=== PATIENT | female | born 1970 | race Caucasian/White ===

== ENCOUNTER → 2017-03-30 | Outpatient (REF) | payer OTHER ==
[~2017-03-30] MED LIST: BUPR300T34 PO; MAGN400T5 PO; MELO15TA4 PO; OMEP40CA2 PO; SIMV40TA2 PO; VITA50003 PO; ZEST1TAB2 PO
[2017-03-30 12:14] LABS: BLOOD UREA NITROGEN 15 MG/DL (7-18); CREATININE FOR GFR 0.75 MG/DL (0.55-1.02); GLOMERULAR FILTRATION RATE > 60.0 (>58)
== END ==
LOC: M LABDRAW1 11:36
PROVIDERS: ATTEND Physician Assistant Surgical
DX: M70.61 Trochanteric bursitis, right hip (principal)

== ENCOUNTER → 2017-04-12 | Outpatient (REF) | payer OTHER ==
[2017-04-12 14:21] LABS: BASO % 0.2 % (0.0-1.0); EOS % 0.4 % (0.0-3.0); LARGE UNSTAINED CELL # 0.1 K/mm3 (0.0-0.4); LARGE UNSTAINED CELL % 1.2 % (0.0-4.0); LYMPH # 1.9 K/mm3 (1.5-4.5); LYMPH % 21.9 % (24.0-44.0); MEAN CORPUSCULAR HGB CONC 32.8 g/dl (32.0-36.5); MEAN CORPUSCULAR VOLUME 85.4 fl (80.0-96.0); MONO # 0.4 K/mm3 (0.0-0.8); MONO % 4.9 % (0.0-5.0); NEUTROPHILS # 6.1 K/mm3 (1.8-7.7); NEUTROPHILS % 71.4 % (36.0-66.0); PLATELET COUNT, AUTOMATED 216 k/mm3 (150-450); RED CELL DISTRIBUTION WIDTH 15.4 % (11.5-14.5); WHITE BLOOD COUNT 8.6 K/mm3 (4.0-10.0)
[2017-04-12 14:48] LABS: ERYTHROCYTE SEDIMENTATION RATE 8 mm/hr (0-20)
[2017-04-12 15:12] LABS: GLUCOSE, FASTING 86 MG/DL (70-105); TOTAL PROTEIN 6.4 GM/DL (6.4-8.2); URIC ACID 4.9 MG/DL (2.6-6.0)
[2017-04-13 11:56] LABS: ALBUMIN 3.99 GM/DL (3.29-5.55); ALBUMIN % 62.4 % (55.8-66.1); GAMMA GLOBULIN % 10.7 % (11.1-18.8)
[2017-04-13 14:18] LABS: Lyme Disease IgG/IgM Antibodie <0.91 ISR (0.00-0.90); Lyme Disease IgM Ab Quantitati <0.80 index (0.00-0.79)
== END ==
LOC: M LABDRAW1 13:02
PROVIDERS: ATTEND Physician Assistant Surgical
DX: M17.0 Bilateral primary osteoarthritis of knee (principal)

== ENCOUNTER → 2017-07-03 | Outpatient (REF) | payer OTHER ==
[~2017-07-03] MED LIST changes: +VITA1CAP40 PO; -VITA50003 PO
[2017-07-03 11:45] LABS: BASO % 0.3 % (0.0-1.0); EOS # 0.1 K/mm3 (0.0-0.50); EOS % 1.2 % (0.0-3.0); LARGE UNSTAINED CELL % 0.7 % (0.0-4.0); LYMPH # 1.1 K/mm3 (1.5-4.5); LYMPH % 20.6 % (24.0-44.0); MEAN CORPUSCULAR HEMOGLOBIN 26.7 pg (27.0-33.0); MEAN CORPUSCULAR HGB CONC 33.2 g/dl (32.0-36.5); MEAN CORPUSCULAR VOLUME 80.5 fl (80.0-96.0); MONO # 0.2 K/mm3 (0.0-0.8); MONO % 4.3 % (0.0-5.0); NEUTROPHILS # 3.9 K/mm3 (1.8-7.7); NEUTROPHILS % 72.9 % (36.0-66.0); PLATELET COUNT, AUTOMATED 209 k/mm3 (150-450); RED CELL DISTRIBUTION WIDTH 13.6 % (11.5-14.5); WHITE BLOOD COUNT 5.4 K/mm3 (4.0-10.0)
[2017-07-03 12:03] LABS: ALBUMIN 3.9 GM/DL (3.2-5.2); ALBUMIN/GLOBULIN RATIO 1.34 (1.00-1.93); ALKALINE PHOSPHATASE 52 U/L (45-117); ALT/SGPT 24 U/L (12-78); ANION GAP 12 MEQ/L (8-16); AST/SGOT 15 U/L (15-37); BILIRUBIN,TOTAL 0.4 MG/DL (0.2-1.0); BLOOD UREA NITROGEN 13 MG/DL (7-18); CALCIUM LEVEL 9.1 MG/DL (8.5-10.1); CARBON DIOXIDE LEVEL 23 MEQ/L (21-32); CHLORIDE LEVEL 105 MEQ/L (98-107); CREATININE FOR GFR 0.85 MG/DL (0.55-1.02); GLOMERULAR FILTRATION RATE > 60.0 (>58); GLUCOSE, FASTING 128 MG/DL (70-105); POTASSIUM SERUM 3.8 MEQ/L (3.5-5.1); SODIUM LEVEL 140 MEQ/L (136-145); TOTAL PROTEIN 6.8 GM/DL (6.4-8.2)
[2017-07-03 12:23] LABS: ERYTHROCYTE SEDIMENTATION RATE 8 mm/hr (0-20)
[2017-07-04 12:26] LABS: ALBUMIN 4.22 GM/DL (3.29-5.55); ALBUMIN % 62.1 % (55.8-66.1); GAMMA GLOBULIN % 11.6 % (11.1-18.8)
== END ==
LOC: M LABDRAW1 07:58
PROVIDERS: ATTEND Internal Medicine Rheumatology
DX: M35.9 Systemic involvement of connective tissue, unspecified (principal); D50.0 Iron deficiency anemia secondary to blood loss (chronic); Z79.899 Other long term (current) drug therapy

== ENCOUNTER → 2017-07-04 | Outpatient (REF) | payer OTHER | LOC: M LABDRAW1 12:01 | PROVIDERS: ATTEND Internal Medicine Rheumatology | DX: M35.9 Systemic involvement of connective tissue, unspecified (principal); Z79.899 Other long term (current) drug therapy; D50.0 Iron deficiency anemia secondary to blood loss (chronic) ==

== ENCOUNTER → 2017-09-15 | Outpatient (CLI) | payer OTHER ==
[2017-09-15 11:18] LABS: BASO % 0.3 % (0.0-1.0); EOS # 0.1 10^3/uL (0.0-0.50); EOS % 0.8 % (0.0-3.0); IMMATURE GRANULOCYTE % 0.4 % (0-0); LYMPH # 1.7 10^3/uL (1.5-4.5); LYMPH % 22.6 % (24.0-44.0); MEAN CORPUSCULAR HEMOGLOBIN 25.3 pg (27.0-33.0); MEAN CORPUSCULAR HGB CONC 31.7 g/dl (32.0-36.5); MEAN CORPUSCULAR VOLUME 79.9 fl (80.0-96.0); MONO # 0.5 10^3/uL (0.0-0.8); MONO % 6.3 % (0.0-5.0); NEUTROPHILS # 5.3 10^3/uL (1.8-7.7); NEUTROPHILS % 69.6 % (36.0-66.0); PLATELET COUNT, AUTOMATED 256 10^3/uL (150-450); RED CELL DISTRIBUTION WIDTH 14.6 % (11.5-14.5); WHITE BLOOD COUNT 7.7 10^3/uL (4.0-10.0)
[2017-09-15 11:44] LABS: ALBUMIN 3.8 GM/DL (3.2-5.2); ALBUMIN/GLOBULIN RATIO 1.15 (1.00-1.93); ALKALINE PHOSPHATASE 63 U/L (45-117); ALT/SGPT 33 U/L (12-78); ANION GAP 8 MEQ/L (8-16); AST/SGOT 14 U/L (7-37); BILIRUBIN,TOTAL 0.3 MG/DL (0.2-1.0); BLOOD UREA NITROGEN 16 MG/DL (7-18); CALCIUM LEVEL 8.9 MG/DL (8.5-10.1); CARBON DIOXIDE LEVEL 28 MEQ/L (21-32); CHLORIDE LEVEL 104 MEQ/L (98-107); CHOLESTEROL LEVEL 233 MG/DL (<200); CREATININE FOR GFR 0.64 MG/DL (0.55-1.02); FREE T4 1.16 NG/DL (0.76-1.46); GLOMERULAR FILTRATION RATE > 60.0 (>58); GLUCOSE, FASTING 77 MG/DL (70-105); POTASSIUM SERUM 3.8 MEQ/L (3.5-5.1); SODIUM LEVEL 140 MEQ/L (136-145); TOTAL PROTEIN 7.1 GM/DL (6.4-8.2); TRIGLYCERIDES LEVEL 137 MG/DL (<150)
== END ==
LOC: M LAB 10:45
PROVIDERS: ATTEND Nurse Practitioner Adult Health
DX: E55.9 Vitamin D deficiency, unspecified (principal); E78.00 Pure hypercholesterolemia, unspecified; Z79.899 Other long term (current) drug therapy

== ENCOUNTER → 2017-10-31 | Outpatient (CLI) | payer OTHER | LOC: M RAD 12:21 | DX: M79.671 Pain in right foot (principal) | CPT/HCPCS: 73630 ==

== ENCOUNTER → 2018-05-27 | Outpatient (REF) ==
[2018-05-29 09:06] LABS: HERPES ZOSTER, VARICELLA IgG 494 index (Immune >165)
== END ==
LOC: M LAB 16:32
DX: Z00.00 Encounter for general adult medical examination without abnormal findings (principal)

== ENCOUNTER → 2018-07-22 | Outpatient (CLI) | payer OTHER, SELFPAY ==
[2018-07-22 17:53] LABS: BASO % 0.5 % (0.0-1.0); EOS # 0.1 10^3/uL (0.0-0.50); EOS % 1.2 % (0.0-3.0); HEMATOCRIT 34.9 % (36.0-47.0); HEMOGLOBIN 11.6 g/dl (12.0-15.5); IMMATURE GRANULOCYTE % 0.4 % (0-3.0); LYMPH # 1.9 10^3/uL (1.5-4.5); MEAN CORPUSCULAR HGB CONC 33.2 g/dl (32.0-36.5); MEAN CORPUSCULAR VOLUME 81.4 fl (80.0-96.0); MONO # 0.4 10^3/uL (0.0-0.8); MONO % 5.3 % (0.0-5.0); NEUTROPHILS # 5.8 10^3/uL (1.8-7.7); NEUTROPHILS % 69.6 % (36.0-66.0); PLATELET COUNT, AUTOMATED 293 10^3/uL (150-450); RED BLOOD COUNT 4.29 10^6/uL (4.00-5.40); RED CELL DISTRIBUTION WIDTH 14.3 % (11.5-14.5); WHITE BLOOD COUNT 8.3 10^3/uL (4.0-10.0)
[2018-07-22 19:08] LABS: ALBUMIN/GLOBULIN RATIO 1.14 (1.00-1.93); ALKALINE PHOSPHATASE 85 U/L (45-117); ALT/SGPT 28 U/L (12-78); ANION GAP 10 MEQ/L (8-16); AST/SGOT 21 U/L (7-37); BILIRUBIN,TOTAL 0.2 MG/DL (0.2-1.0); BLOOD UREA NITROGEN 17 MG/DL (7-18); CALCIUM LEVEL 9.2 MG/DL (8.5-10.1); CARBON DIOXIDE LEVEL 29 MEQ/L (21-32); CHLORIDE LEVEL 101 MEQ/L (98-107); CHOLESTEROL LEVEL 175 MG/DL (<200); CHOLESTEROL RISK RATIO 3.723 (<5); CREATININE FOR GFR 0.64 MG/DL (0.55-1.30); GLOMERULAR FILTRATION RATE > 60.0 (>58); GLUCOSE, FASTING 82 MG/DL (70-100); HDL CHOLESTEROL 47 MG/DL (>40); LDL CHOLESTEROL 95 MG/DL (<100); NON-HDL-C 128 MG/DL; POTASSIUM SERUM 3.6 MEQ/L (3.5-5.1); SODIUM LEVEL 140 MEQ/L (136-145); TOTAL 25(OH) VITAMIN D 28.6 NG/ML (30.0-100.0); TOTAL PROTEIN 7.5 GM/DL (6.4-8.2); TRIGLYCERIDES LEVEL 163 MG/DL (<150)
== END ==
LOC: M LAB 16:22
DX: R53.83 Other fatigue (principal); I10 Essential (primary) hypertension; E78.2 Mixed hyperlipidemia; E55.9 Vitamin D deficiency, unspecified
CPT/HCPCS: 84443

== ENCOUNTER → 2018-11-22 | Outpatient (CLI) | payer BC ==
[~2018-11-22] MED LIST changes: +MELO15TA28 PO; -MELO15TA4 PO; -VITA1CAP40 PO; +VITA50005 PO
[2018-11-22 11:04] LABS: BASO % 0.4 % (0.0-1.0); EOS # 0.1 10^3/uL (0.0-0.50); EOS % 1.4 % (0.0-3.0); HEMATOCRIT 37.6 % (36.0-47.0); HEMOGLOBIN 12.3 g/dl (12.0-15.5); LYMPH # 1.8 10^3/uL (1.5-4.5); LYMPH % 25.8 % (24.0-44.0); MEAN CORPUSCULAR HEMOGLOBIN 26.1 pg (27.0-33.0); MEAN CORPUSCULAR HGB CONC 32.7 g/dl (32.0-36.5); MEAN CORPUSCULAR VOLUME 79.7 fl (80.0-96.0); MONO # 0.4 10^3/uL (0.0-0.8); MONO % 5.9 % (0.0-5.0); NEUTROPHILS # 4.6 10^3/uL (1.8-7.7); NEUTROPHILS % 66.2 % (36.0-66.0); PLATELET COUNT, AUTOMATED 303 10^3/uL (150-450); RED BLOOD COUNT 4.72 10^6/uL (4.00-5.40); WHITE BLOOD COUNT 6.9 10^3/uL (4.0-10.0)
[2018-11-22 11:35] LABS: ERYTHROCYTE SEDIMENTATION RATE 9 mm/hr (0-20)
[2018-11-22 11:52] LABS: C REACTIVE PROTEIN QUANTITATIV 0.31 MG/DL (0.00-0.30); RHEUMATOID FACTOR QUANT 24.4 IU/ML (<15.0)
[2018-11-23 10:11] LABS: ANTINUCLEAR ANTIBODIES DIRECT Negative (Negative)
== END ==
LOC: M LAB 10:27
PROVIDERS: ATTEND Physician Assistant Medical
DX: M25.549 Pain in joints of unspecified hand (principal)

== ENCOUNTER → 2018-12-10 | Outpatient (CLI) | payer BC ==
[2018-12-10 17:42] LABS: ALT/SGPT 27 U/L (12-78); BILIRUBIN,TOTAL 0.2 MG/DL (0.2-1.0); BLOOD UREA NITROGEN 16 MG/DL (7-18); C REACTIVE PROTEIN QUANTITATIV 0.47 MG/DL (0.00-0.30); CALCIUM LEVEL 8.8 MG/DL (8.5-10.1); CARBON DIOXIDE LEVEL 27 MEQ/L (21-32); CHLORIDE LEVEL 101 MEQ/L (98-107); CREATININE FOR GFR 0.72 MG/DL (0.55-1.30); GLOMERULAR FILTRATION RATE > 60.0 (>58); GLUCOSE, FASTING 89 MG/DL (70-100); POTASSIUM SERUM 3.6 MEQ/L (3.5-5.1); SODIUM LEVEL 135 MEQ/L (136-145); TOTAL PROTEIN 7.1 GM/DL (6.4-8.2); URIC ACID 4.5 MG/DL (2.6-6.0)
--- NOTE | 2018-12-11 00:24 | REP ---
Clinical: Arthritis. Technique: AP, lateral, bilateral oblique views right and left hand . Findings: Mild osteoarthritic degenerative changes involve the bilateral interphalangeal joints and first metacarpophalangeal joints. Findings include subtle joint space narrowing and marginal spurring best identified on lateral radiographs. No periarticular erosive changes, loose bodies or swelling noted. No acute fracture dislocation. Impression: Mild osteoarthritic changes at the bilateral interphalangeal and first metacarpophalangeal joints. Electronically Signed by Luis Tineo MD 12/11/2018 12:15 A
--- NOTE | 2018-12-11 00:26 | REP ---
Clinical: Arthritis. Technique: AP, lateral, bilateral oblique views of the left foot. Findings: Minimal joint space narrowing noted at the interphalangeal joints. Mild sclerosis with joint space narrowing noted at the first metatarsophalangeal joint. Lateral view demonstrates moderate calcaneal heal spur. Pes planus suggested. Impression: Mild age-related changes suggested. Electronically Signed by Luis Tineo MD 12/11/2018 12:17 A
--- NOTE | 2018-12-11 00:27 | REP ---
Clinical: Arthritis. Technique: AP, lateral, bilateral oblique and sunrise views of the right knee. Findings: Mild marginal spurring/early osteophyte formation noted along the medial femoral condyle and tibial plateau. Moderate subchondral sclerosis, marginal osteophytes and joint space narrowing noted at the patella and patellofemoral joint space. No acute fracture or dislocation. No obvious effusion. Impression: Moderate arthritic degenerative changes primarily involving the patella and patellofemoral joint space. Electronically Signed by Luis Tineo MD 12/11/2018 12:18 A
--- NOTE | 2018-12-11 00:30 | REP ---
Clinical: Arthritis. Technique: Single AP weightbearing view of the right and left knee. Findings: Right knee demonstrates subtle spurring/early osteophyte formation at the medial femoral condyle and along the lateral tibial plateau. The joint spaces are symmetric and relatively normal. Impression: Mild age-related changes (right greater than left). Electronically Signed by Luis Tineo MD 12/11/2018 12:21 A
[2018-12-13 00:07] LABS: CYCLIC CITRULLINATED PEPTIDE 6 units (0-19)
[2018-12-16 14:16] LABS: HLA-B27 Negative (.)
== END ==
LOC: M LAB 15:45
PROVIDERS: ATTEND Internal Medicine Rheumatology
DX: M17.0 Bilateral primary osteoarthritis of knee (principal); M19.041 Primary osteoarthritis, right hand; M19.042 Primary osteoarthritis, left hand

== ENCOUNTER → 2018-12-18 | Outpatient (REF) | payer BC ==
[2018-12-18 14:23] LABS: INFLUENZA A AMPLIFICATION POSITIVE (NEGATIVE); INFLUENZA B AMPLIFICATION NEGATIVE (NEGATIVE)
== END ==
LOC: M LAB REF 13:35
PROVIDERS: ATTEND Physician Assistant
DX: J11.1 Influenza due to unidentified influenza virus with other respiratory manifestations (principal)

== ENCOUNTER → 2019-01-30 | Outpatient (CLI) | payer BC ==
[2019-01-30 09:45] LABS: BASO % 0.3 % (0.0-1.0); EOS # 0.1 10^3/uL (0.0-0.50); EOS % 1.7 % (0.0-3.0); HEMATOCRIT 34.6 % (36.0-47.0); HEMOGLOBIN 11.4 g/dl (12.0-15.5); LYMPH # 1.5 10^3/uL (1.5-4.5); LYMPH % 22.8 % (24.0-44.0); MEAN CORPUSCULAR HEMOGLOBIN 26.6 pg (27.0-33.0); MEAN CORPUSCULAR HGB CONC 32.9 g/dl (32.0-36.5); MEAN CORPUSCULAR VOLUME 80.7 fl (80.0-96.0); MONO # 0.5 10^3/uL (0.0-0.8); MONO % 7.8 % (0.0-5.0); NEUTROPHILS # 4.3 10^3/uL (1.8-7.7); NEUTROPHILS % 66.9 % (36.0-66.0); PLATELET COUNT, AUTOMATED 252 10^3/uL (150-450); RED BLOOD COUNT 4.29 10^6/uL (4.00-5.40); WHITE BLOOD COUNT 6.4 10^3/uL (4.0-10.0)
[2019-01-30 09:58] LABS: ALBUMIN 3.9 GM/DL (3.2-5.2); ALT/SGPT 27 U/L (12-78); BILIRUBIN,TOTAL 0.3 MG/DL (0.2-1.0); BLOOD UREA NITROGEN 13 MG/DL (7-18); C REACTIVE PROTEIN QUANTITATIV 0.54 MG/DL (0.00-0.30); CARBON DIOXIDE LEVEL 29 MEQ/L (21-32); CHLORIDE LEVEL 103 MEQ/L (98-107); CREATININE FOR GFR 0.66 MG/DL (0.55-1.30); GLOMERULAR FILTRATION RATE > 60.0 (>58); GLUCOSE, FASTING 104 MG/DL (70-100); POTASSIUM SERUM 3.6 MEQ/L (3.5-5.1); SODIUM LEVEL 140 MEQ/L (136-145); TOTAL PROTEIN 6.8 GM/DL (6.4-8.2)
[2019-01-30 10:04] LABS: ERYTHROCYTE SEDIMENTATION RATE 12 mm/hr (0-20)
== END ==
LOC: M LAB 08:12
PROVIDERS: ATTEND Internal Medicine Rheumatology
DX: M05.79 Rheumatoid arthritis with rheumatoid factor of multiple sites without organ or systems involvement (principal)

== ENCOUNTER → 2019-03-06 | Outpatient (REF) | payer BC ==
[2019-03-06 13:36] LABS: BASO % 0.4 % (0.0-1.0); EOS # 0.1 10^3/uL (0.0-0.50); EOS % 1.5 % (0.0-3.0); LYMPH # 1.4 10^3/uL (1.5-4.5); LYMPH % 19.8 % (24.0-44.0); MEAN CORPUSCULAR HEMOGLOBIN 26.8 pg (27.0-33.0); MEAN CORPUSCULAR HGB CONC 32.4 g/dl (32.0-36.5); MEAN CORPUSCULAR VOLUME 82.8 fl (80.0-96.0); MONO # 0.4 10^3/uL (0.0-0.8); MONO % 5.1 % (0.0-5.0); NEUTROPHILS % 73.1 % (36.0-66.0); PLATELET COUNT, AUTOMATED 285 10^3/uL (150-450); RED BLOOD COUNT 4.47 10^6/uL (4.00-5.40); WHITE BLOOD COUNT 6.9 10^3/uL (4.0-10.0)
[2019-03-06 13:44] LABS: ALBUMIN 4.2 GM/DL (3.2-5.2); ALT/SGPT 35 U/L (12-78); BILIRUBIN,TOTAL 0.3 MG/DL (0.2-1.0); BLOOD UREA NITROGEN 13 MG/DL (7-18); C REACTIVE PROTEIN QUANTITATIV 0.33 MG/DL (0.00-0.30); CALCIUM LEVEL 9.1 MG/DL (8.5-10.1); CARBON DIOXIDE LEVEL 28 MEQ/L (21-32); CHLORIDE LEVEL 103 MEQ/L (98-107); CREATININE FOR GFR 0.68 MG/DL (0.55-1.30); GLOMERULAR FILTRATION RATE > 60.0 (>58); GLUCOSE, FASTING 106 MG/DL (70-100); POTASSIUM SERUM 3.6 MEQ/L (3.5-5.1); SODIUM LEVEL 138 MEQ/L (136-145); TOTAL PROTEIN 7.1 GM/DL (6.4-8.2)
[2019-03-06 14:47] LABS: ERYTHROCYTE SEDIMENTATION RATE 10 mm/hr (0-20)
== END ==
LOC: M LABDRAW1 12:19
PROVIDERS: ATTEND Internal Medicine Rheumatology
DX: M05.79 Rheumatoid arthritis with rheumatoid factor of multiple sites without organ or systems involvement (principal)

== ENCOUNTER → 2019-04-03 | Outpatient (REF) | payer BC ==
[2019-04-03 10:23] LABS: BASO % 0.4 % (0.0-1.0); EOS # 0.1 10^3/uL (0.0-0.50); EOS % 1.5 % (0.0-3.0); HEMATOCRIT 34.9 % (36.0-47.0); HEMOGLOBIN 11.6 g/dl (12.0-15.5); LYMPH # 1.4 10^3/uL (1.5-4.5); LYMPH % 20.5 % (24.0-44.0); MEAN CORPUSCULAR HGB CONC 33.2 g/dl (32.0-36.5); MEAN CORPUSCULAR VOLUME 81.4 fl (80.0-96.0); MONO # 0.3 10^3/uL (0.0-0.8); NEUTROPHILS # 4.9 10^3/uL (1.8-7.7); NEUTROPHILS % 72.2 % (36.0-66.0); PLATELET COUNT, AUTOMATED 247 10^3/uL (150-450); RED BLOOD COUNT 4.29 10^6/uL (4.00-5.40); WHITE BLOOD COUNT 6.8 10^3/uL (4.0-10.0)
[2019-04-03 10:49] LABS: ERYTHROCYTE SEDIMENTATION RATE 13 mm/hr (0-20)
[2019-04-03 10:54] LABS: ALBUMIN 4.1 GM/DL (3.2-5.2); ALT/SGPT 35 U/L (12-78); BILIRUBIN,TOTAL 0.4 MG/DL (0.2-1.0); BLOOD UREA NITROGEN 14 MG/DL (7-18); C REACTIVE PROTEIN QUANTITATIV 0.49 MG/DL (0.00-0.30); CALCIUM LEVEL 9.3 MG/DL (8.5-10.1); CARBON DIOXIDE LEVEL 29 MEQ/L (21-32); CHLORIDE LEVEL 102 MEQ/L (98-107); CREATININE FOR GFR 0.68 MG/DL (0.55-1.30); GLOMERULAR FILTRATION RATE > 60.0 (>58); GLUCOSE, FASTING 91 MG/DL (70-100); POTASSIUM SERUM 3.7 MEQ/L (3.5-5.1); SODIUM LEVEL 138 MEQ/L (136-145); TOTAL PROTEIN 7.1 GM/DL (6.4-8.2)
[2019-04-04 12:32] LABS: HEPATITIS B SURFACE ANTIBODY NEGATIVE (POSITIVE)
[2019-04-04 12:42] LABS: HEPATITIS B SURFACE ANTIGEN NEGATIVE (NEGATIVE)
[2019-04-04 14:28] LABS: HEPATITIS C VIRUS ABY INDEX < 0.0 INDEX (<0.8)
== END ==
LOC: M SFHCPLAZ 08:28
PROVIDERS: ATTEND Internal Medicine Rheumatology
DX: M05.79 Rheumatoid arthritis with rheumatoid factor of multiple sites without organ or systems involvement (principal); Z79.899 Other long term (current) drug therapy

== ENCOUNTER → 2019-06-09 | Outpatient (CLI) | payer BC ==
[2019-06-09 08:37] LABS: BASO # 0.1 10^3/uL (0.0-0.2); BASO % 0.8 % (0.0-1.0); EOS # 0.1 10^3/uL (0.0-0.50); EOS % 2.2 % (0.0-3.0); HEMATOCRIT 37.4 % (36.0-47.0); HEMOGLOBIN 12.5 g/dl (12.0-15.5); LYMPH # 1.7 10^3/uL (1.5-4.5); LYMPH % 29.1 % (24.0-44.0); MEAN CORPUSCULAR HEMOGLOBIN 28.6 pg (27.0-33.0); MEAN CORPUSCULAR HGB CONC 33.4 g/dl (32.0-36.5); MEAN CORPUSCULAR VOLUME 85.6 fl (80.0-96.0); MONO # 0.5 10^3/uL (0.0-0.8); MONO % 7.9 % (0.0-5.0); NEUTROPHILS # 3.6 10^3/uL (1.8-7.7); NEUTROPHILS % 59.7 % (36.0-66.0); PLATELET COUNT, AUTOMATED 233 10^3/uL (150-450); RED BLOOD COUNT 4.37 10^6/uL (4.00-5.40)
[2019-06-09 08:56] LABS: ALBUMIN 4.1 GM/DL (3.2-5.2); ALT/SGPT 47 U/L (12-78); BILIRUBIN,TOTAL 0.3 MG/DL (0.2-1.0); BLOOD UREA NITROGEN 14 MG/DL (7-18); CALCIUM LEVEL 9.2 MG/DL (8.5-10.1); CARBON DIOXIDE LEVEL 31 MEQ/L (21-32); CHLORIDE LEVEL 102 MEQ/L (98-107); CREATININE FOR GFR 0.68 MG/DL (0.55-1.30); GLOMERULAR FILTRATION RATE > 60.0 (>58); GLUCOSE, FASTING 101 MG/DL (70-100); POTASSIUM SERUM 3.5 MEQ/L (3.5-5.1); SODIUM LEVEL 140 MEQ/L (136-145); TOTAL PROTEIN 7.2 GM/DL (6.4-8.2)
[2019-06-09 09:14] LABS: ERYTHROCYTE SEDIMENTATION RATE 7 mm/hr (0-20)
== END ==
LOC: M LAB 07:56
PROVIDERS: ATTEND Internal Medicine Rheumatology
DX: M05.79 Rheumatoid arthritis with rheumatoid factor of multiple sites without organ or systems involvement (principal)

== ENCOUNTER → 2019-11-13 | Outpatient (CLI) | payer BC ==
[~2019-11-13] MED LIST changes: -OMEP40CA2 PO; +OMEP40CA97 PO; -SIMV40TA2 PO; +SIMV40TA20 PO
[2019-11-13 16:09] LABS: BASO % 0.3 % (0.0-1.0); EOS # 0.2 10^3/uL (0.0-0.5); EOS % 1.6 % (0.0-3.0); HEMATOCRIT 36.8 % (36.0-47.0); HEMOGLOBIN 12.6 g/dl (12.0-15.5); LYMPH # 1.9 10^3/uL (1.5-5.0); LYMPH % 20.7 % (24.0-44.0); MEAN CORPUSCULAR HEMOGLOBIN 30.3 pg (27.0-33.0); MEAN CORPUSCULAR HGB CONC 34.2 g/dl (32.0-36.5); MEAN CORPUSCULAR VOLUME 88.5 fl (80.0-96.0); MONO # 0.6 10^3/uL (0.0-0.8); MONO % 6.3 % (0.0-5.0); NEUTROPHILS # 6.5 10^3/uL (1.5-8.5); NEUTROPHILS % 70.7 % (36.0-66.0); PLATELET COUNT, AUTOMATED 236 10^3/uL (150-450); RED BLOOD COUNT 4.16 10^6/uL (4.00-5.40); WHITE BLOOD COUNT 9.1 10^3/uL (4.0-10.0)
[2019-11-13 16:40] LABS: ALBUMIN 4.1 GM/DL (3.2-5.2); ALT/SGPT 38 U/L (12-78); BILIRUBIN,TOTAL 0.3 MG/DL (0.2-1.0); BLOOD UREA NITROGEN 15 MG/DL (7-18); C REACTIVE PROTEIN QUANTITATIV 0.68 MG/DL (0.00-0.30); CALCIUM LEVEL 8.8 MG/DL (8.5-10.1); CARBON DIOXIDE LEVEL 27 MEQ/L (21-32); CHLORIDE LEVEL 101 MEQ/L (98-107); GLOMERULAR FILTRATION RATE > 60.0 (>51); GLUCOSE, FASTING 114 MG/DL (70-100); POTASSIUM SERUM 3.5 MEQ/L (3.5-5.1); SODIUM LEVEL 137 MEQ/L (136-145)
[2019-11-13 17:00] LABS: ERYTHROCYTE SEDIMENTATION RATE 9 mm/hr (0-30)
== END ==
LOC: M LAB 15:21
PROVIDERS: ATTEND Internal Medicine
DX: M05.79 Rheumatoid arthritis with rheumatoid factor of multiple sites without organ or systems involvement (principal)

== ENCOUNTER → 2020-01-30 | Outpatient (CLI) | payer BC ==
[~2020-01-30] MED LIST changes: -BUPR300T34 PO; +BUPR300T92 PO
[2020-01-30 10:54] LABS: ALBUMIN 3.7 GM/DL (3.2-5.2); ALT/SGPT 50 U/L (12-78); BILIRUBIN,TOTAL 0.4 MG/DL (0.2-1.0); BLOOD UREA NITROGEN 11 MG/DL (7-18); C REACTIVE PROTEIN QUANTITATIV 0.67 MG/DL (0.00-0.30); CARBON DIOXIDE LEVEL 28 MEQ/L (21-32); CHLORIDE LEVEL 103 MEQ/L (98-107); CREATININE FOR GFR 0.68 MG/DL (0.55-1.30); GLOMERULAR FILTRATION RATE > 60.0 (>51); GLUCOSE, FASTING 137 MG/DL (70-100); POTASSIUM SERUM 3.4 MEQ/L (3.5-5.1); SODIUM LEVEL 137 MEQ/L (136-145)
[2020-01-30 11:28] LABS: BASO % 0.4 % (0.0-1.0); EOS # 0.1 10^3/uL (0.0-0.5); EOS % 0.9 % (0.0-3.0); HEMATOCRIT 38.8 % (36.0-47.0); HEMOGLOBIN 13.1 g/dl (12.0-15.5); LYMPH # 1.1 10^3/uL (1.5-5.0); LYMPH % 14.5 % (24.0-44.0); MEAN CORPUSCULAR HGB CONC 33.8 g/dl (32.0-36.5); MEAN CORPUSCULAR VOLUME 88.8 fl (80.0-96.0); MONO # 0.4 10^3/uL (0.0-0.8); MONO % 4.7 % (0.0-5.0); NEUTROPHILS # 6.3 10^3/uL (1.5-8.5); NEUTROPHILS % 79.2 % (36.0-66.0); PLATELET COUNT, AUTOMATED 247 10^3/uL (150-450); RED BLOOD COUNT 4.37 10^6/uL (4.00-5.40); WHITE BLOOD COUNT 7.9 10^3/uL (4.0-10.0)
[2020-01-30 13:10] LABS: ERYTHROCYTE SEDIMENTATION RATE 8 mm/hr (0-30)
== END ==
LOC: M LAB 09:36
PROVIDERS: ATTEND Internal Medicine
DX: M05.79 Rheumatoid arthritis with rheumatoid factor of multiple sites without organ or systems involvement (principal)

== ENCOUNTER → 2020-05-05 | Outpatient (CLI) | payer BC ==
[2020-05-05 14:51] LABS: BASO % 0.5 % (0.0-1.0); EOS # 0.1 10^3/uL (0.0-0.5); EOS % 1.6 % (0.0-3.0); HEMATOCRIT 36.8 % (36.0-47.0); HEMOGLOBIN 12.7 g/dl (12.0-15.5); LYMPH # 2.2 10^3/uL (1.5-5.0); LYMPH % 29.4 % (24.0-44.0); MEAN CORPUSCULAR HEMOGLOBIN 31.1 pg (27.0-33.0); MEAN CORPUSCULAR HGB CONC 34.5 g/dl (32.0-36.5); MONO # 0.5 10^3/uL (0.0-0.8); MONO % 6.1 % (0.0-5.0); NEUTROPHILS # 4.5 10^3/uL (1.5-8.5); NEUTROPHILS % 62.1 % (36.0-66.0); PLATELET COUNT, AUTOMATED 231 10^3/uL (150-450); RED BLOOD COUNT 4.09 10^6/uL (4.00-5.40); WHITE BLOOD COUNT 7.3 10^3/uL (4.0-10.0)
[2020-05-05 15:09] LABS: ALBUMIN 4.1 GM/DL (3.2-5.2); ALT/SGPT 54 U/L (12-78); BILIRUBIN,TOTAL 0.5 MG/DL (0.2-1.0); BLOOD UREA NITROGEN 13 MG/DL (7-18); C REACTIVE PROTEIN QUANTITATIV 0.36 MG/DL (0.00-0.30); CALCIUM LEVEL 9.2 MG/DL (8.5-10.1); CARBON DIOXIDE LEVEL 29 MEQ/L (21-32); CHLORIDE LEVEL 102 MEQ/L (98-107); CREATININE FOR GFR 0.68 MG/DL (0.55-1.30); GLOMERULAR FILTRATION RATE > 60.0 (>51); GLUCOSE, FASTING 114 MG/DL (70-100); POTASSIUM SERUM 3.3 MEQ/L (3.5-5.1); SODIUM LEVEL 136 MEQ/L (136-145); TOTAL PROTEIN 7.2 GM/DL (6.4-8.2)
[2020-05-05 15:15] LABS: ERYTHROCYTE SEDIMENTATION RATE 9 mm/hr (0-30)
== END ==
LOC: M LAB 14:10
PROVIDERS: ATTEND Internal Medicine
DX: M05.79 Rheumatoid arthritis with rheumatoid factor of multiple sites without organ or systems involvement (principal)

== ENCOUNTER → 2020-05-17 | Outpatient (CLI) | payer BC ==
[2020-05-17 16:07] LABS: HEPATITIS B SURFACE ANTIGEN NEGATIVE (NEGATIVE); HEPATITIS C VIRUS ABY INDEX 0.1 INDEX (<0.8)
[2020-05-20 09:08] LABS: HEPATITIS B CORE ANTIBODY IGG Negative (Negative)
== END ==
LOC: M LAB 14:09
PROVIDERS: ATTEND Internal Medicine
DX: M05.79 Rheumatoid arthritis with rheumatoid factor of multiple sites without organ or systems involvement (principal)

== ENCOUNTER → 2020-09-23 | Outpatient (CLI) | payer BC ==
[2020-09-23 12:44] LABS: BASO % 0.3 % (0.0-1.0); EOS # 0.1 10^3/uL (0.0-0.5); EOS % 1.5 % (0.0-3.0); HEMOGLOBIN 12.4 g/dl (12.0-15.5); LYMPH # 0.9 10^3/uL (1.5-5.0); MEAN CORPUSCULAR HEMOGLOBIN 30.3 pg (27.0-33.0); MEAN CORPUSCULAR HGB CONC 33.5 g/dl (32.0-36.5); MEAN CORPUSCULAR VOLUME 90.5 fl (80.0-96.0); MONO # 0.3 10^3/uL (0.0-0.8); MONO % 5.5 % (0.0-5.0); NEUTROPHILS # 4.6 10^3/uL (1.5-8.5); NEUTROPHILS % 77.2 % (36.0-66.0); PLATELET COUNT, AUTOMATED 214 10^3/uL (150-450); RED BLOOD COUNT 4.09 10^6/uL (4.00-5.40)
[2020-09-23 12:55] LABS: ALT/SGPT 61 U/L (12-78); BILIRUBIN,TOTAL 0.4 MG/DL (0.2-1.0); BLOOD UREA NITROGEN 13 MG/DL (7-18); CALCIUM LEVEL 9.1 MG/DL (8.5-10.1); CARBON DIOXIDE LEVEL 28 MEQ/L (21-32); CHLORIDE LEVEL 105 MEQ/L (98-107); CREATININE FOR GFR 0.73 MG/DL (0.55-1.30); GLOMERULAR FILTRATION RATE > 60.0 (>51); GLUCOSE, FASTING 105 MG/DL (70-100); POTASSIUM SERUM 3.8 MEQ/L (3.5-5.1); SODIUM LEVEL 138 MEQ/L (136-145); TOTAL PROTEIN 6.9 GM/DL (6.4-8.2)
[2020-09-23 13:15] LABS: ERYTHROCYTE SEDIMENTATION RATE 8 mm/hr (0-30)
== END ==
LOC: M LAB 11:52
PROVIDERS: ATTEND Internal Medicine
DX: M05.79 Rheumatoid arthritis with rheumatoid factor of multiple sites without organ or systems involvement (principal)

== ENCOUNTER 2020-10-05 08:24 | Outpatient (CLI) | payer BC ==
[~2020-10-05] VITALS: Ht 160 cm; Wt 101.1 kg
[2020-10-05] VITALS (7 sets, daily range): BP systolic 120–147; BP diastolic 56–68
[~2020-10-05 08:24] MED LIST changes: +ALBUTEROL SULFATE 2.5 MG/0.5 ML INH NEB SOLN INH PRN; +EPINEPHrine INJ 1 MG/ML 1ML AMP IM PRN; +diphenhydrAMINE 50MG/ML VIAL (J1200) IV PRN; +methylPREDNISolone 125MG 2ML VIAL IV PRN
[2020-10-05] MEDS ORDERED: diphenhydrAMINE 25MG CAP PO ONE (08:30)
[2020-10-05] MEDS ORDERED: ACETAMINOPHEN TAB 650MG DOSE (2X325MG) PO ONE (08:30)
[2020-10-05] MEDS ORDERED: INFLIXIMAB BIOSIMILAR 300 MG in NS 220 ML IV ONE (08:30)
[2020-10-05] MEDS ORDERED: WELL200T PO (09:03)
[2020-10-05] MEDS ORDERED: INFL100I IV (09:03)
[2020-10-05] MEDS ORDERED: FOLI400T PO (09:20)
[2020-10-05] MEDS ORDERED: LOSA100T50 PO (09:20)
[2020-10-05] MEDS ORDERED: PRED5PAK PO (09:20)
[2020-10-05] MEDS ORDERED: HYDR12.55 PO (09:20)
== END 2020-10-05 11:55 | disposition home or self-care (01) ==
LOC: M INFU 08:24
PROVIDERS: ATTEND Internal Medicine
DX: M05.79 Rheumatoid arthritis with rheumatoid factor of multiple sites without organ or systems involvement (principal); Z88.2 Allergy status to sulfonamides
CPT/HCPCS: 96365; 96366; Q5103

== ENCOUNTER → 2020-10-13 | Outpatient (CLI) | payer BC ==
[~2020-10-13] MED LIST changes: -ALBUTEROL SULFATE 2.5 MG/0.5 ML INH NEB SOLN INH PRN; -EPINEPHrine INJ 1 MG/ML 1ML AMP IM PRN; +FOLI400T PO; +HYDR12.55 PO; +INFL100I IV; +LOSA100T50 PO; +PRED5PAK PO; +WELL200T PO; -diphenhydrAMINE 50MG/ML VIAL (J1200) IV PRN; -methylPREDNISolone 125MG 2ML VIAL IV PRN
--- NOTE | 2020-10-13 16:59 | REP ---
INDICATION: PAIN IN LEFT HIP. COMPARISON: None. TECHNIQUE: AP and frogleg views. FINDINGS: Femoral head is smooth and rounded hip joint space is preserved. Periarticular soft tissues are unremarkable. There is some tendon insertion site spurring on the greater trochanter. There is mild degenerative sclerosis of the SI joints and of the symphysis pubis. No acute bony abnormality. IMPRESSION: Tendon insertion spurring on the greater trochanter. Mild sclerosis at the symphysis pubis and SI joints. Otherwise negative. <Electronically signed by Sha Haney > 10/13/20 [id number]
== END ==
LOC: M RAD 14:28
PROVIDERS: ATTEND Internal Medicine
DX: M25.752 Osteophyte, left hip (principal); M25.552 Pain in left hip; M51.34 Other intervertebral disc degeneration, thoracic region

== ENCOUNTER 2020-10-19 07:49 | Outpatient (CLI) | payer BC ==
[2020-10-19] VITALS (7 sets, daily range): BP systolic 120–142; BP diastolic 62–78
[~2020-10-19] VITALS: Ht 162.6 cm; Wt 101.1 kg
[~2020-10-19 07:49] MED LIST changes: +ALBUTEROL SULFATE 2.5 MG/0.5 ML INH NEB SOLN INH PRN; +EPINEPHrine INJ 1 MG/ML 1ML AMP IM PRN; +diphenhydrAMINE 50MG/ML VIAL (J1200) IV PRN; +methylPREDNISolone 125MG 2ML VIAL IV PRN
[2020-10-19] MEDS ORDERED: INFLIXIMAB BIOSIMILAR 300 MG in NS 220 ML IV ONE (08:00)
[2020-10-19] MEDS ORDERED: ACETAMINOPHEN 650MG PO PRIOR TO INFUSION PO ONE (08:00)
[2020-10-19] MEDS ORDERED: diphenhydrAMINE 25MG PO PRIOR TO INFUSION PO ONE (08:00)
[2020-10-19] MEDS ORDERED: NS 1,000 ML IV SCH (08:00)
== END 2020-10-19 11:15 | disposition home or self-care (01) ==
LOC: M INFU 07:49
PROVIDERS: ATTEND Internal Medicine
DX: M05.79 Rheumatoid arthritis with rheumatoid factor of multiple sites without organ or systems involvement (principal); Z88.2 Allergy status to sulfonamides
CPT/HCPCS: 96365; 96366; Q5103

== ENCOUNTER → 2020-11-15 | Outpatient (REF) | payer SELFPAY ==
[~2020-11-15] MED LIST changes: -ALBUTEROL SULFATE 2.5 MG/0.5 ML INH NEB SOLN INH PRN; -EPINEPHrine INJ 1 MG/ML 1ML AMP IM PRN; -diphenhydrAMINE 50MG/ML VIAL (J1200) IV PRN; -methylPREDNISolone 125MG 2ML VIAL IV PRN
== END ==
LOC: M LABSMTC 11:36 → EDSTATUS 11:40
PROVIDERS: ATTEND Pediatrics
DX: Z20.822 Contact with and (suspected) exposure to COVID-19 (principal)

== ENCOUNTER → 2020-11-24 | Outpatient (CLI) | payer BC ==
--- NOTE | 2020-11-25 09:38 | REP ---
INDICATION: CONTUSION COMPARISON: None. TECHNIQUE: AP, lateral, bilateral oblique, and coned-down views of the lumbar spine. FINDINGS: Alignment and lordosis maintained. Vertebral bodies are intact. No acute fracture/compression injury or subluxation. No obvious spondylolysis or spondylolisthesis.. Lateral views best demonstrate endplate sclerosis with marginal spurring, facet arthropathy and disc space narrowing at the L5-S1 level and to a much lesser extent the L4-5 level. IMPRESSION: Focal degenerative spondylosis. <Electronically signed by Luis Tineo > 11/25/20 [id number]
--- NOTE | 2020-11-25 09:38 | REP ---
INDICATION: CONTUSION COMPARISON: None. TECHNIQUE: AP and frog-lateral views of the left hip FINDINGS: Generalized age-related changes include subtle increased sclerosis to the acetabulum without significant joint space narrowing. No further overt osteoarthritic or significant degenerative changes are appreciated. No evidence for acute or healed injury. Surrounding soft tissues are normal. IMPRESSION: Mild generalized age-related changes. <Electronically signed by Luis Tineo > 11/25/20 [id number]
== END ==
LOC: M WUC 13:43
PROVIDERS: ATTEND Physician Assistant
DX: S70.02XA Contusion of left hip, initial encounter (principal); S30.0XXA Contusion of lower back and pelvis, initial encounter; X58.XXXA Exposure to other specified factors, initial encounter; Y92.89 Other specified places as the place of occurrence of the external cause; Y93.89 Activity, other specified; Y99.8 Other external cause status

== ENCOUNTER 2020-12-02 08:10 | Outpatient (CLI) | payer BC ==
[~2020-12-02] VITALS: Ht 161.3 cm; Wt 101.1 kg
[~2020-12-02 08:10] MED LIST changes: +ALBUTEROL SULFATE 2.5 MG/0.5 ML INH NEB SOLN INH PRN; +EPINEPHrine INJ 1 MG/ML 1ML AMP IM PRN; +diphenhydrAMINE 50MG/ML VIAL (J1200) IV PRN; +methylPREDNISolone 125MG 2ML VIAL IV PRN
[2020-12-02] MEDS ORDERED: ACETAMINOPHEN TAB 650MG DOSE (2X325MG) PO ONE (08:30)
[2020-12-02] MEDS ORDERED: INFLIXIMAB BIOSIMILAR 300 MG in NS 220 ML IV ONE (08:30)
[2020-12-02] MEDS ORDERED: diphenhydrAMINE 25MG CAP PO ONE (08:30)
[2020-12-02 08:45] VITALS: BP 141/73
[2020-12-02 09:15] VITALS: BP 138/77
[2020-12-02 09:29] VITALS: BP 131/74
[2020-12-02 09:45] VITALS: BP 128/71
[2020-12-02 10:00] VITALS: BP 136/77
[2020-12-02 12:15] VITALS: BP 133/70
== END 2020-12-02 12:15 | disposition home or self-care (01) ==
LOC: M INFU 08:10
PROVIDERS: ATTEND Internal Medicine
DX: M05.79 Rheumatoid arthritis with rheumatoid factor of multiple sites without organ or systems involvement (principal); Z88.2 Allergy status to sulfonamides
CPT/HCPCS: 96365; 96366; Q5103

== ENCOUNTER → 2020-12-20 | Outpatient (CLI) | payer BC ==
[~2020-12-20] MED LIST changes: -ALBUTEROL SULFATE 2.5 MG/0.5 ML INH NEB SOLN INH PRN; -EPINEPHrine INJ 1 MG/ML 1ML AMP IM PRN; -diphenhydrAMINE 50MG/ML VIAL (J1200) IV PRN; -methylPREDNISolone 125MG 2ML VIAL IV PRN
[2020-12-20 14:29] LABS: BASO % 0.5 % (0.0-1.0); EOS # 0.1 10^3/uL (0.0-0.5); EOS % 1.6 % (0.0-3.0); HEMATOCRIT 38.7 % (36.0-47.0); HEMOGLOBIN 13.1 g/dl (12.0-15.5); LYMPH # 1.3 10^3/uL (1.5-5.0); LYMPH % 22.7 % (24.0-44.0); MEAN CORPUSCULAR HEMOGLOBIN 30.8 pg (27.0-33.0); MEAN CORPUSCULAR HGB CONC 33.9 g/dl (32.0-36.5); MEAN CORPUSCULAR VOLUME 91.1 fl (80.0-96.0); MONO # 0.3 10^3/uL (0.0-0.8); MONO % 5.5 % (0.0-8.0); NEUTROPHILS % 69.4 % (36.0-66.0); PLATELET COUNT, AUTOMATED 244 10^3/uL (150-450); RED BLOOD COUNT 4.25 10^6/uL (4.00-5.40); WHITE BLOOD COUNT 5.8 10^3/uL (4.0-10.0)
[2020-12-20 14:43] LABS: C REACTIVE PROTEIN QUANTITATIV 0.38 MG/DL (0.00-0.30)
[2020-12-20 14:45] LABS: FOLATE > 24.0 NG/ML; TOTAL 25(OH) VITAMIN D 27.2 NG/ML (30.0-100.0); VITAMIN B12 LEVEL 807 PG/ML
[2020-12-20 15:07] LABS: ERYTHROCYTE SEDIMENTATION RATE 13 mm/hr (0-30)
[2020-12-21 12:10] LABS: ALBUMIN 4.4 GM/DL (3.2-5.2); ALT/SGPT 60 U/L (12-78); BILIRUBIN,TOTAL 0.3 MG/DL (0.2-1.0); BLOOD UREA NITROGEN 13 MG/DL (7-18); CALCIUM LEVEL 9.5 MG/DL (8.5-10.1); CARBON DIOXIDE LEVEL 26 MEQ/L (21-32); CHLORIDE LEVEL 102 MEQ/L (98-107); CREATININE FOR GFR 0.68 MG/DL (0.55-1.30); GLOMERULAR FILTRATION RATE > 60.0 (>51); GLUCOSE, FASTING 111 MG/DL (70-100); SODIUM LEVEL 138 MEQ/L (136-145); TOTAL PROTEIN 7.5 GM/DL (6.4-8.2)
== END ==
LOC: M LAB 13:19
PROVIDERS: ATTEND Internal Medicine
DX: M05.79 Rheumatoid arthritis with rheumatoid factor of multiple sites without organ or systems involvement (principal)

== ENCOUNTER → 2020-12-21 | Outpatient (CLI) | payer BC ==
--- NOTE | 2020-12-22 02:47 | REP ---
INDICATION: PAIN IN RIGHT KNEE COMPARISON: None. TECHNIQUE: AP, lateral, bilateral oblique and sunrise views. FINDINGS: Moderate/Early advanced tricompartmental osteoarthritic degenerative changes include subchondral sclerosis, joint space narrowing, marginal osteophytosis. No acute fracture or dislocation. Suprapatellar effusion cannot be excluded. IMPRESSION: Moderate/early advanced tricompartmental osteoarthritic changes. <Electronically signed by Luis Tineo > 12/22/20 [id number]
== END ==
LOC: M RAD 12:18
PROVIDERS: ATTEND Internal Medicine
DX: M25.561 Pain in right knee (principal)

== ENCOUNTER 2020-12-31 23:10 | Emergency (ER) | payer BC ==
[~2020-12-31] VITALS: Ht 162.6 cm; Wt 100.0 kg
[2020-12-31] MEDS ORDERED: PRED25TA (23:21)
[2020-12-31] MEDS ORDERED: GABA-845 (23:21)
[2020-12-31] MEDS ORDERED: METH2.5T48 (23:21)
[2020-12-31] MEDS ORDERED: ZOLO100T PO (23:21)
[2021-01-01] MEDS ORDERED: LIDOCAINE 5% (LIDODERM) PATCH TD ONE (00:05)
[2021-01-01] MEDS ORDERED: traMADol 50 MG TAB PO ONE (00:05)
[2021-01-01] MEDS ORDERED: diazePAM 10 MG TAB PO ONE (00:05)
--- NOTE | 2021-01-01 00:24 | REPVR ---
PROCEDURE INFORMATION: Exam: CT Lumbar Spine Without Contrast Exam date and time: 01/01/2021 12:05 AM Age: 50 years old Clinical indication: Low back pain; Patient HX: Fall; Additional info: Fall, PT tender TECHNIQUE: Imaging protocol: Computed tomography images of the lumbar spine without contrast. Radiation optimization: All CT scans at this facility use at least one of these dose optimization techniques: automated exposure control; mA and/or kV adjustment per patient size (includes targeted exams where dose is matched to clinical indication); or iterative reconstruction. COMPARISON: CR SPINE LS COMPLETE 2020-11-24 13:57 FINDINGS: Vertebrae: Normal spinal curvature, vertebral body heights, and alignment. No spinal fracture or acute subluxation. Discs/Spinal canal/Neural foramina: Mild degenerative disc and joint disease with small L4-S1 disc bulges and a small partially mineralized L5-S1 disc protrusion. Mild spinal stenosis. At most, mild foraminal stenosis. Liver: Enlarged low attenuating liver, evidence of hepatic steatosis. Soft tissues: Unremarkable. IMPRESSION: 1. No acute vertebral fracture/subluxation. 2. Mild lumbar spondylosis. Electronically signed by: Russell Dey On 01/01/2021 00:24:47 AM
[2021-01-01] MEDS ORDERED: ROBA750T4 PO (01:21)
[2021-01-01] MEDS ORDERED: ASPE4PAD TOP (01:21)
[2021-01-01] MEDS ORDERED: TRAM50TA2 PO (01:21)
[2021-01-01 01:28] VITALS: BP 147/78
[2021-01-01] MEDS ORDERED: **NOTE PATIENT COMMENT** MISC XX SCH (21:00)
== END 2021-01-01 01:36 | disposition home or self-care (01) ==
LOC: M ED 23:10
DX: S39.92XA Unspecified injury of lower back, initial encounter (principal); W18.39XA Other fall on same level, initial encounter; Y92.89 Other specified places as the place of occurrence of the external cause; Y99.0 Civilian activity done for income or pay; I10 Essential (primary) hypertension; E78.5 Hyperlipidemia, unspecified; K21.9 Gastro-esophageal reflux disease without esophagitis; Z88.1 Allergy status to other antibiotic agents; Z88.2 Allergy status to sulfonamides; Z79.899 Other long term (current) drug therapy

== ENCOUNTER → 2021-01-07 | Outpatient (REF) | payer BC ==
[~2021-01-07] MED LIST changes: +ASPE4PAD TOP; -FOLI400T PO; +FOLI400T13 PO; +GABA-845; +METH2.5T48; +PRED25TA; +ROBA750T4 PO; +TRAM50TA2 PO; +ZOLO100T PO
[2021-01-07 16:26] LABS: BASO % 0.5 % (0.0-1.0); EOS # 0.1 10^3/uL (0.0-0.5); EOS % 1.2 % (0.0-3.0); HEMATOCRIT 39.4 % (36.0-47.0); HEMOGLOBIN 13.1 g/dl (12.0-15.5); LYMPH # 1.3 10^3/uL (1.5-5.0); LYMPH % 14.9 % (24.0-44.0); MEAN CORPUSCULAR HEMOGLOBIN 30.5 pg (27.0-33.0); MEAN CORPUSCULAR HGB CONC 33.2 g/dl (32.0-36.5); MEAN CORPUSCULAR VOLUME 91.8 fl (80.0-96.0); MONO # 0.6 10^3/uL (0.0-0.8); MONO % 6.7 % (2.0-8.0); NEUTROPHILS # 6.6 10^3/uL (1.5-8.5); NEUTROPHILS % 76.4 % (36.0-66.0); PLATELET COUNT, AUTOMATED 206 10^3/uL (150-450); RED BLOOD COUNT 4.29 10^6/uL (4.00-5.40); WHITE BLOOD COUNT 8.6 10^3/uL (4.0-10.0)
[2021-01-07 16:42] LABS: HEMOGLOBIN A1c 5.2 %
[2021-01-07 16:54] LABS: C REACTIVE PROTEIN QUANTITATIV 0.75 MG/DL (0.00-0.30); CHOLESTEROL RISK RATIO 4.926 (<5)
[2021-01-07 16:55] LABS: ERYTHROCYTE SEDIMENTATION RATE 32 mm/hr (0-30)
== END ==
LOC: M LAB REF 15:56
PROVIDERS: ATTEND Physician Assistant
DX: R51.9 Headache, unspecified (principal); R73.01 Impaired fasting glucose; E78.5 Hyperlipidemia, unspecified

== ENCOUNTER 2021-01-11 08:00 | Outpatient (CLI) | payer BC ==
[~2021-01-11] VITALS: Ht 162.6 cm; Wt 101.0 kg
[2021-01-11] VITALS (7 sets, daily range): BP systolic 125–160; BP diastolic 61–75
[~2021-01-11 08:00] MED LIST changes: +ACETAMINOPHEN 650MG PO PRIOR TO INFUSION PO ONE; +ALBUTEROL SULFATE 2.5 MG/0.5 ML INH NEB SOLN INH PRN; +EPINEPHrine INJ 1 MG/ML 1ML AMP IM PRN; +INFLIXIMAB BIOSIMILAR 300 MG in NS 220 ML IV ONE; +NS 1,000 ML IV SCH; +diphenhydrAMINE 25MG PO PRIOR TO INFUSION PO ONE; +diphenhydrAMINE 50MG/ML VIAL (J1200) IV PRN; +methylPREDNISolone 125MG 2ML VIAL IV PRN
== END 2021-01-11 10:40 | disposition home or self-care (01) ==
LOC: M INFU 08:00
PROVIDERS: ATTEND Internal Medicine
DX: M05.79 Rheumatoid arthritis with rheumatoid factor of multiple sites without organ or systems involvement (principal); Z88.2 Allergy status to sulfonamides
CPT/HCPCS: 96365; 96366; Q5103

== ENCOUNTER 2021-03-08 07:51 | Outpatient (CLI) | payer BC ==
[2021-03-08] VITALS (7 sets, daily range): BP systolic 130–152; BP diastolic 63–83
[~2021-03-08] VITALS: Ht 162.6 cm; Wt 101.0 kg
[~2021-03-08 07:51] MED LIST changes: -ACETAMINOPHEN 650MG PO PRIOR TO INFUSION PO ONE; -INFLIXIMAB BIOSIMILAR 300 MG in NS 220 ML IV ONE; -NS 1,000 ML IV SCH; -diphenhydrAMINE 25MG PO PRIOR TO INFUSION PO ONE
[2021-03-08] MEDS ORDERED: ACETAMINOPHEN 650MG PO PRIOR TO INFUSION PO ONE (08:00)
[2021-03-08] MEDS ORDERED: INFLIXIMAB BIOSIMILAR 300 MG in NS 220 ML IV ONE (08:00)
[2021-03-08] MEDS ORDERED: NS 1,000 ML IV SCH (08:00)
[2021-03-08] MEDS ORDERED: diphenhydrAMINE 25MG PO PRIOR TO INFUSION PO ONE (08:00)
== END 2021-03-08 10:45 | disposition home or self-care (01) ==
LOC: M INFU 07:51
PROVIDERS: ATTEND Internal Medicine
DX: M05.79 Rheumatoid arthritis with rheumatoid factor of multiple sites without organ or systems involvement (principal); Z88.2 Allergy status to sulfonamides
CPT/HCPCS: 96365; 96366; Q5103

== ENCOUNTER → 2021-03-24 | Outpatient (REF) | payer BC ==
[~2021-03-24] MED LIST changes: -ALBUTEROL SULFATE 2.5 MG/0.5 ML INH NEB SOLN INH PRN; -EPINEPHrine INJ 1 MG/ML 1ML AMP IM PRN; +GABA-283; -GABA-845; -diphenhydrAMINE 50MG/ML VIAL (J1200) IV PRN; -methylPREDNISolone 125MG 2ML VIAL IV PRN
[2021-03-24 12:58] LABS: BASO % 0.4 % (0.0-1.0); EOS # 0.1 10^3/uL (0.0-0.5); EOS % 1.2 % (0.0-3.0); HEMATOCRIT 39.3 % (36.0-47.0); HEMOGLOBIN 13.7 g/dl (12.0-15.5); LYMPH # 1.6 10^3/uL (1.5-5.0); LYMPH % 23.4 % (24.0-44.0); MEAN CORPUSCULAR HEMOGLOBIN 30.7 pg (27.0-33.0); MEAN CORPUSCULAR HGB CONC 34.9 g/dl (32.0-36.5); MEAN CORPUSCULAR VOLUME 88.1 fl (80.0-96.0); MONO # 0.6 10^3/uL (0.0-0.8); MONO % 8.2 % (2.0-8.0); NEUTROPHILS # 4.4 10^3/uL (1.5-8.5); NEUTROPHILS % 66.7 % (36.0-66.0); PLATELET COUNT, AUTOMATED 239 10^3/uL (150-450); RED BLOOD COUNT 4.46 10^6/uL (4.00-5.40); WHITE BLOOD COUNT 6.7 10^3/uL (4.0-10.0)
[2021-03-24 13:42] LABS: ERYTHROCYTE SEDIMENTATION RATE 8 mm/hr (0-30)
[2021-03-24 13:49] LABS: ALBUMIN 4.5 GM/DL (3.2-5.2); ALT/SGPT 56 U/L (12-78); BILIRUBIN,TOTAL 0.9 MG/DL (0.2-1.0); BLOOD UREA NITROGEN 16 MG/DL (7-18); CALCIUM LEVEL 8.8 MG/DL (8.5-10.1); CARBON DIOXIDE LEVEL 27 MEQ/L (21-32); CHLORIDE LEVEL 101 MEQ/L (98-107); CREATININE FOR GFR 0.66 MG/DL (0.55-1.30); GLOMERULAR FILTRATION RATE > 60.0 (>51); GLUCOSE, FASTING 106 MG/DL (70-100); POTASSIUM SERUM 3.1 MEQ/L (3.5-5.1); SODIUM LEVEL 137 MEQ/L (136-145); TOTAL PROTEIN 7.8 GM/DL (6.4-8.2); URIC ACID 7.6 MG/DL (2.6-6.0)
== END ==
LOC: M SFHCRHEU 11:13
PROVIDERS: ATTEND Internal Medicine Rheumatology
DX: M05.79 Rheumatoid arthritis with rheumatoid factor of multiple sites without organ or systems involvement (principal)

== ENCOUNTER 2021-05-03 07:35 | Outpatient (CLI) | payer BC ==
[~2021-05-03] VITALS: Ht 162.6 cm; Wt 95.6 kg
[2021-05-03] VITALS (8 sets, daily range): BP systolic 117–140; BP diastolic 58–82
[~2021-05-03 07:35] MED LIST changes: +ALBUTEROL SULFATE 2.5 MG/0.5 ML INH NEB SOLN INH PRN; +EPINEPHrine INJ 1 MG/ML 1ML AMP IM PRN; +OMEP40CA4 PO; -OMEP40CA97 PO; +diphenhydrAMINE 50MG/ML VIAL (J1200) IV PRN; +methylPREDNISolone 125MG 2ML VIAL IV PRN
[2021-05-03] MEDS ORDERED: ACETAMINOPHEN 650MG PO PRIOR TO INFUSION PO ONE (08:00)
[2021-05-03] MEDS ORDERED: INFLIXIMAB BIOSIMILAR 300 MG in NS 220 ML IV ONE (08:00)
[2021-05-03] MEDS ORDERED: diphenhydrAMINE 25MG PO PRIOR TO INFUSION PO ONE (08:00)
== END 2021-05-03 11:45 | disposition home or self-care (01) ==
LOC: M INFU 07:35
PROVIDERS: ATTEND Internal Medicine
DX: M05.79 Rheumatoid arthritis with rheumatoid factor of multiple sites without organ or systems involvement (principal)
CPT/HCPCS: 96375; 96413; 96415; J1200; J2930; Q5103

== ENCOUNTER → 2021-05-04 | Outpatient (CLI) | payer BC ==
[~2021-05-04] MED LIST changes: -ALBUTEROL SULFATE 2.5 MG/0.5 ML INH NEB SOLN INH PRN; -EPINEPHrine INJ 1 MG/ML 1ML AMP IM PRN; -diphenhydrAMINE 50MG/ML VIAL (J1200) IV PRN; -methylPREDNISolone 125MG 2ML VIAL IV PRN
[2021-05-04 09:19] LABS: BASO % 0.2 % (0.0-1.0); EOS # 0.1 10^3/uL (0.0-0.5); EOS % 0.4 % (0.0-3.0); HEMATOCRIT 38.6 % (36.0-47.0); HEMOGLOBIN 13.3 g/dl (12.0-15.5); LYMPH # 2.1 10^3/uL (1.5-5.0); LYMPH % 17.5 % (24.0-44.0); MEAN CORPUSCULAR HEMOGLOBIN 30.6 pg (27.0-33.0); MEAN CORPUSCULAR HGB CONC 34.5 g/dl (32.0-36.5); MEAN CORPUSCULAR VOLUME 88.7 fl (80.0-96.0); MONO # 0.9 10^3/uL (0.0-0.8); MONO % 7.4 % (2.0-8.0); PLATELET COUNT, AUTOMATED 266 10^3/uL (150-450); RED BLOOD COUNT 4.35 10^6/uL (4.00-5.40); WHITE BLOOD COUNT 12.2 10^3/uL (4.0-10.0)
[2021-05-04 09:52] LABS: ERYTHROCYTE SEDIMENTATION RATE 8 mm/hr (0-30)
[2021-05-04 09:57] LABS: ALBUMIN 4.4 GM/DL (3.2-5.2); ALT/SGPT 64 U/L (12-78); BILIRUBIN,DIRECT 0.1 MG/DL (0.0-0.2); BILIRUBIN,TOTAL 0.5 MG/DL (0.2-1.0); BLOOD UREA NITROGEN 15 MG/DL (7-18); CARBON DIOXIDE LEVEL 28 MEQ/L (21-32); CHLORIDE LEVEL 104 MEQ/L (98-107); CREATININE FOR GFR 0.69 MG/DL (0.55-1.30); GLOMERULAR FILTRATION RATE > 60.0 (>51); GLUCOSE, FASTING 91 MG/DL (70-100); POTASSIUM SERUM 2.9 MEQ/L (3.5-5.1); SODIUM LEVEL 141 MEQ/L (136-145); TOTAL 25(OH) VITAMIN D 32.6 NG/ML (30.0-100.0); TOTAL PROTEIN 7.4 GM/DL (6.4-8.2)
== END ==
LOC: M LAB 08:27
PROVIDERS: ATTEND Internal Medicine Rheumatology
DX: M05.79 Rheumatoid arthritis with rheumatoid factor of multiple sites without organ or systems involvement (principal)

== ENCOUNTER → 2021-05-05 | Outpatient (CLI) | payer BC ==
[2021-05-05 11:22] LABS: POTASSIUM SERUM 3.8 MEQ/L (3.5-5.1); THYROID STIMULATING HORMONE 1.49 uIU/ML (0.358-3.740)
== END ==
LOC: M LAB 09:21
PROVIDERS: ATTEND Physician Assistant
DX: E87.6 Hypokalemia (principal)

== ENCOUNTER → 2021-05-10 | Outpatient (CLI) | payer BC | LOC: M LAB 11:22 | PROVIDERS: ATTEND Physician Assistant | DX: E87.6 Hypokalemia (principal) ==

== ENCOUNTER → 2021-05-16 | Outpatient (CLI) | payer BC | LOC: M LAB 08:15 | PROVIDERS: ATTEND Physician Assistant | DX: E87.6 Hypokalemia (principal) ==

== ENCOUNTER → 2021-05-27 | Outpatient (REF) | LOC: M LAB 09:37 | PROVIDERS: ATTEND Nurse Practitioner Adult Health | DX: Z01.89 Encounter for other specified special examinations (principal) ==

== ENCOUNTER 2021-06-28 08:17 | Outpatient (CLI) | payer BC ==
[~2021-06-28] VITALS: Ht 162.6 cm; Wt 95.6 kg
[2021-06-28] VITALS (8 sets, daily range): BP systolic 114–124; BP diastolic 57–92
[~2021-06-28 08:17] MED LIST changes: +ACETAMINOPHEN 650MG PO PRIOR TO INFUSION PO ONE; +ALBUTEROL SULFATE 2.5 MG/0.5 ML INH NEB SOLN INH PRN; +EPINEPHrine INJ 1 MG/ML 1ML AMP IM PRN; +INFLIXIMAB BIOSIMILAR 300 MG in NS 220 ML IV ONE; +NS 1,000 ML IV SCH; +diphenhydrAMINE 25MG PO PRIOR TO INFUSION PO ONE; +diphenhydrAMINE 50MG/ML VIAL (J1200) IV PRN; +methylPREDNISolone 125MG 2ML VIAL IV PRN
== END 2021-06-28 11:45 | disposition home or self-care (01) ==
LOC: M INFU 08:17
PROVIDERS: ATTEND Internal Medicine Rheumatology
DX: M05.79 Rheumatoid arthritis with rheumatoid factor of multiple sites without organ or systems involvement (principal); Z88.2 Allergy status to sulfonamides
CPT/HCPCS: 96365; 96366; Q5103

== ENCOUNTER → 2021-08-13 | Outpatient (CLI) | payer BC ==
[~2021-08-13] MED LIST changes: -ACETAMINOPHEN 650MG PO PRIOR TO INFUSION PO ONE; -ALBUTEROL SULFATE 2.5 MG/0.5 ML INH NEB SOLN INH PRN; -EPINEPHrine INJ 1 MG/ML 1ML AMP IM PRN; -INFLIXIMAB BIOSIMILAR 300 MG in NS 220 ML IV ONE; -NS 1,000 ML IV SCH; -diphenhydrAMINE 25MG PO PRIOR TO INFUSION PO ONE; -diphenhydrAMINE 50MG/ML VIAL (J1200) IV PRN; -methylPREDNISolone 125MG 2ML VIAL IV PRN
== END ==
LOC: M LABSMTC 09:37
PROVIDERS: ATTEND Anesthesiology
DX: Z01.812 Encounter for preprocedural laboratory examination (principal); Z11.52 Encounter for screening for COVID-19

== ENCOUNTER → 2021-08-17 | Outpatient (CLI) | payer BC ==
[2021-08-17 12:00] LABS: BASO # 0.1 10^3/uL (0.0-0.2); BASO % 0.7 % (0.0-1.0); EOS # 0.1 10^3/uL (0.0-0.5); EOS % 1.3 % (0.0-3.0); HEMATOCRIT 40.7 % (36.0-47.0); HEMOGLOBIN 13.7 g/dl (12.0-15.5); LYMPH # 1.5 10^3/uL (1.5-5.0); LYMPH % 21.4 % (24.0-44.0); MEAN CORPUSCULAR HGB CONC 33.7 g/dl (32.0-36.5); MEAN CORPUSCULAR VOLUME 89.3 fl (80.0-96.0); MONO # 0.4 10^3/uL (0.0-0.8); MONO % 6.4 % (2.0-8.0); NEUTROPHILS # 4.9 10^3/uL (1.5-8.5); NEUTROPHILS % 70.1 % (36.0-66.0); PLATELET COUNT, AUTOMATED 267 10^3/uL (150-450); RED BLOOD COUNT 4.56 10^6/uL (4.00-5.40); WHITE BLOOD COUNT 6.9 10^3/uL (4.0-10.0)
[2021-08-17 12:29] LABS: ALBUMIN 3.9 GM/DL (3.2-5.2); ALT/SGPT 31 U/L (12-78); BILIRUBIN,TOTAL 0.7 MG/DL (0.2-1.0); BLOOD UREA NITROGEN 15 MG/DL (7-18); CALCIUM LEVEL 9.4 MG/DL (8.5-10.1); CARBON DIOXIDE LEVEL 31 MEQ/L (21-32); CHLORIDE LEVEL 102 MEQ/L (98-107); CREATININE FOR GFR 0.71 MG/DL (0.55-1.30); GLOMERULAR FILTRATION RATE > 60.0 (>51); GLUCOSE, FASTING 94 MG/DL (70-100); POTASSIUM SERUM 3.7 MEQ/L (3.5-5.1); SODIUM LEVEL 138 MEQ/L (136-145); TOTAL PROTEIN 7.4 GM/DL (6.4-8.2)
[2021-08-17 12:32] LABS: TOTAL 25(OH) VITAMIN D 29.4 NG/ML (30.0-100.0)
[2021-08-17 12:36] LABS: ERYTHROCYTE SEDIMENTATION RATE 9 mm/hr (0-30)
== END ==
LOC: M LAB 11:11
PROVIDERS: ATTEND Internal Medicine Rheumatology
DX: M05.79 Rheumatoid arthritis with rheumatoid factor of multiple sites without organ or systems involvement (principal)

== ENCOUNTER 2021-08-18 09:59 | Day surgery (SDC) | payer BC ==
[~2021-08-18] VITALS: Ht 162.6 cm; Wt 78.5 kg
[~2021-08-18 09:59] MED LIST changes: +NS 1,000 ML IV ONE
--- OUTSIDE RECORDS SUMMARY | 2021-08-18 10:04 | CCD ---
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[employer] Name Role Phone Ric, Marjorie Unavailable PROBLEMS Type Condition ICD9-CM Code GHV34-RY Code Onset Dates Condition S tatus W/U Status Risk SNOMED Code Notes Problem Rheumatoid arthritis involvi ng multiple sites with positive rheumatoid factor M05.79 Active confirmed 013780774 Problem Vitamin D deficiency E55.9 Active confirmed 33042192 Problem penitentiary systemic steroid user Z79.52 Active confirmed 69698830626848499 Problem Primary osteoarthritis involving multiple joints M 15.0 Active confirmed 511456903 Problem High risk medication use Z79.899 Active confirmed 445973763479084 Problem Primary osteoarthritis of both knees M17.0 Act shanae confirmed 187822492 Problem Chronic fatigue R53.82 Active confirmed 8422 9001 ALLERGIES Allergen (clinical drug ingredient) Drug/Non Drug Allergy do cumented on EMR Reaction Allergy Type Onset Date Status Sulfa (for allergy use only) Hives Drug Allergy Active ENCOUNTERS from 1969 to 2021-08-11 Encounter Location Date Provider Diagnosis [facility] Rheumatology [address] [place] [address] [place] [address] Aug, Marjorie Larios IMMUNIZATIONS No Information SOCIAL HISTORY Tobacco Use: Social History Observation Description Date Details (start date - stop date) Never Smoker Sex Assigned At : Social History Observation Description Sex Assigned At Unknown Alcohol Screening: Question Answer Notes Did you have a drink containing alcohol in the past year? No Points 0 Interpretation Negative Tobacco Use: Question Answer Notes Are you a: never smoker REASON FOR REFERRAL No Information VITAL SIGNS No information MEDICATIONS Medication SIG (Take, Route, Frequency, Duration) Notes Start Da te End Date Status Losartan Potassium-HCTZ 100-25 MG 1 tablet Oral Once a day Not-Taking buPROPion HCl ER (XL) 300 MG 1 tab Orally once daily Active predniSONE 2.5 MG 1 tablet Orally Once a day for 30 days Active Gabapentin 400 MG Orally 2 in the morning 1 at night Not-Taking Acetaminophen 325 MG 2 tablets before infusion Orally 24 N 2019 Active Simvastatin 40 MG 1 tab Oral Daily A ctive Benadryl 25 MG 1 tablet Orally 30 minutes prior to Infusion Sep, Active Losartan Potassium 50 MG 1 tablet Orally Once a day Active Hydrochlorothiazide 25 mg 1 tablet in the morning Oral Once a day Active Sertraline HCl 50 MG 1 tab Orally Daily Active Multi Vitamin - 1 tablet Orally Once a day for 30 day(s) Active Omeprazole 40 MG 1 cap Oral Daily Ac tive Methotrexate 2.5 MG 8 tablets Orally once a week for 90 days Active Folic Acid 1 MG 1 tablet Orally Once a day for 90 Active Medrol 4 MG as directed Orally Daily for 6 days for 6 days Sep, Not-Taking Meloxicam 15 MG 1 tablet Oral Once a day Not-Taking PROCEDURES No Information RESULTS No Results REASON FOR VISIT Refill Request Folic acid 1mg, tablets MEDICAL (GENERAL) HISTORY Type Description Date Medical History Depression / Anxiety Medical History Hypertension Medical History High Cholesterol Surgical History D&C Surgical History Bladder repair with sling Surgical History Mesh repair Goals Section No Information Health Concerns No Information MEDICAL EQUIPMENT No Information MENTAL STATUS No Information FUNCTIONAL STATUS No Information ASSESSMENTS No Information PLAN OF TREATMENT Medication Medication Name Sig Start Date Stop Date Benadryl 25 MG 1 tablet Orally 30 minutes prior to Infusion Sep, Folic Acid 1 MG 1 tablet Orally Once a day for 90 Methotrexate 2.5 MG 8 tablets Orally once a week for 90 days Acetaminophen 325 MG 2 tablets before infusion Orally Sep, Next Appt Details Provider Name:Marjorie Larios, 10:00:00 AM, [address] [place] [address], , [place], [address], Insurance Providers Payer Name Payer Address Payer Phone Insured Name Patient Relati onship to Insured Coverage Start Date Coverage End Date [facility] [id number] [facility] [place] [address] EUGENIA MOURA self
--- OUTSIDE RECORDS SUMMARY | 2021-08-18 10:05 | CCD ---
Author Organization Unknown Address [address] [place] [address] Phone [phone] Care Team Providers Care Extension Professor Name Role Phone Karina Delgado Unavailable Unavailable Allergies Code Code System Name Reaction Severity Status Onset Sulfa (Sulfonamide Antibiotics) Active 11/07/2012 66690 RxNorm Wellbutrin Sr Other Active 2012 Notes: SULFA DRUGS - Reaction: hives Medications Name Status Start Date Stop Date amoxicillin 500 mg capsule Completed 02/14 bupropion HCl 150 mg tablet,12 hr sustai mellisa-release(smoking deterrent) Take 1 tablet twice a day by oral route. Completed 01/21/2021 bupropion HCl XL 150 mg 24 hr tablet, ex tended release TAKE 1 TABLET BY MOUTH EVERY DAY Active Not av ailable bupropion HCl XL 300 mg 24 hr tablet, ex tended release TAKE 1 TABLET BY MOUTH EVERY DAY IN THE MORNING Completed 05/24/2021 Colace 100 mg capsule Take 1 capsule every day by oral route as needed. Active Not available folic acid 1 mg tablet TAKE 1 TABLET BY MOUTH EVERY DAY Active Not av ailable gabapentin 400 mg capsule Take 1 capsule 3 times a day by oral route. Completed 01/21/2021 hydrochlorothiazide 25 mg tablet Active Not available ibuprofen 800 mg tablet Completed 02/15/20 Inflectra 100 mg intravenous solution Inject every 2 months by intravenous route. Active Not available losartan 100 mg tablet Take 1 tablet every day by oral route. Completed 02/14/2021 losartan 50 mg tablet TAKE 1 TABLET BY MOUTH EVERY DAY Active Not av ailable losartan potassium (bulk) 100 mg daily Completed 01/07/2021 meloxicam 15 mg tablet TAKE 1 TABLET BY MOUTH EVERY DAY Completed 2020 meloxicam 15 mg tablet-irritant and counter-irritant no.2 to pical gel Completed 02/14/2021 methocarbamol 750 mg tablet Completed 02/03 methotrexate (PF) Active Not available methotrexate sodium 2.5 mg tablet TAKE 8 TABLETS BY MOUTH ONCE WEEKLY Active Not available methylprednisolone 4 mg tablets in a dos e pack TAKE DIRECTED FOR 6 DAYS Completed 01/07/2021 naproxen 500 mg tablet TAKE ONE TABLET BY MOUTH EVERY 12 HOURS NEEDED FOR PAIN Completed 02/14/2021 nitrofurantoin monohydrate/macrocrystals 100 mg capsule Complete d 05/24/2021 omeprazole 40 mg capsule,delayed release Active Not available potassium chloride ER 20 mEq tablet,exte nded release Take 1 tablet every other day by oral route for 90 days. Active Not available potassium chloride ER 20 mEq tablet,exte nded release(part/cryst) TAKE ONE TABLET BY MOUTH EVERY OTHER DAY Active Not available prednisone 2.5 mg tablet Completed 021 prednisone 20 mg tablet Completed 02/15/20 21 sertraline 100 mg tablet TAKE 1 TABLET BY MOUTH EVERY EVENING Active No t available sertraline 50 mg tablet TAKE 1 TABLET BY MOUTH EVERY DAY Completed 2020 simvastatin 40 mg tablet Active Not sanjay ilable tizanidine 4 mg tablet TAKE ONE TABLET BY MOUTH EVERY 8 HOURS NEEDED FOR PAIN Completed 01/07/2021 tramadol 50 mg tablet Completed 02/14/2021 Problems Name Status Onset Date Source Hyperlipidemia Active 11/07/2012 Heart Murmur Active 11/07/[address] Concept Active 11/07/2012 Menopause Active 11/07/2012 Low Back Strain Active 11/14/2012 Strain of Fascia of Lower Back Active 11/14/2012 Strain of Tendon of Lower Back Active 11/14/2012 Panic Disorder Active 06/17/2013 Hypertensive Heart Disease without Congestive Heart Failure Acti ve 07/02/2013 Disorder of Digestive System Active 07/02/2013 Clinical History and Observation Findings Active 2012 Clinical Finding Unknown 07/11/2013 Hypokalemia Active 05/05/2021 Obesity Active 05/24/2021 Hypothyroidism Active Depressive Disorder Active Arthropathy Active SNOMED CT Concept Active Finding of Esophagus Active Procedures Date Name Performed by 08/08/2005 Total Hysterectomy via Vaginal Approach Information not available 01/07/2021 Electrocardiogram [facility] [address] [facility] [address] [place] [address] (Work Place) 01/07/2021 MAMMO, Screening, Digital, Bilateral [facility] [address] [place], [place] [id number] (Work Place) 05/18/2021 Electrocardiogram [facility] [address] [facility] [address] [place] [address] (Work Place) Notes: partial hyster, D+C, 2 bladder re pairs Results Lab Results Date Name Specimen Result Interpretation Description Value Range Status Address 06/06/2021 HIV 1+2 Ab + HIV1 P24 Ag, Quantitative I mmunoassay, Serum Blood venous Normal HIV Ag/Ab, 4TH Gen non-reactive non-reactive Fin al [facility]: [address] [facility], [place] 06/06/2021 Potassium, Serum Blood venous Normal Potassium 3. 5 mmol/L 3.5- 5.3 mmol/L [facility] [address] [facility], [place] 06/06/2021 Hepatitis C Virus Ab, Serum Blood venous Normal Hepatitis C Antibody non-reactive non-reactive Final [facility]: [address] [facility] Blood venous Normal Index 0.02 <1.00 Final [facility]: [address] [facility] 06/06/2021 RPR (Rapid Plasma Reagin), Serum Blood venous Normal RPR (DX) W/refl Titer and Confirmatory Testing non-reactive non-reactive Final [facility]: [address] [facility], [place] 05/16/2021 Potassium, Serum or Plasma Normal Potassium Serum 3.7 mEq/L 3.5-5.1 mEq/L [facility]: [address] [facility] 05/10/2021 Potassium, Serum or Plasma Low Potassium Serum 3.4 mEq/L 3.5- 5.1 mEq/L [facility]: [address] [facility] 05/05/2021 Potassium, Serum or Plasma D Potassium Serum 3.8 mEq/L 3.5-5.1 mEq/L [facility]: [address] [facility] 05/05/2021 TSH, Serum or Plasma Normal Thyroid Stimulating Hormone 1.490 uIU/mL 0.358-3.740 uIU/mL [facility] nter: [address] [facility] 05/04/2021 CBC W/ Auto Diff High White Blood Count 12.2 10 4.0-10.0 10 [facility]: 0 [facility] Normal Red Blood Count 4.35 10 4.00-5.40 10 [facility]: [address] [facility] Normal Hemoglobin 13.3 g/dL 12.0-15.5 g/dL [facility]: [address] [place] [address] Normal Hematocrit 38.6 % 36.0-47.0 % [facility]: [address] [place] [address] Normal Mean Corpuscular Volume 88.7 fL 80.0 -96.0 fL [facility]: [address] [place] [address] Normal Mean Corpuscular Hemoglobin 30.6 pg 27.0-33.0 pg [facility]: [address] [place] [address] Normal Mean Corpuscular HGB Conc 34.5 g/dL 32.0-36.5 g/dL [facility]: [address] [place] [address] Normal Red Cell Distribution Width 13.8 % 1 1.5-14.5 % [facility]: [address] [place] [address] Normal Platelet Count, Automated 266 10 150 -450 10 [facility]: 0 [facility] High Neutrophils % 74.0 % 36.0-66.0 % [facility]: [address] [facility] Low Lymph % 17.5 % 24.0-44.0 % Final [facility]: [address] [facility] Normal Cross % 7.4 % 2.0-8.0 % [facility]: 0 [facility] Normal Eos % 0.4 % 0.0-3.0 % [facility]: 0 [facility] Normal Baso % 0.2 % 0.0-1.0 % [facility]: 0 [facility] Normal Immature Granulocyte % 0.5 % 0-3.0 % [facility]: [address] [place] [address] Normal Nucleated Red Blood Cell % 0.0 % 0- 0 % [facility]: [address] [facility] High Neutrophils # 9.0 10 1.5-8.5 10 [facility]: [address] [facility] Normal Lymph # 2.1 10 1.5-5.0 10 [facility]: [address] [facility] High Cross # 0.9 10 0.0-0.8 10 [facility]: [address] [facility] Normal Eos # 0.1 10 0.0-0.5 10 [facility]: [address] [facility] Normal Baso # 0.0 10 0.0-0.2 10 [facility]: [address] [facility] 05/04/2021 ESR (Erythrocyte Sedimentation Rate), Blood Nor mal Erythrocyte Sedimentation Rate 8 mm/HR 0-30 mm/HR [facility]: 0 [facility] 05/04/2021 CMP, Serum or Plasma Normal Glucose, Fastin g 91 mg/dL 70-100 mg/dL [facility]: [address] [facility] Normal Blood Urea Nitrogen 15 mg/dL 7-18 mg /dL [facility]: 0 [facility] Normal Creatinine for GFR 0.69 mg/dL 0.55-1 .30 mg/dL [facility]: 0 [facility] Normal Glomerular Filtration Rate > 60.0 >5 1 [facility]: [address] [facility] Normal Sodium Level 141 mEq/L 136-145 mEq/L [facility]: 0 [facility] CRITICAL LOW Potassium Serum 2.9 mEq/L 3.5- 5.1 mEq/L [facility]: 0 [facility] Normal Chloride Level 104 mEq/L 98-107 mEq/ L [facility]: [address] [facility] Normal Carbon Dioxide Level 28 mEq/L 21-32 mEq/L [facility]: [address] [facility] Normal Anion Gap 9 mEq/L 8-16 mEq/L [facility]: [address] [place] [address] Normal Calcium Level 10.0 mg/dL 8.5-10.1 mg /dL [facility]: [address] [place] [address] High AST/SGOT 44 U/L 7-37 U/L [facility]: [address] [place] [address] Normal ALT/SGPT 64 U/L 12-78 U/L [facility]: [address] [place] [address] Normal Alkaline Phosphatase 55 U/L 45-117 U /L [facility]: [address] [place] [address] Normal Bilirubin,total 0.5 mg/dL 0.2-1.0 mg /dL [facility]: [address] [place] [address] Normal Total Protein 7.4 gm/dL 6.4-8.2 gm/d L [facility]: [address] [place] [address] Normal Albumin 4.4 gm/dL 3.2-5.2 gm/dL Roselyn l [facility]: [address] [place] [address] Normal Albumin/globulin Ratio 1.5 1.2-2. 2 [facility]: [address] [place] [address] 05/04/2021 Hepatic Function Panel, Serum Normal Bilirubin,direct 0.1 mg/dL 0.0-0.2 mg/dL [facility] nter: [address] [place] [address] 05/04/2021 Vitamin D, 25-Hydroxy, Total, Serum Normal Total 25(Oh) Vitamin D 32.6 NG/mL 30.0-100.0 NG/mL [facility]: [address] [place] [address] 05/04/2021 C Reactive Protein, QN, Serum or Plasma Normal C Reactive Protein Quantitativ 0.30 mg/dL 0.00-0.30 mg/dL [facility] Center: [address] [place] [address] 05/04/2021 Urinalysis, Dipstick, Auto Normal Bilirubin ne g Final [facility]: [address] [facility] [address], Pool ABNORMAL Blood 3+ Final [facility]: [address], Pool Normal Glucose neg Final [facility]: [address], Pool Normal Ketone neg Final [facility] jasmin: [address], Pool ABNORMAL Leukocytes 3+ Final [facility]: [address], Pool Normal Nitrite neg Final [facility] ical: [address], Pool Normal Ph 6.5 Final [facility]: [address], Pool Normal Protein neg Final [facility] ical: [address], Pool Normal Specific [facility] 1.010 Final [facility]: [address], Pool Normal Urobilinogen 0.2 Final [facility]: [address] [facility] 01/07/2021 HbA1C (Hemoglobin a1C), Blood Blood venous Normal Hemoglobin a1C 5.2 % Final [facility] Center: [address] [facility] Blood venous Normal Estimated Average Glucose 103 mg/dL 60-110 mg/dL Final [facility]: [address] [facility] 01/07/2021 Lipid Panel, Blood High Triglycerides Lev el 183 mg/dL <150 mg/dL Final [facility]: [address] [facility] High Cholesterol Level 202 mg/dL <200 mg/ dL Final [facility]: [address] [facility] Normal HDL Cholesterol 41 mg/dL >40 mg/dL F inal [facility]: [address] [facility] High LDL Cholesterol 124 mg/dL <100 mg/dL Final [facility]: [address] [facility] Normal Non-hdl-c 161 mg/dL Final [facility]: [address] [facility] Normal Cholesterol Risk Ratio 4.[address] [facility]: [address] [facility] 01/07/2021 C Reactive Protein, QN, Serum or Plasma High C Reactive Protein Quantitativ 0.75 mg/dL 0.00-0.30 mg/dL [facility]: [address] [place] [address] 01/07/2021 CBC W/ Auto Diff Blood venous Normal White Blood C ount 8.6 10 4.0-10.0 10 [facility]: [address] [facility] Blood venous Normal Red Blood Count 4.29 10 4.00- 5.40 10 [facility]: [address] [place] [address] Blood venous Normal Hemoglobin 13.1 g/dL 12.0-15. 5 g/dL [facility]: [address] [place] [address] Blood venous Normal Hematocrit 39.4 % 36.0-47.0 % [facility]: [address] [place] [address] Blood venous Normal Mean Corpuscular Volume 91.8 fL 80.0-96.0 fL [facility]: [address] [place] [address] venous Normal Mean Corpuscular Hemoglob in 30.5 pg 27.0-33.0 pg [facility]: [address] [place] [address] Blood venous Normal Mean Corpuscular HGB Conc 33.2 g/dL 32.0-36.5 g/dL [facility]: [address] [place] [address] Blood venous Normal Red Cell Distribution Wid th 13.0 % 11.5-14.5 % [facility]: [address] [place] [address] Blood venous Normal Platelet Count, Automated 206 10 150-450 10 [facility]: [address] [place] [address] Blood venous High Neutrophils % 76.4 % 36.0-66. 0 % [facility]: [address] [place] [address] Blood venous Low Lymph % 14.9 % 24.0-44.0 % Fi [facility]: [address] [place] [address] Blood venous Normal Cross % 6.7 % 2.0-8.0 % [facility]: [address] [place] [address] Blood venous Normal Eos % 1.2 % 0.0-3.0 % [facility]: [address] [place] [address] Blood venous Normal Baso % 0.5 % 0.0-1.0 % [facility]: [address] [facility] Blood venous Normal Immature Granulocyte % 0.3 % 0-3.0 % [facility]: [address] [facility] Blood venous Normal Nucleated Red Blood Cell % 0. 0 % 0-0 % [facility]: [address] [facility] Blood venous Normal Neutrophils # 6.6 10 1.5-8.5 10 [facility]: [address] [place] [address] Blood venous Low Lymph # 1.3 10 1.5-5.0 10 [facility]: [address] [facility] Blood venous Normal Cross # 0.6 10 0.0-0.8 10 [facility]: [address] [facility] Blood venous Normal Eos # 0.1 10 0.0-0.5 10 [facility]: [address] [place] [address] Blood venous Normal Baso # 0.0 10 0.0-0.2 10 [facility]: [address] [facility] 01/07/2021 ESR (Erythrocyte Sedimentation Rate), Blood Hig h Erythrocyte Sedimentation Rate 32 mm/HR 0-30 mm/HR [facility]: 0 [facility] 01/07/2021 Electrocardiogram Rate & Rhythm 71 sinu s rhythm [facility]: [address] [facility] [address], Pool Qrs [facility]: [address], Pool [place] Interval 120/168 ms [facility]: [address], Pool QRS Duration 96 ms [facility]: [address], Pool QT Interval 404 [facility]: [address], Pool 12/20/2020 TSH + Free T4, Serum Normal Thyroid Stimulating Hormone 1.830 uIU/mL 0.358-3.740 uIU/mL [facility] nter: [address] [facility] Normal Free T4 1.00 NG/dL 0.76-1.46 NG/dL F [facility]: [address] [place] [address] 12/20/2020 Vitamin B12 + Folate, Serum or Blood Normal Vitamin B12 Level 807 pg/mL Final [facility] nter: [address] [place] [address] Normal Folate > 24.0 NG/mL [facility]: [address] [place] [address] 12/20/2020 Vitamin D, 25-Hydroxy, Total, Serum Low Total 25(Oh) Vitamin D 27.2 NG/mL 30.0-100.0 NG/mL [facility] nter: [address] [place] [address] 12/20/2020 C Reactive Protein, QN, Serum or Plasma High C Reactive Protein Quantitativ 0.38 mg/dL 0.00-0.30 mg/dL [facility] Center: [address] [place] [address] 12/20/2020 CBC W/ Auto Diff Normal White Blood Count 5.8 10 4.0-10.0 10 [facility]: [address] [place] [address] Normal Red Blood Count 4.25 10 4.00-5.40 10 [facility]: [address] [place] [address] Normal Hemoglobin 13.1 g/dL 12.0-15.5 g/dL [facility]: [address] [place] [address] Normal Hematocrit 38.7 % 36.0-47.0 % [facility]: [address] [place] [address] Normal Mean Corpuscular Volume 91.1 fL 80.0 -96.0 fL [facility]: [address] [place] [address] Normal Mean Corpuscular Hemoglobin 30.8 pg 27.0-33.0 pg [facility]: [address] [place] [address] Normal Mean Corpuscular HGB Conc 33.9 g/dL 32.0-36.5 g/dL [facility]: [address] [place] [address] Normal Red Cell Distribution Width 13.2 % 1 1.5-14.5 % [facility]: [address] [place] [address] Normal Platelet Count, Automated 244 10 150 -450 10 [facility]: [address] [place] [address] High Neutrophils % 69.4 % 36.0-66.0 % [facility]: [address] [facility] Low Lymph % 22.7 % 24.0-44.0 % [facility]: [address] [facility] Normal Cross % 5.5 % 0.0-8.0 % [facility]: [address] [facility] Normal Eos % 1.6 % 0.0-3.0 % [facility]: [address] [facility] Normal Baso % 0.5 % 0.0-1.0 % [facility]: [address] [facility] Normal Immature Granulocyte % 0.3 % 0-3.0 % [facility]: [address] [place] [address] Normal Nucleated Red Blood Cell % 0.0 % 0- 0 % [facility]: [address] [facility] Normal Neutrophils # 4.0 10 1.5-8.5 10 [facility]: [address] [facility] Low Lymph # 1.3 10 1.5-5.0 10 [facility]: [address] [facility] Normal Cross # 0.3 10 0.0-0.8 10 [facility]: 0 [facility] Normal Eos # 0.1 10 0.0-0.5 10 [facility]: [address] [facility] Normal Baso # 0.0 10 0.0-0.2 10 [facility]: [address] [facility] 12/20/2020 ESR (Erythrocyte Sedimentation Rate), Blood Nor mal Erythrocyte Sedimentation Rate 13 mm/HR 0-30 mm/HR [facility]: 0 [facility] 12/20/2020 CMP, Serum or Plasma High Glucose, Fastin g 111 mg/dL 70-100 mg/dL [facility]: [address] [facility] Normal Blood Urea Nitrogen 13 mg/dL 7-18 mg /dL [facility]: [address] [facility] Normal Creatinine for GFR 0.68 mg/dL 0.55-1 .30 mg/dL [facility]: [address] [place] [address] Normal Glomerular Filtration Rate > 60.0 >5 1 [facility]: 0 [facility] Normal Sodium Level 138 mEq/L 136-145 mEq/L [facility]: [address] [place] [address] Normal Potassium Serum 4.0 mEq/L 3.5-5.1 mE q/L [facility]: 0 [facility] Normal Chloride Level 102 mEq/L 98-107 mEq/ L [facility]: [address] [place] [address] Normal Carbon Dioxide Level 26 mEq/L 21-32 mEq/L [facility]: [address] [place] [address] Normal Anion Gap 10 mEq/L 8-16 mEq/L [facility]: [address] [place] [address] Normal Calcium Level 9.5 mg/dL 8.5-10.1 mg/ dL [facility]: 0 [facility] Normal AST/SGOT 36 U/L 7-37 U/L [facility]: 0 [facility] Normal ALT/SGPT 60 U/L 12-78 U/L [facility]: 0 [facility] Normal Alkaline Phosphatase 74 U/L 45-117 U /L [facility]: [address] [place] [address] Normal Bilirubin,total 0.3 mg/dL 0.2-1.0 mg /dL [facility]: 0 [facility] Normal Total Protein 7.5 gm/dL 6.4-8.2 gm/d L [facility]: 0 [facility] Normal Albumin 4.4 gm/dL 3.2-5.2 gm/dL Roselyn l [facility]: 0 [facility] Normal Albumin/globulin Ratio 1.4 1.2-2. 2 [facility]: 0 [facility] Past Encounters 07/07/2021 Chronic Post-traumatic Stress Disorder; Generalized Anxiety Disorder; Moderate Recurrent Major Depression Evelyne Arias, SYSTEM TRAINER-R: [address], [facility] [address], [place] [address], Ph. 06/30/2021 Chronic Post-traumatic Stress Disorder; Generalized Anxiety Disorder; Moderate Recurrent Major Depression Evelyne Arias, SYSTEM TRAINER-R: [address], [facility] [address], [place] [address], Ph. 06/16/2021 Chronic Post-traumatic Stress Disorder; Generalized Anxiety Disorder; Moderate Recurrent Major Depression Evelyne Arias, SYSTEM TRAINER-R: [address], [facility] [address], [place] [address], Ph. 06/06/2021 Venereal Disease Screening; Hypokalemia; Hepatitis C Screening; HIV Screening Michele Chavarria, RPA-C: [address] [facility], [facility] [address], [place] [address], Ph. 05/24/2021 Depressive Disorder; Constipation; Obesity; Screening for Malignant Neoplasm of Colon; Hepatitis C Screening; HIV Screening; Venereal Disease Screening; Hypokalemia Michele Chavarria, RPA-C: [address], [facility] [address], [place] [address], Ph. 05/04/2021 Arthropathy; Hypokalemia; Dysuria; Acute Cystitis; Hypertensive Heart Disease without Congestive Heart Failure; Hypothyroidism; Fatigue Michele Chavarria, RPA-C: [address], [facility] [address], [place] [address], Ph. 04/19/2021 Chronic Post-traumatic Stress Disorder; Generalized Anxiety Disorder; Moderate Recurrent Major Depression Albina Lopezbren, SYSTEM TRAINER-R: [address] [facility] [address], [place] [address], Ph. 03/07/2021 Chronic Post-traumatic Stress Disorder; Generalized Anxiety Disorder; Moderate Recurrent Major Depression Albina Lopezbren, SYSTEM TRAINER-R: [address] [facility] [address], [place] [address], Ph. 02/22/2021 Generalized Anxiety Disorder; Moderate Recurrent Major Depression; Panic Disorder Albina Arcos, SYSTEM TRAINER-R: [address] [facility], [facility] [address], [place] [address], Ph. 02/08/2021 Generalized Anxiety Disorder Albina Arcos SYSTEM TRAINER-R: [address] [facility], [facility] [address], [place] [address], Ph. 01/21/2021 Depressive Disorder; Hypertensive Heart Disease without Congestive Heart Failure; Temporal Headache Karina Delgado RPA-C: [address] [facility], [facility] [address], [place] [address], Ph. 01/07/2021 Adult Health Examination; Hyperlipidemia; Palpitations; Heart Murmur; Snoring; Hypertensive Disorder; Impaired Fasting Glycemia; Temporal Headache; Screening for Malignant Neoplasm of Breast; Hearing Difficulty; Mixed Anxiety and Depressive Disorder; Gastroesophageal Reflux Disease without Esophagitis Karina Delgado RPA-C: [address] [facility] [address], [place] [address], Ph. Social History Tobacco Smoking Status Never Smoker Vaccine List None recorded. Plan of Care Patient Instructions WE DISCUSSED WE WILL START YOU BACK O N YOUR HCTZ 25 MG DAILY AND SEE YOU BACK IN 2 WEEKS WITH BP LOGS. WE WILL KEEP YOU ON SERTRALINE 50MG DAILY AND SEE YOU BACK IN ONE MONTH TO SEE HOW YOU ARE DOING WITH YOUR DEPRESSIVE SYMPTOMS. PLEASE CONTACT THE CLINIC FOR ANY CONCERNS IN THE MEANTIME. GO TO THE ER FOR THOUGHTS OF HURTING YOURSELF, HURTING OTHERS, CHEST PAIN, SHORTNESS OF BREATH, ARM PAIN WITH EXERTION OR FAINTESS, DIZZINESS. As Reminders Provider Appointments None recorded. Lab None recorded. Referral None recorded. Procedures None recorded. Surgeries None recorded. Imaging None recorded. Vitals 05/24/2021 09:10AM ESTABLISHED [id number] Height Weight BMI Blood Pressure 64 in 192 lbs 33 kg/m2 120/80 mm[Hg] 05/04/2021 11:40AM ESTABLISHED [id number] Height Weight BMI Blood Pressure 64 in 198 lbs 34 kg/m2 125/81 mm[Hg] 01/21/2021 08:50AM TELEHEALTH 20 Height 64 in 01/07/2021 08:50AM NEW ACUTE 20 Height Weight BMI Blood Pressure 64 in 224 lbs 9.6 oz 38.6 kg/m2 135/88 mm[Hg ]
--- OUTSIDE RECORDS SUMMARY | 2021-08-18 10:05 | CCD ---
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 Active Not available Colace 100 mg capsule Take 1 capsule every day by oral route as needed. Active Not available folic acid 1 mg tablet TAKE 1 TABLET BY MOUTH EVERY DAY Active Not av ailable gabapentin 400 mg capsule Take 1 capsule 3 times a day by oral route. Completed 01/21/2021 hydrochlorothiazide 25 mg tablet TAKE 1 TABLET BY MOUTH EVERY DAY Active Not av ailable ibuprofen 800 mg tablet Completed 02/15/20 Inflectra [...] 750 mg tablet Completed 02/03 methotrexate (PF) Completed 08/10/2021 methotrexate sodium 2.5 mg tablet TAKE 8 TABLETS BY MOUTH ONCE WEEKLY Active Not available methylprednisolone 4 mg tablets in a dos e pack TAKE DIRECTED FOR 6 DAYS Completed 01/07/2021 naproxen 500 mg tablet TAKE ONE TABLET BY MOUTH EVERY 12 HOURS NEEDED FOR PAIN Completed 02/14/2021 nitrofurantoin monohydrate/macrocrystals 100 mg capsule Complete d 05/24/2021 omeprazole 40 mg capsule,delayed release TAKE 1 CAPSULE BY MOUTH EVERY DAY Active Not a vailable potassium chloride ER 20 mEq tablet,exte nded release Take 1 tablet every other day by oral route for 90 days. Active Not available potassium chloride ER 20 mEq tablet,extended release(part/cryst) Active Not available prednisone 2.5 mg tablet Completed 021 prednisone 20 mg tablet Completed 02/15/20 sertraline 100 mg tablet TAKE 1 TABLET BY MOUTH EVERY EVENING Active No t available sertraline 50 mg tablet TAKE 1 TABLET BY MOUTH EVERY DAY Completed 2020 simvastatin 40 mg tablet TAKE 1 TABLET BY MOUTH EVERY DAY Active Not av ailable Suprep Bowel Prep Kit 17.5 gram-3.13 gram-1.6 gram oral solution Active Not available tizanidine 4 mg tablet TAKE ONE TABLET BY MOUTH EVERY 8 HOURS NEEDED FOR PAIN Completed 01/07/2021 tramadol 50 mg tablet Completed 02/14/2021 Problems Name Status Onset Date Source Hyperlipidemia Active 11/07/2012 Heart Murmur Active 11/07/[address] Concept Unknown 11/07/2012 Menopause Active 11/07/2012 Low Back Strain Active 11/14/2012 Strain of Fascia of Lower Back Active 11/14/2012 Strain of Tendon of Lower Back Active 11/14/2012 Panic Disorder Active 06/17/2013 Hypertensive Heart Disease without Congestive Heart Failure Acti ve 07/02/2013 Disorder of Digestive System Active 07/02/2013 Urinary Incontinence Active 07/02/2013 Clinical Finding Unknown 07/11/2013 Hypokalemia Active 05/05/2021 Obesity Active 05/24/2021 Rheumatoid Arthritis Active 08/10/2021 Hypothyroidism Active Anxiety Active Depressive Disorder Active Gastroesophageal Reflux Disease without Esophagitis Active Arthropathy Active Procedures Date Name Performed by 08/08/2005 Total Hysterectomy via Vaginal Approach Information not available 01/07/2021 Electrocardiogram [facility] [address] [place] [address] (Work Place) 01/07/2021 MAMMO, Screening, Digital, Bilateral [facility] [facility] [address] [place] [address] (Work Place) 05/18/2021 Electrocardiogram [facility] [address] [facility] [address] [place] [address] (Work Place) Notes: partial hyster, D+C, 2 bladder re pairs Results Lab Results Date Name Specimen Result Interpretation Description Value Range Status Address 06/06/2021 HIV 1+2 Ab + HIV1 P24 Ag, Quantitative I mmunoassay, Serum Blood venous Normal HIV Ag/Ab, 4TH Gen non-reactive non-reactive Fin al [facility] [address] [facility] 06/06/2021 Potassium, Serum Blood venous Normal Potassium 3. 5 mmol/L 3.5- 5.3 mmol/L [facility] [facility]/06/2021 Hepatitis C Virus Ab, Serum Blood venous Normal Hepatitis C Antibody non-reactive non-reactive Final [facility]: [address] [facility] Blood venous Normal Index 0.02 <1.00 Final [facility]: [address] [facility] 06/06/2021 RPR (Rapid Plasma Reagin), Serum Blood venous Normal RPR (DX) W/refl Titer and Confirmatory Testing non-reactive non-reactive Final [facility]: [address] [facility] 05/16/2021 Potassium, Serum or Plasma Normal Potassium Serum 3.7 mEq/L 3.5-5.1 mEq/L Final [facility]: [address] [facility] 05/10/2021 Potassium, Serum or Plasma Low Potassium Serum 3.4 mEq/L 3.5- 5.1 mEq/L [facility]: [address] 0 [facility] 05/05/2021 Potassium, Serum or Plasma D Potassium Serum 3.8 mEq/L 3.5-5.1 mEq/L [facility]: [address] 0 [facility] 05/05/2021 TSH, Serum or Plasma Normal Thyroid Stimulating Hormone 1.490 uIU/mL 0.358-3.740 uIU/mL [facility] nter: [address] [facility] 05/04/2021 CBC W/ Auto Diff High White Blood Count 12.2 10 4.0-10.0 10 [facility]: [address] [place] [address] Normal Red Blood Count 4.35 10 4.00-5.40 10 [facility]: [address] [facility] Normal Hemoglobin 13.3 g/dL 12.0-15.5 g/dL [facility]: [address] [place] [address] Normal Hematocrit 38.6 % 36.0-47.0 % [facility]: [address] [place] [address] Normal Mean Corpuscular Volume 88.7 fL 80.0 -96.0 fL [facility]: [address] [place] [address] Normal Mean Corpuscular Hemoglobin 30.6 pg 27.0-33.0 pg [facility]: [address] [place] [address] Normal Mean Corpuscular HGB Conc 34.5 g/dL 32.0-36.5 g/dL [facility]: 0 [facility] Normal Red Cell Distribution Width 13.8 % 1 1.5-14.5 % [facility]: [address] [place] [address] Normal Platelet Count, Automated 266 10 150 -450 10 [facility]: 0 [facility] High Neutrophils % 74.0 % 36.0-66.0 % [facility]: [address] [facility] Low Lymph % 17.5 % 24.0-44.0 % [facility]: [address] [facility] Normal Amador % 7.4 % 2.0-8.0 % [facility]: [address] [facility] Normal Eos % 0.4 % 0.0-3.0 % [facility]: [address] [facility] Normal Baso % 0.2 % 0.0-1.0 % [facility]: [address] [facility] Normal Immature Granulocyte % 0.5 % 0-3.0 % [facility]: [address] [facility] Normal Nucleated Red Blood Cell % 0.0 % 0- 0 % [facility]: [address] [facility] High Neutrophils # 9.0 10 1.5-8.5 10 [facility]: [address] [facility] Normal Lymph # 2.1 10 1.5-5.0 10 [facility]: [address] [facility] High Amador # 0.9 10 0.0-0.8 10 [facility]: [address] [facility] Normal Eos # 0.1 10 0.0-0.5 10 [facility]: [address] [facility] Normal Baso # 0.0 10 0.0-0.2 10 [facility]: [address] [facility] 05/04/2021 ESR (Erythrocyte Sedimentation Rate), Blood Nor mal Erythrocyte Sedimentation Rate 8 mm/HR 0-30 mm/HR [facility]: [address] [facility] 05/04/2021 CMP, Serum or Plasma Normal Glucose, Fastin g 91 mg/dL 70-100 mg/dL [facility]: 83 0 [facility] Normal Blood Urea Nitrogen 15 mg/dL 7-18 mg /dL [facility]: 0 [facility] Normal Creatinine for GFR 0.69 mg/dL 0.55-1 .30 mg/dL [facility]: [address] [facility] Normal Glomerular Filtration Rate > 60.0 >5 1 [facility]: [address] [facility] Normal Sodium Level 141 mEq/L 136-145 mEq/L [facility]: 0 [facility] CRITICAL LOW Potassium Serum 2.9 mEq/L 3.5- 5.1 mEq/L [facility]: 0 [facility] Normal Chloride Level 104 mEq/L 98-107 mEq/ L [facility]: 0 [facility] Normal Carbon Dioxide Level 28 mEq/L 21-32 mEq/L [facility]: [address] [place] [address] Normal Anion Gap 9 mEq/L 8-16 mEq/L [facility]: [address] [place] [address] Normal Calcium Level 10.0 mg/dL 8.5-10.1 mg /dL [facility]: 0 [facility] High AST/SGOT 44 U/L 7-37 U/L [facility]: [address] [place] [address] Normal ALT/SGPT 64 U/L 12-78 U/L [facility]: [address] [place] [address] Normal Alkaline Phosphatase 55 U/L 45-117 U /L [facility]: [address] [place] [address] Normal Bilirubin,total 0.5 mg/dL 0.2-1.0 mg /dL [facility]: [address] [place] [address] Normal Total Protein 7.4 gm/dL 6.4-8.2 gm/d L [facility]: [address] [place] [address] Normal Albumin 4.4 gm/dL 3.2-5.2 gm/dL Roselyn l [facility]: [address] [place] [address] Normal Albumin/globulin Ratio 1.5 1.2-2. 2 [facility]: [address] [place] [address] 05/04/2021 Hepatic Function Panel, Serum Normal Bilirubin,direct 0.1 mg/dL 0.0-0.2 mg/dL [facility] nter: [address] [place] [address] 05/04/2021 Vitamin D, 25-Hydroxy, Total, Serum Normal Total 25([place]) Vitamin D 32.6 NG/mL 30.0-100.0 NG/mL [facility] Center: [address] [place] [address] 05/04/2021 C Reactive Protein, QN, Serum or Plasma Normal C Reactive Protein Quantitativ 0.30 mg/dL 0.00-0.30 mg/dL [facility]: [address] [place] [address] 05/04/2021 Urinalysis, Dipstick, Auto Normal Bilirubin ne g Final [facility]: [address], [place] ABNORMAL Blood 3+ Final [facility]: [address], [place] Normal Glucose neg Final [facility]: [address], [place] Normal Ketone neg Final [facility] Medi jasmin: [address], [place] ABNORMAL Leukocytes 3+ Final [facility] Medical: [address], [place] Normal Nitrite neg Final [facility] ical: [address], [place] Normal Ph 6.5 Final [facility]: [address], [place] Normal Protein neg Final [facility] ical: [address], [place] Normal Specific Benedicta 1.010 Final [facility]: [address], [place] Normal Urobilinogen 0.2 Final [facility] Medical: [address], [place] 01/07/2021 HbA1C (Hemoglobin a1C), Blood Blood venous Normal Hemoglobin a1C 5.2 % Final [facility]: [address] [facility] Blood venous Normal Estimated Average Glucose 103 mg/dL 60-110 mg/dL Final [facility]: [address] [facility] 01/07/2021 Lipid Panel, Blood High Triglycerides Lev el 183 mg/dL <150 mg/dL Final [facility]: 83 0 [facility] High Cholesterol Level 202 mg/dL <200 mg/ dL Final [facility]: [address] [facility] Normal HDL Cholesterol 41 mg/dL >40 mg/dL F inal [facility]: [address] [facility] High LDL Cholesterol 124 mg/dL <100 mg/dL Final [facility]: [address] [facility] Normal Non-hdl-c 161 mg/dL Final [facility]: [address] [facility] Normal Cholesterol Risk Ratio 4.926 <5 Final [facility]: [address] [place] [address] 01/07/2021 C Reactive Protein, QN, Serum or Plasma High C Reactive Protein Quantitativ 0.75 mg/dL 0.00-0.30 mg/dL [facility]: [address] [place] [address] 01/07/2021 CBC W/ Auto Diff Blood venous Normal White Blood C ount 8.6 10 4.0-10.0 10 [facility]: 83 0 [facility] Blood venous Normal Red Blood Count 4.29 10 4.00- 5.40 10 [facility]: [address] [place] [address] Blood venous Normal Hemoglobin 13.1 g/dL 12.0-15. 5 g/dL [facility]: [address] [place] [address] Blood venous Normal Hematocrit 39.4 % 36.0-47.0 % [facility]: [address] [place] [address] Blood venous Normal Mean Corpuscular Volume 91.8 fL 80.0-96.0 fL [facility]: [address] [place] [address] Blood venous Normal Mean Corpuscular Hemoglob in 30.5 pg 27.0-33.0 pg [facility]: [address] [place] [address] Blood venous Normal Mean Corpuscular HGB Conc 33.2 g/dL 32.0-36.5 g/dL [facility]: [address] [place] [address] Blood venous Normal Red Cell Distribution Wid th 13.0 % 11.5-14.5 % [facility]: [address] [place] [address] Blood venous Normal Platelet Count, Automated 206 10 150-450 10 [facility]: [address] [place] [address] Blood venous High Neutrophils % 76.4 % 36.0-66. 0 % [facility]: [address] [place] [address] Blood venous Low Lymph % 14.9 % 24.0-44.0 % Fi [facility]: [address] [place] [address] Blood venous Normal Amador % 6.7 % 2.0-8.0 % [facility]: [address] [place] [address] Blood venous Normal Eos % 1.2 % 0.0-3.0 % [facility]: [address] [place] [address] Blood venous Normal Baso % 0.5 % 0.0-1.0 % [facility]: [address] [place] [address] Blood venous Normal Immature Granulocyte % 0.3 % 0-3.0 % [facility]: [address] [place] [address] Blood venous Normal Nucleated Red Blood Cell % 0. 0 % 0-0 % [facility]: [address] [place] [address] Blood venous Normal Neutrophils # 6.6 10 1.5-8.5 10 [facility]: [address] [place] [address] Blood venous Low Lymph # 1.3 10 1.5-5.0 10 [facility]: [address] [place] [address] Blood venous Normal Amador # 0.6 10 0.0-0.8 10 [facility]: [address] [place] [address] Blood venous Normal Eos # 0.1 10 0.0-0.5 10 [facility]: [address] [place] [address] Blood venous Normal Baso # 0.0 10 0.0-0.2 10 [facility]: [address] [place] [address] 01/07/2021 ESR (Erythrocyte Sedimentation Rate), Blood Hig h Erythrocyte Sedimentation Rate 32 mm/HR 0-30 mm/HR [facility] dicaz Center: [address] [place] [address] 01/07/2021 Electrocardiogram Rate & Rhythm 71 sinu s rhythm [facility]: [address] [facility] [address], [place] Qrs [facility]: [address] [facility] [address] [place] Interval 120/168 ms [facility]: [address] [facility] [address] [place] QRS Duration 96 ms [facility] Medical: [address] [facility] [address], [place] QT Interval 404 [facility]: [address] [facility] [address], [place] 12/20/2020 TSH + Free T4, Serum Normal Thyroid Stimulating Hormone 1.830 uIU/mL 0.358-3.740 uIU/mL [facility] nter: 0 [facility] Normal Free T4 1.00 NG/dL 0.76-1.46 NG/dL F osbornl [facility]: [address] [place] [address] 12/20/2020 Vitamin B12 + Folate, Serum or Blood Normal Vitamin B12 Level 807 pg/mL [facility] nter: [address] [place] [address] Normal Folate > 24.0 NG/mL [facility]: [address] [place] [address] 12/20/2020 Vitamin D, 25-Hydroxy, Total, Serum Low Total 25(Oh) Vitamin D 27.2 NG/mL 30.0-100.0 NG/mL [facility] nter: [address] [place] [address] 12/20/2020 C Reactive Protein, QN, Serum or Plasma High C Reactive Protein Quantitativ 0.38 mg/dL 0.00-0.30 mg/dL [facility] Center: [address] [place] [address] 12/20/2020 CBC W/ Auto Diff Normal White Blood Count 5.8 10 4.0-10.0 10 [facility]: [address] [place] [address] Normal Red Blood Count 4.25 10 4.00-5.40 10 [facility]: [address] [place] [address] Normal Hemoglobin 13.1 g/dL 12.0-15.5 g/dL [facility]: [address] [place] [address] Normal Hematocrit 38.7 % 36.0-47.0 % [facility]: [address] [place] [address] Normal Mean Corpuscular Volume 91.1 fL 80.0 -96.0 fL [facility]: [address] [place] [address] Normal Mean Corpuscular Hemoglobin 30.8 pg 27.0-33.0 pg [facility]: [address] [place] [address] Normal Mean Corpuscular HGB Conc 33.9 g/dL 32.0-36.5 g/dL [facility]: [address] [place] [address] Normal Red Cell Distribution Width 13.2 % 1 1.5-14.5 % [facility]: [address] [facility] Normal Platelet Count, Automated 244 10 150 -450 10 [facility]: [address] [facility] High Neutrophils % 69.4 % 36.0-66.0 % [facility]: [address] [facility] Low Lymph % 22.7 % 24.0-44.0 % Final [facility]: [address] [facility] Normal Amador % 5.5 % 0.0-8.0 % Final [facility]: [address] [facility] Normal Eos % 1.6 % 0.0-3.0 % [facility]: 0 [facility] Normal Baso % 0.5 % 0.0-1.0 % [facility]: [address] [place] [address] Normal Immature Granulocyte % 0.3 % 0-3.0 % [facility]: [address] [facility] Normal Nucleated Red Blood Cell % 0.0 % 0- 0 % [facility]: [address] [facility] Normal Neutrophils # 4.0 10 1.5-8.5 10 [facility]: [address] [facility] Low Lymph # 1.3 10 1.5-5.0 10 [facility]: [address] [facility] Normal Amador # 0.3 10 0.0-0.8 10 [facility]: [address] [facility] Normal Eos # 0.1 10 0.0-0.5 10 [facility]: [address] [facility] Normal Baso # 0.0 10 0.0-0.2 10 [facility]: 0 [facility] 12/20/2020 ESR (Erythrocyte Sedimentation Rate), Blood Nor mal Erythrocyte Sedimentation Rate 13 mm/HR 0-30 mm/HR [facility] Center: [address] [place] [address] 12/20/2020 CMP, Serum or Plasma High Glucose, Fastin g 111 mg/dL 70-100 mg/dL [facility]: [address] 0 [facility] Normal Blood Urea Nitrogen 13 mg/dL 7-18 mg /dL [facility]: [address] [facility] Normal Creatinine for GFR 0.68 mg/dL 0.55-1 .30 mg/dL [facility]: [address] [facility] Normal Glomerular Filtration Rate > 60.0 >5 1 [facility]: [address] [facility] Normal Sodium Level 138 mEq/L 136-145 mEq/L [facility]: [address] [facility] Normal Potassium Serum 4.0 mEq/L 3.5-5.1 mE q/L [facility]: [address] [facility] Normal Chloride Level 102 mEq/L 98-107 mEq/ L [facility]: [address] [facility] Normal Carbon Dioxide Level 26 mEq/L 21-32 mEq/L [facility]: [address] [facility] Normal Anion Gap 10 mEq/L 8-16 mEq/L [facility]: [address] [facility] Normal Calcium Level 9.5 mg/dL 8.5-10.1 mg/ dL [facility]: [address] [facility] Normal AST/SGOT 36 U/L 7-37 U/L [facility]: [address] [facility] Normal ALT/SGPT 60 U/L 12-78 U/L [facility]: [address] [facility] Normal Alkaline Phosphatase 74 U/L 45-117 U /L [facility]: [address] [facility] Normal Bilirubin,total 0.3 mg/dL 0.2-1.0 mg /dL [facility]: [address] [facility] Normal Total Protein 7.5 gm/dL 6.4-8.2 gm/d L [facility]: [address] [facility] Normal Albumin 4.4 gm/dL 3.2-5.2 gm/dL [facility]: [address] [facility] Normal Albumin/globulin Ratio 1.4 1.2-2. 2 Final [facility]: [address] [facility] Past Encounters 08/11/2021 Chronic Post-traumatic Stress Disorder; Generalized Anxiety Disorder; Moderate Recurrent Major Depression Evelyne AriasLALOW-R: [address] [facility] [address], [place] [address], Ph. 08/10/2021 Adult Health Examination; Gynecologic Examination; Patient Informed - Test Result; Active or Passive Immunization; Rheumatoid Arthritis; Depressive Disorder; Hyperlipidemia; Hypertensive Heart Disease without Congestive Heart Failure; Hypokalemia; Hypothyroidism; Obesity; Anxiety; Fatigue; Reduced Libido CHEYANNE AlarconC: [address] [facility] [address], [place] [address], Ph. 08/04/2021 Chronic Post-traumatic Stress Disorder; Generalized Anxiety Disorder; Moderate Recurrent Major Depression Evelyne AriasSHELBI-R: [address] [facility] [address], [place] [address], Ph. 07/21/2021 Chronic Post-traumatic Stress Disorder; Generalized Anxiety Disorder; Moderate Recurrent Major Depression Evelyne AriasLALOW-R: [address] [facility] [address], [place] [address], Ph. 07/14/2021 Chronic Post-traumatic Stress Disorder; Generalized Anxiety Disorder; Moderate Recurrent Major Depression Evelyne AriasSHELBI-R: [address] [facility] [address], [place] [address], Ph. 07/07/2021 Chronic Post-traumatic Stress Disorder; Generalized Anxiety Disorder; Moderate Recurrent Major Depression Evelyne AriasLALOW-R: [address] [facility] [address], [place] [address], Ph. 06/30/2021 Chronic Post-traumatic Stress Disorder; Generalized Anxiety Disorder; Moderate Recurrent Major Depression Evelyne OrtegaLALO echevarriaW-R: [address] [facility] [address], [place] [address], Ph. 06/16/2021 Chronic Post-traumatic Stress Disorder; Generalized Anxiety Disorder; Moderate Recurrent Major Depression Evelyne Arias, MUCK HAULER-R: [address] [facility], [facility] [address], [place] [address], Ph. 06/06/2021 Venereal Disease Screening; Hypokalemia; Hepatitis C Screening; HIV Screening Michele Chavarria, RPA-C: [address] [facility], [facility] [address], [place] [address], Ph. 05/24/2021 Depressive Disorder; Constipation; Obesity; Screening for Malignant Neoplasm of Colon; Hepatitis C Screening; HIV Screening; Venereal Disease Screening; Hypokalemia Michele Chavarria, RPA-C: [address] [facility], [facility] [address], [place] [address], Ph. 05/04/2021 Arthropathy; Hypokalemia; Dysuria; Acute Cystitis; Hypertensive Heart Disease without Congestive Heart Failure; Hypothyroidism; Fatigue Micheleaudrey Chavarria, RPA-C: [address] [facility], [facility] [address], [place] [address], Ph. 04/19/2021 Chronic Post-traumatic Stress Disorder; Generalized Anxiety Disorder; Moderate Recurrent Major Depression Albina Arcos, MUCK HAULER-R: [address] [facility], [facility] [address], [place] [address], Ph. 03/07/2021 Chronic Post-traumatic Stress Disorder; Generalized Anxiety Disorder; Moderate Recurrent Major Depression Albina Arcos, MUCK HAULER-R: [address], [facility] [address], [place] [address], Ph. 02/22/2021 Generalized Anxiety Disorder; Moderate Recurrent Major Depression; Panic Disorder Albina Arcos, MUCK HAULER-R: [address], [facility] [address], [place] [address], Ph. 02/08/2021 Generalized Anxiety Disorder Albina Arcos, MUCK HAULER-R: [address] [facility], [facility] [address], [place] [address], Ph. 01/21/2021 Depressive Disorder; Hypertensive Heart Disease without Congestive Heart Failure; Temporal Headache CHEYANNE PattersonC: [address] [facility], [facility] [address], [place] [address], Ph. 01/07/2021 Adult Health Examination; Hyperlipidemia; Palpitations; Heart Murmur; Snoring; Hypertensive Disorder; Impaired Fasting Glycemia; Temporal Headache; Screening for Malignant Neoplasm of Breast; Hearing Difficulty; Mixed Anxiety and Depressive Disorder; Gastroesophageal Reflux Disease without Esophagitis CHEYANNE PattersonC: [address] [facility], [facility] [address], [place] [address], Ph. Social History Tobacco Smoking Status Never Smoker Vaccine List Vaccine Type COVID-19 vaccine, vector-nr, [id number], PF, 0.5 mL 01/19/2021 pneumococcal polysaccharide PPV23 10.5 mL Tdap .5 mL zoster recombinant 0.5 mL Plan of Care Patient Instructions WE DISCUSSED [...] Surgeries None recorded. Imaging None recorded. Vitals 08/10/2021 11:20AM ANNUAL WITH INSOLE STIFFENER EXAM Height Weight BMI Blood Pressure 64 in 179 lbs 12.8 oz 30.9 kg/m2 126/81 mm[H g] 05/24/2021 09:10AM ESTABLISHED [id number] Height Weight BMI Blood Pressure 64 in 192 lbs 33 kg/m2 120/80 mm[Hg] 05/04/2021 11:40AM ESTABLISHED [id number] Height Weight BMI Blood Pressure 64 in 198 lbs 34 kg/m2 125/81 mm[Hg] 01/21/2021 08:50AM TELEHEALTH 20 Height 64 in 01/07/2021 08:50AM NEW ACUTE 20 Height Weight BMI Blood Pressure 64 in 224 lbs 9.6 oz 38.6 kg/m2 135/88 mm[Hg ]
--- OUTSIDE RECORDS SUMMARY | 2021-08-18 10:05 | CCD ---
Author Organization Unknown Address [address] [place] [address] Phone [phone] Care Team Providers Care Air Director Name Role Phone Karina Delgado Unavailable Unavailable Allergies Code Code System Name Reaction Severity Status Onset Sulfa (Sulfonamide Antibiotics) Active 11/07/2012 65502 RxNorm Wellbutrin Sr Active 2012 Medications Name Status Start Date Stop Date [...] EVERY DAY IN THE MORNING Completed 08/04/2021 Colace 100 mg capsule Take 1 capsule [...] Not available prednisone 2.5 mg tablet Completed prednisone 20 mg tablet Completed 02/15/20 21 sertraline 100 mg tablet TAKE 1 TABLET BY MOUTH EVERY EVENING Active No t available sertraline 50 mg tablet TAKE 1 TABLET BY MOUTH EVERY DAY Completed 2020 simvastatin 40 mg tablet TAKE 1 TABLET BY MOUTH EVERY DAY Active Not av ailable tizanidine 4 mg tablet TAKE ONE TABLET [...] Disorder of Digestive System Active 07/02/2013 Clinical Finding Active 07/02/2013 Clinical Finding Unknown 07/11/2013 Hypokalemia Active 05/05/2021 Obesity Active 05/24/2021 Hypothyroidism Active Depressive Disorder Active Arthropathy Active SNOMED CT Concept Active Finding of Esophagus Active Procedures Date Name Performed by 08/08/2005 Total Hysterectomy via Vaginal Approach Information not available 01/07/2021 Electrocardiogram [facility] [address] [facility] [address] [place] [address] ( (Work Place) 01/07/2021 MAMMO, Screening, Digital, Bilateral [facility] [facility] [address] [place] [address] (Work Place) 05/18/2021 Electrocardiogram [facility] [address] [place] [id number] (Work Place) Notes: partial hyster, D+C, 2 bladder re pairs Results Lab Results Date Name Specimen Result Interpretation Description Value Range Status Address 06/06/2021 HIV 1+2 Ab + HIV1 P24 Ag, Quantitative I mmunoassay, Serum Blood venous Normal HIV Ag/Ab, 4TH Gen non-reactive non-reactive Fin al [facility]: [address] [facility] 06/06/2021 Potassium, Serum Blood venous Normal Potassium 3. 5 mmol/L 3.5- 5.3 mmol/L [facility] [address] [facility] 06/06/2021 Hepatitis C Virus Ab, Serum Blood venous Normal Hepatitis C Antibody non-reactive non-reactive Final [facility]: [address] [facility] Blood venous Normal Index 0.02 <1.00 Final [facility]: [address] [facility] 06/06/2021 RPR (Rapid Plasma Reagin), Serum Blood venous Normal RPR (DX) W/refl Titer and Confirmatory Testing non-reactive non-reactive Final [facility]: [address] [facility] 05/16/2021 Potassium, Serum or Plasma Normal Potassium Serum 3.7 mEq/L 3.5-5.1 mEq/L [facility]: 83 0 [facility] 05/10/2021 Potassium, Serum or Plasma Low Potassium Serum 3.4 mEq/L 3.5- 5.1 mEq/L [facility]: 83 0 [facility] 05/05/2021 Potassium, Serum or Plasma D Potassium Serum 3.8 mEq/L 3.5-5.1 mEq/L [facility]: 83 0 [facility] 05/05/2021 TSH, Serum or Plasma Normal Thyroid Stimulating Hormone 1.490 uIU/mL 0.358-3.740 uIU/mL [facility]: [address] [facility] 05/04/2021 CBC W/ Auto Diff High White Blood Count 12.2 10 4.0-10.0 10 [facility]: [address] [facility] Normal Red Blood Count 4.35 10 4.00-5.40 10 [facility]: 830 [facility] Normal Hemoglobin 13.3 g/dL 12.0-15.5 g/dL [facility]: [address] [place] [address] Normal Hematocrit 38.6 % 36.0-47.0 % [facility]: [address] [place] [address] Normal Mean Corpuscular Volume 88.7 fL 80.0 -96.0 fL [facility]: [address] [place] [address] Normal Mean Corpuscular Hemoglobin 30.6 pg 27.0-33.0 pg [facility]: [address] [place] [address] Normal Mean Corpuscular HGB Conc 34.5 g/dL 32.0-36.5 g/dL [facility]: 0 [facility] Normal Red Cell Distribution Width 13.8 % 1 1.5-14.5 % [facility]: [address] [place] [address] Normal Platelet Count, Automated 266 10 150 -450 10 [facility]: 0 [facility] High Neutrophils % 74.0 % 36.0-66.0 % Fin [facility]: [address] [facility] Low Lymph % 17.5 % 24.0-44.0 % [facility]: [address] [facility] Normal [place] % 7.4 % 2.0-8.0 % [facility]: 8[address] [facility] Normal Eos % 0.4 % 0.0-3.0 % [facility]: 0 [facility] Normal Baso % 0.2 % 0.0-1.0 % [facility]: [address] [facility] Normal Immature Granulocyte % 0.5 % 0-3.0 % [facility]: 8[address] [facility] Normal Nucleated Red Blood Cell % 0.0 % 0- 0 % [facility]: [address] [facility] High Neutrophils # 9.0 10 1.5-8.5 10 [facility]: 830 [facility] Normal Lymph # 2.1 10 1.5-5.[address] [facility]: [address] [facility] High [place] # 0.9 10 0.0-0.8 10 [facility]: 8[address] [facility] Normal Eos # 0.1 10 0.0-0.5 10 [facility]: 8[address] [facility] Normal Baso # 0.0 10 0.0-0.2 10 [facility]: 8[address] [facility] 05/04/2021 ESR (Erythrocyte Sedimentation Rate), Blood Nor mal Erythrocyte Sedimentation Rate 8 mm/HR 0-30 mm/HR [facility]: 8[address] [facility] 05/04/2021 CMP, Serum or Plasma Normal Glucose, Fastin g 91 mg/dL 70-100 mg/dL [facility]: 83 0 [facility] Normal Blood Urea Nitrogen 15 mg/dL 7-18 mg /dL [facility]: 0 [facility] Normal Creatinine for GFR 0.69 mg/dL 0.55-1 .30 mg/dL [facility]: 0 [facility] Normal Glomerular Filtration Rate > 60.0 >5 1 [facility]: [address] [facility] Normal Sodium Level 141 mEq/L 136-145 mEq/L [facility]: 0 [facility] CRITICAL LOW Potassium Serum 2.9 mEq/L 3.5- 5.1 mEq/L [facility]: 0 [facility] Normal Chloride Level 104 mEq/L 98-107 mEq/ L [facility]: 0 [facility] Normal Carbon Dioxide Level 28 mEq/L 21-32 mEq/L [facility]: 0 [facility] Normal Anion Gap 9 mEq/L 8-16 mEq/L [facility]: [address] [place] [address] Normal Calcium Level 10.0 mg/dL 8.5-10.1 mg /dL [facility]: 0 [facility] High AST/SGOT 44 U/L 7-37 U/L [facility]: [address] [facility] Normal ALT/SGPT 64 U/L 12-78 U/L Final [facility]: [address] [facility] Normal Alkaline Phosphatase 55 U/L 45-117 U /L [facility]: [address] [place] [address] Normal Bilirubin,total 0.5 mg/dL 0.2-1.0 mg /dL [facility]: 0 [facility] Normal Total Protein 7.4 gm/dL 6.4-8.2 gm/d L [facility]: 0 [facility] Normal Albumin 4.4 gm/dL 3.2-5.2 gm/dL Roselyn l [facility]: [address] [place] [address] Normal Albumin/globulin Ratio 1.5 1.2-2. 2 [facility]: [address] [place] [address] 05/04/2021 Hepatic Function Panel, Serum Normal Bilirubin,direct 0.1 mg/dL 0.0-0.2 mg/dL [facility] nter: [address] [place] [address] 05/04/2021 Vitamin D, 25-Hydroxy, Total, Serum Normal Total 25(Oh) Vitamin D 32.6 NG/mL 30.0-100.0 NG/mL [facility]: [address] [place] [address] 05/04/2021 C Reactive Protein, QN, Serum or Plasma Normal C Reactive Protein Quantitativ 0.30 mg/dL 0.00-0.30 mg/dL [facility]: [address] [place] [address] 05/04/2021 Urinalysis, Dipstick, Auto Normal Bilirubin ne g Final [facility]: [address] [facility] [address], [place] ABNORMAL Blood 3+ Final [facility] ical: [address], [place] Normal Glucose neg Final [facility] ical: [address], [place] Normal Ketone neg Final [facility] jasmin: [address], [place] ABNORMAL Leukocytes 3+ Final [facility]: [address], [place] Normal Nitrite neg Final [facility] ical: [address], [place] Normal Ph 6.5 Final [facility] l: [address], [place] Normal Protein neg Final [facility] ical: [address], [place] Normal Specific [place] 1.010 Final [facility]: [address], [place] Normal Urobilinogen 0.2 Final [facility]: [address], [place] 01/07/2021 HbA1C (Hemoglobin a1C), Blood Blood venous Normal Hemoglobin a1C 5.2 % Final [facility]: [address] [facility] Blood venous Normal Estimated Average Glucose 103 mg/dL 60-110 mg/dL Final [facility]: [address] [facility] 01/07/2021 Lipid Panel, Blood High Triglycerides Lev el 183 mg/dL <150 mg/dL Final [facility]: 83 0 [facility] High Cholesterol Level 202 mg/dL <200 mg/ dL Final [facility]: 830 [facility] Normal HDL Cholesterol 41 mg/dL >40 mg/dL F inal [facility]: [address] [facility] High LDL Cholesterol 124 mg/dL <100 mg/dL Final [facility]: [address] [facility] Normal Non-hdl-c 161 mg/dL Final [facility]: [address] [facility] Normal Cholesterol Risk Ratio 4.926 <5 Final [facility]: [address] [facility] 01/07/2021 C Reactive Protein, QN, Serum or Plasma High C Reactive Protein Quantitativ 0.75 mg/dL 0.00-0.30 mg/dL [facility]: [address] [place] [address] 01/07/2021 CBC W/ Auto Diff Blood venous Normal White Blood C ount 8.6 10 4.0-10.0 10 [facility]: 83 0 [facility] Blood venous Normal Red Blood Count 4.29 10 4.00- 5.40 10 [facility]: [address] [place] [address] Blood venous Normal Hemoglobin 13.1 g/dL 12.0-15. 5 g/dL [facility]: [address] [place] [address] Blood venous Normal Hematocrit 39.4 % 36.0-47.0 % [facility]: [address] [place] [address] Blood venous Normal Mean Corpuscular Volume 91.8 fL 80.0-96.0 fL [facility]: [address] [place] [address] Blood venous Normal Mean Corpuscular Hemoglob in 30.5 pg 27.0-33.0 pg [facility]: [address] [place] [address] Blood venous Normal Mean Corpuscular HGB Conc 33.2 g/dL 32.0-36.5 g/dL [facility]: [address] [place] [address] Blood venous Normal Red Cell Distribution Wid th 13.0 % 11.5-14.5 % [facility]: [address] [place] [address] Blood venous Normal Platelet Count, Automated 206 10 150-450 10 [facility]: [address] [place] [address] Blood venous High Neutrophils % 76.4 % 36.0-66. 0 % [facility]: [address] [place] [address] Blood venous Low Lymph % 14.9 % 24.0-44.0 % Fi [facility]: [address] [place] [address] Blood venous Normal [place] % 6.7 % 2.0-8.0 % [facility]: [address] [place] [address] Blood venous Normal Eos % 1.2 % 0.0-3.0 % [facility]: [address] [place] [address] Blood venous Normal Baso % 0.5 % 0.0-1.0 % [facility]: [address] [facility] Blood venous Normal Immature Granulocyte % 0.3 % 0-3.0 % [facility]: [address] [place] [address] Blood venous Normal Nucleated Red Blood Cell % 0. 0 % 0-0 % [facility]: [address] [place] [address] Blood venous Normal Neutrophils # 6.6 10 1.5-8.5 10 [facility]: [address] [place] [address] Blood venous Low Lymph # 1.3 10 1.5-5.0 10 Health system: [address] [place] [address] Blood venous Normal [place] # 0.6 10 0.0-0.8 10 [facility]: [address] [facility] Blood venous Normal Eos # 0.1 10 0.0-0.5 10 [facility]: [address] [place] [address] Blood venous Normal Baso # 0.0 10 0.0-0.2 10 [facility]: 0 [facility] 01/07/2021 ESR (Erythrocyte Sedimentation Rate), Blood Hig h Erythrocyte Sedimentation Rate 32 mm/HR 0-30 mm/HR [facility]: [address] [place] [address] 01/07/2021 Electrocardiogram Rate & Rhythm 71 sinu s rhythm [facility]: [address] [facility] [address] [place] Qrs [facility]: [address] [facility] [address], [place] Interval 120/168 ms [facility] [address] [facility] [address] [place] QRS Duration 96 ms [facility]: [address] [facility] [address] [place] QT Interval 404 [facility]: [address] [facility] [address], [place] 12/20/2020 TSH + Free T4, Serum Normal Thyroid Stimulating Hormone 1.830 uIU/mL 0.358-3.740 uIU/mL [facility] nter: 0 [facility] Normal Free T4 1.00 NG/dL 0.76-1.46 NG/dL F inal [facility]: [address] [place] [address] 12/20/2020 Vitamin B12 + Folate, Serum or Blood Normal Vitamin B12 Level 807 pg/mL Final [facility] nter: [address] [place] [address] Normal Folate > 24.0 NG/mL [facility]: [address] [place] [address] 12/20/2020 Vitamin D, 25-Hydroxy, Total, Serum Low Total 25(Oh) Vitamin D 27.2 NG/mL 30.0-100.0 NG/mL Final [facility] nter: [address] [place] [address] 12/20/2020 C Reactive Protein, QN, Serum or Plasma High C Reactive Protein Quantitativ 0.38 mg/dL 0.00-0.30 mg/dL [facility]: [address] [place] [address] 12/20/2020 CBC W/ Auto Diff Normal White Blood Count 5.8 10 4.0-10.0 10 [facility]: [address] [place] [address] Normal Red Blood Count 4.25 10 4.00-5.40 10 [facility]: [address] [place] [address] Normal Hemoglobin 13.1 g/dL 12.0-15.5 g/dL [facility]: [address] [place] [address] Normal Hematocrit 38.7 % 36.0-47.0 % [facility]: [address] [place] [address] Normal Mean Corpuscular Volume 91.1 fL 80.0 -96.0 fL [facility]: [address] [place] [address] Normal Mean Corpuscular Hemoglobin 30.8 pg 27.0-33.0 pg [facility]: [address] [place] [address] Normal Mean Corpuscular HGB Conc 33.9 g/dL 32.0-36.5 g/dL [facility]: [address] [place] [address] Normal Red Cell Distribution Width 13.2 % 1 1.5-14.5 % [facility]: [address] [place] [address] Normal Platelet Count, Automated 244 10 150 -450 10 [facility]: [address] [facility] High Neutrophils % 69.4 % 36.0-66.0 % Health system: 8[address] [facility] Low Lymph % 22.7 % 24.0-44.0 % [facility]: [address] [facility] Normal [place] % 5.5 % 0.0-8.0 % Final [facility]: [address] [facility] Normal Eos % 1.6 % 0.0-3.0 % [facility]: [address] [facility] Normal Baso % 0.5 % 0.0-1.0 % Final [facility]: 8[address] [facility] Normal Immature Granulocyte % 0.3 % 0-3.0 % [facility]: [address] [facility] Normal Nucleated Red Blood Cell % 0.0 % 0- 0 % [facility]: 8[address] [facility] Normal Neutrophils # 4.0 10 1.5-8.5 10 [facility]: [address] [facility] Low Lymph # 1.3 10 1.5-5.[address] [facility]: [address] [facility] Normal [place] # 0.3 10 0.0-0.8 10 [facility]: [address] [facility] Normal Eos # 0.1 10 0.0-0.5 10 [facility]: [address] [facility] Normal Baso # 0.0 10 0.0-0.2 10 [facility]: [address] [facility] 12/20/2020 ESR (Erythrocyte Sedimentation Rate), Blood Nor mal Erythrocyte Sedimentation Rate 13 mm/HR 0-30 mm/HR [facility]: 0 [facility] 12/20/2020 CMP, Serum or Plasma High Glucose, Fastin g 111 mg/dL 70-100 mg/dL [facility]: 83 0 [facility] Normal Blood Urea Nitrogen 13 mg/dL 7-18 mg /dL [facility]: [address] [facility] Normal Creatinine for GFR 0.68 mg/dL 0.55-1 .30 mg/dL [facility]: 0 [facility] Normal Glomerular Filtration Rate > 60.0 >5 1 [facility]: [address] [facility] Normal Sodium Level 138 mEq/L 136-145 mEq/L [facility]: 0 [facility] Normal Potassium Serum 4.0 mEq/L 3.5-5.1 mE q/L [facility]: [address] [facility] Normal Chloride Level 102 mEq/L 98-107 mEq/ L [facility]: 0 [facility] Normal Carbon Dioxide Level 26 mEq/L 21-32 mEq/L [facility]: 0 [facility] Normal Anion Gap 10 mEq/L 8-16 mEq/L [facility]: 0 [facility] Normal Calcium Level 9.5 mg/dL 8.5-10.1 mg/ dL [facility]: [address] [facility] Normal AST/SGOT 36 U/L 7-37 U/L [facility]: 0 [facility] Normal ALT/SGPT 60 U/L 12-78 U/L [facility]: 0 [facility] Normal Alkaline Phosphatase 74 U/L 45-117 U /L [facility]: 0 [facility] Normal Bilirubin,total 0.3 mg/dL 0.2-1.0 mg /dL [facility]: [address] [facility] Normal Total Protein 7.5 gm/dL 6.4-8.2 gm/d L [facility]: 0 [facility] Normal Albumin 4.4 gm/dL 3.2-5.2 gm/dL Roselyn l [facility]: 0 [facility] Normal Albumin/globulin Ratio 1.4 1.2-2. 2 [facility]: 0 [facility] Past Encounters 08/04/2021 Chronic Post-traumatic Stress Disorder; Generalized Anxiety Disorder; Moderate Recurrent Major Depression LALO DoeW-R: [address] , [facility] [address], [place] [address], Ph. 07/21/2021 Chronic Post-traumatic Stress Disorder; Generalized Anxiety Disorder; Moderate Recurrent Major Depression LALO DoeW-R: [address] , [facility] [address], [place] [address], Ph. 07/14/2021 Chronic Post-traumatic Stress Disorder; Generalized Anxiety Disorder; Moderate Recurrent Major Depression LALO DoeW-R: [address] , [address], [place] [address], Ph. 07/07/2021 Chronic Post-traumatic Stress Disorder; Generalized Anxiety Disorder; Moderate Recurrent Major Depression LALO DoeW-R: [address] , [facility] [address], [place] [address], Ph. 06/30/2021 Chronic Post-traumatic Stress Disorder; Generalized Anxiety Disorder; Moderate Recurrent Major Depression LALO DoeW-R: [address] , [facility] [address], [place] [address], Ph. 06/16/2021 Chronic Post-traumatic Stress Disorder; Generalized Anxiety Disorder; Moderate Recurrent Major Depression Evelyne Arias ETL DATABASE DEVELOPER-R: [address] , [facility] [address], [place] [address], Ph. 06/06/2021 Venereal Disease Screening; Hypokalemia; Hepatitis C Screening; HIV Screening Michele Chavarria RPA-C: [address], [place] [address], Ph. 05/24/2021 Depressive Disorder; Constipation; Obesity; Screening for Malignant Neoplasm of Colon; Hepatitis C Screening; HIV Screening; Venereal Disease Screening; Hypokalemia Michele Chavarria RPA-C: [address], [place] [address], Ph. 05/04/2021 Arthropathy; Hypokalemia; Dysuria; Acute Cystitis; Hypertensive Heart Disease without Congestive Heart Failure; Hypothyroidism; Fatigue Michele Chavarria RPA-C: [address] [facility], [facility] [address], [place] [address], Ph. 04/19/2021 Chronic Post-traumatic Stress Disorder; Generalized Anxiety Disorder; Moderate Recurrent Major Depression Albina Arcos ETL DATABASE DEVELOPER-R: [address] [facility], [facility] [address], [place] [address], Ph. 03/07/2021 Chronic Post-traumatic Stress Disorder; Generalized Anxiety Disorder; Moderate Recurrent Major Depression Albina Arcos ETL DATABASE DEVELOPER-R: [address] [facility], [facility] [address], [place] [address], Ph. 02/22/2021 Generalized Anxiety Disorder; Moderate Recurrent Major Depression; Panic Disorder Albina Arcos ETL DATABASE DEVELOPER-R: [address] [facility], [facility] [address], [place] [address], Ph. 02/08/2021 Generalized Anxiety Disorder Albina Arcos [facility]: [address] [facility], [facility] [address], [place] [address], Ph. 01/21/2021 Depressive Disorder; Hypertensive Heart Disease without Congestive Heart Failure; Temporal Headache Karina Delgado RPA-C: [address] [facility], [facility] [address], [place] [address], Ph. 01/07/2021 Adult Health Examination; Hyperlipidemia; Palpitations; Heart Murmur; Snoring; Hypertensive Disorder; Impaired Fasting Glycemia; Temporal Headache; Screening for Malignant Neoplasm of Breast; Hearing Difficulty; Mixed Anxiety and Depressive Disorder; Gastroesophageal Reflux Disease without Esophagitis Karina Delgado RPA-C: [address] [facility], [facility] [address], [place] [address], Ph. Social History Tobacco Smoking Status Never [...] Imaging None recorded. Vitals 05/24/2021 09:10AM ESTABLISHED [id number] Height Weight BMI Blood Pressure 64 in 192 lbs 33 kg/m2 120/80 mm[Hg] 05/04/2021 11:40AM ESTABLISHED [id number] Height Weight BMI Blood Pressure 64 in 198 lbs 34 kg/m2 125/81 mm[Hg] 01/21/2021 08:50AM TELEHEALTH 20 Height 64 in 01/07/2021 08:50AM NEW ACUTE 20 Height Weight BMI Blood Pressure 64 in 224 lbs 9.6 oz 38.6 kg/m2 135/88 mm[Hg ]
--- OUTSIDE RECORDS SUMMARY | 2021-08-18 10:05 | CCD ---
Author Author [facility] Organization [facility] Address Unknown Phone Unavailable Care Team Providers Care Director Machine Name Role Phone Julienne Lariosbeth Unavailable PROBLEMS Type Condition ICD9-CM Code ECB88-WO Code Onset Dates Condition S tatus W/U Status Risk SNOMED Code Notes Problem Rheumatoid arthritis involvi ng multiple sites with positive rheumatoid factor M05.79 Active confirmed 034368633 Problem Vitamin D deficiency E55.9 Active confirmed 99924995 Problem alf systemic steroid user Z79.52 Active confirmed [id number] Problem Primary osteoarthritis involving multiple joints M 15.0 Active confirmed 677227802 Problem High risk medication use Z79.899 Active confirmed [id number] Problem Primary osteoarthritis of both knees M17.0 Act shanae confirmed [id number] Problem Chronic fatigue R53.82 Active confirmed 8422 [id number] ALLERGIES Allergen (clinical drug ingredient) Drug/Non Drug Allergy do cumented on EMR Reaction Allergy Type Onset Date Status Sulfa (for allergy use only) Hives Drug Allergy Active ENCOUNTERS from 1969 to 2021-06-16 Encounter Location Date Provider Diagnosis [facility] Rheumatology [address] [place] [address] [place] [address] May, Marjorie Larios IMMUNIZATIONS No Information SOCIAL HISTORY [...] Once a day for 30 days Active Sertraline HCl 50 MG 1 tab Orally Daily Active Simvastatin 40 MG 1 tab Oral Daily A ctive Gabapentin 400 MG Orally 2 in the morning 1 at night Not-Taking Acetaminophen 325 MG 2 tablets before infusion Orally 24 2019 Active Losartan Potassium 50 MG 1 tablet Orally Once a day Active Hydrochlorothiazide 25 mg 1 tablet in the morning Oral Once a day Active Medrol 4 MG as directed Orally Daily for 6 days for 6 days Sep, Not-Taking Multi Vitamin - 1 tablet Orally Once a day for 30 day(s) Active Omeprazole 40 MG 1 cap Oral Daily Ac tive Methotrexate 2.5 MG 8 tablets Orally once a week for 90 days Active Benadryl 25 MG 1 tablet Orally 30 minutes prior to Infusion Sep, Active Folic Acid 1 MG 1 tablet Orally Once a day for 90 Active Meloxicam 15 MG 1 tablet Oral Once a day Not-Taking PROCEDURES No Information RESULTS No Results REASON FOR VISIT KATARZYNA Xeljanz XR 11mg tablet ER, MEDICAL (GENERAL) HISTORY Type Description Date Medical [...] Medication Name Sig Start Date Stop Date Acetaminophen 325 MG 2 tablets before infusion Orally Sep, Benadryl 25 MG 1 tablet Orally 30 minutes prior to Infusion Sep, Methotrexate 2.5 MG 8 tablets Orally once a week for 90 days Next Appt Details Provider Name:Marjorie Larios, 10:00:00 AM, [address] [place] [address], , [place], [address], Insurance Providers Payer Name Payer Address Payer Phone Insured Name Patient Relati onship to Insured Coverage Start Date Coverage End Date [facility] [place] [facility] [phone] [facility] [place] [id number] EUGENIA MOURA self
--- OUTSIDE RECORDS SUMMARY | 2021-08-18 10:05 | CCD | Continuity of Care Document ---
Author Author Alma FARR Organization Unknown Address [address] [place] [address], [address] [place] [address] Phone [phone] Care Team Providers Care Veneer Redrier Name Role Phone Michele Chavarria AUTM [phone] Problems Active Problems Provider Date Essential hypertension KATARZYNA iSnger Onset: 06/20/2021 Social History Type Date Description Comments Sex Unknown ETOH Use Denies alcohol use Tobacco Use Start: Unknown Patient has never smoked Recreational Drug Use Denies Drug Use Exercise Type/Frequency Exercises regularly Allergies, Adverse Reactions, Alerts Active Allergies Criticality Reaction | Severity Comments Date Sulfa Unable to assess criticality 03/29/2016 Medications Active Medications SIG Qnty Indications Ordering Provide r Date Simvastatin 40mg Tablets ever y day Unknown Bupropion HCL 100mg Tablets 3 tablets once a day Unknown Lisinopril-Hydrochlorothiazide 20-12.5mg Tablets once a day Unknown Omeprazole 40mg Capsules DR 1 by mouth twice a day Unknown Folic Acid 1mg Tablets Take 1 Tablet By Mouth Every Day Unknown Losartan Potassium 50mg Tablets Take 1 Tablet By Mouth Every Day Unknown Hydrochlorothiazide 25mg Tablets Take 1 Tablet By Mouth Every Day Unknown Methotrexate Sodium 2.5mg Tablets Take 8 Tablets By Mouth Once Weekly Unknown Sertraline HCL 100mg Tablets Take 1 Tablet By Mouth Every Evening Unknown 0 Potassium Chloride Amee ER 20Meq Tablets ER Take One Tablet By Mouth Every Other Day Unknown Inflectra 100mg Solution Rec 5 mg/kg every 6 weeks Unknown Immunizations Description No Information Available Vital Signs Date Vital Result Comment 06/20/2021 9:17am BP Systolic 130 mmHg BP Diastolic 68 mmHg Body Temperature 98.2 F Height 64 inches 5'4" Weight 187.50 lb BMI (Body Mass Index) 32.2 kg/m2 [place] Body Weight 120 lb Weight 85.050 kg BSA (Body Surface Area) 1.90 m2 03/29/2016 10:37am BP Systolic 128 mmHg BP Diastolic 74 mmHg Height 64 inches 5'4" Weight 204.00 lb BMI (Body Mass Index) 35.0 kg/m2 [place] Body Weight 120 lb Weight 92.534 kg BSA (Body Surface Area) 1.97 m2 Results Description No Information Available Procedures Date Code Description Status 06/20/2021 61244 Office/Outpatient New Low MDM 30 -44 Minutes Completed Medical Devices Description No Information Available Encounters Type Date Location Provider Dx Diagnosis Office Visit 06/20/2021 9:15a [facility] KATARZYNA Rodriguez R19.4 Change in bowel habit Z12.11 Encounter for screening for malignant neoplasm of colon Assessments Date Code Description Provider 06/20/2021 R19.4 Change in bowel habit KATARZYNA Medina 06/20/2021 Z12.11 Encounter for screening for ramakrishna gnant neoplasm of colon KATARZYNA Singer Plan of Treatment Future Appointment(s):* 09/01/2021 10:00 am - KATARZYNA Singer at [facility] * 08/18/2021 12:15 pm - Zia Sarabia JR, MD at [facility] 06/20/2021 - KATARZYNA Singer* R19.4 Change in bowel habit * Z12.11 Encounter for screening for malignant neoplasm of colon Functional Status Description No Information Available Mental Status Description No Information Available Referrals Refer to Reason for Referral Status Appt Date Zia Sarabia JR, MD SCHEDULE COLONOSCOPY Scheduled [address] [place] [id number] [phone]
--- OUTSIDE RECORDS SUMMARY | 2021-08-18 10:05 | CCD ---
Author Organization Unknown Address [address] [place] [address] Phone [phone] Care Team Providers Care Credit Specialist Name Role Phone Karina Delgado Unavailable Unavailable Allergies Code Code System Name Reaction Severity Status Onset Sulfa (Sulfonamide Antibiotics) Active 11/07/2012 48201 RxNorm Wellbutrin Sr Other Active 2012 Notes: [...] HCl XL 300 mg 24 hr tablet, extended release Active Not available Colace 100 mg capsule [...] route. Completed 02/14/2021 losartan 50 mg tablet Active Not availa ble losartan potassium (bulk) 100 mg daily Completed [...] Completed 02/15/20 21 sertraline 100 mg tablet Active Not sanjay ilable sertraline 50 mg tablet TAKE 1 TABLET [...] Vaginal Approach Information not available 01/07/2021 Electrocardiogram [facility] [address] [place] [address] (Work Place) 01/07/2021 MAMMO, Screening, Digital, Bilateral Ups de [facility] [address] [place] [address] (Work Place) 05/18/2021 Electrocardiogram [facility] [address] [facility] [address] [place] [address] (Work Place) Notes: partial hyster, D+C, 2 bladder re pairs Results Lab Results Date Name Specimen Result Interpretation Description Value Range Status Address 06/06/2021 HIV 1+2 Ab + HIV1 P24 Ag, Quantitative I mmunoassay, Serum Blood venous Normal HIV Ag/Ab, 4TH Gen non-reactive non-reactive Fin al [facility]: [address] , [place] 06/06/2021 Potassium, Serum Blood venous Normal Potassium 3. 5 mmol/L 3.5- 5.3 mmol/L [facility]: [address] [facility] 06/06/2021 Hepatitis C Virus Ab, Serum Blood venous Normal Hepatitis C Antibody non-reactive non-reactive Final [facility]: [address] [facility] Blood venous Normal Index 0.02 <1.00 Final [facility]: [address] [facility] 06/06/2021 RPR (Rapid Plasma Reagin), Serum Blood venous Normal RPR (DX) W/refl Titer and Confirmatory Testing non-reactive non-reactive Final [facility]: [address] [facility] 05/16/2021 Potassium, Serum or Plasma Normal Potassium Serum 3.7 mEq/L 3.5-5.1 mEq/L [facility]: [address] [facility] [place] 05/10/2021 Potassium, Serum or Plasma Low Potassium Serum 3.4 mEq/L 3.5- 5.1 mEq/L [facility]: [address] [facility] [place] 05/05/2021 Potassium, Serum or Plasma D Potassium Serum 3.8 mEq/L 3.5-5.1 mEq/L [facility]: [address] [facility] [place] 05/05/2021 TSH, Serum or Plasma Normal Thyroid Stimulating Hormone 1.490 uIU/mL 0.358-3.740 uIU/mL [facility] nter: [address] [place] 05/04/2021 CBC W/ Auto Diff High White Blood Count 12.2 10 4.0-10.0 10 [facility]: [address] [place] Normal Red Blood Count 4.35 10 4.00-5.40 10 [facility]: [address] [place] Normal Hemoglobin 13.3 g/dL 12.0-15.5 g/dL [facility]: [address] [place] [address] Normal Hematocrit 38.6 % 36.0-47.0 % [facility]: [address] [place] [address] Normal Mean Corpuscular Volume 88.7 fL 80.0 -96.0 fL [facility]: [address] [place] [address] Normal Mean Corpuscular Hemoglobin 30.6 pg 27.0-33.0 pg [facility]: [address] [place] [address] Normal Mean Corpuscular HGB Conc 34.5 g/dL 32.0-36.5 g/dL [facility]: [address] [place] [address] Normal Red Cell Distribution Width 13.8 % 1 1.5-14.5 % [facility]: [address] [place] [address] Normal Platelet Count, Automated 266 10 150 -450 10 [facility]: [address] [facility] High Neutrophils % 74.0 % 36.0-66.0 % [facility]: [address] [place] Low Lymph % 17.5 % 24.0-44.0 % [facility]: [address] [place] Normal Braxton % 7.4 % 2.0-8.0 % [facility]: [address] [place] Normal Eos % 0.4 % 0.0-3.0 % [facility]: [address] [facility] [place] Normal Baso % 0.2 % 0.0-1.0 % [facility]: [address] [place] [address] Normal Immature Granulocyte % 0.5 % 0-3.0 % [facility]: [address] [place] [address] Normal Nucleated Red Blood Cell % 0.0 % 0- 0 % [facility]: [address] [place] High Neutrophils # 9.0 10 1.5-8.5 10 Roselyn l [facility]: [address] [place] Normal Lymph # 2.1 10 1.5-5.0 10 [facility]: [address] [place] High Braxton # 0.9 10 0.0-0.8 10 [facility]: [address] [place] Normal Eos # 0.1 10 0.0-0.5 10 [facility]: [address] [place] Normal Baso # 0.0 10 0.0-0.2 10 [facility]: [address] [place] 05/04/2021 ESR (Erythrocyte Sedimentation Rate), Blood Nor mal Erythrocyte Sedimentation Rate 8 mm/HR 0-30 mm/HR [facility]: [address] [place] 05/04/2021 CMP, Serum or Plasma Normal Glucose, Fastin g 91 mg/dL 70-100 mg/dL [facility]: [address] [place] Normal Blood Urea Nitrogen 15 mg/dL 7-18 mg /dL [facility]: [address] [facility] [place] Normal Creatinine for GFR 0.69 mg/dL 0.55-1 .30 mg/dL [facility]: [address] [facility] [place] Normal Glomerular Filtration Rate > 60.0 >5 1 [facility]: [address] [place] Normal Sodium Level 141 mEq/L 136-145 mEq/L [facility]: [address] [place] CRITICAL LOW Potassium Serum 2.9 mEq/L 3.5- 5.1 mEq/L [facility]: [address] [place] Normal Chloride Level 104 mEq/L 98-107 mEq/ L [facility]: [address] [place] Normal Carbon Dioxide Level 28 mEq/L 21-32 mEq/L [facility]: [address] [place] Normal Anion Gap 9 mEq/L 8-16 mEq/L [facility]: [address] [place] Normal Calcium Level 10.0 mg/dL 8.5-10.1 mg /dL [facility]: 0 [facility] [place] High AST/SGOT 44 U/L 7-37 U/L [facility]: [address] [place] Normal ALT/SGPT 64 U/L 12-78 U/L [facility]: [address] [place] Normal Alkaline Phosphatase 55 U/L 45-117 U /L [facility]: [address] [place] Normal Bilirubin,total 0.5 mg/dL 0.2-1.0 mg /dL [facility]: 0 [facility] [place] Normal Total Protein 7.4 gm/dL 6.4-8.2 gm/d L [facility]: 0 [facility] [place] Normal Albumin 4.4 gm/dL 3.2-5.2 gm/dL [facility]: [address] [place] Normal Albumin/globulin Ratio 1.5 1.2-2. 2 [facility]: 0 [facility] [place] 05/04/2021 Hepatic Function Panel, Serum Normal Bilirubin,direct 0.1 mg/dL 0.0-0.2 mg/dL [facility] nter: [address] [place] [address] 05/04/2021 Vitamin D, 25-Hydroxy, Total, Serum Normal Total 25(Oh) Vitamin D 32.6 NG/mL 30.0-100.0 NG/mL [facility]: [address] [place] 05/04/2021 C Reactive Protein, QN, Serum or Plasma Normal C Reactive Protein Quantitativ 0.30 mg/dL 0.00-0.30 mg/dL [facility]: [address] [place] 05/04/2021 Urinalysis, Dipstick, Auto Normal Bilirubin ne g Final [facility]: [address], [place] ABNORMAL Blood 3+ Final [facility] ical: [address], [place] Normal Glucose neg Final [facility] ical: [address], [place] Normal Ketone neg Final [facility] Medi jasmin: [address], [place] ABNORMAL Leukocytes 3+ Final [facility]: [address], [place] Normal Nitrite neg Final [facility] ical: [address], [place] Normal Ph 6.5 Final [facility] Medica l: [address], [place] Normal Protein neg Final [facility] ical: [address], [place] Normal Specific Ophir 1.010 Final [facility]: [address], [place] Normal Urobilinogen 0.2 Final [facility]: [address] [facility] [address] [place] 01/07/2021 HbA1C (Hemoglobin a1C), Blood Blood venous Normal Hemoglobin a1C 5.2 % Final [facility]: [address] [place] Blood venous Normal Estimated Average Glucose 103 mg/dL 60-110 mg/dL Final [facility]: [address] [place] 01/07/2021 Lipid Panel, Blood High Triglycerides Lev el 183 mg/dL <150 mg/dL Final [facility]: [address] [place] High Cholesterol Level 202 mg/dL <200 mg/ dL Final [facility]: [address] [place] Normal HDL Cholesterol 41 mg/dL >40 mg/dL F inal [facility]: [address] [place] High LDL Cholesterol 124 mg/dL <100 mg/dL Final [facility]: [address] [place] Normal Non-hdl-c 161 mg/dL Final [facility]: [address] [place] Normal Cholesterol Risk Ratio 4.926 <5 [facility]: [address] [place] 01/07/2021 C Reactive Protein, QN, Serum or Plasma High C Reactive Protein Quantitativ 0.75 mg/dL 0.00-0.30 mg/dL Final [facility]: [address] [place] [address] 01/07/2021 CBC W/ Auto Diff Blood venous Normal White Blood C ount 8.6 10 4.0-10.0 10 [facility]: [address] [place] Blood venous Normal Red Blood Count 4.29 10 4.00- 5.40 10 [facility]: [address] [place] [address] Blood venous Normal Hemoglobin 13.1 g/dL 12.0-15. 5 g/dL [facility]: [address] [place] [address] Blood venous Normal Hematocrit 39.4 % 36.0-47.0 % [facility]: [address] [place] [address] Blood venous Normal Mean Corpuscular Volume 91.8 fL 80.0-96.0 fL [facility]: [address] [place] [address] Blood venous Normal Mean Corpuscular Hemoglob in 30.5 pg 27.0-33.0 pg [facility]: [address] [place] [address] Blood venous Normal Mean Corpuscular HGB Conc 33.2 g/dL 32.0-36.5 g/dL [facility]: [address] [place] [address] Blood venous Normal Red Cell Distribution Wid th 13.0 % 11.5-14.5 % [facility]: [address] [place] [address] Blood venous Normal Platelet Count, Automated 206 10 150-450 10 [facility]: [address] [place] [address] Blood venous High Neutrophils % 76.4 % 36.0-66. 0 % [facility]: [address] [place] [address] Blood venous Low Lymph % 14.9 % 24.0-44.0 % [facility]: [address] [place] [address] Blood venous Normal Braxton % 6.7 % 2.0-8.0 % [facility]: [address] [place] [address] Blood venous Normal Eos % 1.2 % 0.0-3.0 % [facility]: [address] [place] [address] Blood venous Normal Baso % 0.5 % 0.0-1.0 % [facility]: [address] [place] Blood venous Normal Immature Granulocyte % 0.3 % 0-3.0 % [facility]: [address] [place] Blood venous Normal Nucleated Red Blood Cell % 0. 0 % 0-0 % [facility]: [address] [place] Blood venous Normal Neutrophils # 6.6 10 1.5-8.5 10 [facility]: [address] [place] [address] Blood venous Low Lymph # 1.3 10 1.5-5.0 10 [facility]: [address] [place] Blood venous Normal Braxton # 0.6 10 0.0-0.[address] [facility]: [address] [place] Blood venous Normal Eos # 0.1 10 0.0-0.5 10 [facility]: [address] [place] [address] Blood venous Normal Baso # 0.0 10 0.0-0.[address] [facility]: [address] [place] 01/07/2021 ESR (Erythrocyte Sedimentation Rate), Blood Hig h Erythrocyte Sedimentation Rate 32 mm/HR 0-30 mm/HR [facility]: [address] [place] 01/07/2021 Electrocardiogram Rate & Rhythm 71 sinu s rhythm [facility]: [address], [place] Qrs [facility] [address] [facility] [address] [place] NE Interval 120/168 ms [facility]: [address] [facility] [address] [place] QRS Duration 96 ms [facility]: [address], [place] QT Interval 404 [facility]: [address] [facility] [address] [place] 12/20/2020 TSH + Free T4, Serum Normal Thyroid Stimulating Hormone 1.830 uIU/mL 0.358-3.740 uIU/mL [facility] nter: [address] [facility] [place] Normal Free T4 1.00 NG/dL 0.76-1.46 NG/dL F naplesl [facility]: [address] [place] [address] 12/20/2020 Vitamin B12 + Folate, Serum or Blood Normal Vitamin B12 Level 807 pg/mL [facility] nter: [address] [place] [address] Normal Folate > 24.0 NG/mL [facility]: [address] [place] [address] 12/20/2020 Vitamin D, 25-Hydroxy, Total, Serum Low Total 25(Oh) Vitamin D 27.2 NG/mL 30.0-100.0 NG/mL [facility] nter: [address] [place] [address] 12/20/2020 C Reactive Protein, QN, Serum or Plasma High C Reactive Protein Quantitativ 0.38 mg/dL 0.00-0.30 mg/dL [facility]: [address] [place] [address] 12/20/2020 CBC W/ Auto Diff Normal White Blood Count 5.8 10 4.0-10.0 10 [facility]: [address] [place] [address] Normal Red Blood Count 4.25 10 4.00-5.40 10 [facility]: [address] [place] [address] Normal Hemoglobin 13.1 g/dL 12.0-15.5 g/dL [facility]: [address] [place] [address] Normal Hematocrit 38.7 % 36.0-47.0 % [facility]: [address] [place] [address] Normal Mean Corpuscular Volume 91.1 fL 80.0 -96.0 fL [facility]: [address] [place] [address] Normal Mean Corpuscular Hemoglobin 30.8 pg 27.0-33.0 pg [facility]: [address] [place] [address] Normal Mean Corpuscular HGB Conc 33.9 g/dL 32.0-36.5 g/dL [facility]: [address] [place] [address] Normal Red Cell Distribution Width 13.2 % 1 1.5-14.5 % [facility]: [address] [place] [address] Normal Platelet Count, Automated 244 10 150 -450 10 [facility]: [address] [place] [address] High Neutrophils % 69.4 % 36.0-66.0 % [facility]: [address] [place] Low Lymph % 22.7 % 24.0-44.0 % [facility]: [address] [place] Normal Braxton % 5.5 % 0.0-8.0 % [facility]: [address] [place] Normal Eos % 1.6 % 0.0-3.0 % [facility]: [address] [place] Normal Baso % 0.5 % 0.0-1.0 % [facility]: [address] [place] Normal Immature Granulocyte % 0.3 % 0-3.0 % [facility]: [address] [place] [address] Normal Nucleated Red Blood Cell % 0.0 % 0- 0 % [facility]: [address] [place] Normal Neutrophils # 4.0 10 1.5-8.[address] [facility]: [address] [place] Low Lymph # 1.3 10 1.5-5.0 10 [facility]: [address] [place] Normal Braxton # 0.3 10 0.0-0.8 10 [facility]: [address] [place] Normal Eos # 0.1 10 0.0-0.5 10 [facility]: [address] [place] Normal Baso # 0.0 10 0.0-0.2 10 [facility]: [address] [place] 12/20/2020 ESR (Erythrocyte Sedimentation Rate), Blood Nor mal Erythrocyte Sedimentation Rate 13 mm/HR 0-30 mm/HR [facility]: [address] [place] 12/20/2020 CMP, Serum or Plasma High Glucose, Fastin g 111 mg/dL 70-100 mg/dL [facility]: [address] [place] Normal Blood Urea Nitrogen 13 mg/dL 7-18 mg /dL [facility]: [address] [place] Normal Creatinine for GFR 0.68 mg/dL 0.55-1 .30 mg/dL [facility]: [address] [place] [address] Normal Glomerular Filtration Rate > 60.0 >5 1 [facility]: [address] [place] [address] Normal Sodium Level 138 mEq/L 136-145 mEq/L [facility]: [address] [place] [address] Normal Potassium Serum 4.0 mEq/L 3.5-5.1 mE q/L [facility]: [address] [place] Normal Chloride Level 102 mEq/L 98-107 mEq/ L [facility]: [address] [place] [address] Normal Carbon Dioxide Level 26 mEq/L 21-32 mEq/L [facility]: [address] [place] [address] Normal Anion Gap 10 mEq/L 8-16 mEq/L [facility]: [address] [place] [address] Normal Calcium Level 9.5 mg/dL 8.5-10.1 mg/ dL [facility]: [address] [place] Normal AST/SGOT 36 U/L 7-37 U/L [facility]: [address] [place] [address] Normal ALT/SGPT 60 U/L 12-78 U/L [facility]: [address] [place] [address] Normal Alkaline Phosphatase 74 U/L 45-117 U /L [facility]: [address] [place] [address] Normal Bilirubin,total 0.3 mg/dL 0.2-1.0 mg /dL [facility]: [address] [place] Normal Total Protein 7.5 gm/dL 6.4-8.2 gm/d L [facility]: [address] [place] Normal Albumin 4.4 gm/dL 3.2-5.2 gm/dL [facility]elyn [facility]: [address] [place] Normal Albumin/globulin Ratio 1.4 1.2-2. 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 07/14/2021 Chronic Post-traumatic Stress Disorder; Generalized Anxiety Disorder; Moderate Recurrent Major Depression Evelyne Arias, RESTUARANT CRE[employer] WORKER-R: [address], [facility] [address], [place] [address], Ph. 07/07/2021 Chronic Post-traumatic Stress Disorder; Generalized Anxiety Disorder; Moderate Recurrent Major Depression Evelyne Arias, RESTUARANT [employer] WORKER-R: [address] [facility], [facility] [address], [place] [address], Ph. 06/30/2021 Chronic Post-traumatic Stress Disorder; Generalized Anxiety Disorder; Moderate Recurrent Major Depression LALO DoeW-R: [address] [facility], [facility] [address], [place] [address], Ph. 06/16/2021 Chronic Post-traumatic Stress Disorder; Generalized Anxiety Disorder; Moderate Recurrent Major Depression Evelyne Arias, RESTUARANT [employer] WORKER-R: [address], [facility] [address], [place] [address], Ph. 06/06/2021 Venereal Disease Screening; Hypokalemia; Hepatitis C Screening; HIV Screening Michele Chavarria, RPA-C: [address] [facility], [facility] [address], [place] [address], Ph. 05/24/2021 Depressive Disorder; Constipation; Obesity; Screening for Malignant Neoplasm of Colon; Hepatitis C Screening; HIV Screening; Venereal Disease Screening; Hypokalemia Michele Chavarria, RPA-C: [address], [facility] [address], [place] [address], Ph. 05/04/2021 Arthropathy; Hypokalemia; Dysuria; Acute Cystitis; Hypertensive Heart Disease without Congestive Heart Failure; Hypothyroidism; Fatigue Michele Chavarria, RPA-C: [address] [facility], [facility] [address], [place] [address], Ph. 04/19/2021 Chronic Post-traumatic Stress Disorder; Generalized Anxiety Disorder; Moderate Recurrent Major Depression Albina Arcos REST[employer] WORKER-R: [address] [facility], [facility] [address], [place] [address], Ph. 03/07/2021 Chronic Post-traumatic Stress Disorder; Generalized Anxiety Disorder; Moderate Recurrent Major Depression Albina Arcos REST[employer] WORKER-R: [address] [facility], [facility] [address], [place] [address], Ph. 02/22/2021 Generalized Anxiety Disorder; Moderate Recurrent Major Depression; Panic Disorder Albina Arcos [employer] WORKER-R: [address] [facility], [facility] [address], [place] [address], Ph. 02/08/2021 Generalized Anxiety Disorder Albina Arcos [employer] WORKER-R: [address] [facility], [facility] [address], [place] [address], Ph. 01/21/2021 Depressive Disorder; Hypertensive Heart Disease without Congestive Heart Failure; Temporal Headache KOFFI Patterson: [address] [facility], [facility] [address], [place] [address], Ph. 01/07/2021 Adult Health Examination; Hyperlipidemia; Palpitations; Heart Murmur; Snoring; Hypertensive Disorder; Impaired Fasting Glycemia; Temporal Headache; Screening for Malignant Neoplasm of Breast; Hearing Difficulty; Mixed Anxiety and Depressive Disorder; Gastroesophageal Reflux Disease without Esophagitis CHEYANNE PattersonC: [address] [facility], [facility] [address], [place] [address], Ph. Social History Tobacco Smoking Status Never [...] Imaging None recorded. Vitals 05/24/2021 09:10AM ESTABLISHED [id number] Height Weight BMI Blood Pressure 64 in 192 lbs 33 kg/m2 120/80 mm[Hg] 05/04/2021 11:40AM ESTABLISHED [id number] Height Weight BMI Blood Pressure 64 in 198 lbs 34 kg/m2 125/81 mm[Hg] 01/21/2021 08:50AM TELEHEALTH 20 Height 64 in 01/07/2021 08:50AM NEW ACUTE 20 Height Weight BMI Blood Pressure 64 in 224 lbs 9.6 oz 38.6 kg/m2 135/88 mm[Hg ]
--- OUTSIDE RECORDS SUMMARY | 2021-08-18 10:05 | CCD | Continuity of Care Document ---
Author Author Alma FARR Organization Unknown Address [address] [place] [address], [address] [place] [address] Phone [phone] Care Team Providers Care Shower Attendant Name Role Phone Michele Chavarria AUTM [phone] Problems Active Problems Provider Date Essential hypertension KATARZYNA Singer Onset: 06/20/2021 Social History Type Date Description Comments Sex Unknown ETOH Use Denies alcohol use Tobacco Use Start: Unknown Patient has never smoked Recreational Drug Use Denies Drug Use Exercise Type/Frequency Exercises regularly Allergies, Adverse Reactions, Alerts Active Allergies Reaction Severity Comments Date Sulfa 03/29/2016 Medications Active Medications SIG Qnty Indications [...] lb BMI (Body Mass Index) 32.2 kg/m2 [place] Body Weight 120 lb Weight 85.050 kg BSA (Body Surface Area) 1.90 m2 03/29/2016 10:37am BP Systolic 128 mmHg BP Diastolic 74 mmHg Height 64 inches 5'4" Weight 204.00 lb BMI (Body Mass Index) 35.0 kg/m2 [place] Body Weight 120 lb Weight 92.534 kg BSA (Body Surface Area) 1.97 m2 Results Description No Information Available Procedures Description No Information Available Medical Devices Description No Information Available Encounters Description No Information Available Assessments Description No Information Available Plan of Treatment No Information Available Functional Status Description No Information Available Mental Status Description No Information Available Referrals Refer to Reason for Referral Status Appt Date Zia Sarabia JR, MD SCHEDULE COLONOSCOPY Scheduled [address] [place] [phone]
--- OUTSIDE RECORDS SUMMARY | 2021-08-18 10:05 | CCD ---
Author Organization Unknown Address [address] [place] [address] Phone [phone] Care Team Providers Care Drum Sprayer Name Role Phone Karina Delgado Unavailable Unavailable Allergies Code Code System Name Reaction Severity Status Onset Sulfa (Sulfonamide Antibiotics) Active 11/07/19 13 95877 RxNorm Wellbutrin Sr Other Active 07/11/2013 Notes: SULFA DRUGS - Reaction: hives Medications Name Status Start Date Stop Date amoxicillin 500 mg capsule Completed 02/14 bupropion HCl 150 mg tablet,12 hr sustai mellisa-release(smoking deterrent) Take 1 tablet twice a day by oral route. Completed 01/21/2021 bupropion HCl XL 150 mg 24 hr tablet, ex tended release Take 1 tablet every day by oral route. Active Not available bupropion HCl XL 300 mg 24 hr [...] Completed 02/14/2021 methocarbamol 750 mg tablet Completed 04/1 12/2020 methotrexate (PF) Active Not available methotrexate sodium [...] Vaginal Approach Information not available 01/07/2021 Electrocardiogram [facility] [address] [facility] [address] [place] [address] (Work Place) 01/07/2021 MAMMO, Screening, Digital, Bilateral [facility] [address], [place] [id number] (Work Place) 05/18/2021 Electrocardiogram [facility] [address] [facility] [address] [place] [address] (Work Place) Notes: partial hyster, D+C, 2 bladder re pairs Results Lab Results Date Name Specimen Result Interpretation Description Value Range Status Address 06/06/2021 HIV 1+2 Ab + HIV1 P24 Ag, Quantitative I mmunoassay, Serum Blood venous Normal HIV Ag/Ab, 4TH Gen non-reactive non-reactive Fin al [facility]: [address] , [place] 06/06/2021 Potassium, Serum Blood venous Normal Potassium 3. 5 mmol/L 3.5- 5.3 mmol/L Final [facility] : [address] [facility] 06/06/2021 Hepatitis C Virus Ab, Serum Blood venous Normal Hepatitis C Antibody non-reactive non-reactive Final [facility]: [address] [facility] Blood venous Normal Index 0.02 <1.00 Final [employer] [facility]: [address] [facility] 06/06/2021 RPR (Rapid Plasma Reagin), Serum Blood venous Normal RPR (DX) W/refl Titer and Confirmatory Testing non-reactive non-reactive Final [facility]: [address] [facility] 05/16/2021 Potassium, Serum or Plasma Normal Potassium Serum 3.7 mEq/L 3.5-5.1 mEq/L [facility]: [address] 0 [facility] 05/10/2021 Potassium, Serum or Plasma Low Potassium Serum 3.4 mEq/L 3.5- 5.1 mEq/L [facility]: 83 0 [facility] 05/05/2021 Potassium, Serum or Plasma D Potassium Serum 3.8 mEq/L 3.5-5.1 mEq/L [facility]: 83 0 [facility] 05/05/2021 TSH, Serum or Plasma Normal Thyroid Stimulating Hormone 1.490 uIU/mL 0.358-3.740 uIU/mL [facility] nter: [address] [facility] 05/04/2021 CBC W/ Auto Diff High White Blood Count 12.2 10 4.0-10.0 10 [facility]: [address] [facility] Normal Red Blood Count 4.35 10 4.00-5.40 10 [facility]: [address] [place] [address] Normal Hemoglobin 13.3 g/dL 12.0-15.5 g/dL [facility]: [address] [place] [address] Normal Hematocrit 38.6 % 36.0-47.0 % [facility]: [address] [place] [address] Normal Mean Corpuscular Volume 88.7 fL 80.0 -96.0 fL [facility]: [address] [place] [address] Normal Mean Corpuscular Hemoglobin 30.6 pg 27.0-33.0 pg [facility]: [address] [place] [address] Normal Mean Corpuscular HGB Conc 34.5 g/dL 32.0-36.5 g/dL [facility]: [address] [place] [address] Normal Red Cell Distribution Width 13.8 % 1 1.5-14.5 % [facility]: [address] [place] [address] Normal Platelet Count, Automated 266 10 150 -450 10 [facility]: 0 [facility] High Neutrophils % 74.0 % 36.0-66.0 % [facility]: 0 [facility] Low Lymph % 17.5 % 24.0-44.0 % [facility]: [address] [facility] Normal [place] % 7.4 % 2.0-8.0 % [facility]: 0 [facility] Normal Eos % 0.4 % 0.0-3.0 % [facility]: 0 [facility] Normal Baso % 0.2 % 0.0-1.0 % [facility]: 0 [facility] Normal Immature Granulocyte % 0.5 % 0-3.0 % [facility]: [address] [facility] Normal Nucleated Red Blood Cell % 0.0 % 0- 0 % [facility]: [address] [facility] High Neutrophils # 9.0 10 1.5-8.5 10 [facility]: [address] [facility] Normal Lymph # 2.1 10 1.5-5.0 10 [facility]: [address] [facility] High [place] # 0.9 10 0.0-0.8 10 [facility]: [address] [facility] Normal Eos # 0.1 10 0.0-0.5 10 [facility]: [address] [facility] Normal Baso # 0.0 10 0.0-0.2 10 [facility]: [address] [facility] 05/04/2021 ESR (Erythrocyte Sedimentation Rate), Blood Nor mal Erythrocyte Sedimentation Rate 8 mm/HR 0-30 mm/HR [facility] Center: [address] [facility] 05/04/2021 CMP, Serum or Plasma Normal Glucose, Fastin g 91 mg/dL 70-100 mg/dL [facility]: 83 0 [facility] Normal Blood Urea Nitrogen 15 mg/dL 7-18 mg /dL [facility]: 0 [facility] Normal Creatinine for GFR 0.69 mg/dL 0.55-1 .30 mg/dL [facility]: 0 [facility] Normal Glomerular Filtration Rate > 60.0 >5 1 [facility]: [address] [facility] Normal Sodium Level 141 mEq/L 136-145 mEq/L [facility]: 0 [facility] CRITICAL LOW Potassium Serum 2.9 mEq/L 3.5- 5.1 mEq/L [facility]: 0 [facility] Normal Chloride Level 104 mEq/L 98-107 mEq/ L [facility]: 0 [facility] Normal Carbon Dioxide Level 28 mEq/L 21-32 mEq/L [facility]: 0 [facility] Normal Anion Gap 9 mEq/L 8-16 mEq/L [facility]: 0 [facility] Normal Calcium Level 10.0 mg/dL 8.5-10.1 mg /dL [facility]: 0 [facility] High AST/SGOT 44 U/L 7-37 U/L [facility]: [address] [facility] Normal ALT/SGPT 64 U/L 12-78 U/L [facility]: [address] [facility] Normal Alkaline Phosphatase 55 U/L 45-117 U /L [facility]: 0 [facility] Normal Bilirubin,total 0.5 mg/dL 0.2-1.0 mg /dL [facility]: 0 [facility] Normal Total Protein 7.4 gm/dL 6.4-8.2 gm/d L [facility]: 0 [facility] Normal Albumin 4.4 gm/dL 3.2-5.2 gm/dL [facility]: 0 [facility] Normal Albumin/globulin Ratio 1.5 1.2-2. 2 [facility]: 0 [facility] 05/04/2021 Hepatic Function Panel, Serum Normal Bilirubin,direct 0.1 mg/dL 0.0-0.2 mg/dL [facility] nter: 0 [facility] 05/04/2021 Vitamin D, 25-Hydroxy, Total, Serum Normal Total 25(Oh) Vitamin D 32.6 NG/mL 30.0-100.0 NG/mL [facility] Center: [address] [place] [address] 05/04/2021 C Reactive Protein, QN, Serum or Plasma Normal C Reactive Protein Quantitativ 0.30 mg/dL 0.00-0.30 mg/dL [facility] Center: [address] [place] [address] 05/04/2021 Urinalysis, Dipstick, Auto Normal Bilirubin ne g Final [facility]: [address], [place] ABNORMAL Blood 3+ Final [facility] ical: [address], [place] Normal Glucose neg Final [facility] ical: [address], [place] Normal Ketone neg Final [facility] jasmin: [address], [place] ABNORMAL Leukocytes 3+ Final [facility]: [address], [place] Normal Nitrite neg Final [facility] ical: [address], [place] Normal Ph 6.5 Final [facility]: [address], [place] Normal Protein neg Final [facility] ical: [address], [place] Normal Specific [place] 1.010 Final [facility]: [address], [place] Normal Urobilinogen 0.2 Final [facility]: [address], [place] 01/07/2021 HbA1C (Hemoglobin a1C), Blood Blood venous Normal Hemoglobin a1C 5.2 % Final [facility]: [address] [facility] Blood venous Normal Estimated Average Glucose 103 mg/dL 60-110 mg/dL Final [facility]: [address] [facility] 01/07/2021 Lipid Panel, Blood High Triglycerides Lev el 183 mg/dL <150 mg/dL Final [facility]: 83 0 [facility] High Cholesterol Level 202 mg/dL <200 mg/ dL Final [facility]: [address] [facility] Normal HDL Cholesterol 41 mg/dL >40 mg/dL F inal [facility]: [address] [facility] High LDL Cholesterol 124 mg/dL <100 mg/dL Final [facility]: [address] [facility] Normal Non-hdl-c 161 mg/dL Final [facility]: [address] [facility] Normal Cholesterol Risk Ratio 4.926 <5 Final [facility]: [address] [facility] 01/07/2021 C Reactive Protein, QN, Serum or Plasma High C Reactive Protein Quantitativ 0.75 mg/dL 0.00-0.30 mg/dL [facility]: [address] [place] [address] 01/07/2021 CBC W/ Auto Diff Blood venous Normal White Blood C ount 8.6 10 4.0-10.0 10 [facility]: 83 0 [facility] Blood venous Normal Red Blood Count 4.29 10 4.00- 5.40 10 [facility]: [address] [place] [address] Blood venous Normal Hemoglobin 13.1 g/dL 12.0-15. 5 g/dL [facility]: [address] [place] [address] Blood venous Normal Hematocrit 39.4 % 36.0-47.0 % [facility]: [address] [place] [address] Blood venous Normal Mean Corpuscular Volume 91.8 fL 80.0-96.0 fL [facility]: [address] [place] [address] Blood venous Normal Mean Corpuscular Hemoglob in 30.5 pg 27.0-33.0 pg [facility]: [address] [place] [address] Blood venous Normal Mean Corpuscular HGB Conc 33.2 g/dL 32.0-36.5 g/dL [facility]: [address] [place] [address] Blood venous Normal Red Cell Distribution Wid th 13.0 % 11.5-14.5 % [facility]: [address] [place] [address] Blood venous Normal Platelet Count, Automated 206 10 150-450 10 [facility]: [address] [place] [address] Blood venous High Neutrophils % 76.4 % 36.0-66. 0 % [facility]: [address] [place] [address] Blood venous Low Lymph % 14.9 % 24.0-44.0 % [facility]: [address] [place] [address] Blood venous Normal Briscoe % 6.7 % 2.0-8.0 % [facility]: [address] [place] [address] Blood venous Normal Eos % 1.2 % 0.0-3.0 % [facility]: [address] [facility] Blood venous Normal Baso % 0.5 % 0.0-1.0 % [facility]: [address] [place] [address] Blood venous Normal Immature Granulocyte % 0.3 % 0-3.0 % [facility]: [address] [place] [address] Blood venous Normal Nucleated Red Blood Cell % 0. 0 % 0-0 % [facility]: [address] [place] [address] Blood venous Normal Neutrophils # 6.6 10 1.5-8.5 10 [facility]: [address] [place] [address] Blood venous Low Lymph # 1.3 10 1.5-5.0 10 [facility]: 0 [facility] Blood venous Normal Briscoe # 0.6 10 0.0-0.[address] [facility]: [address] [place] [address] Blood venous Normal Eos # 0.1 10 0.0-0.5 10 [facility]: [address] [place] [address] Blood venous Normal Baso # 0.0 10 0.0-0.[address] [facility]: [address] [place] [address] 01/07/2021 ESR (Erythrocyte Sedimentation Rate), Blood Hig h Erythrocyte Sedimentation Rate 32 mm/HR 0-30 mm/HR [facility] Center: [address] [place] [address] 01/07/2021 Electrocardiogram Rate & Rhythm 71 sinu s rhythm [facility]: [address] [facility] [address], [place] Qrs [facility]: [address] [facility] [address], [place] Interval 120/168 ms [facility]: [address] [facility] [address], [place] QRS Duration 96 ms [facility]: [address] [facility] [address], [place] QT Interval 404 [facility]: [address] [facility] [address], [place] 12/20/2020 TSH + Free T4, Serum Normal Thyroid Stimulating Hormone 1.830 uIU/mL 0.358-3.740 uIU/mL [facility] nter: 0 [facility] Normal Free T4 1.00 NG/dL 0.76-1.46 NG/dL F corningl [facility]: 0 [facility] 12/20/2020 Vitamin B12 + Folate, Serum or Blood Normal Vitamin B12 Level 807 pg/mL Final [facility] nter: 0 [facility] Normal Folate > 24.0 NG/mL Final [facility]: 0 [facility] 12/20/2020 Vitamin D, 25-Hydroxy, Total, Serum Low Total 25(Oh) Vitamin D 27.2 NG/mL 30.0-100.0 NG/mL Final [facility] nter: 0 [facility] 12/20/2020 C Reactive Protein, QN, Serum or Plasma High C Reactive Protein Quantitativ 0.38 mg/dL 0.00-0.30 mg/dL [facility] Center: [address] [place] [address] 12/20/2020 CBC W/ Auto Diff Normal White Blood Count 5.8 10 4.0-10.0 10 [facility]: [address] [place] [address] Normal Red Blood Count 4.25 10 4.00-5.40 10 [facility]: [address] [place] [address] Normal Hemoglobin 13.1 g/dL 12.0-15.5 g/dL [facility]: [address] [place] [address] Normal Hematocrit 38.7 % 36.0-47.0 % [facility]: [address] [place] [address] Normal Mean Corpuscular Volume 91.1 fL 80.0 -96.0 fL [facility]: [address] [place] [address] Normal Mean Corpuscular Hemoglobin 30.8 pg 27.0-33.0 pg [facility]: [address] [place] [address] Normal Mean Corpuscular HGB Conc 33.9 g/dL 32.0-36.5 g/dL [facility]: [address] [place] [address] Normal Red Cell Distribution Width 13.2 % 1 1.5-14.5 % [facility]: [address] [place] [address] Normal Platelet Count, Automated 244 10 150 -450 10 [facility]: [address] [facility] High Neutrophils % 69.4 % 36.0-66.0 % [facility]: [address] [facility] Low Lymph % 22.7 % 24.0-44.0 % [facility]: [address] [facility] Normal [place] % 5.5 % 0.0-8.0 % Final [facility]: [address] [facility] Normal Eos % 1.6 % 0.0-3.0 % [facility]: [address] [facility] Normal Baso % 0.5 % 0.0-1.0 % [facility]: [address] [facility] Normal Immature Granulocyte % 0.3 % 0-3.0 % [facility]: [address] [facility] Normal Nucleated Red Blood Cell % 0.0 % 0- 0 % [facility]: [address] [facility] Normal Neutrophils # 4.0 10 1.5-8.[address] [facility]: [address] [facility] Low Lymph # 1.3 10 1.5-5.0 10 [facility]: [address] [facility] Normal [place]e # 0.3 10 0.0-0.8 10 [facility]: [address] [facility] Normal Eos # 0.1 10 0.0-0.5 10 [facility]: [address] [facility] Normal Baso # 0.0 10 0.0-0.2 10 [facility]: [address] [facility] 12/20/2020 ESR (Erythrocyte Sedimentation Rate), Blood Nor mal Erythrocyte Sedimentation Rate 13 mm/HR 0-30 mm/HR [facility]: [address] [facility] 12/20/2020 CMP, Serum or Plasma High Glucose, Fastin g 111 mg/dL 70-100 mg/dL [facility]: 83 0 [facility] Normal Blood Urea Nitrogen 13 mg/dL 7-18 mg /dL [facility]: [address] [facility] Normal Creatinine for GFR 0.68 mg/dL 0.55-1 .30 mg/dL [facility]: [address] [facility] Normal Glomerular Filtration Rate > 60.0 >5 1 [facility]: [address] [facility] Normal Sodium Level 138 mEq/L 136-145 mEq/L [facility]: [address] [facility] Normal Potassium Serum 4.0 mEq/L 3.5-5.1 mE q/L [facility]: [address] [facility] Normal Chloride Level 102 mEq/L 98-107 mEq/ L [facility]: 0 [facility] Normal Carbon Dioxide Level 26 mEq/L 21-32 mEq/L [facility]: [address] [facility] Normal Anion Gap 10 mEq/L 8-16 mEq/L [facility]: [address] [facility] Normal Calcium Level 9.5 mg/dL 8.5-10.1 mg/ dL [facility]: [address] [facility] Normal AST/SGOT 36 U/L 7-37 U/L [facility]: [address] [facility] Normal ALT/SGPT 60 U/L 12-78 U/L [facility]: [address] [facility] Normal Alkaline Phosphatase 74 U/L 45-117 U /L [facility]: [address] [facility] Normal Bilirubin,total 0.3 mg/dL 0.2-1.0 mg /dL [facility]: [address] [facility] Normal Total Protein 7.5 gm/dL 6.4-8.2 gm/d L [facility]: [address] [facility] Normal Albumin 4.4 gm/dL 3.2-5.2 gm/dL [facility]: [address] [facility] Normal Albumin/globulin Ratio 1.4 1.2-2. 2 [facility]: [address] [facility] [place] Past Encounters 06/06/2021 Venereal Disease Screening; Hypokalemia; Hepatitis C Screening; HIV Screening Michele Chavarria, RPA-C: [address] [facility] [address], [place] [address], Ph. 05/24/2021 Depressive Disorder; Constipation; Obesity; Screening for Malignant Neoplasm of Colon; Hepatitis C Screening; HIV Screening; Venereal Disease Screening; Hypokalemia Michele Chavarria, RPA-C: [address] [facility] [facility] [address], [place] [address], Ph. 05/04/2021 Arthropathy; Hypokalemia; Dysuria; Acute Cystitis; Hypertensive Heart Disease without Congestive Heart Failure; Hypothyroidism; Fatigue Michele Chavarria, RPA-C: [address] [facility] [address], [place] [address], Ph. 04/19/2021 Chronic Post-traumatic Stress Disorder; Generalized Anxiety Disorder; Moderate Recurrent Major Depression Albina Arcos, RUSSIAN LANGUAGE PROFESSOR-R: [address] [facility], [facility] [address], [place] [address], Ph. 03/07/2021 Chronic Post-traumatic Stress Disorder; Generalized Anxiety Disorder; Moderate Recurrent Major Depression Albina Arcos, RUSSIAN LANGUAGE PROFESSOR-R: [address] [facility] [address], [place] [address], Ph. 02/22/2021 Generalized Anxiety Disorder; Moderate Recurrent Major Depression; Panic Disorder Albina Arcos, RUSSIAN LANGUAGE PROFESSOR-R: [address] [facility], [facility] [address], [place] [address], Ph. 02/08/2021 Generalized Anxiety Disorder Albina Arcos, RUSSIAN LANGUAGE PROFESSOR-R: [address] [facility], [facility] [address], [place] [address], Ph. 01/21/2021 Depressive Disorder; Hypertensive Heart Disease without Congestive Heart Failure; Temporal Headache KOFFI Patterson: [address] [facility], [facility] [address], [place] [address], Ph. 01/07/2021 Adult Health Examination; Hyperlipidemia; Palpitations; Heart Murmur; Snoring; Hypertensive Disorder; Impaired Fasting Glycemia; Temporal Headache; Screening for Malignant Neoplasm of Breast; Hearing Difficulty; Mixed Anxiety and Depressive Disorder; Gastroesophageal Reflux Disease without Esophagitis KOFFI Patterson: [address] [facility], [facility] [address], [place] [address], Ph. Social History Tobacco Smoking Status Never [...] Imaging None recorded. Vitals 05/24/2021 09:10AM ESTABLISHED [id number] Height Weight BMI Blood Pressure 64 in 192 lbs 33 kg/m2 120/80 mm[Hg] 05/04/2021 11:40AM ESTABLISHED [id number] Height Weight BMI Blood Pressure 64 in 198 lbs 34 kg/m2 125/81 mm[Hg] 01/21/2021 08:50AM TELEHEALTH 20 Height 64 in 01/07/2021 08:50AM NEW ACUTE 20 Height Weight BMI Blood Pressure 64 in 224 lbs 9.6 oz 38.6 kg/m2 135/88 mm[Hg ]
--- OUTSIDE RECORDS SUMMARY | 2021-08-18 10:05 | CCD ---
Author Organization Unknown Address [address] [place] [address] Phone [phone] Care Team Providers Care Cafe Team Member Name Role Phone Karina Delgado Unavailable Unavailable Allergies Code Code System Name Reaction Severity Status Onset Sulfa (Sulfonamide Antibiotics) Active 11/07/2012 85046 RxNorm Wellbutrin Sr Other Active 2012 Notes: [...] Vaginal Approach Information not available 01/07/2021 Electrocardiogram [facility] [address] [facility] [address] [place] [address] (Work Place) 01/07/2021 MAMMO, Screening, Digital, Bilateral [facility] [address] [place], [place] [id number] (Work Place) 05/18/2021 Electrocardiogram [facility] [address] [facility] [address] [place] [address] (Work Place) Notes: partial hyster, D+C, 2 bladder re pairs Results Lab Results Date Name Specimen Result Interpretation Description Value Range Status Address 06/06/2021 HIV 1+2 Ab + HIV1 P24 Ag, Quantitative I mmunoassay, Serum Blood venous Normal HIV Ag/Ab, 4TH Gen non-reactive non-reactive Fin al [facility]: [address] , [place] 06/06/2021 Potassium, Serum Blood venous Normal Potassium 3. 5 mmol/L 3.5- 5.3 mmol/L [facility] [address] [facility] 06/06/2021 Hepatitis C Virus Ab, Serum Blood venous Normal Hepatitis C Antibody non-reactive non-reactive Final [facility]: [address] [facility] Blood venous Normal Index 0.02 <1.00 Final [facility]: [address] [facility] 06/06/2021 RPR (Rapid Plasma Reagin), Serum Blood venous Normal RPR (DX) W/refl Titer and Confirmatory Testing non-reactive non-reactive Final [facility]: [address] [facility] 05/16/2021 Potassium, Serum or Plasma Normal Potassium Serum 3.7 mEq/L 3.5-5.1 mEq/L [facility]: [address] [facility] 05/10/2021 Potassium, Serum or Plasma Low Potassium Serum 3.4 mEq/L 3.5- 5.1 mEq/L [facility]: [address] [facility] 05/05/2021 Potassium, Serum or Plasma D Potassium Serum 3.8 mEq/L 3.5-5.1 mEq/L [facility]: [address] [facility] 05/05/2021 TSH, Serum or Plasma Normal Thyroid Stimulating Hormone 1.490 uIU/mL 0.358-3.740 uIU/mL [facility] nter: [address] [place] [address] 05/04/2021 CBC W/ Auto Diff High White Blood Count 12.2 10 4.0-10.0 10 [facility]: [address] [facility] Normal Red Blood Count 4.35 10 4.00-5.40 10 [facility]: [address] [place] [address] Normal Hemoglobin 13.3 g/dL 12.0-15.5 g/dL [facility]: [address] [place] [address] Normal Hematocrit 38.6 % 36.0-47.0 % [facility]: [address] [place] [address] Normal Mean Corpuscular Volume 88.7 fL 80.0 -96.0 fL [facility]: [address] [place] [address] Normal Mean Corpuscular Hemoglobin 30.6 pg 27.0-33.0 pg [facility]: [address] [place] [address] Normal Mean Corpuscular HGB Conc 34.5 g/dL 32.0-36.5 g/dL [facility]: [address] [place] [address] Normal Red Cell Distribution Width 13.8 % 1 1.5-14.5 % [facility]: [address] [place] [address] Normal Platelet Count, Automated 266 10 150 -450 10 [facility]: 0 [facility] High Neutrophils % 74.0 % 36.0-66.0 % [facility]: 0 [facility] Low Lymph % 17.5 % 24.0-44.0 % [facility]: [address] [facility] Normal Baca % 7.4 % 2.0-8.0 % [facility]: 0 [facility] Normal Eos % 0.4 % 0.0-3.0 % [facility]: 0 [facility] Normal Baso % 0.2 % 0.0-1.0 % [facility]: 0 [facility] Normal Immature Granulocyte % 0.5 % 0-3.0 % [facility]: [address] [facility] Normal Nucleated Red Blood Cell % 0.0 % 0- 0 % [facility]: [address] [facility] High Neutrophils # 9.0 10 1.5-8.5 10 [facility]: [address] [facility] Normal Lymph # 2.1 10 1.5-5.0 10 [facility]: [address] [facility] High [place]aca # 0.9 10 0.0-0.8 10 [facility]: [address] [facility] Normal Eos # 0.1 10 0.0-0.[address] [facility]: [address] [facility] Normal Baso # 0.0 10 0.0-0.2 10 [facility]: [address] [facility] 05/04/2021 ESR (Erythrocyte Sedimentation Rate), Blood Nor mal Erythrocyte Sedimentation Rate 8 mm/HR 0-30 mm/HR [facility]icar Center: [address] [facility] 05/04/2021 CMP, Serum or Plasma Normal Glucose, Fastin g 91 mg/dL 70-100 mg/dL [facility]: [address] [facility] Normal Blood Urea Nitrogen 15 mg/dL 7-18 mg /dL [facility]: 0 [facility] Normal Creatinine for GFR 0.69 mg/dL 0.55-1 .30 mg/dL [facility]: 0 [facility] Normal Glomerular Filtration Rate > 60.0 >5 1 [facility]: [address] [facility] Normal Sodium Level 141 mEq/L 136-145 mEq/L [facility]: 0 [facility] CRITICAL LOW Potassium Serum 2.9 mEq/L 3.5- 5.1 mEq/L [facility]: 0 [facility] Normal Chloride Level 104 mEq/L 98-107 mEq/ L [facility]: 0 [facility] Normal Carbon Dioxide Level 28 mEq/L 21-32 mEq/L [facility]: 0 [facility] Normal Anion Gap 9 mEq/L 8-16 mEq/L [facility]: 0 [facility] Normal Calcium Level 10.0 mg/dL 8.5-10.1 mg /dL [facility]: 0 [facility] High AST/SGOT 44 U/L 7-37 U/L [facility]: [address] [facility] Normal ALT/SGPT 64 U/L 12-78 U/L [facility]: [address] [facility] Normal Alkaline Phosphatase 55 U/L 45-117 U /L [facility]: 0 [facility] Normal Bilirubin,total 0.5 mg/dL 0.2-1.0 mg /dL [facility]: 0 [facility] Normal Total Protein 7.4 gm/dL 6.4-8.2 gm/d L [facility]: 0 [facility] Normal Albumin 4.4 gm/dL 3.2-5.2 gm/dL [facility]: 0 [facility] Normal Albumin/globulin Ratio 1.5 1.2-2. 2 [facility]: 0 [facility] 05/04/2021 Hepatic Function Panel, Serum Normal Bilirubin,direct 0.1 mg/dL 0.0-0.2 mg/dL [facility] nter: 0 [facility] 05/04/2021 Vitamin D, 25-Hydroxy, Total, Serum Normal Total 25(Oh) Vitamin D 32.6 NG/mL 30.0-100.0 NG/mL [facility]: [address] [place] [address] 05/04/2021 C Reactive Protein, QN, Serum or Plasma Normal C Reactive Protein Quantitativ 0.30 mg/dL 0.00-0.30 mg/dL [facility] Center: [address] [place] [address] 05/04/2021 Urinalysis, Dipstick, Auto Normal Bilirubin ne g Final [facility]: [address], [place] ABNORMAL Blood 3+ Final [facility] ical: [address], [place] Normal Glucose neg Final [facility] ical: [address], [place] Normal Ketone neg Final [facility] jasmin: [address], [place] ABNORMAL Leukocytes 3+ Final [facility]: [address], [place] Normal Nitrite neg Final [facility] ical: [address], [place] Normal Ph 6.5 Final [facility]: [address], [place] Normal Protein neg Final [facility] ical: [address], [place] Normal Specific [place] 1.010 Final [facility]: [address], [place] Normal Urobilinogen 0.2 Final [facility]: [address], [place] 01/07/2021 HbA1C (Hemoglobin a1C), Blood Blood venous Normal Hemoglobin a1C 5.2 % Final [facility]: [address] [facility] Blood venous Normal Estimated Average Glucose 103 mg/dL 60-110 mg/dL Final [facility]: [address] [facility] 01/07/2021 Lipid Panel, Blood High Triglycerides Lev el 183 mg/dL <150 mg/dL Final [facility]: [address] 0 [facility] High Cholesterol Level 202 mg/dL <200 mg/ dL Final [facility]: [address] [facility] Normal HDL Cholesterol 41 mg/dL >40 mg/dL F inal [facility]: [address] [facility] High LDL Cholesterol 124 mg/dL <100 mg/dL Final [facility]: [address] [facility] Normal Non-hdl-c 161 mg/dL Final [facility]: [address] [facility] Normal Cholesterol Risk Ratio 4.926 <5 Final [facility]: [address] [facility] 01/07/2021 C Reactive Protein, QN, Serum or Plasma High C Reactive Protein Quantitativ 0.75 mg/dL 0.00-0.30 mg/dL [facility]: [address] [place] [address] 01/07/2021 CBC W/ Auto Diff Blood venous Normal White Blood C ount 8.6 10 4.0-10.0 10 [facility]: [address] 0 [facility] Blood venous Normal Red Blood Count 4.29 10 4.00- 5.40 10 [facility]: [address] [place] [address] Blood venous Normal Hemoglobin 13.1 g/dL 12.0-15. 5 g/dL [facility]: [address] [place] [address] Blood venous Normal Hematocrit 39.4 % 36.0-47.0 % [facility]: [address] [place] [address] Blood venous Normal Mean Corpuscular Volume 91.8 fL 80.0-96.0 fL [facility]: [address] [place] [address] Blood venous Normal Mean Corpuscular Hemoglob in 30.5 pg 27.0-33.0 pg [facility]: [address] [place] [address] Blood venous Normal Mean Corpuscular HGB Conc 33.2 g/dL 32.0-36.5 g/dL [facility]: [address] [place] [address] Blood venous Normal Red Cell Distribution Wid th 13.0 % 11.5-14.5 % [facility]: [address] [place] [address] Blood venous Normal Platelet Count, Automated 206 10 150-450 10 [facility]: [address] [place] [address] Blood venous High Neutrophils % 76.4 % 36.0-66. 0 % [facility]: [address] [place] [address] Blood venous Low Lymph % 14.9 % 24.0-44.0 % [facility]: [address] [place] [address] Blood venous Normal Baca % 6.7 % 2.0-8.0 % [facility]: [address] [place] [address] Blood venous Normal Eos % 1.2 % 0.0-3.0 % [facility]: [address] [facility] Blood venous Normal Baso % 0.5 % 0.0-1.0 % [facility]: [address] [place] [address] Blood venous Normal Immature Granulocyte % 0.3 % 0-3.0 % [facility]: [address] [place] [address] Blood venous Normal Nucleated Red Blood Cell % 0. 0 % 0-0 % [facility]: [address] [place] [address] Blood venous Normal Neutrophils # 6.6 10 1.5-8.5 10 [facility]: [address] [place] [address] Blood venous Low Lymph # 1.3 10 1.5-5.0 10 [facility]: [address] [place] [address] Blood venous Normal Baca # 0.6 10 0.0-0.8 10 [facility]: [address] [place] [address] Blood venous Normal Eos # 0.1 10 0.0-0.5 10 [facility]: [address] [place] [address] Blood venous Normal Baso # 0.0 10 0.0-0.2 10 [facility]: [address] [place] [address] 01/07/2021 ESR (Erythrocyte Sedimentation Rate), Blood Hig h Erythrocyte Sedimentation Rate 32 mm/HR 0-30 mm/HR [facility] dicar Center: [address] [place] [address] 01/07/2021 Electrocardiogram Rate & Rhythm 71 sinu s rhythm [facility]: [address] [facility] [address], [place] Qrs [facility]: [address] [facility] [address], [place] MS Interval 120/168 ms [facility]: [address] [facility] [address], [place] QRS Duration 96 ms [facility]: [address] [facility] [address], [place] QT Interval 404 [facility]: [address] [facility] [address], [place] 12/20/2020 TSH + Free T4, Serum Normal Thyroid Stimulating Hormone 1.830 uIU/mL 0.358-3.740 uIU/mL [facility] Ce nter: [address] [place] [address] Normal Free T4 1.00 NG/dL 0.76-1.46 NG/dL F [facility]: 0 [facility] 12/20/2020 Vitamin B12 + Folate, Serum or Blood Normal Vitamin B12 Level 807 pg/mL Final [facility] nter: 0 [facility] Normal Folate > 24.0 NG/mL Final [facility]: [address] [place] [address] 12/20/2020 Vitamin D, 25-Hydroxy, Total, Serum Low Total 25(Oh) Vitamin D 27.2 NG/mL 30.0-100.0 NG/mL Final [facility] nter: 0 [facility] 12/20/2020 C Reactive Protein, QN, Serum or Plasma High C Reactive Protein Quantitativ 0.38 mg/dL 0.00-0.30 mg/dL [facility]: [address] [place] [address] 12/20/2020 CBC W/ Auto Diff Normal White Blood Count 5.8 10 4.0-10.0 10 [facility]: [address] [place] [address] Normal Red Blood Count 4.25 10 4.00-5.40 10 [facility]: [address] [place] [address] Normal Hemoglobin 13.1 g/dL 12.0-15.5 g/dL [facility]: [address] [place] [address] Normal Hematocrit 38.7 % 36.0-47.0 % [facility]: [address] [place] [address] Normal Mean Corpuscular Volume 91.1 fL 80.0 -96.0 fL [facility]: [address] [place] [address] Normal Mean Corpuscular Hemoglobin 30.8 pg 27.0-33.0 pg [facility]: [address] [place] [address] Normal Mean Corpuscular HGB Conc 33.9 g/dL 32.0-36.5 g/dL [facility]: [address] [place] [address] Normal Red Cell Distribution Width 13.2 % 1 1.5-14.5 % [facility]: [address] [place] [address] Normal Platelet Count, Automated 244 10 150 -450 10 [facility]: [address] [facility] High Neutrophils % 69.4 % 36.0-66.0 % [facility]: [address] [facility] Low Lymph % 22.7 % 24.0-44.0 % [facility]: [address] [facility] Normal [place]aca % 5.5 % 0.0-8.0 % [facility]: [address] [facility] Normal Eos % 1.6 % 0.0-3.0 % [facility]: [address] [facility] Normal Baso % 0.5 % 0.0-1.0 % [facility]: [address] [facility] Normal Immature Granulocyte % 0.3 % 0-3.0 % [facility]: [address] [facility] Normal Nucleated Red Blood Cell % 0.0 % 0- 0 % [facility]: [address] [facility] Normal Neutrophils # 4.0 10 1.5-8.5 10 [facility]: [address] [facility] Low Lymph # 1.3 10 1.5-5.0 10 [facility]: [address] [facility] Normal [place]aca # 0.3 10 0.0-0.8 10 [facility]: [address] [facility] Normal Eos # 0.1 10 0.0-0.[address] [facility]: [address] [facility] Normal Baso # 0.0 10 0.0-0.2 10 [facility]: [address] [facility] 12/20/2020 ESR (Erythrocyte Sedimentation Rate), Blood Nor mal Erythrocyte Sedimentation Rate 13 mm/HR 0-30 mm/HR [facility]: [address] [facility] 12/20/2020 CMP, Serum or Plasma High Glucose, Fastin g 111 mg/dL 70-100 mg/dL [facility]: [address] 0 [facility] Normal Blood Urea Nitrogen 13 mg/dL 7-18 mg /dL [facility]: 0 [facility] Normal Creatinine for GFR 0.68 mg/dL 0.55-1 .30 mg/dL [facility]: [address] [facility] Normal Glomerular Filtration Rate > 60.0 >5 1 [facility]: [address] [facility] Normal Sodium Level 138 mEq/L 136-145 mEq/L [facility]: [address] [facility] Normal Potassium Serum 4.0 mEq/L 3.5-5.1 mE q/L [facility]: [address] [facility] Normal Chloride Level 102 mEq/L 98-107 mEq/ L [facility]: 0 [facility] Normal Carbon Dioxide Level 26 mEq/L 21-32 mEq/L [facility]: [address] [facility] Normal Anion Gap 10 mEq/L 8-16 mEq/L [facility]: [address] [facility] Normal Calcium Level 9.5 mg/dL 8.5-10.1 mg/ dL [facility]: [address] [facility] Normal AST/SGOT 36 U/L 7-37 U/L [facility]: [address] [facility] Normal ALT/SGPT 60 U/L 12-78 U/L [facility]: [address] [facility] Normal Alkaline Phosphatase 74 U/L 45-117 U /L [facility]: [address] [facility] Normal Bilirubin,total 0.3 mg/dL 0.2-1.0 mg /dL [facility]: [address] [facility] Normal Total Protein 7.5 gm/dL 6.4-8.2 gm/d L [facility]: [address] [facility] Normal Albumin 4.4 gm/dL 3.2-5.2 gm/dL [facility]: [address] [facility] Normal Albumin/globulin Ratio 1.4 1.2-2. 2 [facility]: [address] [facility], [place] Past Encounters 06/16/2021 Chronic Post-traumatic Stress Disorder; Generalized Anxiety Disorder; Moderate Recurrent Major Depression Evelyne Ortegaman, CLINIC RECEPTIONIST-R: [address] [facility] [address], [place] [address], Ph. 06/06/2021 Venereal Disease Screening; Hypokalemia; Hepatitis C Screening; HIV Screening Michele Chavarria, RPA-C: [address] [facility] [address], [place] [address], Ph. 05/24/2021 Depressive Disorder; Constipation; Obesity; Screening for Malignant Neoplasm of Colon; Hepatitis C Screening; HIV Screening; Venereal Disease Screening; Hypokalemia Michele Chavarria, RPA-C: [address] [facility] [address], [place] [address], Ph. 05/04/2021 Arthropathy; Hypokalemia; Dysuria; Acute Cystitis; Hypertensive Heart Disease without Congestive Heart Failure; Hypothyroidism; Fatigue Michele Chavarria, RPA-C: [address] [facility] [address], [place] [address], Ph. 04/19/2021 Chronic Post-traumatic Stress Disorder; Generalized Anxiety Disorder; Moderate Recurrent Major Depression Albina Arcos, CLINIC RECEPTIONIST-R: [address] [facility] [address], [place] [address], Ph. 03/07/2021 Chronic Post-traumatic Stress Disorder; Generalized Anxiety Disorder; Moderate Recurrent Major Depression Albina Arcos, CLINIC RECEPTIONIST-R: [address] [facility], [facility] [address], [place] [address], Ph. 02/22/2021 Generalized Anxiety Disorder; Moderate Recurrent Major Depression; Panic Disorder Albina Arcos, CLINIC RECEPTIONIST-R: [address] [facility], [facility] [address], [place] [address], Ph. 02/08/2021 Generalized Anxiety Disorder Albina Arcos, CLINIC RECEPTIONIST-R: [address] [facility], [facility] [address], [place] [address], Ph. 01/21/2021 Depressive Disorder; Hypertensive Heart Disease without Congestive Heart Failure; Temporal Headache Karian Delgado RPA-C: [address] [facility], [facility] [address], [place] [address], Ph. 01/07/2021 Adult Health Examination; Hyperlipidemia; Palpitations; Heart Murmur; Snoring; Hypertensive Disorder; Impaired Fasting Glycemia; Temporal Headache; Screening for Malignant Neoplasm of Breast; Hearing Difficulty; Mixed Anxiety and Depressive Disorder; Gastroesophageal Reflux Disease without Esophagitis CHEYANNE PattersonC: [address] [facility], [facility] [address], [place] [address], Ph. Social History Tobacco Smoking Status Never [...] Imaging None recorded. Vitals 05/24/2021 09:10AM ESTABLISHED [id number] Height Weight BMI Blood Pressure 64 in 192 lbs 33 kg/m2 120/80 mm[Hg] 05/04/2021 11:40AM ESTABLISHED [id number] Height Weight BMI Blood Pressure 64 in 198 lbs 34 kg/m2 125/81 mm[Hg] 01/21/2021 08:50AM TELEHEALTH 20 Height 64 in 01/07/2021 08:50AM NEW ACUTE 20 Height Weight BMI Blood Pressure 64 in 224 lbs 9.6 oz 38.6 kg/m2 135/88 mm[Hg ]
--- OUTSIDE RECORDS SUMMARY | 2021-08-18 10:05 | CCD ---
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 Name Role Phone Karina Delgado Unavailable Unavailable Allergies Code Code System Name Reaction Severity Status Onset Sulfa (Sulfonamide Antibiotics) Active 11/07/2012 28245 RxNorm Wellbutrin Sr Other Active 2012 Notes: [...] Vaginal Approach Information not available 01/07/2021 Electrocardiogram [facility] [address] [place] [address] (Work Place) 01/07/2021 MAMMO, Screening, Digital, Bilateral Ups de leon [facility] [address] [place] [address] (Work Place) 05/18/2021 Electrocardiogram [facility] [address] [facility] [address] [place] [address] (Work Place) Notes: partial hyster, D+C, 2 bladder re pairs Results Lab Results Date Name Specimen Result Interpretation Description Value Range Status Address 06/06/2021 HIV 1+2 Ab + HIV1 P24 Ag, Quantitative I mmunoassay, Serum Blood venous Normal HIV Ag/Ab, 4TH Gen non-reactive non-reactive Fin al [facility]: [address] , [place] 06/06/2021 Potassium, Serum Blood venous Normal Potassium 3. 5 mmol/L 3.5- 5.3 mmol/L [facility] [address] [facility] 06/06/2021 Hepatitis C Virus Ab, Serum Blood venous Normal Hepatitis C Antibody non-reactive non-reactive Final [facility]: [address] [facility] Blood venous Normal Index 0.02 <1.00 Final [employer] [facility]: [address] [facility] 06/06/2021 RPR (Rapid Plasma Reagin), Serum Blood venous Normal RPR (DX) W/refl Titer and Confirmatory Testing non-reactive non-reactive Final [facility]: [address] [facility] 05/16/2021 Potassium, Serum or Plasma Normal Potassium Serum 3.7 mEq/L 3.5-5.1 mEq/L [facility]: [address] 0 [facility] 05/10/2021 Potassium, Serum or Plasma Low Potassium Serum 3.4 mEq/L 3.5- 5.1 mEq/L [facility]: 83 0 [facility] 05/05/2021 Potassium, Serum or Plasma D Potassium Serum 3.8 mEq/L 3.5-5.1 mEq/L [facility]: 83 0 [facility] 05/05/2021 TSH, Serum or Plasma Normal Thyroid Stimulating Hormone 1.490 uIU/mL 0.358-3.740 uIU/mL [facility] nter: [address] [facility] 05/04/2021 CBC W/ Auto Diff High White Blood Count 12.2 10 4.0-10.0 10 [facility]: [address] [facility] Normal Red Blood Count 4.35 10 4.00-5.40 10 [facility]: [address] [facility] Normal Hemoglobin 13.3 g/dL 12.0-15.5 g/dL [facility]: [address] [place] [address] Normal Hematocrit 38.6 % 36.0-47.0 % [facility]: [address] [place] [address] Normal Mean Corpuscular Volume 88.7 fL 80.0 -96.0 fL [facility]: [address] [place] [address] Normal Mean Corpuscular Hemoglobin 30.6 pg 27.0-33.0 pg [facility]: [address] [place] [address] Normal Mean Corpuscular HGB Conc 34.5 g/dL 32.0-36.5 g/dL [facility]: [address] [place] [address] Normal Red Cell Distribution Width 13.8 % 1 1.5-14.5 % [facility]: [address] [place] [address] Normal Platelet Count, Automated 266 10 150 -450 10 [facility]: 0 [facility] High Neutrophils % 74.0 % 36.0-66.0 % [facility]: [address] [facility] Low Lymph % 17.5 % 24.0-44.0 % [facility]: [address] [facility] Normal Powell % 7.4 % 2.0-8.0 % [facility]: [address] [facility] Normal Eos % 0.4 % 0.0-3.0 % [facility]: 0 [facility] Normal Baso % 0.2 % 0.0-1.0 % [facility]: [address] [place] [address] Normal Immature Granulocyte % 0.5 % 0-3.0 % [facility]: [address] [place] [address] Normal Nucleated Red Blood Cell % 0.0 % 0- 0 % [facility]: [address] [facility] High Neutrophils # 9.0 10 1.5-8.5 10 Roselyn [facility]: [address] [facility] Normal Lymph # 2.1 10 1.5-5.0 10 [facility]: [address] [facility] High Powell # 0.9 10 0.0-0.8 10 [facility]: [address] [facility] Normal Eos # 0.1 10 0.0-0.5 10 [facility]: [address] [facility] Normal Baso # 0.0 10 0.0-0.2 10 [facility]: [address] [facility] 05/04/2021 ESR (Erythrocyte Sedimentation Rate), Blood Nor mal Erythrocyte Sedimentation Rate 8 mm/HR 0-30 mm/HR [facility]: [address] [facility] 05/04/2021 CMP, Serum or Plasma Normal Glucose, Fastin g 91 mg/dL 70-100 mg/dL [facility]: 83 0 [facility] Normal Blood Urea Nitrogen 15 mg/dL 7-18 mg /dL [facility]: 0 [facility] Normal Creatinine for GFR 0.69 mg/dL 0.55-1 .30 mg/dL [facility]: 0 [facility] Normal Glomerular Filtration Rate > 60.0 >5 1 [facility]: [address] [facility] Normal Sodium Level 141 mEq/L 136-145 mEq/L [facility]: [address] [facility] CRITICAL LOW Potassium Serum 2.9 mEq/L 3.5- 5.1 mEq/L [facility]: [address] [facility] Normal Chloride Level 104 mEq/L 98-107 mEq/ L [facility]: [address] [facility] Normal Carbon Dioxide Level 28 mEq/L 21-32 mEq/L [facility]: [address] [facility] Normal Anion Gap 9 mEq/L 8-16 mEq/L [facility]: [address] [facility] Normal Calcium Level 10.0 mg/dL 8.5-10.1 mg /dL [facility]: 0 [facility] High AST/SGOT 44 U/L 7-37 U/L [facility]: [address] [facility] Normal ALT/SGPT 64 U/L 12-78 U/L [facility]: [address] [facility] Normal Alkaline Phosphatase 55 U/L 45-117 U /L [facility]: [address] [facility] Normal Bilirubin,total 0.5 mg/dL 0.2-1.0 mg /dL [facility]: 0 [facility] Normal Total Protein 7.4 gm/dL 6.4-8.2 gm/d L [facility]: 0 [facility] Normal Albumin 4.4 gm/dL 3.2-5.2 gm/dL [facility] [address] [facility] Normal Albumin/globulin Ratio 1.5 1.2-2. 2 [facility]: 0 [facility] 05/04/2021 Hepatic Function Panel, Serum Normal Bilirubin,direct 0.1 mg/dL 0.0-0.2 mg/dL [facility] nter: [address] [place] [address] 05/04/2021 Vitamin D, 25-Hydroxy, Total, Serum Normal Total 25(Oh) Vitamin D 32.6 NG/mL 30.0-100.0 NG/mL [facility]: 0 [facility] 05/04/2021 C Reactive Protein, QN, Serum or Plasma Normal C Reactive Protein Quantitativ 0.30 mg/dL 0.00-0.30 mg/dL [facility]: 0 [facility] 05/04/2021 Urinalysis, Dipstick, Auto Normal Bilirubin ne g Final [facility]: [address] [facility] [address], [place] ABNORMAL Blood 3+ Final [facility] ical: [address], [place] Normal Glucose neg Final [facility] ical: [address], [place] Normal Ketone neg Final [facility] Medi jasmin: [address], [place] ABNORMAL Leukocytes 3+ Final [facility]: [address], [place] Normal Nitrite neg Final [facility] ical: [address], [place] Normal Ph 6.5 Final [facility]ica l: [address], [place] Normal Protein neg Final [facility] ical: [address], [place] Normal Specific [place] 1.010 Final [facility]: [address], [place] Normal Urobilinogen 0.2 Final [facility]: [address] [facility] [place] 01/07/2021 HbA1C (Hemoglobin a1C), Blood Blood venous Normal Hemoglobin a1C 5.2 % Final [facility]: [address] [facility] Blood venous Normal Estimated Average Glucose 103 mg/dL 60-110 mg/dL Final [facility]: [address] [facility] 01/07/2021 Lipid Panel, Blood High Triglycerides Lev el 183 mg/dL <150 mg/dL Final [facility]: 83 0 [facility] High Cholesterol Level 202 mg/dL <200 mg/ dL Final [facility]: [address] [facility] Normal HDL Cholesterol 41 mg/dL >40 mg/dL F inal [facility]: [address] [facility] High LDL Cholesterol 124 mg/dL <100 mg/dL Final [facility]: [address] [facility] Normal Non-hdl-c 161 mg/dL Final [facility]: [address] [facility] Normal Cholesterol Risk Ratio 4.926 <5 [facility]: [address] [facility] 01/07/2021 C Reactive Protein, QN, Serum or Plasma High C Reactive Protein Quantitativ 0.75 mg/dL 0.00-0.30 mg/dL Final [facility]: [address] [place] [address] 01/07/2021 CBC W/ Auto Diff Blood venous Normal White Blood C ount 8.6 10 4.0-10.0 10 [facility]: 83 0 [facility] Blood venous Normal Red Blood Count 4.29 10 4.00- 5.40 10 [facility]: [address] [place] [address] Blood venous Normal Hemoglobin 13.1 g/dL 12.0-15. 5 g/dL [facility]: [address] [place] [address] Blood venous Normal Hematocrit 39.4 % 36.0-47.0 % [facility]: [address] [place] [address] Blood venous Normal Mean Corpuscular Volume 91.8 fL 80.0-96.0 fL [facility]: [address] [place] [address] Blood venous Normal Mean Corpuscular Hemoglob in 30.5 pg 27.0-33.0 pg [facility]: [address] [place] [address] Blood venous Normal Mean Corpuscular HGB Conc 33.2 g/dL 32.0-36.5 g/dL [facility]: [address] [place] [address] Blood venous Normal Red Cell Distribution Wid th 13.0 % 11.5-14.5 % [facility]: [address] [place] [address] Blood venous Normal Platelet Count, Automated 206 10 150-450 10 [facility]: [address] [place] [address] Blood venous High Neutrophils % 76.4 % 36.0-66. 0 % [facility]: [address] [place] [address] Blood venous Low Lymph % 14.9 % 24.0-44.0 % [facility]: [address] [place] [address] Blood venous Normal Powell % 6.7 % 2.0-8.0 % [facility]: [address] [place] [address] Blood venous Normal Eos % 1.2 % 0.0-3.0 % [facility]: [address] [place] [address] Blood venous Normal Baso % 0.5 % 0.0-1.0 % [facility]: [address] [facility] Blood venous Normal Immature Granulocyte % 0.3 % 0-3.0 % [facility]: [address] [facility] Blood venous Normal Nucleated Red Blood Cell % 0. 0 % 0-0 % [facility]: [address] [facility] Blood venous Normal Neutrophils # 6.6 10 1.5-8.5 10 [facility]: [address] [place] [address] Blood venous Low Lymph # 1.3 10 1.5-5.0 10 [facility]: [address] [facility] Blood venous Normal Powell # 0.6 10 0.0-0.8 10 [facility]: 0 [facility] Blood venous Normal Eos # 0.1 10 0.0-0.5 10 [facility]: [address] [place] [address] Blood venous Normal Baso # 0.0 10 0.0-0.2 10 [facility]: [address] [facility] 01/07/2021 ESR (Erythrocyte Sedimentation Rate), Blood Hig h Erythrocyte Sedimentation Rate 32 mm/HR 0-30 mm/HR [facility]: 0 [facility] 01/07/2021 Electrocardiogram Rate & Rhythm 71 sinu s rhythm [facility]: [address], [place] Qrs [facility] [address] [facility] [place] Interval 120/168 ms [facility]: [address] [facility] [place] QRS Duration 96 ms [facility]: [address], [place] QT Interval 404 [facility]: [address] [facility] [place] 12/20/2020 TSH + Free T4, Serum Normal Thyroid Stimulating Hormone 1.830 uIU/mL 0.358-3.740 uIU/mL [facility] nter: 0 [facility] Normal Free T4 1.00 NG/dL 0.76-1.46 NG/dL F rosenbergl [facility]: [address] [place] [address] 12/20/2020 Vitamin B12 + Folate, Serum or Blood Normal Vitamin B12 Level 807 pg/mL [facility] nter: [address] [place] [address] Normal Folate > 24.0 NG/mL [facility]: [address] [place] [address] 12/20/2020 Vitamin D, 25-Hydroxy, Total, Serum Low Total 25(Oh) Vitamin D 27.2 NG/mL 30.0-100.0 NG/mL [facility] nter: [address] [place] [address] 12/20/2020 C Reactive Protein, QN, Serum or Plasma High C Reactive Protein Quantitativ 0.38 mg/dL 0.00-0.30 mg/dL [facility]: [address] [place] [address] 12/20/2020 CBC W/ Auto Diff Normal White Blood Count 5.8 10 4.0-10.0 10 [facility]: [address] [place] [address] Normal Red Blood Count 4.25 10 4.00-5.40 10 [facility]: [address] [place] [address] Normal Hemoglobin 13.1 g/dL 12.0-15.5 g/dL [facility]: [address] [place] [address] Normal Hematocrit 38.7 % 36.0-47.0 % [facility]: [address] [place] [address] Normal Mean Corpuscular Volume 91.1 fL 80.0 -96.0 fL [facility]: [address] [place] [address] Normal Mean Corpuscular Hemoglobin 30.8 pg 27.0-33.0 pg [facility]: [address] [place] [address] Normal Mean Corpuscular HGB Conc 33.9 g/dL 32.0-36.5 g/dL [facility]: [address] [place] [address] Normal Red Cell Distribution Width 13.2 % 1 1.5-14.5 % [facility]: [address] [place] [address] Normal Platelet Count, Automated 244 10 150 -450 10 [facility]: [address] [place] [address] High Neutrophils % 69.4 % 36.0-66.0 % [facility]: [address] [facility] Low Lymph % 22.7 % 24.0-44.0 % [facility]: [address] [facility] Normal Powell % 5.5 % 0.0-8.0 % [facility]: [address] [facility] Normal Eos % 1.6 % 0.0-3.0 % [facility]: [address] [facility] Normal Baso % 0.5 % 0.0-1.0 % [facility]: [address] [facility] Normal Immature Granulocyte % 0.3 % 0-3.0 % [facility]: [address] [place] [address] Normal Nucleated Red Blood Cell % 0.0 % 0- 0 % [facility]: 0 [facility] Normal Neutrophils # 4.0 10 1.5-8.5 10 [facility]: [address] [facility] Low Lymph # 1.3 10 1.5-5.0 10 [facility]: [address] [facility] Normal Powell # 0.3 10 0.0-0.8 10 [facility]: 0 [facility] Normal Eos # 0.1 10 0.0-0.5 10 [facility]: [address] [facility] Normal Baso # 0.0 10 0.0-0.2 10 [facility]: [address] [facility] 12/20/2020 ESR (Erythrocyte Sedimentation Rate), Blood Nor mal Erythrocyte Sedimentation Rate 13 mm/HR 0-30 mm/HR [facility]: 0 [facility] 12/20/2020 CMP, Serum or Plasma High Glucose, Fastin g 111 mg/dL 70-100 mg/dL [facility]: 83 0 [facility] Normal Blood Urea Nitrogen 13 mg/dL 7-18 mg /dL [facility]: 0 [facility] Normal Creatinine for GFR 0.68 mg/dL 0.55-1 .30 mg/dL [facility]: [address] [place] [address] Normal Glomerular Filtration Rate > 60.0 >5 1 [facility]: 0 [facility] Normal Sodium Level 138 mEq/L 136-145 mEq/L [facility]: [address] [place] [address] Normal Potassium Serum 4.0 mEq/L 3.5-5.1 mE q/L [facility]: [address] [facility] Normal Chloride Level 102 mEq/L 98-107 mEq/ L [facility]: [address] [place] [address] Normal Carbon Dioxide Level 26 mEq/L 21-32 mEq/L [facility]: [address] [place] [address] Normal Anion Gap 10 mEq/L 8-16 mEq/L [facility]: [address] [place] [address] Normal Calcium Level 9.5 mg/dL 8.5-10.1 mg/ dL [facility]: 0 [facility] Normal AST/SGOT 36 U/L 7-37 U/L [facility]: 0 [facility] Normal ALT/SGPT 60 U/L 12-78 U/L [facility]: 0 [facility] Normal Alkaline Phosphatase 74 U/L 45-117 U /L [facility]: [address] [place] [address] Normal Bilirubin,total 0.3 mg/dL 0.2-1.0 mg /dL [facility]: 0 [facility] Normal Total Protein 7.5 gm/dL 6.4-8.2 gm/d L [facility]: 0 [facility] Normal Albumin 4.4 gm/dL 3.2-5.2 gm/dL [facility]: 0 [facility] Normal Albumin/globulin Ratio 1.4 1.2-2. 2 [facility]: 0 [facility] Past Encounters 07/21/2021 Chronic Post-traumatic Stress Disorder; Generalized Anxiety Disorder; Moderate Recurrent Major Depression Evelyne Arias, SHEAR SCRAPMAN-R: [address] [facility] [address], [place] [address], Ph. 07/14/2021 Chronic Post-traumatic Stress Disorder; Generalized Anxiety Disorder; Moderate Recurrent Major Depression Evelyne Arias, SHEAR SCRAPMAN-R: [address] [facility] [address], [place] [address], Ph. 07/07/2021 Chronic Post-traumatic Stress Disorder; Generalized Anxiety Disorder; Moderate Recurrent Major Depression Evelyne Arias, SHEAR SCRAPMAN-R: [address], [place] [address], Ph. 06/30/2021 Chronic Post-traumatic Stress Disorder; Generalized Anxiety Disorder; Moderate Recurrent Major Depression Evelyne Arias SHEAR SCRAPMAN-R: [address] [facility] [address], [place] [address], Ph. 06/16/2021 Chronic Post-traumatic Stress Disorder; Generalized Anxiety Disorder; Moderate Recurrent Major Depression Evelyne Arias, SHEAR SCRAPMAN-R: [address], [place] [address], Ph. 06/06/2021 Venereal Disease Screening; Hypokalemia; Hepatitis C Screening; HIV Screening Michele Chavarria, RPA-C: [address] [facility] [address], [place] [address], Ph. 05/24/2021 Depressive Disorder; Constipation; Obesity; Screening for Malignant Neoplasm of Colon; Hepatitis C Screening; HIV Screening; Venereal Disease Screening; Hypokalemia Michele Chavarria RPA-C: [address], [place] [address], Ph. 05/04/2021 Arthropathy; Hypokalemia; Dysuria; Acute Cystitis; Hypertensive Heart Disease without Congestive Heart Failure; Hypothyroidism; Fatigue Michele Chavarria, RPA-C: [address], [place] [address], Ph. 04/19/2021 Chronic Post-traumatic Stress Disorder; Generalized Anxiety Disorder; Moderate Recurrent Major Depression LALO JohnsonW-R: [address] [facility], [facility] [address], [place] [address], Ph. 03/07/2021 Chronic Post-traumatic Stress Disorder; Generalized Anxiety Disorder; Moderate Recurrent Major Depression Albina Arcos SHEAR SCRAPMAN-R: [address] [facility] [address], [place] [address], Ph. 02/22/2021 Generalized Anxiety Disorder; Moderate Recurrent Major Depression; Panic Disorder Albina Arcos SHEAR SCRAPMAN-R: [address] [facility], [facility] [address], [place] [address], Ph. 02/08/2021 Generalized Anxiety Disorder Albina Arcos SHEAR SCRAPMAN-R: [address] [facility] [address], [place] [address], Ph. 01/21/2021 Depressive Disorder; Hypertensive Heart Disease without Congestive Heart Failure; Temporal Headache KOFFI Patterson: [address] [facility] [address], [place] [address], Ph. 01/07/2021 Adult Health Examination; Hyperlipidemia; Palpitations; Heart Murmur; Snoring; Hypertensive Disorder; Impaired Fasting Glycemia; Temporal Headache; Screening for Malignant Neoplasm of Breast; Hearing Difficulty; Mixed Anxiety and Depressive Disorder; Gastroesophageal Reflux Disease without Esophagitis CHEYANNE PattersonC: [address] [facility] [address], [place] [address], Ph. Social History Tobacco Smoking Status Never [...] Imaging None recorded. Vitals 05/24/2021 09:10AM ESTABLISHED [id number] Height Weight BMI Blood Pressure 64 in 192 lbs 33 kg/m2 120/80 mm[Hg] 05/04/2021 11:40AM ESTABLISHED [id number] Height Weight BMI Blood Pressure 64 in 198 lbs 34 kg/m2 125/81 mm[Hg] 01/21/2021 08:50AM TELEHEALTH 20 Height 64 in 01/07/2021 08:50AM NEW ACUTE 20 Height Weight BMI Blood Pressure 64 in 224 lbs 9.6 oz 38.6 kg/m2 135/88 mm[Hg ]
--- OUTSIDE RECORDS SUMMARY | 2021-08-18 10:06 | CCD ---
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 Role Phone Karina Delgado Unavailable Unavailable Allergies Code Code System Name Reaction Severity Status Onset Sulfa (Sulfonamide Antibiotics) Active 11/07/2012 Notes: SULFA DRUGS - Reaction: hives Medications [...] and Observation Findings Active 2012 Clinical Finding Active 07/11/2013 Hypokalemia Active 05/05/2021 Obesity Active 05/24/2021 Hypothyroidism Active Depressive Disorder Active Arthropathy Active SNOMED CT Concept Active Finding of Esophagus Active Procedures Date Name Performed by 08/08/2005 Total Hysterectomy via Vaginal Approach Information not available 01/07/2021 Electrocardiogram [facility] [address] [facility] [address] [place] [address] ( (Work Place) 01/07/2021 MAMMO, Screening, Digital, Bilateral [facility] [address] [place] [address] (Work Place) 05/18/2021 Electrocardiogram [facility] [address] [facility] [address] [place] [id number] (Work Place) Notes: partial hyster, D+C, 2 bladder re pairs Results Lab Results Date Name Specimen Result Interpretation Description Value Range Status Address 05/16/2021 Potassium, Serum or Plasma Normal Potassium Serum 3.7 mEq/L 3.5-5.1 mEq/L [facility]: [address] [facility] 05/10/2021 Potassium, Serum or Plasma Low Potassium Serum 3.4 mEq/L 3.5- 5.1 mEq/L [facility]: [address] 0 [facility] 05/05/2021 Potassium, Serum or Plasma D Potassium Serum 3.8 mEq/L 3.5-5.1 mEq/L [facility]: [address] 0 [facility] 05/05/2021 TSH, Serum or Plasma Normal Thyroid Stimulating Hormone 1.490 uIU/mL 0.358-3.740 uIU/mL [facility] nter: [address] [facility] 05/04/2021 CBC W/ Auto Diff High White Blood Count 12.2 10 4.0-10.0 10 [facility]: [address] [facility] Normal Red Blood Count 4.35 10 4.00-5.40 10 [facility]: [address] [facility] Normal Hemoglobin 13.3 g/dL 12.0-15.5 g/dL [facility]: [address] [facility] Normal Hematocrit 38.6 % 36.0-47.0 % [facility]: [address] [facility] Normal Mean Corpuscular Volume 88.7 fL 80.0 -96.0 fL [facility]: [address] [facility] Normal Mean Corpuscular Hemoglobin 30.6 pg 27.0-33.0 pg [facility]: [address] [facility] Normal Mean Corpuscular HGB Conc 34.5 g/dL 32.0-36.5 g/dL [facility]: [address] [place] [address] Normal Red Cell Distribution Width 13.8 % 1 1.5-14.5 % [facility]: [address] [place] [address] Normal Platelet Count, Automated 266 10 150 -450 10 [facility]: 0 [facility] High Neutrophils % 74.0 % 36.0-66.0 % [facility]: [address] [place] [address] Low Lymph % 17.5 % 24.0-44.0 % [facility]: [address] [place] [address] Normal Nobles % 7.4 % 2.0-8.0 % Final [facility]: [address] [place] [address] Normal Eos % 0.4 % 0.0-3.0 % [facility]: [address] [place] [address] Normal Baso % 0.2 % 0.0-1.0 % [facility]: [address] [place] [address] Normal Immature Granulocyte % 0.5 % 0-3.0 % [facility]: [address] [place] [address] Normal Nucleated Red Blood Cell % 0.0 % 0- 0 % [facility]: [address] [place] [address] High Neutrophils # 9.0 10 1.5-8.[address] [facility]: 0 [facility] Normal Lymph # 2.1 10 1.5-5.0 10 [facility]: [address] [facility] High Nobles # 0.9 10 0.0-0.8 10 [facility]: [address] [place] [address] Normal Eos # 0.1 10 0.0-0.5 10 [facility]: [address] [place] [address] Normal Baso # 0.0 10 0.0-0.2 10 [facility]: [address] [place] [address] 05/04/2021 ESR (Erythrocyte Sedimentation Rate), Blood Nor mal Erythrocyte Sedimentation Rate 8 mm/HR 0-30 mm/HR [facility]: [address] [facility] 05/04/2021 CMP, Serum or Plasma Normal Glucose, Fastin g 91 mg/dL 70-100 mg/dL [facility]: 83 0 [facility] Normal Blood Urea Nitrogen 15 mg/dL 7-18 mg /dL [facility]: [address] [facility] Normal Creatinine for GFR 0.69 mg/dL 0.55-1 .30 mg/dL [facility]: [address] [facility] Normal Glomerular Filtration Rate > 60.0 >5 1 [facility]: [address] [facility] Normal Sodium Level 141 mEq/L 136-145 mEq/L [facility]: 0 [facility] CRITICAL LOW Potassium Serum 2.9 mEq/L 3.5- 5.1 mEq/L [facility]: [address] [facility] Normal Chloride Level 104 mEq/L 98-107 mEq/ L [facility]: [address] [facility] Normal Carbon Dioxide Level 28 mEq/L 21-32 mEq/L [facility]: [address] [facility] Normal Anion Gap 9 mEq/L 8-16 mEq/L [facility]: [address] [facility] Normal Calcium Level 10.0 mg/dL 8.5-10.1 mg /dL [facility]: [address] [facility] High AST/SGOT 44 U/L 7-37 U/L [facility]: [address] [facility] Normal ALT/SGPT 64 U/L 12-78 U/L [facility]: [address] [facility] Normal Alkaline Phosphatase 55 U/L 45-117 U /L [facility]: 0 [facility] Normal Bilirubin,total 0.5 mg/dL 0.2-1.0 mg /dL [facility]: [address] [facility] Normal Total Protein 7.4 gm/dL 6.4-8.2 gm/d L [facility]: [address] [facility] Normal Albumin 4.4 gm/dL 3.2-5.2 gm/dL [facility]: 0 [facility] Normal Albumin/globulin Ratio 1.5 1.2-2. 2 [facility]: [address] [place] [address] 05/04/2021 Hepatic Function Panel, Serum Normal Bilirubin,direct 0.1 mg/dL 0.0-0.2 mg/dL [facility] nter: [address] [place] [address] 05/04/2021 Vitamin D, 25-Hydroxy, Total, Serum Normal Total 25(Oh) Vitamin D 32.6 NG/mL 30.0-100.0 NG/mL [facility]: [address] [place] [address] 05/04/2021 C Reactive Protein, QN, Serum or Plasma Normal C Reactive Protein Quantitativ 0.30 mg/dL 0.00-0.30 mg/dL [facility]: 0 [facility] 05/04/2021 Urinalysis, Dipstick, Auto Normal Bilirubin ne g Final [facility]: [address], [place] ABNORMAL Blood 3+ Final [facility] ical: [address], [place] Normal Glucose neg Final [facility] ical: [address], [place] Normal Ketone neg Final [facility]i jasmin: [address], [place] ABNORMAL Leukocytes 3+ Final [facility]: [address], [place] Normal Nitrite neg Final [facility] ical: [address], [place] Normal Ph 6.5 Final [facility] l: [address], [place] Normal Protein neg Final [facility] ical: [address], [place] Normal Specific Jenison 1.010 Final [facility]: [address], [place] Normal Urobilinogen 0.2 Final [facility]: [address], [place] 01/07/2021 HbA1C (Hemoglobin a1C), Blood Blood venous Normal Hemoglobin a1C 5.2 % [facility]: [address] [facility] Blood venous Normal Estimated Average Glucose 103 mg/dL 60-110 mg/dL [facility]: [address] [facility] 01/07/2021 Lipid Panel, Blood High Triglycerides Lev el 183 mg/dL <150 mg/dL [facility]: 83 0 [facility] High Cholesterol Level 202 mg/dL <200 mg/ dL [facility]: [address] [facility] Normal HDL Cholesterol 41 mg/dL >40 mg/dL [facility] [address] [facility] High LDL Cholesterol 124 mg/dL <100 mg/dL [facility]: [address] [facility] Normal Non-hdl-c 161 mg/dL [facility]: [address] [facility] Normal Cholesterol Risk Ratio 4.926 <5 [facility]: [address] [facility] 01/07/2021 C Reactive Protein, QN, Serum or Plasma High C Reactive Protein Quantitativ 0.75 mg/dL 0.00-0.30 mg/dL [facility]: [address] [facility] 01/07/2021 CBC W/ Auto Diff Blood venous Normal White Blood C ount 8.6 10 4.0-10.0 10 [facility]: 83 0 [facility] Blood venous Normal Red Blood Count 4.29 10 4.00- 5.40 10 [facility]: [address] [facility] Blood venous Normal Hemoglobin 13.1 g/dL 12.0-15. 5 g/dL [facility]: [address] [facility] Blood venous Normal Hematocrit 39.4 % 36.0-47.0 % [facility]: [address] [facility] Blood venous Normal Mean Corpuscular Volume 91.8 fL 80.0-96.0 fL [facility]: [address] [facility] Blood venous Normal Mean Corpuscular Hemoglob in 30.5 pg 27.0-33.0 pg [facility]: [address] [place] [address] Blood venous Normal Mean Corpuscular HGB Conc 33.2 g/dL 32.0-36.5 g/dL [facility]: [address] [place] [address] Blood venous Normal Red Cell Distribution Wid th 13.0 % 11.5-14.5 % [facility]: [address] [place] [address] Blood venous Normal Platelet Count, Automated 206 10 150-450 10 [facility]: [address] [place] [address] Blood venous High Neutrophils % 76.4 % 36.0-66. 0 % [facility]: [address] [place] [address] Blood venous Low Lymph % 14.9 % 24.0-44.0 % [facility]: [address] [place] [address] Blood venous Normal Nobles % 6.7 % 2.0-8.0 % [facility]: [address] [place] [address] Blood venous Normal Eos % 1.2 % 0.0-3.0 % [facility]: [address] [place] [address] Blood venous Normal Baso % 0.5 % 0.0-1.0 % [facility]: [address] [place] [address] Blood venous Normal Immature Granulocyte % 0.3 % 0-3.0 % [facility]: [address] [place] [address] Blood venous Normal Nucleated Red Blood Cell % 0. 0 % 0-0 % [facility]: [address] [place] [address] Blood venous Normal Neutrophils # 6.6 10 1.5-8.5 10 [facility]: [address] [place] [address] Blood venous Low Lymph # 1.3 10 1.5-5.0 10 [facility]: [address] [place] [address] Blood venous Normal Nobles # 0.6 10 0.0-0.8 10 [facility]: [address] [place] [address] Blood venous Normal Eos # 0.1 10 0.0-0.5 10 [facility]: [address] [facility] Blood venous Normal Baso # 0.0 10 0.0-0.2 10 [facility]: 0 [facility] 01/07/2021 ESR (Erythrocyte Sedimentation Rate), Blood Hig h Erythrocyte Sedimentation Rate 32 mm/HR 0-30 mm/HR Final [facility]: [address] [place] [address] 01/07/2021 Electrocardiogram Rate & Rhythm 71 sinu s rhythm [facility]: [address] [facility] [address], [place] Qrs [facility]: [address] [facility] [address], [place] MT Interval 120/168 ms [facility]: [address] [facility] [address], [place] QRS Duration 96 ms [facility]: [address] [facility] [address], [place] QT Interval 404 [facility]: [address] [facility] [address], [place] 12/20/2020 TSH + Free T4, Serum Normal Thyroid Stimulating Hormone 1.830 uIU/mL 0.358-3.740 uIU/mL Final [facility] nter: 0 [facility] Normal Free T4 1.00 NG/dL 0.76-1.46 NG/dL F inal [facility]: [address] [place] [address] 12/20/2020 Vitamin B12 + Folate, Serum or Blood Normal Vitamin B12 Level 807 pg/mL Final [facility] nter: [address] [place] [address] Normal Folate > 24.0 NG/mL Final [facility]: [address] [place] [address] 12/20/2020 Vitamin D, 25-Hydroxy, Total, Serum Low Total 25(Oh) Vitamin D 27.2 NG/mL 30.0-100.0 NG/mL Final [facility] nter: [address] [place] [address] 12/20/2020 C Reactive Protein, QN, Serum or Plasma High C Reactive Protein Quantitativ 0.38 mg/dL 0.00-0.30 mg/dL Final [facility]: [address] [place] [address] 12/20/2020 CBC W/ Auto Diff Normal White Blood Count 5.8 10 4.0-10.0 10 [facility]: [address] [facility] Normal Red Blood Count 4.25 10 4.00-5.40 10 [facility]: [address] [facility] Normal Hemoglobin 13.1 g/dL 12.0-15.5 g/dL [facility]: [address] [facility] Normal Hematocrit 38.7 % 36.0-47.0 % [facility]: [address] [facility] Normal Mean Corpuscular Volume 91.1 fL 80.0 -96.0 fL [facility]: [address] [place] [address] Normal Mean Corpuscular Hemoglobin 30.8 pg 27.0-33.0 pg [facility]: [address] [place] [address] Normal Mean Corpuscular HGB Conc 33.9 g/dL 32.0-36.5 g/dL [facility]: [address] [facility] Normal Red Cell Distribution Width 13.2 % 1 1.5-14.5 % [facility]: [address] [facility] Normal Platelet Count, Automated 244 10 150 -450 10 [facility]: 0 [facility] High Neutrophils % 69.4 % 36.0-66.0 % [facility]: [address] [facility] Low Lymph % 22.7 % 24.0-44.0 % [facility]: [address] [facility] Normal Nobles % 5.5 % 0.0-8.0 % [facility]: [address] [facility] Normal Eos % 1.6 % 0.0-3.0 % [facility]: [address] [facility] Normal Baso % 0.5 % 0.0-1.0 % [facility]: 0 [facility] Normal Immature Granulocyte % 0.3 % 0-3.0 % [facility]: [address] [facility] Normal Nucleated Red Blood Cell % 0.0 % 0- 0 % [facility]: [address] [facility] Normal Neutrophils # 4.0 10 1.5-8.5 10 [facility]: [address] [facility] Low Lymph # 1.3 10 1.5-5.0 10 [facility]: [address] [facility] Normal Nobles # 0.3 10 0.0-0.8 10 [facility]: [address] [facility] Normal Eos # 0.1 10 0.0-0.5 10 [facility]: [address] [facility] Normal Baso # 0.0 10 0.0-0.2 10 [facility]: [address] [facility] 12/20/2020 ESR (Erythrocyte Sedimentation Rate), Blood Nor mal Erythrocyte Sedimentation Rate 13 mm/HR 0-30 mm/HR [facility] Center: [address] [facility] 12/20/2020 CMP, Serum or Plasma High Glucose, Fastin g 111 mg/dL 70-100 mg/dL [facility]: 83 0 [facility] Normal Blood Urea Nitrogen 13 mg/dL 7-18 mg /dL [facility]: 0 [facility] Normal Creatinine for GFR 0.68 mg/dL 0.55-1 .30 mg/dL [facility]: 0 [facility] Normal Glomerular Filtration Rate > 60.0 >5 1 [facility]: [address] [facility] Normal Sodium Level 138 mEq/L 136-145 mEq/L [facility]: [address] [facility] Normal Potassium Serum 4.0 mEq/L 3.5-5.1 mE q/L [facility]: [address] [facility] Normal Chloride Level 102 mEq/L 98-107 mEq/ L [facility]: [address] [facility] Normal Carbon Dioxide Level 26 mEq/L 21-32 mEq/L [facility]: [address] [facility] Normal Anion Gap 10 mEq/L 8-16 mEq/L [facility]: [address] [facility] Normal Calcium Level 9.5 mg/dL 8.5-10.1 mg/ dL [facility]: [address] [facility] Normal AST/SGOT 36 U/L 7-37 U/L [facility]: [address] [facility] Normal ALT/SGPT 60 U/L 12-78 U/L [facility]: [address] [facility] Normal Alkaline Phosphatase 74 U/L 45-117 U /L [facility]: [address] [facility] Normal Bilirubin,total 0.3 mg/dL 0.2-1.0 mg /dL [facility]: 0 [facility] Normal Total Protein 7.5 gm/dL 6.4-8.2 gm/d L [facility]: 0 [facility] Normal Albumin 4.4 gm/dL 3.2-5.2 gm/dL Ros[facility]: [address] [facility] Normal Albumin/globulin Ratio 1.4 1.2-2. 2 [facility]: [address] [facility] Past Encounters 06/06/2021 Venereal Disease Screening; Hypokalemia; Hepatitis C Screening; HIV Screening Michele Chavarria, RPA-C: [address] [phone], Ph. 05/24/2021 Depressive Disorder; Constipation; Obesity; Screening for Malignant Neoplasm of Colon; Hepatitis C Screening; HIV Screening; Venereal Disease Screening; Hypokalemia Michele Chavarria, RPA-C: [address] [facility] [address] [address], Ph. 05/04/2021 Arthropathy; Hypokalemia; Dysuria; Acute Cystitis; Hypertensive Heart Disease without Congestive Heart Failure; Hypothyroidism; Fatigue Michele Chavarria, RPA-C: [address] [facility] [address] [address], Ph. 04/19/2021 Chronic Post-traumatic Stress Disorder; Generalized Anxiety Disorder; Moderate Recurrent Major Depression Albina Arcos RESIDENTIAL ELECTRICIAN-R: [address] [facility] [address], [place] [address], Ph. 03/07/2021 Chronic Post-traumatic Stress Disorder; Generalized Anxiety Disorder; Moderate Recurrent Major Depression Albina Arcos RESIDENTIAL ELECTRICIAN-R: [address] [facility] [address], [place] [address], Ph. 02/22/2021 Generalized Anxiety Disorder; Moderate Recurrent Major Depression; Panic Disorder Albina Arcos RESIDENTIAL ELECTRICIAN-R: [address] [facility] [address], [place] [address], Ph. 02/08/2021 Generalized Anxiety Disorder Albina Arcos RESIDENTIAL ELECTRICIAN-R: [address] [facility] [address], [place] [address], Ph. 01/21/2021 Depressive Disorder; Hypertensive Heart Disease without Congestive Heart Failure; Temporal Headache CHEYANNE PattersonC: [address] [facility], [facility] [address], [place] [address], Ph. 01/07/2021 Adult Health Examination; Hyperlipidemia; Palpitations; Heart Murmur; Snoring; Hypertensive Disorder; Impaired Fasting Glycemia; Temporal Headache; Screening for Malignant Neoplasm of Breast; Hearing Difficulty; Mixed Anxiety and Depressive Disorder; Gastroesophageal Reflux Disease without Esophagitis CHEYANNE PattersonC: [address] [facility], [facility] [address], [place] [address], Ph. Social History Tobacco Smoking Status Never [...] Imaging None recorded. Vitals 05/24/2021 09:10AM ESTABLISHED [id number] Height Weight BMI Blood Pressure 64 in 192 lbs 33 kg/m2 120/80 mm[Hg] 05/04/2021 11:40AM ESTABLISHED [id number] Height Weight BMI Blood Pressure 64 in 198 lbs 34 kg/m2 125/81 mm[Hg] 01/21/2021 08:50AM TELEHEALTH 20 Height 64 in 01/07/2021 08:50AM NEW ACUTE 20 Height Weight BMI Blood Pressure 64 in 224 lbs 9.6 oz 38.6 kg/m2 135/88 mm[Hg ]
--- OUTSIDE RECORDS SUMMARY | 2021-08-18 10:10 | CCD ---
Author Author [facility] Address Unknown Phone Unavailable Care Team Providers Care Barrel Straightener Name Role Phone CHAVARRIA, KODAK MICHELE RPA-C Unavailable Unavailable CHAVARRIA, KODAK MICHELE RPA-C Unavailable Unavailable CHAVARRIA, KODAK MICHELE RPA-C Unavailable Unavailable CHAVARRIA, KODAK MICHELE RPA-C Unavailable Unavailable CHAVARRIA, KODAK MICHELE RPA-C Unavailable Unavailable CHAVARRIA, KODAK MICHELE RPA-C Unavailable Unavailable CHAVARRIA, KODAK MICHELE RPA-C Unavailable Unavailable CHAVARRIA, KODAK MICHELE RPA-C Unavailable Unavailable CHAVARRIA, KODAK MICHELE RPA-C Unavailable Unavailable CHAVARRIA, KODAK MICHELE RPA-C Unavailable Unavailable CHAVARRIA, KODAK MICHELE RPA-C Unavailable Unavailable CHAVARRIA, KODAK MICHELE RPA-C Unavailable Unavailable CHAVARRIA, KODAK MICHELE RPA-C Unavailable Unavailable CHAVARRIA, KODAK MICHELE RPA-C Unavailable Unavailable CHAVARRIA, KODAK MICHELE RPA-C Unavailable Unavailable CHAVARRIA, KODAK MICHELE RPA-C Unavailable Unavailable CHAVARRIA, KODAK MICHELE RPA-C Unavailable Unavailable CHAVARRIA, KODAK MICHELE RPA-C Unavailable Unavailable CHAVARRIA, KODAK MICHELE RPA-C Unavailable Unavailable CHAVARRIA, KODAK MICHELE RPA-C Unavailable Unavailable CHAVARRIA, KODAK MICHELE RPA-C Unavailable Unavailable CHAVARRIA, KODAK MICHELE RPA-C Unavailable Unavailable CHAVARRIA, KODAK MICHELE RPA-C Unavailable Unavailable CHAVARRIA, KODAK MICHELE RPA-C Unavailable Unavailable CHAVARRIA, KODAK MICHELE RPA-C Unavailable Unavailable CHAVARRIA, KODAK MICHELE RPA-C Unavailable Unavailable CHAVARRIA, KODAK MICHELE RPA-C Unavailable Unavailable CHAVARRIA, KODAK MICHELE RPA-C Unavailable Unavailable CHAVARRIA, KODAK MICHELE RPA-C Unavailable Unavailable CHAVARRIA, KODAK MICHELE RPA-C Unavailable Unavailable CHAVARRIA, KODAK MICHELE RPA-C Unavailable Unavailable CHAVARRIA, KODAK MICHELE RPA-C Unavailable Unavailable CHAVARRIA, KODAK MICHELE RPA-C Unavailable Unavailable CHAVARRIA, KODAK MICHELE RPA-C Unavailable Unavailable CHAVARRIA, KODAK MICHELE RPA-C Unavailable Unavailable CHAVARRIA, KODAK MICHELE RPA-C Unavailable Unavailable CHAVARRIA, KODAK MICHELE RPA-C Unavailable Unavailable CHAVARRIA, KODAK MICHELE RPA-C Unavailable Unavailable CHAVARRIA, KODAK MICHELE RPA-C Unavailable Unavailable CHAVARRIA, KODAK MICHELE RPA-C Unavailable Unavailable CHAVARRIA, KODAK MICHELE RPA-C Unavailable Unavailable CHAVARRIA, KODAK MICHELE RPA-C Unavailable Unavailable CHAVARRIA, KODAK MICHELE RPA-C Unavailable Unavailable Turturro, Albina Unavailable [phone] [employer], Evelyne Unavailable Unavailable Fostve[employer], Evelyne Unavailable Unavailable SOLANO, TYSON Unavailable Unavailable SOLANO, TYSON Unavailable Unavailable SOLANO, TYSON Unavailable Unavailable SOLANO, TYSON Unavailable Unavailable SOLANO, TYSON Unavailable Unavailable SOLANO, TYSON Unavailable Unavailable SOLANO, TYSON Unavailable Unavailable SOLANO, TYSON Unavailable Unavailable SOLANO, TYSON Unavailable Unavailable SOLANO, TYSON Unavailable Unavailable SOLANO, TYSON Unavailable Unavailable SOLANO, TYSON Unavailable Unavailable SOLANO, TYSON Unavailable Unavailable SOLANO, TYSON Unavailable Unavailable SOLANO, TYSON Unavailable Unavailable SOLANO, TYSON Unavailable Unavailable SOLANO, TYSON Unavailable Unavailable SOLANO, TYSON Unavailable Unavailable SOLANO, TYSON Unavailable Unavailable SOLANO, TYSON Unavailable Unavailable SOLANO, TYSON Unavailable Unavailable SOLANO, TYSON Unavailable Unavailable SOLANO, TYSON Unavailable Unavailable SOLANO, TYSON Unavailable Unavailable SOLANO, TYSON Unavailable Unavailable SOLANO, TYSON Unavailable Unavailable SOLANO, TYSON Unavailable Unavailable Patel, L Maureen RPA Unavailable Unavailable Patel, L Maureen RPA Unavailable Unavailable Patel, L Maureen RPA Unavailable Unavailable Patel, L Maureen RPA Unavailable Unavailable Patel, L Maureen RPA Unavailable Unavailable Patel, L Maureen RPA Unavailable Unavailable Patel, L Maureen RPA Unavailable Unavailable Patel, L Maureen RPA Unavailable Unavailable Patel, L Maureen RPA Unavailable Unavailable Patel, L Maureen RPA Unavailable Unavailable Patel, L Maureen RPA Unavailable Unavailable Patel, L Maureen RPA Unavailable Unavailable Patel, L Maureen RPA Unavailable Unavailable Patel, L Maureen RPA Unavailable Unavailable Patel, L Maureen RPA Unavailable Unavailable Patel, L Maureen RPA Unavailable Unavailable Patel, L Maureen RPA Unavailable Unavailable Patel, L Maureen RPA Unavailable Unavailable Patel, L Maureen RPA Unavailable Unavailable Patel, L Maureen RPA Unavailable Unavailable Patel, L Maureen RPA Unavailable Unavailable Patel, L Maureen RPA Unavailable Unavailable Patel, L Maureen RPA Unavailable Unavailable Aptel, L Maureen RPA Unavailable Unavailable Patel, L Maureen RPA Unavailable Unavailable Patel, L Maureen RPA Unavailable Unavailable Patel, L Maureen RPA Unavailable Unavailable Patel, L Maureen RPA Unavailable Unavailable Patel, L Maureen RPA Unavailable Unavailable Patel, L Maureen RPA Unavailable Unavailable Patel, L Maureen RPA Unavailable Unavailable Patel, L Maureen RPA Unavailable Unavailable RING, K MICAELA PA Unavailable Unavailable RING, K MICAELA PA Unavailable Unavailable RING, K MICAELA PA Unavailable Unavailable RING, K MICAELA PA Unavailable Unavailable RING, K MICAELA PA Unavailable Unavailable RING, K MICAELA PA Unavailable Unavailable RING, K MICAELA PA Unavailable Unavailable RING, K MICAELA PA Unavailable Unavailable RING, K MICAELA PA Unavailable Unavailable RING, K MICAELA PA Unavailable Unavailable RING, K MICAELA PA Unavailable Unavailable RING, K MICAELA PA Unavailable Unavailable RING, K MICAELA PA Unavailable Unavailable RING, K MICAELA PA Unavailable Unavailable RING, K MICAELA PA Unavailable Unavailable RING, K MICAELA PA Unavailable Unavailable RING, K MICAELA PA Unavailable Unavailable RING, K MICAELA PA Unavailable Unavailable RING, K MICAELA PA Unavailable Unavailable RING, K MICAELA PA Unavailable Unavailable RING, K MICAELA PA Unavailable Unavailable Re-disclosure Warning The records that you are about to access may contain information from federally-assisted alcohol or drug abuse programs. If such information is present, then the following federally mandated warning applies: This information has been disclosed to you from records protected by federal confidentiality rules (42 CFR part 2). The federal rules prohibit you from making any further disclosure of this information unless further disclosure is expressly permitted by the written consent of the person to whom it pertains or as otherwise permitted by 42 CFR part 2. A general authorization for the release of medical or other information is NOT sufficient for this purpose. The Federal rules restrict any use of the information to criminally investigate or prosecute any alcohol or drug abuse patient.The records that you are about to access may contain highly sensitive health information, the redisclosure of which is protected by Article 27-F of the [facility] Public Health law. If you continue you may have access to information: Regarding HIV / AIDS; Provided by facilities licensed or operated by the [facility] Office of Mental Health; or Provided by the [facility] Office for People With Developmental Disabilities. If such information is present, then the following [facility] mandated warning applies: This information has been disclosed to you from confidential records which are protected by state law. State law prohibits you from making any further disclosure of this information without the specific written consent of the person to whom it pertains, or as otherwise permitted by law. Any unauthorized further disclosure in violation of state law may result in a fine or detention sentence or both. A general authorization for the release of medical or other information is NOT sufficient authorization for further disc losure. Family History Family Member Name Family Member Gender Family Member Status Date o f Status Description Data Source(s) Unknown Unknown Problem MEDENT ([facility]) Unknown Female Problem MEDENT ([facility]) Unknown Female Problem MEDENT ([facility]) Unknown Female Problem MEDENT ([facility]) Unknown Female Problem MEDENT ([facility]) Unknown Female Problem MEDENT ([facility]) Unknown Female Problem MEDENT ([facility]) Unknown Female Problem MEDENT ([facility] ) Encounters Encounter Providers Location Date Indications Data Source(s ) LALO DoeW-R: [address], [place] [address], Ph. Attender: Evelyne Faulkner [facility] Medical 08/11/2021 12:00:00 AM EDT HARRY ([facility]) Michele Chavarria, RPA-C: [address], [place] [address], Ph. Attender: IMCHELE CHAVARRIA RPA-C [facility] Medical 08/10/2021 12:00:00 AM EDT HARRY ([facility]) Unknown [address] [facility] [address] 08/09/2021 12:00:00 AM EDT eCW1 ([facility]) Evelyne Arias LCSW-R: [address], [place] [address], Ph. Attender: Evelyne Faulkner [facility] Medical 08/04/2021 12:00:00 AM EDT HARRY ([facility]) Evelyne Arias LCSW-R: [address], [place] [address], Ph. Attender: Evelyne Faulkner [facility] Medical 08/04/2021 12:00:00 AM EDT HARRY ([facility]) Evelyne Arias LCSW-R: [address], [place] [address], Ph. Attender: Evelyne Faulkner [facility] Medical 07/21/2021 12:00:00 AM EDT HARRY ([facility]) EvelyneLALO NguyenW-R: [address], [place] [address], Ph. Attender: Evelyne Faulkner [facility] Medical 07/21/2021 12:00:00 AM EDT HARRY ([facility]) EvelyneLALO NguyenW-R: [address], [place] [address], Ph. Attender: Evelyne Faulkner [facility] Medical 07/21/2021 12:00:00 AM EDT HARRY ([facility]) LALO DoeW-R: [address], [place] [address], Ph. Attender: Evelyne Reedermilansky [facility] Medical 07/21/2021 12:00:00 AM EDT HARRY ([facility]) LALO DoeW-R: [address], [place] [address], Ph. Attender: Evelyne Lillimilandericktamara [facility] Medical 07/14/2021 12:00:00 AM EDT HARRY ([facility]) LALO DoeW-R: [address], [place] [address], Ph. Attender: Evelyne Reedermilansky [facility] Medical 07/14/2021 12:00:00 AM EDT HARRY ([facility]) LALO DoeW-R: [address], [place] [address], Ph. Attender: Evelyne Faulkner [facility] Medical 07/14/2021 12:00:00 AM EDT HARRY ([facility]) EvelyneLALO NguyenW-R: [address], [place] [address], Ph. Attender: Evelyne Faulkner [facility] Medical 07/14/2021 12:00:00 AM EDT HARRY ([facility]) LALO DoeW-R: [address], [place] [address], Ph. Attender: Evelyne Faulkner [facility] Medical 07/07/2021 12:00:00 AM EDT HARRY ([facility]) LALO DoeW-R: [address], [place] [address], Ph. Attender: Evelyne Faulkner [facility] Medical 07/07/2021 12:00:00 AM EDT HARRY ([facility]) LALO DoeW-R: [address], [place] [address], Ph. Attender: Evelyne Faulkner [facility] Medical 07/07/2021 12:00:00 AM EDT HARRY ([facility]) LALO DoeW-R: [address], [place] [address], Ph. Attender: Evelyne Faulkner [facility] Medical 07/07/2021 12:00:00 AM EDT HARRY ([facility]) LALO DoeW-R: [address], [place] [address], Ph. Attender: Evelyne Faulkner [facility] Medical 07/07/2021 12:00:00 AM EDT HARRY ([facility]) Evelyne OrtegaLALO echevarriaW-R: [address], [place] [address], Ph. Attender: Evelyne Faulkner [facility] Medical 06/30/2021 12:00:00 AM EDT ABILENE ([facility]) LALO DoeW-R: [address], [place] [address], Ph. Attender: Evelyne Faulkner [facility] Medical 06/30/2021 12:00:00 AM EDT HARRY ([facility]) LALO DoeW-R: [address], [place] [address], Ph. Attender: Evelyne Faulkner [facility] Medical 06/30/2021 12:00:00 AM EDT [facility]) LALO DoeW-R: [address], [place] [address], Ph. Attender: Evelyne Faulkner [facility] Medical 06/30/2021 12:00:00 AM EDT ABILENE ([facility]) LALO DoeW-R: [address], [place] [address], Ph. Attender: Evelyne Faulkner [facility] Medical 06/30/2021 12:00:00 AM EDT ABILENE ([facility]) Outpatient Attender: Maureen Hutchins/Edwin/Rosalio/Azul nunez 06/20/2021 09:15:00 AM EDT JESS ([facility] fadia, ) LALO DoeW-R: [address], [place] [address], Ph. Attender: Evelyne Lillimilandericktamara [facility] Medical 06/16/2021 12:00:00 AM EDT HARRY ([facility]) LALO DoeW-R: [address], [place] [address], Ph. Attender: Evelyne Lililmilandericktamara [facility] Medical 06/16/2021 12:00:00 AM EDT ABILENE ([facility]) LALO DoeW-R: [address], [place] [address], Ph. Attender: Evelyne Lillimilandericktamara [facility] Medical 06/16/2021 12:00:[facility]W-R: [address], [place] [address], Ph. Attender: Evelyne Faulkner [facility] Medical 06/16/2021 12:00:00 AM EDT HARRY ([facility]) LALO DoeW-R: [address], [place] [address], Ph. Attender: Evelyne Faulkner [facility] Medical 06/16/2021 12:00:00 AM EDT HARRY ([facility]) LALO DoeW-R: [address], [place] [address], Ph. Attender: Evelyne Faulkner [facility] Medical 06/16/2021 12:00:00 AM EDT HARRY ([facility]) Michele Chavarria, RPA-C: [address], [place] [address], Ph. Attender: MICHELE CHAVARRIA RPA-C [facility] Medical 06/06/2021 12:00:00 AM EDT HARRY ([facility]) Michele Chavarria RPA-C: [address], [place] [address], Ph. Attender: MICHELE CHAVARRIA RPA-C [facility] Medical 06/06/2021 12:00:00 AM EDT HARRY ([facility]) Michele Chavarria RPA-C: [address], [place] [address], Ph. Attender: MICHELE CHAVARRIA RPA-C [facility] Medical 06/06/2021 12:00:00 AM EDT HARRY ([facility]) Michele Chavarria RPA-C: [address], [place] [address], Ph. Attender: MICHELE CHAVARRIA RPA-C [facility] Medical 06/06/2021 12:00:00 AM EDT HARRY ([facility]) Michele Chavarria RPA-C: [address], [place] [address], Ph. Attender: MICHELE CHAVARRIA RPA-C [facility] Medical 06/06/2021 12:00:00 AM EDT HARRY ([facility]) Michele Chavarria, RPA-C: [address], [place] [address], Ph. Attender: MICHELE CHAVARRIA RPA-C [facility] Medical 06/06/2021 12:00:00 AM EDT HARRY ([facility]) Michele Chavarria, RPA-C: [address], [place] [address], Ph. Attender: MICHELE CHAVARRIA RPA-C [facility] Medical 06/06/2021 12:00:00 AM EDT HARRY ([facility]) Michele Chavarria, RPA-C: [address], [place] [address], Ph. Attender: MICHELE CHAVARRIA RPA-C [facility] Medical 06/06/2021 12:00:00 AM EDT HARRY ([facility]) Michele Chavarria, RPA-C: [address], [place] [address], Ph. Attender: MICHELE CHAVARRIA RPA-C [facility] Medical 05/24/2021 12:00:00 AM EDT HARRY ([facility]) Michele Chavarria, RPA-C: [address], [place] [address], Ph. Attender: MICHELE CHAVARRIA RPA-C [facility] Medical 05/24/2021 12:00:00 AM EDT HARRY ([facility]) Michele Chavarria, RPA-C: [address], [place] [address], Ph. Attender: MICHELE CHAVARRIA RPA-C [facility] Medical 05/24/2021 12:00:00 AM EDT HARRY ([facility]) Michele Chavarria, RPA-C: [address], [place] [address], Ph. Attender: MICHELE CHAVARRIA RPA-C [facility] Medical 05/24/2021 12:00:00 AM EDT HARRY ([facility]) Michele Chavarria, RPA-C: [address], [place] [address], Ph. Attender: MICHELE CHAVARRIA RPA-C [facility] Medical 05/24/2021 12:00:00 AM EDT HARRY ([facility]) Michele Chavarria RPA-C: [address], [place] [address], Ph. Attender: MICHELE CHAVARRIA RPA-C [facility] Medical 05/24/2021 12:00:00 AM EDT HARRY ([facility]) Michele Chavarria, RPA-C: [address], [place] [address], Ph. Attender: MICHELE CHAVARRIA RPA-C [facility] Medical 05/24/2021 12:00:00 AM EDT HARRY ([facility]) Michele Chavarria, RPA-C: [address], [place] [address], Ph. Attender: MICHELE CHAVARRIA RPA-C [facility] Medical 05/24/2021 12:00:00 AM EDT HARRY ([facility]) Michele Chavarria RPA-C: [address], [place] [address], Ph. Attender: MICHELE CHAVARRIA RPA-C [facility] Medical 05/04/2021 12:00:00 AM EDT HARRY ([facility]) Michele Chavarria, RPA-C: [address], [place] [address], Ph. Attender: MICHELE CHAVARRIA RPA-C [facility] Medical 05/04/2021 12:00:00 AM EDT HARRY ([facility]) Michele Chavarria, RPA-C: [address], [place] [address], Ph. Attender: MICHELE CHAVARRIA RPA-C [facility] Medical 05/04/2021 12:00:00 AM EDT HARRY ([facility]) Michele Chavarria, RPA-C: [address], [place] [address], Ph. Attender: MICHELE CHAVARRIA RPA-C [facility] Medical 05/04/2021 12:00:00 AM EDT HARRY ([facility]) Michele Chavarria, RPA-C: [address], [place] [address], Ph. Attender: MICHELE CHAVARRIA RPA-C [facility] Medical 05/04/2021 12:00:00 AM EDT HARRY ([facility]) Michele Chavarria, RPA-C: [address], [place] [address], Ph. Attender: MICHELE CHAVARRIA RPA-C [facility] Medical 05/04/2021 12:00:00 AM EDT HARRY ([facility]) Michele Chavarria RPA-C: [address], [place] [address], Ph. Attender: MICHELE EDWARDC [facility] Medical 05/04/2021 12:00:00 AM EDT HARRY ([facility]) Michele Chavarria RPA-C: [address], [place] [address], Ph. Attender: MICHELE EDWARDC [facility] Medical 05/04/2021 12:00:00 AM EDT HARRY ([facility]) Michele Chavarria RPA-C: [address], [place] [address], Ph. Attender: MICHELE CHAVARRIA RPA-C [facility] Medical 05/04/2021 12:00:00 AM EDT HARRY ([facility]) Unknown [address] [facility] [place] [address] 05/04/2021 12:00:00 AM EDT eCW1 ([facility]) Unknown [address] [facility] [place] [address] 05/04/2021 12:00:00 AM EDT [facility]CW1 [facility] Unknown [address] [facility] [place] [address] 05/04/2021 12:00:00 AM EDT eCW1 ([facility]) Unknown [address] [facility] [place] [address] 05/03/2021 12:00:00 AM EDT eCW1 ([facility]) Albina Arcos, FLOORMAN-R: [address], [place] [address], Ph. Attender: Albina Arcos [facility] Medical 04/19/2021 12:00:00 AM EDT HARRY ([facility]) Albina Arcos, FLOORMAN-R: [address], [place] [address], Ph. Attender: Albina Arcos [facility] Medical 04/19/2021 12:00:00 AM EDT HARRY ([facility]) Albina Arcos, FLOORMAN-R: [address], [place] [address], Ph. Attender: Albina Arcos [facility] Medical 04/19/2021 12:00:00 AM EDT HARRY ([facility]) Albina Arcos, FLOORMAN-R: [address], [place] [address], Ph. Attender: Albina Arcos [facility] Medical 04/19/2021 12:00:00 AM EDT AHRRY ([facility]) Albina Arcos, FLOORMAN-R: [address], [place] [address], Ph. Attender: Albina Arcos [facility] Medical 04/19/2021 12:00:00 AM EDT HARRY ([facility]) Albina Arcos, FLOORMAN-R: [address], [place] [address], Ph. Attender: Albina Arcos [facility] Medical 04/19/2021 12:00:00 AM EDT HARRY ([facility]) Albina Arcos, FLOORMAN-R: [address], [place] [address], Ph. Attender: Albina Arcso [facility] Medical 04/19/2021 12:00:00 AM EDT HARRY ([facility]) Albina Arcos, FLOORMAN-R: [address], [place] [address], Ph. Attender: Albina Arcos [facility] Medical 04/19/2021 12:00:00 AM EDT HARRY ([facility]) Albina Arcos, FLOORMAN-R: [address], [place] [address], Ph. Attender: Albina Arcos [facility] Medical 04/19/2021 12:00:00 AM EDT HARRY ([facility]) Albina Arcos, FLOORMAN-R: [address], [place] [address], Ph. Attender: Albina Arcos [facility] Medical 04/19/2021 12:00:00 AM EDT HARRY ([facility]) Unknown [address] [facility] [place] [address] 04/05/2021 12:00:00 AM EDT eCW1 ([facility]) Unknown [address] [facility] [place] [address] 03/25/2021 12:00:00 AM EDT eCW1 ([facility]) Outpatient [address] [facility], [facility] [address] 03/24/2021 12:00:00 AM EDT eCW1 ([facility]) (TV Rheum) Telephone Rheum [address] [place] [address] 03/24/2021 12:00:00 AM EDT eCW1 ([facility]) Albina Isrrael, FLOORMAN-R: [address], [place] [address], Ph. Attender: Albina Isrrael [facility] Medical 03/07/2021 12:00:00 AM EDT HARRY ([facility]) Albina Kodaksupriyafrancisco, FLOORMAN-R: [address], [place] [address], Ph. Attender: Albina Isrrael [facility] Medical 03/07/2021 12:00:00 AM EDT HARRY ([facility]) Albina Lopezmilansupriyafrancisco, FLOORMAN-R: [address], [place] [address], Ph. Attender: Albina Kodaksupriyafrancisco [facility] Medical 03/07/2021 12:00:00 AM EDT HARRY ([facility]) Albina Lopezmilansupriyafrancisco, FLOORMAN-R: [address], [place] [address], Ph. Attender: Albina [employer] [facility] Medical 03/07/2021 12:00:00 AM EDT HARRY ([facility]) Albina Isrrael, FLOORMAN-R: [address], [place] [address], Ph. Attender: Albina Arcos [facility] Medical 03/07/2021 12:00:00 AM EDT HARRY ([facility]) Albina Arcos, FLOORMAN-R: [address], [place] [address], Ph. Attender: Albina Arcos [facility] Medical 03/07/2021 12:00:00 AM EDT HARRY ([facility]) Albina Arcos, FLOORMAN-R: [address], [place] [address], Ph. Attender: Albina Arcos [facility] Medical 03/07/2021 12:00:00 AM EDT HARRY ([facility]) Albina Arcos, FLOORMAN-R: [address], [place] [address], Ph. Attender: Albina Arcos [facility] Medical 03/07/2021 12:00:00 AM EDT HARRY ([facility]) Albina Arcos, FLOORMAN-R: [address], [place] [address], Ph. Attender: Albina Arcos [facility] Medical 03/07/2021 12:00:00 AM EDT HARRY ([facility]) Albina Arcos, FLOORMAN-R: [address], [place] [address], Ph. Attender: Albina Arcos [facility] Medical 03/07/2021 12:00:00 AM EDT HARRY ([facility]) Albina Arcos, FLOORMAN-R: [address], [place] [address], Ph. Attender: Albina Arcos [facility] Medical 03/07/2021 12:00:00 AM EDT HARRY ([facility]) Albina Arcos, FLOORMAN-R: [address], [place] [address], Ph. Attender: Albina Arcos [facility] Medical 02/22/2021 12:00:00 AM EDT HARRY ([facility]) Albnia Arcos, FLOORMAN-R: [address], [place] [address], Ph. Attender: Albina Arcos [facility] Medical 02/22/2021 12:00:00 AM EDT HARRY ([facility]) Albina Arcos, FLOORMAN-R: [address], [place] [address], Ph. Attender: Albina Arcos [facility] Medical 02/22/2021 12:00:00 AM EDT HARRY ([facility]) Albina Arcos, FLOORMAN-R: [address], [place] [address], Ph. Attender: Albina Arcos [facility] Medical 02/22/2021 12:00:00 AM EDT HARRY ([facility]) lAbina Arcos, FLOORMAN-R: [address], [place] [address], Ph. Attender: Albina Arcos [facility] Medical 02/22/2021 12:00:00 AM EDT HARRY ([facility]) Albina Arcos, FLOORMAN-R: [address], [place] [address], Ph. Attender: Albina Arcos [facility] Medical 02/22/2021 12:00:00 AM EDT HARRY ([facility]) Albina Arcos, FLOORMAN-R: [address], [place] [address], Ph. Attender: Albina Arcos [facility] Medical 02/22/2021 12:00:00 AM EDT HARRY ([facility]) Albina Arcos, FLOORMAN-R: [address], [place] [address], Ph. Attender: Albina Arcos [facility] Medical 02/22/2021 12:00:00 AM EDT HARRY ([facility]) Albina Arcos, FLOORMAN-R: [address], [place] [address], Ph. Attender: Albina Arcos [facility] Medical 02/22/2021 12:00:00 AM EDT HARRY ([facility]) Albina Arcos, FLOORMAN-R: [address], [place] [address], Ph. Attender: Albina Arcos [facility] Medical 02/22/2021 12:00:00 AM EDT HARRY ([facility]) Albina Arcos, FLOORMAN-R: [address], [place] [address], Ph. Attender: Albina Arcos [facility] Medical 02/22/2021 12:00:00 AM EDT HARRY ([facility]) Albina Arcos, FLOORMAN-R: [address], [place] [address], Ph. Attender: Albina Arcos [facility] Medical 02/22/2021 12:00:00 AM EDT HARRY ([facility]) Unknown [address] [facility], [facility] [address] 02/17/2021 12:00:00 AM EDT eCW1 ([facility]) Albina Arcos, FLOORMAN-R: [address], [address], [place] [address], Ph. Attender: Albina Arcos [facility] Medical 02/08/2021 12:00:00 AM EDT HARRY ([facility]) Albina Arcos, FLOORMAN-R: [address], [address], [place] [address], Ph. Attender: Albina Arcos [facility] Medical 02/08/2021 12:00:00 AM EDT HARRY ([facility]) Albina Arcos, FLOORMAN-R: [address], [place] [address], Ph. Attender: Albina Arcos [facility] Medical 02/08/2021 12:00:00 AM EDT HARRY ([facility]) Albina Arcos, FLOORMAN-R: [address], [place] [address], Ph. Attender: Albina Arcos [facility] Medical 02/08/2021 12:00:00 AM EDT HARRY ([facility]) Albina Arcos, FLOORMAN-R: [address], [place] [address], Ph. Attender: Albina Arcos [facility] Medical 02/08/2021 12:00:00 AM EDT HARRY ([facility]) Albina Arcos, FLOORMAN-R: [address], [place] [address], Ph. Attender: Albina Arcos [facility] Medical 02/08/2021 12:00:00 AM EDT HARRY ([facility]) Albina Arcos, FLOORMAN-R: [address], [place] [address], Ph. Attender: Albina Arcos [facility] Medical 02/08/2021 12:00:00 AM EDT HARRY ([facility]) Albina Arcos, FLOORMAN-R: [address], [place] [address], Ph. Attender: Albina Arcos [facility] Medical 02/08/2021 12:00:00 AM EDT HARRY ([facility]) Albina Arcos, FLOORMAN-R: [address], [place] [address], Ph. Attender: Albina Arcos [facility] Medical 02/08/2021 12:00:00 AM EDT HARRY ([facility]) Albina Arcos, FLOORMAN-R: [address], [place] [address], Ph. Attender: Albina Arcos [facility] Medical 02/08/2021 12:00:00 AM EDT HARRY ([facility]) Albina Arcos, FLOORMAN-R: [address], [place] [address], Ph. Attender: Albina Arcos [facility] Medical 02/08/2021 12:00:00 AM EDT HARRY ([facility]) Albina Arcos, FLOORMAN-R: [address], [place] [address], Ph. Attender: Albina Arcos [facility] Medical 02/08/2021 12:00:00 AM EDT HARRY ([facility]) Albina Arcos, FLOORMAN-R: [address], [place] [address], Ph. Attender: Albina Arcos [facility] Medical 02/08/2021 12:00:00 AM EDT HARRY ([facility]) Unknown [address] [facility] [address] 02/01/2021 12:00:00 AM EDT eCW1 ([facility]) CHEYANNE PattersonC: [address], [place] [address], Ph. Attender: TYSON SOLANO [facility] Medical 01/21/2021 12:00:00 AM EDT HARRY ([facility]) CHEYANNE PattersonC: [address], [place] [address], Ph. Attender: TYSON SOLANO [facility] Medical 01/21/2021 12:00:00 AM EDT HARRY ([facility]) CHEYANNE PattersonC: [address], [place] [address], Ph. Attender: TYSON SOLANO [facility] Medical 01/21/2021 12:00:00 AM EDT HARRY ([facility]) CHEYANNE PattersonC: [address], [place] [address], Ph. Attender: TYSON SOLANO [facility] Medical 01/21/2021 12:00:00 AM EDT HARRY ([facility]) CHEYANNE PattersonC: [address], [place] [address], Ph. Attender: TYSON SOLANO [facility] Medical 01/21/2021 12:00:00 AM EDT HARRY ([facility]) Tyson Solano RPA-C: [address], [place] [address], Ph. Attender: TYSON SOLANO [facility] Medical 01/21/2021 12:00:00 AM EDT HARRY ([facility]) Tyson Solano RPA-C: [address], [place] [address], Ph. Attender: TYSON SOLANO [facility] Medical 01/21/2021 12:00:00 AM EDT ABILENE ([facility]) Tyson Solano RPA-C: [address], [place] [address], Ph. Attender: TYSON SOLANO [facility] Medical 01/21/2021 12:00:00 AM EDT HARRY ([facility]) Tyson Solano RPA-C: [address], [place] [address], Ph. Attender: TYSON SOLANO [facility] Medical 01/21/2021 12:00:00 AM EDT HARRY ([facility]) Tyson Solano RPA-C: [address], [place] [address], Ph. Attender: TYSON SOLANO [facility] Medical 01/21/2021 12:00:00 AM EDT HARRY ([facility]) Tyson Solano RPA-C: [address], [place] [address], Ph. Attender: TYSON SOLANO [facility] Medical 01/21/2021 12:00:00 AM EDT HARRY ([facility]) Tyson Solano RPA-C: [address], [place] [address], Ph. Attender: TYSON SOLANO [facility] Medical 01/21/2021 12:00:00 AM EDT HARRY ([facility]) Tyson Solano RPA-C: [address], [place] [address], Ph. Attender: TYSON SOLAON [facility] Medical 01/21/2021 12:00:00 AM EDT HARRY ([facility]) CHEYANNE PattersonC: [address], [place] [address], Ph. Attender: TYSON SOLANO [facility] Medical 01/21/2021 12:00:00 AM EDT HARRY ([facility]) CHEYANNE PattersonC: [address], [place] [address], Ph. Attender: TYSON SOLANO [facility] Medical 01/07/2021 12:00:00 AM EST HARRY ([facility]) Tyson Solano RPA-C: [address], [place] [address], Ph. Attender: TYSON SOLANO [facility] Medical 01/07/2021 12:00:00 AM EST HARRY ([facility]) Tyson Solano RPA-C: [address], [place] [address], Ph. Attender: TYSON SOLANO [facility] Medical 01/07/2021 12:00:00 AM EST HARRY ([facility]) Tyson Solano RPA-C: [address], [address], [place] [address], Ph. Attender: TYSON SOLANO [facility] Medical 01/07/2021 12:00:00 AM EST HARRY ([facility]) Tyson Solano RPA-C: [address], [address], [place] [address], Ph. Attender: TYSON SOLANO [facility] Medical 01/07/2021 12:00:00 AM EST HARRY ([facility]) Tyson Solano RPA-C: [address], [place] [address], Ph. Attender: TYSON SOLANO [facility] Medical 01/07/2021 12:00:00 AM EST HARRY ([facility]) Tyson Solano RPA-C: [address], [place] [address], Ph. Attender: TYSON SOLANO [facility] Medical 01/07/2021 12:00:00 AM EST HARRY ([facility]) Tyson Solano RPA-C: [address], [place] [address], Ph. Attender: TYSON SOLANO [facility] Medical 01/07/2021 12:00:00 AM EST HARRY ([facility]) Tyson Solano RPA-C: [address], [place] [address], Ph. Attender: TYSON SOLANO [facility] Medical 01/07/2021 12:00:00 AM EST HARRY ([facility]) Tyson Solano RPA-C: [address], [place] [address], Ph. Attender: TYSON SOLANO [facility] Medical 01/07/2021 12:00:00 AM EST HARRY ([facility]) Tyson Solano RPA-C: [address], [place] [address], Ph. Attender: TYSON SOLANO [facility] Medical 01/07/2021 12:00:00 AM EST HARRY ([facility]) CHEYANNE PattersonC: [address], [place] [address], Ph. Attender: TYSON SOLANO [facility] Medical 01/07/2021 12:00:00 AM EST HARRY ([facility]) CHEYANNE PattersonC: [address], [place] [address], Ph. Attender: TYSON SOLANO [facility] Medical 01/07/2021 12:00:00 AM EST HARRY ([facility]) Tyson Solano RPA-C: [address], [place] [address], Ph. Attender: TYSON SOLANO [facility] Medical 01/07/2021 12:00:00 AM EST HARRY ([facility]) Tyson Solano, RPA-C: [address] [facility], [facility] [address], [place] [address], Ph. Attender: TYSON SOLANO [facility] Medical 01/07/2021 12:00:00 AM EST HARRY ([facility]) Outpatient [address] [facility] [id number] 12/21/2020 12:00:00 AM EST eCW1 ([facility]) Outpatient Attender: MICAELA Javed [facility] 11/24/2020 12:20:00 PM EST MEDENT ([facility]) Unknown [address] [facility] [address] 10/14/2020 12:00:00 AM EST [facility]CW1 [facility] Outpatient [address] [facility] [address] 10/13/2020 12:00:00 AM EST eCW1 ([facility]) Unknown [address] [facility] [address] 10/13/2020 12:00:00 AM EST eCW1 ([facility]) Unknown [address] [facility] [id number] 10/12/2020 12:00:00 AM EST eCW1 ([facility]) Unknown [address] [facility] [address] 2020 12:00:00 AM EST eCW1 ([facility]) Unknown [address] [facility] [id number] 09/28/2020 12:00:00 AM EST eCW1 ([facility] ([facility]) Telephone Rheum [address] [place] [address] 09/24/2020 12:00:00 AM EST eCW1 ([facility]) Outpatient [address] [facility] [id number] 09/24/2020 12:00:00 AM EST eCW1 ([facility]) Immunizations Vaccine Date Status Description Data Source(s) Tdap 08/10/2021 11:50:00 PM EDT completed 08/10/2021 0.5 mL ABILENE ([facility]) pneumococcal polysaccharide PPV23 08/10/2021 11:50:00 PM EDT com pleted 10.5 mL ABILENE ([facility]) COVID-19 vaccine, vector-nr, rS-ChAdOx1, PF, 0.5 mL 01/20/20 21 12:00:00 AM EDT completed 01/19/2021 ABILENE ([facility]) COVID-19 VACCINE David 01/19/2021 12:00:00 AM EDT completed MISIIS Vaccine Series Complete: YESThis Data wa s Submitted to [facility] Via [facility]. Medications Medication Brand Name Start Date Product Form Dose Route Admi nistrative Instructions Pharmacy Instructions Status Indications Reaction Description Data Source(s) Citalopram 20 MG Oral Tablet CITALOPRAM HYDROBROMIDE 08/10/2021 12:00:00 AM EDT tablet 30 TAKE ONE TABLET BY MOUTH EVERY D AY TAKE ONE TABLET BY MOUTH EVERY DAY SOLD: 08/12/2021 [facility] SUPREP BOWEL PREP KIT 17.5-3.13-1.6 gram SODIUM, POTASSIUM,M AG SULFATES 08/09/2021 12:00:00 AM EDT recon soln 354 TAKE PER DOCTOR'S BOWEL PREP INSTRUCTIONS TAKE PER DOCTOR'S BOWEL PREP INSTRUCTIONS SOLD: 08/12/2021 [facility] NITROFURANTOIN, MACROCRYSTALS 25 MG / Ni trofurantoin, Monohydrate 75 MG Oral Capsule 100 mg NITROFURANTOIN MONOHYD/M-CRYST 05/04/2021 12:00:00 AM EDT ca psule 14 TAKE ONE CAPSULE BY MOUTH EVERY 12 HOURS FOR 7 DAYS TAKE ONE CAPSULE BY MOUTH EVERY 12 HOURS FOR 7 DAYS SOLD: 05/04/2021 [facility] 20 mEq 05/04/2021 12:00:00 AM EDT tablet extended release 30 TAKE ONE TABLET BY MOUTH EVERY DAY TAKE ONE TABLET BY MOUTH EVERY DAY SOLD: 05/04/2021 [facility] 50 mg 04/01/2021 12:00:00 AM EDT tablet 30 TAKE ONE TABLET BY MOUTH EVERY DAY TAKE ONE TABLET BY MOUTH EVERY DAY SOLD: 04/06/2021 [facility] 50 mg 02/14/2021 12:00:00 AM EDT tablet 30 TAKE ONE TABLET BY MOUTH EVERY DAY TAKE ONE TABLET BY MOUTH EVERY DAY SOLD: 02/15/2021 [facility] 2.5 mg 02/02/2021 12:00:00 AM EDT tablet 30 TAKE ONE TABLET BY MOUTH EVERY DAY TAKE ONE TABLET BY MOUTH EVERY DAY SOLD: 02/02/2021 [facility] 2.5 mg 02/02/2021 12:00:00 AM EDT tablet 30 TAKE ONE TABLET BY MOUTH EVERY DAY TAKE ONE TABLET BY MOUTH EVERY DAY SOLD: 03/14/2021 [facility] 20 mg 02/02/2021 12:00:00 AM EDT tablet 5 TAKE ONE TABLET BY MOUTH EVERY DAY TAKE ONE TABLET BY MOUTH EVERY DAY SOLD: 02/02/2021 [facility] 2.5 mg 02/02/2021 12:00:00 AM EDT tablet 30 TAKE ONE TABLET BY MOUTH EVERY DAY TAKE ONE TABLET BY MOUTH EVERY DAY SOLD: 04/06/2021 [facility] Prednisone 20 MG Oral Tablet PredniSONE 20 MG PredniSONE 20 MG 02/01/2021 12:00:00 AM EDT 1.0 {tablet} active Pr edniSONE 20 MG eCW1 ([facility]) 500 mg 01/21/2021 12:00:00 AM EDT capsule 21 TAKE ONE CAPSULE BY MOUTH EVERY 8 HOURS FOR 7 DAYS TAKE ONE CAPSULE BY MOUTH EVERY 8 HOURS FOR 7 DAYS JESUS [facility] 800 mg 01/21/2021 12:00:00 AM EDT tablet 20 TAKE ONE TABLET BY MOUTH EVERY 8 HOURS NEEDED FOR PAIN TAKE ONE TABLET BY MOUTH EVERY 8 HOURS A S NEEDED FOR PAIN SOLD: 01/21/2021 [facility] 24 HR Bupropion Hydrochloride 300 MG Extended Release Oral T ablet BUPROPION HCL 01/15/2021 12:00:00 AM EST tablet extended release 24 hr 14 TAKE ONE TABLET BY MOUTH EVERY MORNING TAKE ONE TABLET BY MOUTH EVERY MORNING SOLD: 01/16/2021 [facility] 50 mg 01/08/2021 12:00:00 AM EST tablet 14 TAKE ONE TABLET BY MOUTH EVERY DAY TAKE ONE TABLET BY MOUTH EVERY DAY SOLD: 01/16/2021 [facility] 50 mg 01/01/2021 12:00:00 AM EST tablet 12 TAKE ONE TABLET BY MOUTH EVERY 6 HOURS NEEDED FOR PAIN, MAXIMUM DAILY DOSE = 4 TABLETS TAKE ONE TABLET BY MOUTH EVERY 6 HOURS NEEDED FOR PAIN, MAXIMUM DAILY DOSE = 4 TABLETS SOLD: 01/06/2021 [facility] 750 mg 01/01/2021 12:00:00 AM EST tablet 30 TAKE ONE TABLET BY MOUTH THREE TIMES A DAY TAKE ONE TABLET BY MOUTH THREE TIMES A DAY SOLD: 01/06/2021 [facility] 500 mg 11/24/2020 12:00:00 AM EST tablet 14 TAKE ONE TABLET BY MOUTH EVERY 12 HOURS NEEDED FOR PAIN TAKE ONE TABLET BY MOUTH EVERY 12 HOURS NEEDED FOR PAIN SOLD: 11/24/2020 [facility] Naproxen 500 MG Oral Tablet Naproxen 11/24/2020 12:00:00 AM EST ORAL active MEDENT ([facility]) tizanidine 4 MG Oral Tablet Tizanidine HCL 11/24/2020 12:00:00 AM EST ORAL active MEDENT ([facility]) tizanidine 4 MG Oral Tablet TIZANIDINE HCL 11/24/2020 12:00:00 AM EST tablet 14 TAKE ONE TABLET BY MOUTH EVERY 8 HOURS NEEDED FOR P AIN TAKE ONE TABLET BY MOUTH EVERY 8 HOURS NEEDED FOR PAIN SOLD: 11/24/2020 [facility] Diphenhydramine Hydrochloride 25 MG Oral Tablet [Benad ryl] Benadryl 25 MG Benadryl 25 MG 09/28/2020 12:00:00 AM EST 1.0 {tablet} active Benadryl 25 MG eCW1 ([facility]) Acetaminophen 325 MG Oral Tablet Acetaminophen 325 MG 2019 12:00:00 AM EST active Acetaminophen 325 MG eCW1 ([facility]) Diphenhydramine Hydrochloride 25 MG Oral Tablet [Benad ryl] Benadryl 25 MG Benadryl 25 MG 09/28/2020 12:00:00 AM EST 1.0 {tablet} active Benadryl 25 MG eCW1 ([facility]) Diphenhydramine Hydrochloride 25 MG Oral Tablet [Benad ryl] Benadryl 25 MG Benadryl 25 MG 09/28/2020 12:00:00 AM EST 1.0 {tablet} active Benadryl 25 MG eCW1 ([facility]) Diphenhydramine Hydrochloride 25 MG Oral Tablet [Benad ryl] Benadryl 25 MG Benadryl 25 MG 09/28/2020 12:00:00 AM EST 1.0 {tablet} active Benadryl 25 MG eCW1 ([facility]) Acetaminophen 325 MG Oral Tablet Acetaminophen 325 MG 2019 12:00:00 AM EST active Acetaminophen 325 MG eCW1 ([facility]) Acetaminophen 325 MG Oral Tablet Acetaminophen 325 MG 2019 12:00:00 AM EST active Acetaminophen 325 MG eCW1 ([facility]) Diphenhydramine Hydrochloride 25 MG Oral Tablet [Benad ryl] Benadryl 25 MG Benadryl 25 MG 09/28/2020 12:00:00 AM EST 1.0 {tablet} active Benadryl 25 MG eCW1 ([facility]) Diphenhydramine Hydrochloride 25 MG Oral Tablet [Benad ryl] Benadryl 25 MG Benadryl 25 MG 09/28/2020 12:00:00 AM EST 1.0 {tablet} active Benadryl 25 MG eCW1 ([facility]) Diphenhydramine Hydrochloride 25 MG Oral Tablet [Benad ryl] Benadryl 25 MG Benadryl 25 MG 09/28/2020 12:00:00 AM EST 1.0 {tablet} active Benadryl 25 MG eCW1 ([facility]) Diphenhydramine Hydrochloride 25 MG Oral Tablet [Benad ryl] Benadryl 25 MG Benadryl 25 MG 09/28/2020 12:00:00 AM EST 1.0 {tablet} active Benadryl 25 MG eCW1 ([facility]) Acetaminophen 325 MG Oral Tablet Acetaminophen 325 MG 2019 12:00:00 AM EST active Acetaminophen 325 MG eCW1 ([facility]) Diphenhydramine Hydrochloride 25 MG Oral Tablet [Benad ryl] Benadryl 25 MG Benadryl 25 MG 09/28/2020 12:00:00 AM EST 1.0 {tablet} active Benadryl 25 MG eCW1 ([facility]) Acetaminophen 325 MG Oral Tablet Acetaminophen 325 MG 2019 12:00:00 AM EST active Acetaminophen 325 MG eCW1 ([facility]) Acetaminophen 325 MG Oral Tablet Acetaminophen 325 MG 2019 12:00:00 AM EST active Acetaminophen 325 MG eCW1 ([facility]) Diphenhydramine Hydrochloride 25 MG Oral Tablet [Benad ryl] Benadryl 25 MG Benadryl 25 MG 09/28/2020 12:00:00 AM EST 1.0 {tablet} active Benadryl 25 MG eCW1 ([facility]) Diphenhydramine Hydrochloride 25 MG Oral Tablet [Benad ryl] Benadryl 25 MG Benadryl 25 MG 09/28/2020 12:00:00 AM EST 1.0 {tablet} active Benadryl 25 MG eCW1 ([facility]) Diphenhydramine Hydrochloride 25 MG Oral Tablet [Benad ryl] Benadryl 25 MG Benadryl 25 MG 09/28/2020 12:00:00 AM EST 1.0 {tablet} active Benadryl 25 MG eCW1 ([facility]) Acetaminophen 325 MG Oral Tablet Acetaminophen 325 MG 2019 12:00:00 AM EST active Acetaminophen 325 MG eCW1 ([facility]) Diphenhydramine Hydrochloride 25 MG Oral Tablet [Benad ryl] Benadryl 25 MG Benadryl 25 MG 09/28/2020 12:00:00 AM EST 1.0 {tablet} active Benadryl 25 MG eCW1 ([facility]) Acetaminophen 325 MG Oral Tablet Acetaminophen 325 MG 2019 12:00:00 AM EST active Acetaminophen 325 MG eCW1 ([facility]) Diphenhydramine Hydrochloride 25 MG Oral Tablet [Benad ryl] Benadryl 25 MG Benadryl 25 MG 09/28/2020 12:00:00 AM EST 1.0 {tablet} active Benadryl 25 MG eCW1 ([facility]) Acetaminophen 325 MG Oral Tablet Acetaminophen 325 MG 2019 12:00:00 AM EST active Acetaminophen 325 MG eCW1 ([facility]) Diphenhydramine Hydrochloride 25 MG Oral Tablet [Benad ryl] Benadryl 25 MG Benadryl 25 MG 09/28/2020 12:00:00 AM EST 1.0 {tablet} active Benadryl 25 MG eCW1 ([facility]) Acetaminophen 325 MG Oral Tablet Acetaminophen 325 MG 2019 12:00:00 AM EST active Acetaminophen 325 MG eCW1 ([facility]) Acetaminophen 325 MG Oral Tablet Acetaminophen 325 MG 2019 12:00:00 AM EST active Acetaminophen 325 MG eCW1 ([facility]) Acetaminophen 325 MG Oral Tablet Acetaminophen 325 MG 2019 12:00:00 AM EST active Acetaminophen 325 MG eCW1 ([facility]) Diphenhydramine Hydrochloride 25 MG Oral Tablet [Benad ryl] Benadryl 25 MG Benadryl 25 MG 09/28/2020 12:00:00 AM EST 1.0 {tablet} active Benadryl 25 MG eCW1 ([facility]) Acetaminophen 325 MG Oral Tablet Acetaminophen 325 MG 2019 12:00:00 AM EST active Acetaminophen 325 MG eCW1 ([facility]) Diphenhydramine Hydrochloride 25 MG Oral Tablet [Benad ryl] Benadryl 25 MG Benadryl 25 MG 09/28/2020 12:00:00 AM EST 1.0 {tablet} active Benadryl 25 MG eCW1 ([facility]) Acetaminophen 325 MG Oral Tablet Acetaminophen 325 MG 2019 12:00:00 AM EST active Acetaminophen 325 MG eCW1 ([facility]) Diphenhydramine Hydrochloride 25 MG Oral Tablet [Benad ryl] Benadryl 25 MG Benadryl 25 MG 09/28/2020 12:00:00 AM EST 1.0 {tablet} active Benadryl 25 MG eCW1 ([facility]) Acetaminophen 325 MG Oral Tablet Acetaminophen 325 MG 2019 12:00:00 AM EST active Acetaminophen 325 MG eCW1 ([facility]) Acetaminophen 325 MG Oral Tablet Acetaminophen 325 MG 2019 12:00:00 AM EST active Acetaminophen 325 MG eCW1 ([facility]) Diphenhydramine Hydrochloride 25 MG Oral Tablet [Benad ryl] Benadryl 25 MG Benadryl 25 MG 09/28/2020 12:00:00 AM EST 1.0 {tablet} active Benadryl 25 MG eCW1 ([facility]) Acetaminophen 325 MG Oral Tablet Acetaminophen 325 MG 2019 12:00:00 AM EST active Acetaminophen 325 MG eCW1 ([facility]) Acetaminophen 325 MG Oral Tablet Acetaminophen 325 MG 2019 12:00:00 AM EST active Acetaminophen 325 MG eCW1 ([facility]) Diphenhydramine Hydrochloride 25 MG Oral Tablet [Benad ryl] Benadryl 25 MG Benadryl 25 MG 09/28/2020 12:00:00 AM EST 1.0 {tablet} active Benadryl 25 MG eCW1 ([facility]) Acetaminophen 325 MG Oral Tablet Acetaminophen 325 MG 2019 12:00:00 AM EST active Acetaminophen 325 MG eCW1 ([facility]) Acetaminophen 325 MG Oral Tablet Acetaminophen 325 MG 2019 12:00:00 AM EST active Acetaminophen 325 MG eCW1 ([facility]) Diphenhydramine Hydrochloride 25 MG Oral Tablet [Benad ryl] Benadryl 25 MG Benadryl 25 MG 09/28/2020 12:00:00 AM EST 1.0 {tablet} active Benadryl 25 MG eCW1 ([facility]) Acetaminophen 325 MG Oral Tablet Acetaminophen 325 MG 2019 12:00:00 AM EST active Acetaminophen 325 MG eCW1 ([facility]) Diphenhydramine Hydrochloride 25 MG Oral Tablet [Benad ryl] Benadryl 25 MG Benadryl 25 MG 09/28/2020 12:00:00 AM EST 1.0 {tablet} active Benadryl 25 MG eCW1 ([facility]) Diphenhydramine Hydrochloride 25 MG Oral Tablet [Benad ryl] Benadryl 25 MG Benadryl 25 MG 09/28/2020 12:00:00 AM EST 1.0 {tablet} active Benadryl 25 MG eCW1 ([facility]) Acetaminophen 325 MG Oral Tablet Acetaminophen 325 MG 2019 12:00:00 AM EST active Acetaminophen 325 MG eCW1 ([facility]) Acetaminophen 325 MG Oral Tablet Acetaminophen 325 MG 2019 12:00:00 AM EST active Acetaminophen 325 MG eCW1 ([facility]) Diphenhydramine Hydrochloride 25 MG Oral Tablet [Benad ryl] Benadryl 25 MG Benadryl 25 MG 09/28/2020 12:00:00 AM EST 1.0 {tablet} active Benadryl 25 MG eCW1 ([facility]) Acetaminophen 325 MG Oral Tablet Acetaminophen 325 MG 2019 12:00:00 AM EST active Acetaminophen 325 MG eCW1 ([facility]) Medrol 4 MG Medrol 4 MG 09/24/2020 12:00:00 AM EST active Medrol 4 MG eCW1 ([facility]) Medrol 4 MG Medrol 4 MG 09/24/2020 12:00:00 AM EST suspended Medrol 4 MG eCW1 ([facility]) Medrol 4 MG Medrol 4 MG 09/24/2020 12:00:00 AM EST active Medrol 4 MG eCW1 ([facility]) Medrol 4 MG Medrol 4 MG 09/24/2020 12:00:00 AM EST suspended Medrol 4 MG eCW1 ([facility]) Medrol 4 MG Medrol 4 MG 09/24/2020 12:00:00 AM EST suspended Medrol 4 MG eCW1 ([facility]) Medrol 4 MG Medrol 4 MG 09/24/2020 12:00:00 AM EST suspended Medrol 4 MG eCW1 ([facility]) Medrol 4 MG Medrol 4 MG 09/24/2020 12:00:00 AM EST suspended Medrol 4 MG eCW1 ([facility]) Medrol 4 MG Medrol 4 MG 09/24/2020 12:00:00 AM EST suspended Medrol 4 MG eCW1 ([facility]) Medrol 4 MG Medrol 4 MG 09/24/2020 12:00:00 AM EST suspended Medrol 4 MG eCW1 ([facility]) Medrol 4 MG Medrol 4 MG 09/24/2020 12:00:00 AM EST active Medrol 4 MG eCW1 ([facility]) 4 mg 09/24/2020 12:00:00 AM EST tablets,dose pack 21 TAKE DIRECTED FOR 6 DAYS TAKE DIRECTED FOR 6 DAYS SOLD: 09/27/2020 [facility] Medrol 4 MG Medrol 4 MG 09/24/2020 12:00:00 AM EST suspended Medrol 4 MG eCW1 ([facility]) Medrol 4 MG Medrol 4 MG 09/24/2020 12:00:00 AM EST suspended Medrol 4 MG eCW1 ([facility]) Medrol 4 MG Medrol 4 MG 09/24/2020 12:00:00 AM EST suspended Medrol 4 MG eCW1 ([facility]) Medrol 4 MG Medrol 4 MG 09/24/2020 12:00:00 AM EST suspended Medrol 4 MG eCW1 ([facility]) Medrol 4 MG Medrol 4 MG 09/24/2020 12:00:00 AM EST suspended Medrol 4 MG eCW1 ([facility]) Medrol 4 MG Medrol 4 MG 09/24/2020 12:00:00 AM EST suspended Medrol 4 MG eCW1 ([facility]) Medrol 4 MG Medrol 4 MG 09/24/2020 12:00:00 AM EST active Medrol 4 MG eCW1 ([facility]) Medrol 4 MG Medrol 4 MG 09/24/2020 12:00:00 AM EST active Medrol 4 MG eCW1 ([facility]) Medrol 4 MG Medrol 4 MG 09/24/2020 12:00:00 AM EST active Medrol 4 MG eCW1 ([facility]) Medrol 4 MG Medrol 4 MG 09/24/2020 12:00:00 AM EST active Medrol 4 MG eCW1 ([facility]) Medrol 4 MG Medrol 4 MG 09/24/2020 12:00:00 AM EST suspended Medrol 4 MG eCW1 ([facility]) Medrol 4 MG Medrol 4 MG 09/24/2020 12:00:00 AM EST suspended Medrol 4 MG eCW1 ([facility]) Medrol 4 MG Medrol 4 MG 09/24/2020 12:00:00 AM EST suspended Medrol 4 MG eCW1 ([facility]) Medrol 4 MG Medrol 4 MG 09/24/2020 12:00:00 AM EST suspended Medrol 4 MG eCW1 ([facility]) Losartan Potassium 100 MG Oral Tablet lo sartan 100 mg tablet Take 1 tablet every day by oral route. losartan 100 mg tablet Take 1 tablet bryan ry day by oral route. 1 completed losartan potass ium 100 MG Oral Tablet HARRY ([facility]) Naproxen 500 MG Oral Tablet naproxen 500 mg tablet TAKE ONE TABLET BY MOUTH EVERY 12 HOURS NEEDED FOR PAIN naproxen 500 mg tablet TAKE ONE TABLET B Y MOUTH EVERY 12 HOURS NEEDED FOR PAIN completed naproxen 500 MG Oral Tablet HARRY ([facility]) meloxicam 15 MG Oral Tablet meloxicam 15 mg tablet-irritant and counter-irritant no.2 topical gel meloxicam 15 mg tablet-irritant and coun ter-irritant no.2 topical gel completed meloxicam 15 MG Oral Tablet HARRY ([facility]) tramadol hydrochloride 50 MG Oral Tablet tramadol 50 m g tablet tramadol 50 mg tablet completed tramadol hydroc hloride 50 MG Oral Tablet HARRY ([facility]) Naproxen 500 MG Oral Tablet naproxen 500 mg tablet TAKE ONE TABLET BY MOUTH EVERY 12 HOURS NEEDED FOR PAIN naproxen 500 mg tablet TAKE ONE TABLET B Y MOUTH EVERY 12 HOURS NEEDED FOR PAIN completed naproxen 500 MG Oral Tablet HARRY ([facility]) Methocarbamol 750 MG Oral Tablet methocarbamol 750 mg tablet methocarbamol 750 mg tablet completed methocarbamo l 750 MG Oral Tablet HARRY ([facility]) Amoxicillin 500 MG Oral Capsule amoxicillin 500 mg cap natanael amoxicillin 500 mg capsule completed amoxicillin 50 0 MG Oral Capsule HARRY ([facility]) Ibuprofen 800 MG Oral Tablet ibuprofen 800 mg tablet ibuprofen 8 00 mg tablet completed ibuprofen 800 MG Oral Tablet HARRY ([facility]) Ibuprofen 800 MG Oral Tablet ibuprofen 800 mg tablet ibuprofen 8 00 mg tablet completed ibuprofen 800 MG Oral Tablet ABILENE ([facility]) tizanidine 4 MG Oral Tablet tizanidine 4 mg tablet TAKE ONE TABLET BY MOUTH EVERY 8 HOURS NEEDED FOR PAIN tizanidine 4 mg tablet TAKE ONE TABLET B Y MOUTH EVERY 8 HOURS NEEDED FOR PAIN comp leted tizanidine 4 MG Oral Tablet ABILENE ([facility]) NITROFURANTOIN, MACROCRYSTALS 25 MG / Ni trofurantoin, Monohydrate 75 MG Oral Capsule nitrofurantoin monohydrate/macrocrystals 100 mg capsule nitrofurantoin monohydrate/macrocrystals 100 mg capsule completed nitrofurantoin, macrocrystals 25 MG / nitrofurantoin, monohydrate 75 MG Oral Capsule ABILENE ([facility]) Sertraline 100 MG Oral Tablet sertraline 100 mg tablet Take 1 tablet every day by oral route. sertraline 100 mg tablet Take 1 tablet every day by or al route. 1 completed sertraline 100 MG Oral Tablet ABILENE ([facility]) NITROFURANTOIN, MACROCRYSTALS 25 MG / Ni trofurantoin, Monohydrate 75 MG Oral Capsule nitrofurantoin monohydrate/macrocrystals 100 mg capsule nitrofurantoin monohydrate/macrocrystals 100 mg capsule completed nitrofurantoin, macrocrystals 25 MG / nitrofurantoin, monohydrate 75 MG Oral Capsule ABILENE ([facility]) gabapentin 400 MG Oral Capsule gabapenti n 400 mg capsule Take 1 capsule 3 times a day by oral route. gabapentin 400 mg capsule Take 1 capsule 3 times a day by oral route. 1 capsule(s) completed claire apentin 400 MG Oral Capsule HARRY ([facility]) tramadol hydrochloride 50 MG Oral Tablet tramadol 50 m g tablet tramadol 50 mg tablet completed tramadol hydroc hloride 50 MG Oral Tablet ABILENE ([facility]) Ibuprofen 800 MG Oral Tablet ibuprofen 800 mg tablet ibuprofen 8 00 mg tablet completed ibuprofen 800 MG Oral Tablet ABILENE ([facility]) gabapentin 400 MG Oral Capsule gabapenti n 400 mg capsule Take 1 capsule 3 times a day by oral route. gabapentin 400 mg capsule Take 1 capsule 3 times a day by oral route. 1 capsule(s) completed claire apentin 400 MG Oral Capsule ABILENE ([facility]) Prednisone 2.5 MG Oral Tablet prednisone 2.5 mg tablet predn isone 2.5 mg tablet completed prednisone 2.5 MG Oral Tablet HARRY ([facility]) losartan potassium (bulk) 100 mg daily completed losartan potassium (bulk) HARRY ([facility]) Naproxen 500 MG Oral Tablet naproxen 500 mg tablet TAKE ONE TABLET BY MOUTH EVERY 12 HOURS NEEDED FOR PAIN naproxen 500 mg tablet TAKE ONE TABLET B Y MOUTH EVERY 12 HOURS NEEDED FOR PAIN completed naproxen 500 MG Oral Tablet HARRY ([facility]) Methocarbamol 750 MG Oral Tablet methocarbamol 750 mg tablet methocarbamol 750 mg tablet completed methocarbamo l 750 MG Oral Tablet HARRY ([facility]) meloxicam 15 MG Oral Tablet meloxicam 15 mg tablet TAKE 1 TABLET BY MOUTH EVERY DAY meloxicam 15 mg tablet TAKE 1 TABLET BY MOUTH EVERY DAY completed meloxicam 15 MG Oral Tablet ATHLevi BRUNO ([facility]) losartan potassium (bulk) 100 mg daily completed losartan potassium (bulk) HARRY ([facility]) Sertraline 50 MG Oral Tablet sertraline 50 mg tablet TAKE 1 TABLET BY MOUTH EVERY DAY sertraline 50 mg tablet TAKE 1 TABLET BY MOUTH EVERY DAY completed sertraline 50 MG Oral Tablet ATH TIGIST ([facility]) meloxicam 15 MG Oral Tablet meloxicam 15 mg tablet TAKE 1 TABLET BY MOUTH EVERY DAY meloxicam 15 mg tablet TAKE 1 TABLET BY MOUTH EVERY DAY completed meloxicam 15 MG Oral Tablet ATHLevi BRUNO ([facility]) tramadol hydrochloride 50 MG Oral Tablet tramadol 50 m g tablet tramadol 50 mg tablet completed tramadol hydroc hloride 50 MG Oral Tablet HARRY ([facility]) meloxicam 15 MG Oral Tablet meloxicam 15 mg tablet TAKE 1 TABLET BY MOUTH EVERY DAY meloxicam 15 mg tablet TAKE 1 TABLET BY MOUTH EVERY DAY completed meloxicam 15 MG Oral Tablet ATHLevi BRUNO ([facility]) Ibuprofen 800 MG Oral Tablet ibuprofen 800 mg tablet ibuprofen 8 00 mg tablet completed ibuprofen 800 MG Oral Tablet HARRY ([facility]) meloxicam 15 MG Oral Tablet meloxicam 15 mg tablet-irritant and counter-irritant no.2 topical gel meloxicam 15 mg tablet-irritant and coun ter-irritant no.2 topical gel completed meloxicam 15 MG Oral Tablet HARRY ([facility]) Prednisone 20 MG Oral Tablet prednisone 20 mg tablet prednisone 20 mg tablet completed prednisone 20 MG Oral Tablet HARRY ([facility]) meloxicam 15 MG Oral Tablet meloxicam 15 mg tablet TAKE 1 TABLET BY MOUTH EVERY DAY meloxicam 15 mg tablet TAKE 1 TABLET BY MOUTH EVERY DAY completed meloxicam 15 MG Oral Tablet ATHE NA ([facility]) Methocarbamol 750 MG Oral Tablet methocarbamol 750 mg tablet methocarbamol 750 mg tablet completed methocarbamo l 750 MG Oral Tablet HARRY ([facility]) losartan potassium (bulk) 100 mg daily completed losartan potassium (bulk) HARRY ([facility]) losartan potassium (bulk) 100 mg daily completed losartan potassium (bulk) HARRY ([facility]) Prednisone 2.5 MG Oral Tablet prednisone 2.5 mg tablet predn isone 2.5 mg tablet completed prednisone 2.5 MG Oral Tablet HARRY ([facility]) Methocarbamol 750 MG Oral Tablet methocarbamol 750 mg tablet methocarbamol 750 mg tablet completed methocarbamo l 750 MG Oral Tablet HARRY ([facility]) Methocarbamol 750 MG Oral Tablet methocarbamol 750 mg tablet methocarbamol 750 mg tablet completed methocarbamo l 750 MG Oral Tablet HARRY ([facility]) Naproxen 500 MG Oral Tablet naproxen 500 mg tablet TAKE ONE TABLET BY MOUTH EVERY 12 HOURS NEEDED FOR PAIN naproxen 500 mg tablet TAKE ONE TABLET B Y MOUTH EVERY 12 HOURS NEEDED FOR PAIN completed naproxen 500 MG Oral Tablet HARRY ([facility]) losartan potassium (bulk) 100 mg daily completed losartan potassium (bulk) HARRY ([facility]) 24 HR Bupropion Hydrochloride 300 MG Ext ended Release Oral Tablet bupropion HCl XL 300 mg 24 hr tablet, extended release TAKE 1 TABLET BY MOUTH EVERY DAY IN THE MORNING bupropion HCl XL 300 mg 24 hr tablet, ex tended release TAKE 1 TABLET BY MOUTH EVERY DAY IN THE MORNING comple bettie 24 HR bupropion hydrochloride 300 MG Extended Release Oral Tablet ABILENE ([facility]) methylprednisolone 4 mg tablets in a dose pack TAKE DIRECTED FOR 6 DAYS [id number] completed methylprednisol one 4 mg tablets in a dose pack ABILENE ([facility]) meloxicam 15 MG Oral Tablet meloxicam 15 mg tablet TAKE 1 TABLET BY MOUTH EVERY DAY meloxicam 15 mg tablet TAKE 1 TABLET BY MOUTH EVERY DAY completed meloxicam 15 MG Oral Tablet [facility] ([facility]) 24 HR Bupropion Hydrochloride 300 MG Ext ended Release Oral Tablet bupropion HCl XL 300 mg 24 hr tablet, extended release TAKE 1 TABLET BY MOUTH EVERY DAY IN THE MORNING bupropion HCl XL 300 mg 24 hr tablet, ex tended release TAKE 1 TABLET BY MOUTH EVERY DAY IN THE MORNING comple bettie 24 HR bupropion hydrochloride 300 MG Extended Release Oral Tablet ABILENE ([facility]) meloxicam 15 MG Oral Tablet meloxicam 15 mg tablet-irritant and counter-irritant no.2 topical gel meloxicam 15 mg tablet-irritant and coun ter-irritant no.2 topical gel completed meloxicam 15 MG Oral Tablet ABILENE ([facility]) losartan potassium (bulk) 100 mg daily completed losartan potassium (bulk) ABILENE ([facility]) Amoxicillin 500 MG Oral Capsule amoxicillin 500 mg cap natanael amoxicillin 500 mg capsule completed amoxicillin 50 0 MG Oral Capsule ABILENE ([facility]) meloxicam 15 MG Oral Tablet meloxicam 15 mg tablet TAKE 1 TABLET BY MOUTH EVERY DAY meloxicam 15 mg tablet TAKE 1 TABLET BY MOUTH EVERY DAY completed meloxicam 15 MG Oral Tablet [facility] ([facility]) tizanidine 4 MG Oral Tablet tizanidine 4 mg tablet TAKE ONE TABLET BY MOUTH EVERY 8 HOURS NEEDED FOR PAIN tizanidine 4 mg tablet TAKE ONE TABLET B Y MOUTH EVERY 8 HOURS NEEDED FOR PAIN comp leted tizanidine 4 MG Oral Tablet ABILENE ([facility]) tizanidine 4 MG Oral Tablet tizanidine 4 mg tablet TAKE ONE TABLET BY MOUTH EVERY 8 HOURS NEEDED FOR PAIN tizanidine 4 mg tablet TAKE ONE TABLET B Y MOUTH EVERY 8 HOURS NEEDED FOR PAIN comp leted tizanidine 4 MG Oral Tablet ABILENE ([facility]) bupropion HCl 150 mg tablet,12 hr sustai mellisa-release(smoking deterrent) Take 1 tablet twice a day by oral route. [id number] 1 com pleted Smoking Cessation 12 HR bupropion hydrochloride 150 MG Extended Release Oral Tablet ABILENE ([facility]) meloxicam 15 MG Oral Tablet meloxicam 15 mg tablet-irritant and counter-irritant no.2 topical gel meloxicam 15 mg tablet-irritant and coun ter-irritant no.2 topical gel completed meloxicam 15 MG Oral Tablet ABILENE ([facility]) tramadol hydrochloride 50 MG Oral Tablet tramadol 50 m g tablet tramadol 50 mg tablet completed tramadol hydroc hloride 50 MG Oral Tablet ABILENE ([facility]) tizanidine 4 MG Oral Tablet tizanidine 4 mg tablet TAKE ONE TABLET BY MOUTH EVERY 8 HOURS NEEDED FOR PAIN tizanidine 4 mg tablet TAKE ONE TABLET B Y MOUTH EVERY 8 HOURS NEEDED FOR PAIN comp leted tizanidine 4 MG Oral Tablet ABILENE ([facility]) NITROFURANTOIN, MACROCRYSTALS 25 MG / Ni trofurantoin, Monohydrate 75 MG Oral Capsule nitrofurantoin monohydrate/macrocrystals 100 mg capsule nitrofurantoin monohydrate/macrocrystals 100 mg capsule completed nitrofurantoin, macrocrystals 25 MG / nitrofurantoin, monohydrate 75 MG Oral Capsule ABILENE ([facility]) Ibuprofen 800 MG Oral Tablet ibuprofen 800 mg tablet ibuprofen 8 00 mg tablet completed ibuprofen 800 MG Oral Tablet ABILENE ([facility]) losartan potassium (bulk) 100 mg daily completed losartan potassium (bulk) [facility]) methylprednisolone 4 mg tablets in a dose pack TAKE DIRECTED FOR 6 DAYS [id number] completed methylprednisol one 4 mg tablets in a dose pack ABILENE ([facility]) meloxicam 15 MG Oral Tablet meloxicam 15 mg tablet TAKE 1 TABLET BY MOUTH EVERY DAY meloxicam 15 mg tablet TAKE 1 TABLET BY MOUTH EVERY DAY completed meloxicam 15 MG Oral Tablet [facility] ([facility]) Naproxen 500 MG Oral Tablet naproxen 500 mg tablet TAKE ONE TABLET BY MOUTH EVERY 12 HOURS NEEDED FOR PAIN naproxen 500 mg tablet TAKE ONE TABLET B Y MOUTH EVERY 12 HOURS NEEDED FOR PAIN completed naproxen 500 MG Oral Tablet ABILENE ([facility]) methylprednisolone 4 mg tablets in a dose pack TAKE DIRECTED FOR 6 DAYS [id number] completed methylprednisol one 4 mg tablets in a dose pack ABILENE ([facility]) meloxicam 15 MG Oral Tablet meloxicam 15 mg tablet-irritant and counter-irritant no.2 topical gel meloxicam 15 mg tablet-irritant and coun ter-irritant no.2 topical gel completed meloxicam 15 MG Oral Tablet ABILENE ([facility]) Losartan Potassium 100 MG Oral Tablet lo sartan 100 mg tablet Take 1 tablet every day by oral route. losartan 100 mg tablet Take 1 tablet bryan ry day by oral route. 1 completed losartan potass ium 100 MG Oral Tablet ABILENE ([facility]) NITROFURANTOIN, MACROCRYSTALS 25 MG / Ni trofurantoin, Monohydrate 75 MG Oral Capsule nitrofurantoin monohydrate/macrocrystals 100 mg capsule nitrofurantoin monohydrate/macrocrystals 100 mg capsule completed nitrofurantoin, macrocrystals 25 MG / nitrofurantoin, monohydrate 75 MG Oral Capsule ABILENE ([facility]) Losartan Potassium 100 MG Oral Tablet lo sartan 100 mg tablet Take 1 tablet every day by oral route. losartan 100 mg tablet Take 1 tablet bryan ry day by oral route. 1 completed losartan potass ium 100 MG Oral Tablet ABILENE ([facility]) Methocarbamol 750 MG Oral Tablet methocarbamol 750 mg tablet methocarbamol 750 mg tablet completed methocarbamo l 750 MG Oral Tablet ABILENE ([facility]) Naproxen 500 MG Oral Tablet naproxen 500 mg tablet TAKE ONE TABLET BY MOUTH EVERY 12 HOURS NEEDED FOR PAIN naproxen 500 mg tablet TAKE ONE TABLET B Y MOUTH EVERY 12 HOURS NEEDED FOR PAIN completed naproxen 500 MG Oral Tablet ABILENE ([facility]) tramadol hydrochloride 50 MG Oral Tablet tramadol 50 m g tablet tramadol 50 mg tablet completed tramadol hydroc hloride 50 MG Oral Tablet ABILENE ([facility]) Methocarbamol 750 MG Oral Tablet methocarbamol 750 mg tablet methocarbamol 750 mg tablet completed methocarbamo l 750 MG Oral Tablet ABILENE ([facility]) tizanidine 4 MG Oral Tablet tizanidine 4 mg tablet TAKE ONE TABLET BY MOUTH EVERY 8 HOURS NEEDED FOR PAIN tizanidine 4 mg tablet TAKE ONE TABLET B Y MOUTH EVERY 8 HOURS NEEDED FOR PAIN comp leted tizanidine 4 MG Oral Tablet HARRY ([facility]) Prednisone 20 MG Oral Tablet prednisone 20 mg tablet prednisone 20 mg tablet completed prednisone 20 MG Oral Tablet HARRY ([facility]) Naproxen 500 MG Oral Tablet naproxen 500 mg tablet TAKE ONE TABLET BY MOUTH EVERY 12 HOURS NEEDED FOR PAIN naproxen 500 mg tablet TAKE ONE TABLET B Y MOUTH EVERY 12 HOURS NEEDED FOR PAIN completed naproxen 500 MG Oral Tablet HARRY ([facility]) gabapentin 400 MG Oral Capsule gabapenti n 400 mg capsule Take 1 capsule 3 times a day by oral route. gabapentin 400 mg capsule Take 1 capsule 3 times a day by oral route. 1 capsule(s) completed claire apentin 400 MG Oral Capsule ABILENE ([facility]) tizanidine 4 MG Oral Tablet tizanidine 4 mg tablet TAKE ONE TABLET BY MOUTH EVERY 8 HOURS NEEDED FOR PAIN tizanidine 4 mg tablet TAKE ONE TABLET B Y MOUTH EVERY 8 HOURS NEEDED FOR PAIN comp leted tizanidine 4 MG Oral Tablet HARRY ([facility]) meloxicam 15 MG Oral Tablet meloxicam 15 mg tablet TAKE 1 TABLET BY MOUTH EVERY DAY meloxicam 15 mg tablet TAKE 1 TABLET BY MOUTH EVERY DAY completed meloxicam 15 MG Oral Tablet ATHE NA ([facility]) Amoxicillin 500 MG Oral Capsule amoxicillin 500 mg cap natanael amoxicillin 500 mg capsule completed amoxicillin 50 0 MG Oral Capsule ABILENE ([facility]) tizanidine 4 MG Oral Tablet tizanidine 4 mg tablet TAKE ONE TABLET BY MOUTH EVERY 8 HOURS NEEDED FOR PAIN tizanidine 4 mg tablet TAKE ONE TABLET B Y MOUTH EVERY 8 HOURS NEEDED FOR PAIN comp leted tizanidine 4 MG Oral Tablet HARRY ([facility]) Prednisone 2.5 MG Oral Tablet prednisone 2.5 mg tablet predn isone 2.5 mg tablet completed prednisone 2.5 MG Oral Tablet HARRY ([facility]) Ibuprofen 800 MG Oral Tablet ibuprofen 800 mg tablet ibuprofen 8 00 mg tablet completed ibuprofen 800 MG Oral Tablet ABILENE ([facility]) methylprednisolone 4 mg tablets in a dose pack TAKE DIRECTED FOR 6 DAYS [id number] completed methylprednisol one 4 mg tablets in a dose pack HARRY ([facility]) Ibuprofen 800 MG Oral Tablet ibuprofen 800 mg tablet ibuprofen 8 00 mg tablet completed ibuprofen 800 MG Oral Tablet [facility]ENE ([facility]) tizanidine 4 MG Oral Tablet tizanidine 4 mg tablet TAKE ONE TABLET BY MOUTH EVERY 8 HOURS NEEDED FOR PAIN tizanidine 4 mg tablet TAKE ONE TABLET B Y MOUTH EVERY 8 HOURS NEEDED FOR PAIN comp leted tizanidine 4 MG Oral Tablet ABILENE ([facility]) gabapentin 400 MG Oral Capsule gabapenti n 400 mg capsule Take 1 capsule 3 times a day by oral route. gabapentin 400 mg capsule Take 1 capsule 3 times a day by oral route. 1 capsule(s) completed claire apentin 400 MG Oral Capsule ABILENE ([facility]) tizanidine 4 MG Oral Tablet tizanidine 4 mg tablet TAKE ONE TABLET BY MOUTH EVERY 8 HOURS NEEDED FOR PAIN tizanidine 4 mg tablet TAKE ONE TABLET B Y MOUTH EVERY 8 HOURS NEEDED FOR PAIN comp leted tizanidine 4 MG Oral Tablet ABILENE ([facility]) Amoxicillin 500 MG Oral Capsule amoxicillin 500 mg cap natanael amoxicillin 500 mg capsule completed amoxicillin 50 0 MG Oral Capsule [facility]) bupropion HCl 150 mg tablet,12 hr sustai mellisa-release(smoking deterrent) Take 1 tablet twice a day by oral route. [id number] 1 com pleted Smoking Cessation 12 HR bupropion hydrochloride 150 MG Extended Release Oral Tablet [facility]) 24 HR Bupropion Hydrochloride 300 MG Ext ended Release Oral Tablet bupropion HCl XL 300 mg 24 hr tablet, extended release TAKE 1 TABLET BY MOUTH EVERY DAY IN THE MORNING bupropion HCl XL 300 mg 24 hr tablet, ex tended release TAKE 1 TABLET BY MOUTH EVERY DAY IN THE MORNING comple bettie 24 HR bupropion hydrochloride 300 MG Extended Release Oral Tablet [facility]) tramadol hydrochloride 50 MG Oral Tablet tramadol 50 m g tablet tramadol 50 mg tablet completed tramadol hydroc hloride 50 MG Oral Tablet [facility]) bupropion HCl 150 mg tablet,12 hr sustai mellisa-release(smoking deterrent) Take 1 tablet twice a day by oral route. [id number] 1 com pleted Smoking Cessation 12 HR bupropion hydrochloride 150 MG Extended Release Oral Tablet [facility]) Methocarbamol 750 MG Oral Tablet methocarbamol 750 mg tablet methocarbamol 750 mg tablet completed methocarbamo l 750 MG Oral Tablet HARRY ([facility]) NITROFURANTOIN, MACROCRYSTALS 25 MG / Ni trofurantoin, Monohydrate 75 MG Oral Capsule nitrofurantoin monohydrate/macrocrystals 100 mg capsule nitrofurantoin monohydrate/macrocrystals 100 mg capsule completed nitrofurantoin, macrocrystals 25 MG / nitrofurantoin, monohydrate 75 MG Oral Capsule [facility] ([facility]) tramadol hydrochloride 50 MG Oral Tablet tramadol 50 m g tablet tramadol 50 mg tablet completed tramadol hydroc hloride 50 MG Oral Tablet ABILENE ([facility]) methylprednisolone 4 mg tablets in a dose pack TAKE DIRECTED FOR 6 DAYS [id number] completed methylprednisol one 4 mg tablets in a dose pack ABILENE ([facility]) methotrexate (PF) completed me thotrexate (PF) ABILENE ([facility]) gabapentin 400 MG Oral Capsule gabapenti n 400 mg capsule Take 1 capsule 3 times a day by oral route. gabapentin 400 mg capsule Take 1 capsule 3 times a day by oral route. 1 capsule(s) completed claire apentin 400 MG Oral Capsule [facility] ([facility]) Amoxicillin 500 MG Oral Capsule amoxicillin 500 mg cap natanael amoxicillin 500 mg capsule completed amoxicillin 50 0 MG Oral Capsule [facility]) methylprednisolone 4 mg tablets in a dose pack TAKE DIRECTED FOR 6 DAYS [id number] completed methylprednisol one 4 mg tablets in a dose pack [facility] ([facility]) Prednisone 20 MG Oral Tablet prednisone 20 mg tablet prednisone 20 mg tablet completed prednisone 20 MG Oral Tablet [facility] ([facility]) Sertraline 50 MG Oral Tablet sertraline 50 mg tablet TAKE 1 TABLET BY MOUTH EVERY DAY sertraline 50 mg tablet TAKE 1 TABLET BY MOUTH EVERY DAY completed sertraline 50 MG Oral Tablet [facility] ([facility]) methylprednisolone 4 mg tablets in a dose pack TAKE DIRECTED FOR 6 DAYS [id number] completed methylprednisol one 4 mg tablets in a dose pack ABILENE ([facility]) methylprednisolone 4 mg tablets in a dose pack TAKE DIRECTED FOR 6 DAYS [id number] completed methylprednisol one 4 mg tablets in a dose pack [facility] ([facility]) Prednisone 20 MG Oral Tablet prednisone 20 mg tablet prednisone 20 mg tablet completed prednisone 20 MG Oral Tablet [facility] ([facility]) bupropion HCl 150 mg tablet,12 hr sustai mellisa-release(smoking deterrent) Take 1 tablet twice a day by oral route. [id number] 1 com pleted Smoking Cessation 12 HR bupropion hydrochloride 150 MG Extended Release Oral Tablet [facility] ([facility]) Ibuprofen 800 MG Oral Tablet ibuprofen 800 mg tablet ibuprofen 8 00 mg tablet completed ibuprofen 800 MG Oral Tablet [facility] ([facility]) bupropion HCl 150 mg tablet,12 hr sustai mellisa-release(smoking deterrent) Take 1 tablet twice a day by oral route. [id number] 1 com pleted Smoking Cessation 12 HR bupropion hydrochloride 150 MG Extended Release Oral Tablet [facility] ([facility]) gabapentin 400 MG Oral Capsule gabapenti n 400 mg capsule Take 1 capsule 3 times a day by oral route. gabapentin 400 mg capsule Take 1 capsule 3 times a day by oral route. 1 capsule(s) completed claire apentin 400 MG Oral Capsule [facility] ([facility]) Prednisone 20 MG Oral Tablet prednisone 20 mg tablet prednisone 20 mg tablet completed prednisone 20 MG Oral Tablet [facility] ([facility]) Sertraline 50 MG Oral Tablet sertraline 50 mg tablet TAKE 1 TABLET BY MOUTH EVERY DAY sertraline 50 mg tablet TAKE 1 TABLET BY MOUTH EVERY DAY completed sertraline 50 MG Oral Tablet [facility] ([facility]) methylprednisolone 4 mg tablets in a dose pack TAKE DIRECTED FOR 6 DAYS [id number] completed methylprednisol one 4 mg tablets in a dose pack [facility]ENE ([facility]) tizanidine 4 MG Oral Tablet tizanidine 4 mg tablet TAKE ONE TABLET BY MOUTH EVERY 8 HOURS NEEDED FOR PAIN tizanidine 4 mg tablet TAKE ONE TABLET B Y MOUTH EVERY 8 HOURS NEEDED FOR PAIN comp [facility]ed [facility]an[facility] Losartan Potassium 100 MG Oral Tablet lo sartan 100 mg tablet Take 1 tablet every day by oral route. losartan 100 mg tablet Take 1 tablet bryan ry day by oral route. 1 completed losartan potass ium 100 MG Oral Tablet ABILENE ([facility]) NITROFURANTOIN, MACROCRYSTALS 25 MG / Ni trofurantoin, Monohydrate 75 MG Oral Capsule nitrofurantoin monohydrate/macrocrystals 100 mg capsule nitrofurantoin monohydrate/macrocrystals 100 mg capsule completed nitrofurantoin, macrocrystals 25 MG / nitrofurantoin, monohydrate 75 MG Oral Capsule ABILENE ([facility]) gabapentin 400 MG Oral Capsule gabapenti n 400 mg capsule Take 1 capsule 3 times a day by oral route. gabapentin 400 mg capsule Take 1 capsule 3 times a day by oral route. 1 capsule(s) completed claire apentin 400 MG Oral Capsule [facility] ([facility]) Sertraline 100 MG Oral Tablet sertraline 100 mg tablet Take 1 tablet every day by oral route. sertraline 100 mg tablet Take 1 tablet every day by or al route. 1 completed sertraline 100 MG Oral Tablet [facility] ([facility]) Prednisone 20 MG Oral Tablet prednisone 20 mg tablet prednisone 20 mg tablet completed prednisone 20 MG Oral Tablet [facility] ([facility]) methylprednisolone 4 mg tablets in a dose pack TAKE DIRECTED FOR 6 DAYS [id number] completed methylprednisol one 4 mg tablets in a dose pack [facility] ([facility]) meloxicam 15 MG Oral Tablet meloxicam 15 mg tablet-irritant and counter-irritant no.2 topical gel meloxicam 15 mg tablet-irritant and coun ter-irritant no.2 topical gel completed meloxicam 15 MG Oral Tablet AB[facility]ENE ([facility]) Prednisone 20 MG Oral Tablet prednisone 20 mg tablet prednisone 20 mg tablet completed prednisone 20 MG Oral Tablet [facility] ([facility]) tizanidine 4 MG Oral Tablet tizanidine 4 mg tablet TAKE ONE TABLET BY MOUTH EVERY 8 HOURS NEEDED FOR PAIN tizanidine 4 mg tablet TAKE ONE TABLET B Y MOUTH EVERY 8 HOURS NEEDED FOR PAIN comp leted tizanidine 4 MG Oral Tablet ABILENE ([facility]) Amoxicillin 500 MG Oral Capsule amoxicillin 500 mg cap natanael amoxicillin 500 mg capsule completed amoxicillin 50 0 MG Oral Capsule [facility] ([facility]) Prednisone 20 MG Oral Tablet prednisone 20 mg tablet prednisone 20 mg tablet completed prednisone 20 MG Oral Tablet AB[facility] ([facility]) losartan potassium (bulk) 100 mg daily completed losartan potassium (bulk) ABILENE ([facility]) losartan potassium (bulk) 100 mg daily completed losartan potassium (bulk) ABILENE ([facility]) Naproxen 500 MG Oral Tablet naproxen 500 mg tablet TAKE ONE TABLET BY MOUTH EVERY 12 HOURS NEEDED FOR PAIN naproxen 500 mg tablet TAKE ONE TABLET B Y MOUTH EVERY 12 HOURS NEEDED FOR PAIN completed naproxen 500 MG Oral Tablet ABILENE ([facility]) Prednisone 2.5 MG Oral Tablet prednisone 2.5 mg tablet predn isone 2.5 mg tablet completed prednisone 2.5 MG Oral Tablet ABILENE ([facility]) bupropion HCl 150 mg tablet,12 hr sustai mellisa-release(smoking deterrent) Take 1 tablet twice a day by oral route. [id number] 1 com pleted Smoking Cessation 12 HR bupropion hydrochloride 150 MG Extended Release Oral Tablet ABILENE ([facility]) meloxicam 15 MG Oral Tablet meloxicam 15 mg tablet TAKE 1 TABLET BY MOUTH EVERY DAY meloxicam 15 mg tablet TAKE 1 TABLET BY MOUTH EVERY DAY completed meloxicam 15 MG [facility] methylprednisolone 4 mg tablets in a dose pack TAKE DIRECTED FOR 6 DAYS [id number] completed methylprednisol one 4 mg tablets in a dose pack ABILENE ([facility]) gabapentin 400 MG Oral Capsule gabapenti n 400 mg capsule Take 1 capsule 3 times a day by oral route. gabapentin 400 mg capsule Take 1 capsule 3 times a day by oral route. 1 capsule(s) completed claire apentin 400 MG Oral Capsule ABILENE ([facility]) Naproxen 500 MG Oral Tablet naproxen 500 mg tablet TAKE ONE TABLET BY MOUTH EVERY 12 HOURS NEEDED FOR PAIN naproxen 500 mg tablet TAKE ONE TABLET B Y MOUTH EVERY 12 HOURS NEEDED FOR PAIN completed naproxen 500 MG Oral Tablet [facility]Y ([facility]) losartan potassium (bulk) 100 mg daily completed losartan potassium (bulk) ABILENE ([facility]) losartan potassium (bulk) 100 mg daily completed losartan potassium (bulk) ABILENE ([facility]) NITROFURANTOIN, MACROCRYSTALS 25 MG / Ni trofurantoin, Monohydrate 75 MG Oral Capsule nitrofurantoin monohydrate/macrocrystals 100 mg capsule nitrofurantoin monohydrate/macrocrystals 100 mg capsule completed nitrofurantoin, macrocrystals 25 MG / nitrofurantoin, monohydrate 75 MG Oral Capsule [facility] ([facility]) Sertraline 50 MG Oral Tablet sertraline 50 mg tablet TAKE 1 TABLET BY MOUTH EVERY DAY sertraline 50 mg tablet TAKE 1 TABLET BY MOUTH EVERY DAY completed sertraline 50 MG Oral Tablet [facility] ([facility]) tizanidine 4 MG Oral Tablet tizanidine 4 mg tablet TAKE ONE TABLET BY MOUTH EVERY 8 HOURS NEEDED FOR PAIN tizanidine 4 mg tablet TAKE ONE TABLET B Y MOUTH EVERY 8 HOURS NEEDED FOR PAIN comp leted tizanidine 4 MG Oral Tablet [facility]ARRY ([facility]) gabapentin 400 MG Oral Capsule gabapenti n 400 mg capsule Take 1 capsule 3 times a day by oral route. gabapentin 400 mg capsule Take 1 capsule 3 times a day by oral route. 1 capsule(s) completed claire apentin 400 MG Oral Capsule ABILENE ([facility]) bupropion HCl 150 mg tablet,12 hr sustai mellisa-release(smoking deterrent) Take 1 tablet twice a day by oral route. [id number] 1 com pleted Smoking Cessation 12 HR bupropion hydrochloride 150 MG Extended Release Oral Tablet HARRY ([facility]) Losartan Potassium 100 MG Oral Tablet lo sartan 100 mg tablet Take 1 tablet every day by oral route. losartan 100 mg tablet Take 1 tablet bryan ry day by oral route. 1 completed losartan potass ium 100 MG Oral Tablet ABILENE ([facility]) 24 HR Bupropion Hydrochloride 300 MG Ext ended Release Oral Tablet bupropion HCl XL 300 mg 24 hr tablet, extended release TAKE 1 TABLET BY MOUTH EVERY DAY IN THE MORNING bupropion HCl XL 300 mg 24 hr tablet, ex tended release TAKE 1 TABLET BY MOUTH EVERY DAY IN THE MORNING comple bettie 24 HR bupropion hydrochloride 300 MG Extended Release Oral Tablet H[facility]Y ([facility]) Amoxicillin 500 MG Oral Capsule amoxicillin 500 mg cap natanael amoxicillin 500 mg capsule completed amoxicillin 50 0 MG Oral Capsule ABILENE ([facility]) bupropion HCl 150 mg tablet,12 hr sustai mellisa-release(smoking deterrent) Take 1 tablet twice a day by oral route. [id number] 1 com pleted Smoking Cessation 12 HR bupropion hydrochloride 150 MG Extended Release Oral Tablet HARRY ([facility]) losartan potassium (bulk) 100 mg daily completed losartan potassium (bulk) [facility] ([facility]) Sertraline 50 MG Oral Tablet sertraline 50 mg tablet TAKE 1 TABLET BY MOUTH EVERY DAY sertraline 50 mg tablet TAKE 1 TABLET BY MOUTH EVERY DAY completed sertraline 50 MG Oral Tablet [facility] ([facility]) meloxicam 15 MG Oral Tablet meloxicam 15 mg tablet-irritant and counter-irritant no.2 topical gel meloxicam 15 mg tablet-irritant and coun ter-irritant no.2 topical gel completed meloxicam 15 MG Oral Tablet HARRY ([facility]) 24 HR Bupropion Hydrochloride 300 MG Ext ended Release Oral Tablet bupropion HCl XL 300 mg 24 hr tablet, extended release TAKE 1 TABLET BY MOUTH EVERY DAY IN THE MORNING bupropion HCl XL 300 mg 24 hr tablet, ex tended release TAKE 1 TABLET BY MOUTH EVERY DAY IN THE MORNING comple bettie 24 HR bupropion hydrochloride 300 MG Extended Release Oral Tablet HARRY ([facility]) NITROFURANTOIN, MACROCRYSTALS 25 MG / Ni trofurantoin, Monohydrate 75 MG Oral Capsule nitrofurantoin monohydrate/macrocrystals 100 mg capsule nitrofurantoin monohydrate/macrocrystals 100 mg capsule completed nitrofurantoin, macrocrystals 25 MG / nitrofurantoin, monohydrate 75 MG Oral Capsule [facility]Y ([facility]) meloxicam 15 MG Oral Tablet meloxicam 15 mg tablet-irritant and counter-irritant no.2 topical gel meloxicam 15 mg tablet-irritant and coun ter-irritant no.2 topical gel completed meloxicam 15 MG Oral Tablet [facility]Y ([facility]) Losartan Potassium 100 MG Oral Tablet lo sartan 100 mg tablet Take 1 tablet every day by oral route. losartan 100 mg tablet Take 1 tablet bryan ry day by oral route. 1 completed losartan potass ium 100 MG Oral Tablet HARRY ([facility]) Sertraline 100 MG Oral Tablet sertraline 100 mg tablet Take 1 tablet every day by oral route. sertraline 100 mg tablet Take 1 tablet every day by or al route. 1 completed sertraline 100 MG Oral Tablet [facility]Y ([facility]) Methocarbamol 750 MG Oral Tablet methocarbamol 750 mg tablet methocarbamol 750 mg tablet completed methocarbamo l 750 MG Oral Tablet [facility] ([facility]) meloxicam 15 MG Oral Tablet meloxicam 15 mg tablet TAKE 1 TABLET BY MOUTH EVERY DAY meloxicam 15 mg tablet TAKE 1 TABLET BY MOUTH EVERY DAY completed meloxicam 15 MG Oral Tablet [facility] ([facility]) Ibuprofen 800 MG Oral Tablet ibuprofen 800 mg tablet ibuprofen 8 00 mg tablet completed ibuprofen 800 MG Oral Tablet [facility] ([facility]) tramadol hydrochloride 50 MG Oral Tablet tramadol 50 m g tablet tramadol 50 mg tablet completed tramadol hydroc hloride 50 MG Oral Tablet [facility] ([facility]) Amoxicillin 500 MG Oral Capsule amoxicillin 500 mg cap natanael amoxicillin 500 mg capsule completed amoxicillin 50 0 MG Oral Capsule [facility] ([facility]) losartan potassium (bulk) 100 mg daily completed losartan potassium (bulk) HARRY ([facility]) Prednisone 2.5 MG Oral Tablet prednisone 2.5 mg tablet predn isone 2.5 mg tablet completed prednisone 2.5 MG Oral Tablet [facility] ([facility]) Losartan Potassium 100 MG Oral Tablet lo sartan 100 mg tablet Take 1 tablet every day by oral route. losartan 100 mg tablet Take 1 tablet bryan day by oral route. 1 completed losartan potass ium 100 MG Oral Tablet [facility] ([facility]) tizanidine 4 MG Oral Tablet tizanidine 4 mg tablet TAKE ONE TABLET BY MOUTH EVERY 8 HOURS NEEDED FOR PAIN tizanidine 4 mg tablet TAKE ONE TABLET B Y MOUTH EVERY 8 HOURS NEEDED FOR PAIN comp leted tizanidine 4 MG Oral Tablet [facility] ([facility]) Methocarbamol 750 MG Oral Tablet methocarbamol 750 mg tablet methocarbamol 750 mg tablet completed methocarbamo l 750 MG Oral Tablet [facility]Y ([facility]) methylprednisolone 4 mg tablets in a dose pack TAKE DIRECTED FOR 6 DAYS [id number] completed methylprednisol one 4 mg tablets in a dose pack [facility] ([facility]) tizanidine 4 MG Oral Tablet tizanidine 4 mg tablet TAKE ONE TABLET BY MOUTH EVERY 8 HOURS NEEDED FOR PAIN tizanidine 4 mg tablet TAKE ONE TABLET B Y MOUTH EVERY 8 HOURS NEEDED FOR PAIN comp leted tizanidine 4 MG Oral Tablet [facility] ([facility]) Sertraline 50 MG Oral Tablet sertraline 50 mg tablet TAKE 1 TABLET BY MOUTH EVERY DAY sertraline 50 mg tablet TAKE 1 TABLET BY MOUTH EVERY DAY completed sertraline 50 MG Oral Tablet [facility] ([facility]) bupropion HCl 150 mg tablet,12 hr sustai mellisa-release(smoking deterrent) Take 1 tablet twice a day by oral route. [id number] 1 com pleted Smoking Cessation 12 HR bupropion hydrochloride 150 MG Extended Release Oral Tablet [facility] ([facility]) gabapentin 400 MG Oral Capsule gabapenti n 400 mg capsule Take 1 capsule 3 times a day by oral route. gabapentin 400 mg capsule Take 1 capsule 3 times a day by oral route. 1 capsule(s) completed claire apentin 400 MG Oral Capsule [facility] ([facility]) Ibuprofen 800 MG Oral Tablet ibuprofen 800 mg tablet ibuprofen 8 00 mg tablet completed ibuprofen 800 MG Oral Tablet [facility] ([facility]) tramadol hydrochloride 50 MG Oral Tablet tramadol 50 m g tablet tramadol 50 mg tablet completed tramadol hydroc hloride 50 MG Oral Tablet [facility] ([facility]) tramadol hydrochloride 50 MG Oral Tablet tramadol 50 m g tablet tramadol 50 mg tablet completed tramadol hydroc hloride 50 MG Oral Tablet [facility] ([facility]) losartan potassium (bulk) 100 mg daily completed losartan potassium (bulk) [facility] ([facility]) Ibuprofen 800 MG Oral Tablet ibuprofen 800 mg tablet ibuprofen 8 00 mg tablet completed ibuprofen 800 MG Oral Tablet [facility] ([facility]) Sertraline 100 MG Oral Tablet sertraline 100 mg tablet Take 1 tablet every day by oral route. sertraline 100 mg tablet Take 1 tablet every day by or al route. 1 completed sertraline 100 MG Oral Tablet [facility] ([facility]) Prednisone 20 MG Oral Tablet prednisone 20 mg tablet prednisone 20 mg tablet completed prednisone 20 MG Oral Tablet [facility] ([facility]) Prednisone 2.5 MG Oral Tablet prednisone 2.5 mg tablet predn isone 2.5 mg tablet completed prednisone 2.5 MG Oral Tablet [facility] ([facility]) gabapentin 400 MG Oral Capsule gabapenti n 400 mg capsule Take 1 capsule 3 times a day by oral route. gabapentin 400 mg capsule Take 1 capsule 3 times a day by oral route. 1 capsule(s) completed claire apentin 400 MG Oral Capsule [facility] ([facility]) Amoxicillin 500 MG Oral Capsule amoxicillin 500 mg cap natanael amoxicillin 500 mg capsule completed amoxicillin 50 0 MG Oral Capsule [facility] ([facility]) bupropion HCl 150 mg tablet,12 hr sustai mellisa-release(smoking deterrent) Take 1 tablet twice a day by oral route. [id number] 1 com pleted Smoking Cessation 12 HR bupropion hydrochloride 150 MG Extended Release Oral Tablet [facility] ([facility]) Losartan Potassium 100 MG Oral Tablet lo sartan 100 mg tablet Take 1 tablet every day by oral route. losartan 100 mg tablet Take 1 tablet bryan ry day by oral route. 1 completed losartan potass ium 100 MG Oral Tablet [facility] ([facility]) meloxicam 15 MG Oral Tablet meloxicam 15 mg tablet-irritant and counter-irritant no.2 topical gel meloxicam 15 mg tablet-irritant and coun ter-irritant no.2 topical gel completed meloxicam 15 MG Oral Tablet [facility] ([facility]) methylprednisolone 4 mg tablets in a dose pack TAKE DIRECTED FOR 6 DAYS [id number] completed methylprednisol one 4 mg tablets in a dose pack [facility] ([facility]) gabapentin 400 MG Oral Capsule gabapenti n 400 mg capsule Take 1 capsule 3 times a day by oral route. gabapentin 400 mg capsule Take 1 capsule 3 times a day by oral route. 1 capsule(s) completed claire apentin 400 MG Oral Capsule [facility] ([facility]) gabapentin 400 MG Oral Capsule gabapenti n 400 mg capsule Take 1 capsule 3 times a day by oral route. gabapentin 400 mg capsule Take 1 capsule 3 times a day by oral route. 1 capsule(s) completed claire apentin 400 MG Oral Capsule [facility] ([facility]) Losartan Potassium 100 MG Oral Tablet lo sartan 100 mg tablet Take 1 tablet every day by oral route. losartan 100 mg tablet Take 1 tablet bryan ry day by oral route. 1 completed losartan potass ium 100 MG Oral Tablet [facility] ([facility]) Sertraline 50 MG Oral Tablet sertraline 50 mg tablet TAKE 1 TABLET BY MOUTH EVERY DAY sertraline 50 mg tablet TAKE 1 TABLET BY MOUTH EVERY DAY completed sertraline 50 MG Oral Tablet [facility] ([facility]) Losartan Potassium 100 MG Oral Tablet lo sartan 100 mg tablet Take 1 tablet every day by oral route. losartan 100 mg tablet Take 1 tablet bryan day by oral route. 1 completed losartan potass ium 100 MG Oral Tablet [facility] ([facility]) Sertraline 50 MG Oral Tablet sertraline 50 mg tablet TAKE 1 TABLET BY MOUTH EVERY DAY sertraline 50 mg tablet TAKE 1 TABLET BY MOUTH EVERY DAY completed sertraline 50 MG Oral Tablet [facility] ([facility]) meloxicam 15 MG Oral Tablet meloxicam 15 mg tablet TAKE 1 TABLET BY MOUTH EVERY DAY meloxicam 15 mg tablet TAKE 1 TABLET BY MOUTH EVERY DAY completed meloxicam 15 MG Oral Tablet [facility] ([facility]) 24 HR Bupropion Hydrochloride 300 MG Ext ended Release Oral Tablet bupropion HCl XL 300 mg 24 hr tablet, extended release TAKE 1 TABLET BY MOUTH EVERY DAY IN THE MORNING bupropion HCl XL 300 mg 24 hr tablet, ex tended release TAKE 1 TABLET BY MOUTH EVERY DAY IN THE MORNING comple bettie 24 HR bupropion hydrochloride 300 MG Extended Release Oral Tablet HARRY ([facility]) Amoxicillin 500 MG Oral Capsule amoxicillin 500 mg cap natanael amoxicillin 500 mg capsule completed amoxicillin 50 0 MG Oral Capsule HARRY ([facility]) Prednisone 20 MG Oral Tablet prednisone 20 mg tablet prednisone 20 mg tablet completed prednisone 20 MG Oral Tablet HARRY ([facility]) Naproxen 500 MG Oral Tablet naproxen 500 mg tablet TAKE ONE TABLET BY MOUTH EVERY 12 HOURS NEEDED FOR PAIN naproxen 500 mg tablet TAKE ONE TABLET B Y MOUTH EVERY 12 HOURS NEEDED FOR PAIN completed naproxen 500 MG Oral Tablet HARRY ([facility]) Prednisone 2.5 MG Oral Tablet prednisone 2.5 mg tablet predn isone 2.5 mg tablet completed prednisone 2.5 MG Oral Tablet HARRY ([facility]) meloxicam 15 MG Oral Tablet meloxicam 15 mg tablet-irritant and counter-irritant no.2 topical gel meloxicam 15 mg tablet-irritant and coun ter-irritant no.2 topical gel completed meloxicam 15 MG Oral Tablet HARRY ([facility]) meloxicam 15 MG Oral Tablet meloxicam 15 mg tablet-irritant and counter-irritant no.2 topical gel meloxicam 15 mg tablet-irritant and coun ter-irritant no.2 topical gel completed meloxicam 15 MG Oral Tablet HARRY ([facility]) meloxicam 15 MG Oral Tablet meloxicam 15 mg tablet TAKE 1 TABLET BY MOUTH EVERY DAY meloxicam 15 mg tablet TAKE 1 TABLET BY MOUTH EVERY DAY completed meloxicam 15 MG Oral Tablet ATHE NA ([facility]) Amoxicillin 500 MG Oral Capsule amoxicillin 500 mg cap natanael amoxicillin 500 mg capsule completed amoxicillin 50 0 MG Oral Capsule ABILENE ([facility]) bupropion HCl 150 mg tablet,12 hr sustai mellisa-release(smoking deterrent) Take 1 tablet twice a day by oral route. [id number] 1 com pleted Smoking Cessation 12 HR bupropion hydrochloride 150 MG Extended Release Oral Tablet HARRY ([facility]) tramadol hydrochloride 50 MG Oral Tablet tramadol 50 m g tablet tramadol 50 mg tablet completed tramadol hydroc hloride 50 MG Oral Tablet ABILENE ([facility]) Losartan Potassium 100 MG Oral Tablet lo sartan 100 mg tablet Take 1 tablet every day by oral route. losartan 100 mg tablet Take 1 tablet bryan day by oral route. 1 completed losartan potass ium 100 MG Oral Tablet ABILENE ([facility]) Sertraline 100 MG Oral Tablet sertraline 100 mg tablet Take 1 tablet every day by oral route. sertraline 100 mg tablet Take 1 tablet every day by or al route. 1 completed sertraline 100 MG Oral Tablet ABILENE ([facility]) bupropion HCl 150 mg tablet,12 hr sustai mellisa-release(smoking deterrent) Take 1 tablet twice a day by oral route. [id number] 1 com pleted Smoking Cessation 12 HR bupropion hydrochloride 150 MG Extended Release Oral Tablet ABILENE ([facility]) tizanidine 4 MG Oral Tablet tizanidine 4 mg tablet TAKE ONE TABLET BY MOUTH EVERY 8 HOURS NEEDED FOR PAIN tizanidine 4 mg tablet TAKE ONE TABLET B Y MOUTH EVERY 8 HOURS NEEDED FOR PAIN comp leted tizanidine 4 MG Oral Tablet AB[facility]ENE ([facility]) losartan potassium (bulk) 100 mg daily completed losartan potassium (bulk) HARRY ([facility]) gabapentin 400 MG Oral Capsule gabapenti n 400 mg capsule Take 1 capsule 3 times a day by oral route. gabapentin 400 mg capsule Take 1 capsule 3 times a day by oral route. 1 capsule(s) completed claire apentin 400 MG Oral Capsule ABILENE ([facility]) Prednisone 20 MG Oral Tablet prednisone 20 mg tablet prednisone 20 mg tablet completed prednisone 20 MG Oral Tablet ABILENE ([facility]) tramadol hydrochloride 50 MG Oral Tablet tramadol 50 m g tablet tramadol 50 mg tablet completed tramadol hydroc hloride 50 MG Oral Tablet ABILENE ([facility]) Amoxicillin 500 MG Oral Capsule amoxicillin 500 mg cap natanael amoxicillin 500 mg capsule completed amoxicillin 50 0 MG Oral Capsule [facility]) methylprednisolone 4 mg tablets in a dose pack TAKE DIRECTED FOR 6 DAYS [id number] completed methylprednisol one 4 mg tablets in a dose pack ABILENE ([facility]) meloxicam 15 MG Oral Tablet meloxicam 15 mg tablet-irritant and counter-irritant no.2 topical gel meloxicam 15 mg tablet-irritant and coun ter-irritant no.2 topical gel completed meloxicam 15 MG Oral Tablet ABILENE ([facility]) Sertraline 100 MG Oral Tablet sertraline 100 mg tablet Take 1 tablet every day by oral route. sertraline 100 mg tablet Take 1 tablet every day by or al route. 1 completed sertraline 100 MG Oral Tablet ABILENE ([facility]) Prednisone 20 MG Oral Tablet prednisone 20 mg tablet prednisone 20 mg tablet completed prednisone 20 MG Oral Tablet ABILENE ([facility]) Ibuprofen 800 MG Oral Tablet ibuprofen 800 mg tablet ibuprofen 8 00 mg tablet completed ibuprofen 800 MG Oral Tablet ABILENE ([facility]) Prednisone 2.5 MG Oral Tablet prednisone 2.5 mg tablet predn isone 2.5 mg tablet completed prednisone 2.5 MG Oral Tablet ABILENE ([facility]) Methocarbamol 750 MG Oral Tablet methocarbamol 750 mg tablet methocarbamol 750 mg tablet completed methocarbamo l 750 MG Oral Tablet ABILENE ([facility]) Naproxen 500 MG Oral Tablet naproxen 500 mg tablet TAKE ONE TABLET BY MOUTH EVERY 12 HOURS NEEDED FOR PAIN naproxen 500 mg tablet TAKE ONE TABLET B Y MOUTH EVERY 12 HOURS NEEDED FOR PAIN completed naproxen 500 MG Oral Tablet [facility]) bupropion HCl 150 mg tablet,12 hr sustai mellisa-release(smoking deterrent) Take 1 tablet twice a day by oral route. [id number] 1 com pleted Smoking Cessation 12 HR bupropion hydrochloride 150 MG Extended Release Oral Tablet HARRY ([facility]) Prednisone 2.5 MG Oral Tablet prednisone 2.5 mg tablet predn isone 2.5 mg tablet completed prednisone 2.5 MG Oral Tablet HARRY ([facility]) Naproxen 500 MG Oral Tablet naproxen 500 mg tablet TAKE ONE TABLET BY MOUTH EVERY 12 HOURS NEEDED FOR PAIN naproxen 500 mg tablet TAKE ONE TABLET B Y MOUTH EVERY 12 HOURS NEEDED FOR PAIN completed naproxen 500 MG Oral Tablet HARRY ([facility]) methylprednisolone 4 mg tablets in a dose pack TAKE DIRECTED FOR 6 DAYS [id number] completed methylprednisol one 4 mg tablets in a dose pack HARRY ([facility]) Losartan Potassium 100 MG Oral Tablet lo sartan 100 mg tablet Take 1 tablet every day by oral route. losartan 100 mg tablet Take 1 tablet bryan ry day by oral route. 1 completed losartan potass ium 100 MG Oral Tablet HARRY ([facility]) Methocarbamol 750 MG Oral Tablet methocarbamol 750 mg tablet methocarbamol 750 mg tablet completed methocarbamo l 750 MG Oral Tablet HARRY ([facility]) bupropion HCl 150 mg tablet,12 hr sustai mellisa-release(smoking deterrent) Take 1 tablet twice a day by oral route. [id number] 1 com pleted Smoking Cessation 12 HR bupropion hydrochloride 150 MG Extended Release Oral Tablet HARRY ([facility]) Insurance Providers Payer name Policy type / Coverage type Policy ID Covered libertarian ID Covered libertarian's relationship to infante Policy Infante Plan [place] [id number] [place] [id number] Self [id number] [facility] Plan Medigap Part B [id number] Self 1 [id number] [facility] Plan Medigap Part B [id number] Self [facility] Plan Medigap Part B [id number] Self 1 [id number] [facility] Plan Medigap Part B [id number] Self 1 [id number] [facility] Plan Medigap Part B [id number] Self 1 [id number] [facility] Plan Medigap Part B [id number] Self 1 [id number] [facility] Medigap Part B [id number] Self A [id number] [facility] Commercial [id number] Self [id number] [facility] Commercial [id number] Self [id number] [facility] Commercial [id number] Self BS [facility] Commercial [id number] Self [id number] [facility] Medigap Part B [id number] Self A [id number] BS iFACETS Medigap Part B [id number] Self [id number] Medicaid P [id number] S [id number] BS [facility] Commercial [id number] Self [id number] ANSI-Commercial [id number] [employer] COMMUNITY PLAN MCDO [id number] SP [id number] [facility] COMMUNITY [facility]AN MCDHMO [id number] SP [id number] [facility](MCAID) O [id number] S [id number] [facility] Plan Commercial [id number] Self [id number] [facility](MCAID) O [id number] S [id number] [facility](MCAID) O [id number] S [id number] UN COMMUNITY PLAN MCDO [id number] SP [id number] [facility]/MCR Health Maintenance Organization (HMO) [id number] Self BLUE CROSS PINZ[employer] PLAN [id number] SP [id number] [employer] BCYO O [id number] S VYT [id number] Managed Care BCBS O [id number] S [id number] [employer] BCBS CHP S VYT [id number] S VYT [id number] [employer] BCBS P [id number] S VYT [id number] HMO BLUE P [id number] S [id number] HMO BLUE [id number] SP [id number] [employer] [place] P[place] 302/307 [id number] SP [id number] [employer] [place] PPO 302/307 [id number] SP [id number] SELF PAY BCBS [place] 306/806 [id number] SP [id number] SELF PAY ONLY [id number] PCAP [facility] [id number] SP AM [id number] ANSI-Commercial [id number] ANSI-Commercial [id number] ANSI-Commercial [id number] ANSI-Commercial [id number] ANSI-Commercial [id number] ANSI-Commercial [id number] ANSI-Commercial [id number] [facility] Plan Commercial [id number] Self [id number] ANSI-Commercial [id number] ANSI-Commercial [id number] ANSI-Commercial [id number] Problems, Conditions, and Diagnoses Code Display Name Description Problem Type Effective Dates Data Source(s) 67619843 Rheumatoid arthritis Rheumatoid Arthritis Problem 08/10/2021 12:00:00 AM EDT HARRY ([facility]) 46277399 Essential hypertension Essential hypertension Problem 06/20/2021 12:00:00 AM EDT MED[facility] ([facility] ) 021243531 Obesity Obesity Problem 05/24/2021 12:00:00 AM ED T HARRY ([facility]) 794223076 Obesity Obesity Problem 05/24/2021 12:00:00 AM ED T HARRY ([facility]) 359421199 Obesity Obesity Problem 05/24/2021 12:00:00 AM ED T HARRY ([facility]) 330546455 Obesity Obesity Problem 05/24/2021 12:00:00 AM ED T HARRY ([facility]) 453063780 Obesity Obesity Problem 05/24/2021 12:00:00 AM ED T HARRY ([facility]) 860670096 Obesity Obesity Problem 05/24/2021 12:00:00 AM ED T HARRY ([facility]) 492155026 Obesity Obesity Problem 05/24/2021 12:00:00 AM ED T HARRY ([facility]) 371628209 Obesity Obesity Problem 05/24/2021 12:00:00 AM ED T HARRY ([facility]) 80861797 Hypokalemia Hypokalemia Problem 05/05/2021 12:00:00 AM EDT HARRY ([facility]) 81494648 Hypokalemia Hypokalemia Problem 05/05/2021 12:00:00 AM EDT HARRY ([facility]) 90440232 Hypokalemia Hypokalemia Problem 05/05/2021 12:00:00 AM EDT HARRY ([facility]) 16783637 Hypokalemia Hypokalemia Problem 05/05/2021 12:00:00 AM EDT HARRY ([facility]) 75053994 Hypokalemia Hypokalemia Problem 05/05/2021 12:00:00 AM EDT HARRY ([facility]) 25364463 Hypokalemia Hypokalemia Problem 05/05/2021 12:00:00 AM EDT ABILENE ([facility]) 35416663 Hypokalemia Hypokalemia Problem 05/05/2021 12:00:00 AM EDT ABILENE ([facility]) 69066162 Hypokalemia Hypokalemia Problem 05/05/2021 12:00:00 AM EDT ABILENE ([facility]) 45637577 Hypokalemia Hypokalemia Problem 05/05/2021 12:00:00 AM EDT ABILENE ([facility]) Z79.52 [id number] [facility] systemic steroid user Prob mitzy 03/24/2021 12:00:00 AM EDT eCW1 ([facility]) E55.9 37244132 Vitamin D deficiency Problem 12/21/2020 12:0 0:00 AM EST eCW1 ([facility]) R53.82 50151120 Chronic fatigue Problem 09/24/2020 12:00:00 AM EST eCW1 ([facility]) 222742511 Arthropathy Arthropathy Problem 08/19/2020 04:21:39 PM EDT ABILENE ([facility]) 011462449 Gastroesophageal reflux disease without esophagitis Gastroesophageal Reflux Disease without Esophagitis Problem 08/19/2020 04:21:39 PM ED T ABILENE ([facility]) 56887857 Depressive disorder Depressive Disorder Problem 1 04:21:39 PM EDT ABILENE ([facility]) 78387174 Anxiety Anxiety Problem 08/19/2020 04:21:39 PM ED T ABILENE ([facility]) 76801114 Hypothyroidism Hypothyroidism Problem 08/19/2020 04:21: 39 PM EDT ABILENE ([facility]) 814569364 Finding of esophagus Finding of Esophagus Problem 08/19/2020 04:21:39 PM EDT ABILENE ([facility]) 991868419 SNOMED CT Concept SNOMED CT Concept Problem 08/19 04:21:39 PM EDT ABILENE ([facility]) 599981451 Arthropathy Arthropathy Problem 08/19/2020 04:21:39 PM EDT ABILENE ([facility]) 81619159 Depressive disorder Depressive Disorder Problem 1 04:21:39 PM EDT HARRY ([facility]) 42114358 Hypothyroidism Hypothyroidism Problem 08/19/2020 04:21: 39 PM EDT HARRY ([facility]) 383744919 Finding of esophagus Finding of Esophagus Problem 08/19/2020 04:21:39 PM EDT HARRY ([facility]) 907516393 SNOMED CT Concept SNOMED CT Concept Problem 08/19 04:21:39 PM EDT HARRY ([facility]) 513153260 Arthropathy Arthropathy Problem 08/19/2020 04:21:39 PM EDT HARRY ([facility]) 23528836 Depressive disorder Depressive Disorder Problem 1 04:21:39 PM EDT HARRY ([facility]) 69701787 Hypothyroidism Hypothyroidism Problem 08/19/2020 04:21: 39 PM EDT HARRY ([facility]) 921030750 Finding of esophagus Finding of Esophagus Problem 08/19/2020 04:21:39 PM EDT HARRY ([facility]) 209523911 SNOMED CT Concept SNOMED CT Concept Problem 08/19 04:21:39 PM EDT HARRY ([facility]) 623493332 Arthropathy Arthropathy Problem 08/19/2020 04:21:39 PM EDT HARRY ([facility]) 45401601 Depressive disorder Depressive Disorder Problem 1 04:21:39 PM EDT HARRY ([facility]) 57839117 Hypothyroidism Hypothyroidism Problem 08/19/2020 04:21: 39 PM EDT HARRY ([facility]) 636329463 Finding of esophagus Finding of Esophagus Problem 08/19/2020 04:21:39 PM EDT HARRY ([facility]) 133294376 SNOMED CT Concept SNOMED CT Concept Problem 08/19 04:21:39 PM EDT HARRY ([facility]) 712287849 Arthropathy Arthropathy Problem 08/19/2020 04:21:39 PM EDT HARRY ([facility]) 51667849 Depressive disorder Depressive Disorder Problem 1 04:21:39 PM EDT HARRY ([facility]) 32904708 Hypothyroidism Hypothyroidism Problem 08/19/2020 04:21: 39 PM EDT HARRY ([facility]) 790416682 Finding of esophagus Finding of Esophagus Problem 08/19/2020 04:21:39 PM EDT HARRY ([facility]) 601033261 SNOMED CT Concept SNOMED CT Concept Problem 08/19 04:21:39 PM EDT HARRY ([facility]) 451458374 Arthropathy Arthropathy Problem 08/19/2020 04:21:39 PM EDT HARRY ([facility]) 32328600 Depressive disorder Depressive Disorder Problem 1 04:21:39 PM EDT HARRY ([facility]) 68984500 Hypothyroidism Hypothyroidism Problem 08/19/2020 04:21: 39 PM EDT HARRY ([facility]) 206520597 Finding of esophagus Finding of Esophagus Problem 08/19/2020 04:21:39 PM EDT HARRY ([facility]) 027550529 SNOMED CT Concept SNOMED CT Concept Problem 08/19 04:21:39 PM EDT HARRY ([facility]) 782221793 Arthropathy Arthropathy Problem 08/19/2020 04:21:39 PM EDT HARRY ([facility]) 03485426 Depressive disorder Depressive Disorder Problem 1 04:21:39 PM EDT HARRY ([facility]) 45868668 Hypothyroidism Hypothyroidism Problem 08/19/2020 04:21: 39 PM EDT HARRY ([facility]) 697531818 Finding of esophagus Finding of Esophagus Problem 08/19/2020 04:21:39 PM EDT HARRY ([facility]) 201921652 SNOMED CT Concept SNOMED CT Concept Problem 08/19 04:21:39 PM EDT HARRY ([facility]) 465950788 Arthropathy Arthropathy Problem 08/19/2020 04:21:39 PM EDT HARRY ([facility]) 85075807 Depressive disorder Depressive Disorder Problem 1 04:21:39 PM EDT HARRY ([facility]) 09816424 Hypothyroidism Hypothyroidism Problem 08/19/2020 04:21: 39 PM EDT HARRY ([facility]) 257933451 Finding of esophagus Finding of Esophagus Problem 08/19/2020 04:21:39 PM EDT HARRY ([facility]) 521267338 SNOMED CT Concept SNOMED CT Concept Problem 08/19 04:21:39 PM EDT HARRY ([facility]) 467099220 Arthropathy Arthropathy Problem 08/19/2020 04:21:39 PM EDT HARRY ([facility]) 91504846 Depressive disorder Depressive Disorder Problem 1 04:21:39 PM EDT HARRY ([facility]) 02263429 Hypothyroidism Hypothyroidism Problem 08/19/2020 04:21: 39 PM EDT HARRY ([facility]) 039768257 Finding of esophagus Finding of Esophagus Problem 08/19/2020 04:21:39 PM EDT HARRY ([facility]) 146350463 SNOMED CT Concept SNOMED CT Concept Problem 08/19 04:21:39 PM EDT HARRY ([facility]) 437529998 Arthropathy Arthropathy Problem 08/19/2020 04:21:39 PM EDT HARRY ([facility]) 74224266 Depressive disorder Depressive Disorder Problem 1 04:21:39 PM EDT HARRY ([facility]) 20151744 Hypothyroidism Hypothyroidism Problem 08/19/2020 04:21: 39 PM EDT HARRY ([facility]) 289901444 Finding of esophagus Finding of Esophagus Problem 08/19/2020 04:21:39 PM EDT HARRY ([facility]) 842709196 SNOMED CT Concept SNOMED CT Concept Problem 08/19 04:21:39 PM EDT HARRY ([facility]) 009684111 Arthropathy Arthropathy Problem 08/19/2020 04:21:39 PM EDT HARRY ([facility]) 85577019 Depressive disorder Depressive Disorder Problem 1 04:21:39 PM EDT HARRY ([facility]) 06038650 Hypothyroidism Hypothyroidism Problem 08/19/2020 04:21: 39 PM EDT HARRY ([facility]) 215038398 Finding of esophagus Finding of Esophagus Problem 08/19/2020 04:21:39 PM EDT HARRY ([facility]) 901327214 SNOMED CT Concept SNOMED CT Concept Problem 08/19 04:21:39 PM EDT HARRY ([facility]) 911306920 Arthropathy Arthropathy Problem 08/19/2020 04:21:39 PM EDT HARRY ([facility]) 99418589 Depressive disorder Depressive Disorder Problem 1 04:21:39 PM EDT HARRY ([facility]) 83498551 Hypothyroidism Hypothyroidism Problem 08/19/2020 04:21: 39 PM EDT HARRY ([facility]) 254561893 Finding of esophagus Finding of Esophagus Problem 08/19/2020 04:21:39 PM EDT HARRY ([facility]) 912798613 SNOMED CT Concept SNOMED CT Concept Problem 08/19 04:21:39 PM EDT HARRY ([facility]) 145834286 Arthropathy Arthropathy Problem 08/19/2020 04:21:39 PM EDT HARRY ([facility]) 72456163 Depressive disorder Depressive Disorder Problem 1 04:21:39 PM EDT HARRY ([facility]) 96147060 Hypothyroidism Hypothyroidism Problem 08/19/2020 04:21: 39 PM EDT HARRY ([facility]) 132846285 Finding of esophagus Finding of Esophagus Problem 08/19/2020 04:21:39 PM EDT HARRY ([facility]) 744086914 SNOMED CT Concept SNOMED CT Concept Problem 08/19 04:21:39 PM EDT HARRY ([facility]) 480679553 Arthropathy Arthropathy Problem 08/19/2020 04:21:39 PM EDT HARRY ([facility]) 14847594 Depressive disorder Depressive Disorder Problem 1 04:21:39 PM EDT HARRY ([facility]) 47022360 Hypothyroidism Hypothyroidism Problem 08/19/2020 04:21: 39 PM EDT HARRY ([facility]) 238319744 Finding of esophagus Finding of Esophagus Problem 08/19/2020 04:21:39 PM EDT HARRY ([facility]) 606424557 SNOMED CT Concept SNOMED CT Concept Problem 08/19 04:21:39 PM EDT HARRY ([facility]) 765153147 Arthropathy Arthropathy Problem 08/19/2020 04:21:39 PM EDT HARRY ([facility]) 33859002 Depressive disorder Depressive Disorder Problem 1 04:21:39 PM EDT HARRY ([facility]) 24653490 Hypothyroidism Hypothyroidism Problem 08/19/2020 04:21: 39 PM EDT HARRY ([facility]) 095150807 Clinical finding Clinical Finding Problem 013 12:00:00 AM EDT - 06/10/2021 12:00:00 AM EDT HARRY ([facility]) 128425932 Clinical finding Clinical Finding Problem 013 12:00:00 AM EDT - 06/10/2021 12:00:00 AM EDT HARRY ([facility]) 301130224 Clinical finding Clinical Finding Problem 013 12:00:00 AM EDT - 06/10/2021 12:00:00 AM EDT HARRY ([facility]) [id number] Clinical finding Clinical Finding Problem 013 12:00:00 AM EDT - 06/10/2021 12:00:00 AM EDT HARRY ([facility]) 413376893 Clinical finding Clinical Finding Problem 013 12:00:00 AM EDT - 06/10/2021 12:00:00 AM EDT HARRY ([facility]) 753812970 Clinical finding Clinical Finding Problem 013 12:00:00 AM EDT - 06/10/2021 12:00:00 AM EDT HARRY ([facility]) 906602786 Clinical finding Clinical Finding Problem 013 12:00:00 AM EDT - 06/10/2021 12:00:00 AM EDT HARRY ([facility]) 119716837 SNOMED CT Concept SNOMED CT Concept Problem 11/07 12:00:00 AM EST - 08/10/2021 12:00:00 AM EDT HARRY ([facility]) Surgeries/Procedures Procedure Description Date Indications Data Source(s) OFFICE OUTPATIENT NEW 30 MINUTES 06/20/2021 12:00:00 A M EDT JESS ([facility], ) Results ID Date Data Source -[id number] 08/09/2021 12:00:00 AM EDT [facility] Name Value Range Interpretation Code Description Data Michelle rce(s) Supporting Document(s) SARS coronavirus 2 Ag NEGATIVE [facility] This lab was ordered by [facility] NAMRATA [facility] and reported by [facility]. ID Date Data Source -[id number]/[id number] 12:00:00 AM EDT [facility] Name Value Range Interpretation Code Description Data Michelle rce(s) Supporting Document(s) SARS coronavirus 2 Ag NEGATIVE [facility] This lab was ordered by [facility] NAMRATA [facility]adsworth [facility] and reported by [facility]. ID Date Data Source -[id number]/26/2021 12:00:00 AM EDT [facility] Name Value Range Interpretation Code Description Data Michelle rce(s) Supporting Document(s) SARS coronavirus 2 Ag NEGATIVE [facility] This lab was ordered by [facility] NAMRATA [facility] and reported by [facility]. ID Date Data Source -[id number] 12:00:00 AM EDT [facility] Name Value Range Interpretation Code Description Data Michelle rce(s) Supporting Document(s) SARS coronavirus 2 Ag NEGATIVE [facility] This lab was ordered by [facility] NAMRATA Wadsworth [facility] and reported by [facility]. ID Date Data Source [id number] 06/06/2021 09:13:00 AM EDT HARRY ([facility]) Name Value Range Interpretation Code Description Data Michelle rce(s) Supporting Document(s) Reagin Ab [Presence] in Serum by RPR non-reactive non-reactive RPR (DX) W/refl Titer and Confirmatory Testing HARRY ([facility]) ID Date Data Source [id number] 06/06/2021 09:13:00 AM EDT [facility]) Name Value Range Interpretation Code Description Data Michelle rce(s) Supporting Document(s) Hepatitis C virus Ab [Presence] in Serum or Plasma by Immuno assay non-reactive non-reactive Hepatitis C Antibody HARRY ([facility]) Hepatitis C virus Ab Signal/Cutoff in Serum or Plasma by [facility].00 [facility] Date Data Source [id number] 06/06/2021 09:13:00 AM EDT [facility]) Name Value Range Interpretation Code Description Data Michelle rce(s) Supporting Document(s) Potassium [Moles/volume] in Serum or Plasma 3.5 mmol/L 3.5-5.3 Potassium [facility]) ID Date Data Source [id number] 06/06/2021 09:13:00 AM EDT [facility]) Name Value Range Interpretation Code Description Data Michelle rce(s) Supporting Document(s) HIV 1+2 Ab+HIV1 p24 Ag [Presence] in Serum or Plasma b y Immunoassay non-reactive non-reactive HIV Ag/Ab, 4TH Gen [facility]) ID Date Data Source [id number] 06/06/2021 09:13:00 AM EDT [facility]) Name Value Range Interpretation Code Description Data Michelle rce(s) Supporting Document(s) Reagin Ab [Presence] in Serum by RPR non-reactive non-reactive RPR (DX) W/refl Titer and Confirmatory Testing [facility]) ID Date Data Source [id number] 06/06/2021 09:13:00 AM EDT [facility]) Name Value Range Interpretation Code Description Data Michelle rce(s) Supporting Document(s) Hepatitis C virus Ab Signal/Cutoff in Serum or Plasma by Immunoassa y <1.00 Index HARRY ([facility]) Hepatitis C virus Ab [Presence] in Serum or Plasma by Immuno assay non-reactive non-reactive Hepatitis C Antibody [facility]) ID Date Data Source [id number] 06/06/2021 09:13:00 AM EDT [facility]) Name Value Range Interpretation Code Description Data Michelle rce(s) Supporting Document(s) Potassium [Moles/volume] in Serum or Plasma 3.5 mmol/L 3.5-5.3 Potassium [facility]) ID Date Data Source [id number] 06/06/2021 09:13:00 AM EDT [facility]) Name Value Range Interpretation Code Description Data Michelle rce(s) Supporting Document(s) HIV 1+2 Ab+HIV1 p24 Ag [Presence] in Serum or Plasma b y Immunoassay non-reactive non-reactive HIV Ag/Ab, 4TH Gen [facility]) ID Date Data Source [id number] 06/06/2021 09:13:00 AM EDT [facility]) Name Value Range Interpretation Code Description Data Michelle rce(s) Supporting Document(s) Reagin Ab [Presence] in Serum by RPR non-reactive non-reactive RPR (DX) W/refl Titer and Confirmatory Testing [facility]) ID Date Data Source [id number] 06/06/2021 09:13:00 AM EDT [facility]) Name Value Range Interpretation Code Description Data Michelle rce(s) Supporting Document(s) Hepatitis C virus Ab [Presence] in Serum or Plasma by Immuno assay non-reactive non-reactive Hepatitis C Antibody ABILENE ([facility]) Hepatitis C virus Ab Signal/Cutoff in Serum or Plasma by Immunoassa y <1.00 [facility] ID Date Data Source [id number] 06/06/2021 09:13:00 AM EDT [facility]) Name Value Range Interpretation Code Description Data Michelle rce(s) Supporting Document(s) Potassium [Moles/volume] in Serum or Plasma 3.5 mmol/L 3.5-5.3 Pot[facility] ID Date Data Source [id number] 06/06/2021 09:13:00 AM EDT [facility]) Name Value Range Interpretation Code Description Data Michelle rce(s) Supporting Document(s) HIV 1+2 Ab+HIV1 p24 Ag [Presence] in Serum or Plasma b y Immunoassay non-reactive non-reactive HIV Ag/Ab, 4TH Gen [facility]) ID Date Data Source [id number] 06/06/2021 09:13:00 AM EDT [facility]) Name Value Range Interpretation Code Description Data Michelle rce(s) Supporting Document(s) Reagin Ab [Presence] in Serum by RPR non-reactive non-reactive RPR (DX) W/refl Titer and Confirmatory Testing [facility]) ID Date Data Source [id number] 06/06/2021 09:13:00 AM EDT [facility]) Name Value Range Interpretation Code Description Data Michelle rce(s) Supporting Document(s) Hepatitis C virus Ab [Presence] in Serum or Plasma by Immuno assay non-reactive non-reactive Hepatitis C Antibody ABILENE ([facility]) Hepatitis C virus Ab Signal/Cutoff in Serum or Plasma by Immunoassa y <1.00 Index [facility]) ID Date Data Source [id number] 06/06/2021 09:13:00 AM EDT [facility]) Name Value Range Interpretation Code Description Data Michelle rce(s) Supporting Document(s) Potassium [Moles/volume] in Serum or Plasma 3.5 mmol/L 3.5-5.3 Potassium [facility]) ID Date Data Source [id number] 06/06/2021 09:13:00 AM EDT [facility]) Name Value Range Interpretation Code Description Data Michelle rce(s) Supporting Document(s) HIV 1+2 Ab+HIV1 p24 Ag [Presence] in Serum or Plasma b y Immunoassay non-reactive non-reactive HIV Ag/Ab, 4TH Gen [facility]) ID Date Data Source [id number] 06/06/2021 09:13:00 AM EDT [facility]) Name Value Range Interpretation Code Description Data Michelle rce(s) Supporting Document(s) Reagin Ab [Presence] in Serum by RPR non-reactive non-reactive RPR (DX) W/refl Titer and Confirmatory Testing [facility]) ID Date Data Source [id number] 06/06/2021 09:13:00 AM EDT [facility]) Name Value Range Interpretation Code Description Data Michelle rce(s) Supporting Document(s) Hepatitis C virus Ab [Presence] in Serum or Plasma by Immuno assay non-reactive non-reactive Hepatitis C Antibody ABILENE ([facility]) Hepatitis C virus Ab Signal/Cutoff in Serum or Plasma by Immunoassa y <1.00 [facility] ID Date Data Source [id number] 06/06/2021 09:13:00 AM EDT [facility]) Name Value Range Interpretation Code Description Data Michelle rce(s) Supporting Document(s) Potassium [Moles/volume] in Serum or Plasma 3.5 mmol/L 3.5-5.3 Potassium [facility]) ID Date Data Source [id number] 06/06/2021 09:13:00 AM EDT [facility]) Name Value Range Interpretation Code Description Data Michelle rce(s) Supporting Document(s) HIV 1+2 Ab+HIV1 p24 Ag [Presence] in Serum or Plasma b y Immunoassay non-reactive non-reactive HIV Ag/Ab, 4TH Gen [facility]) ID Date Data Source [id number] 06/06/2021 09:13:00 AM EDT [facility]) Name Value Range Interpretation Code Description Data Michelle rce(s) Supporting Document(s) Reagin Ab [Presence] in Serum by RPR non-reactive non-reactive RPR (DX) W/refl Titer and Confirmatory Testing [facility]) ID Date Data Source [id number] 06/06/2021 09:13:00 AM EDT [facility]) Name Value Range Interpretation Code Description Data Michelle rce(s) Supporting Document(s) Hepatitis C virus Ab [Presence] in Serum or Plasma by Immuno assay non-reactive non-reactive Hepatitis C Antibody [facility]) Hepatitis C virus Ab Signal/Cutoff in Serum or Plasma by Immunoassa y <1.00 Index [facility]) ID Date Data Source [id number] 06/06/2021 09:13:00 AM EDT [facility]) Name Value Range Interpretation Code Description Data Michelle rce(s) Supporting Document(s) Potassium [Moles/volume] in Serum or Plasma 3.5 mmol/L 3.5-5.3 Potassium [facility]) ID Date Data Source [id number] 06/06/2021 09:13:00 AM EDT [facility]) Name Value Range Interpretation Code Description Data Michelle rce(s) Supporting Document(s) HIV 1+2 Ab+HIV1 p24 Ag [Presence] in Serum or Plasma b y Immunoassay non-reactive non-reactive HIV Ag/Ab, 4TH Gen [facility]) ID Date Data Source [id number] 06/06/2021 09:13:00 AM EDT [facility]) Name Value Range Interpretation Code Description Data Michelle rce(s) Supporting Document(s) Reagin Ab [Presence] in Serum by RPR non-reactive non-reactive RPR (DX) W/refl Titer and Confirmatory Testing [facility]) ID Date Data Source [id number] 06/06/2021 09:13:00 AM EDT [facility]) Name Value Range Interpretation Code Description Data Michelle rce(s) Supporting Document(s) Hepatitis C virus Ab [Presence] in Serum or Plasma by Immuno assay non-reactive non-reactive Hepatitis C Antibody ABILENE ([facility]) Hepatitis C virus Ab Signal/Cutoff in Serum or Plasma by Immunoassa y <1.00 Index [facility]) ID Date Data Source [id number] 06/06/2021 09:13:00 AM EDT [facility]) Name Value Range Interpretation Code Description Data Michelle rce(s) Supporting Document(s) Potassium [Moles/volume] in Serum or Plasma 3.5 mmol/L 3.5-5.3 Potassium [facility]) ID Date Data Source [id number] 06/06/2021 09:13:00 AM EDT [facility]) Name Value Range Interpretation Code Description Data Michelle rce(s) Supporting Document(s) HIV 1+2 Ab+HIV1 p24 Ag [Presence] in Serum or Plasma b y Immunoassay non-reactive non-reactive HIV Ag/Ab, 4TH Gen [facility]) ID Date Data Source [id number] 05/23/2021 12:00:00 AM EDT [facility] Name Value Range Interpretation Code Description Data Michelle rce(s) Supporting Document(s) [facility] 2 [facility]IVE [facility] This lab was ordered by RACHAEL MCKEON and reported by RACHAEL MCKEON. ID Date Data Source [id number] 05/16/2021 08:34:00 AM EDT [facility]) Name Value Range Interpretation Code Description Data Michelle rce(s) Supporting Document(s) potassium serum 3.7 mEq/L 3.5-5.1 Potassium Serum ATHE ([facility]) ID Date Data Source [id number] 05/16/2021 08:34:00 AM EDT [facility]) Name Value Range Interpretation Code Description Data Michelle rce(s) Supporting Document(s) potassium serum 3.7 mEq/L 3.5-5.1 Potassium Serum ATHE ([facility]) ID Date Data Source [id number] 05/16/2021 08:34:00 AM EDT [facility]) Name Value Range Interpretation Code Description Data Michelle rce(s) Supporting Document(s) potassium serum 3.7 mEq/L 3.5-5.1 Potassium Serum ATHE ([facility]) ID Date Data Source [id number] 05/16/2021 08:34:00 [facility] Name Value Range Interpretation Code Description Data Michelle rce(s) Supporting Document(s) potassium serum 3.7 mEq/L 3.5-5.1 Potassium Serum ATHE [facility]) ID Date Data Source [id number] 05/16/2021 08:34:00 AM [facility] Name Value Range Interpretation Code Description Data Michelle rce(s) Supporting Document(s) potassium serum 3.7 mEq/L 3.5-5.1 Potassium Serum ATHE NA ([facility]) ID Date Data Source [id number] 05/16/2021 08:34:00 AM EDT [facility]) Name Value Range Interpretation Code Description Data Michelle rce(s) Supporting Document(s) potassium serum 3.7 mEq/L 3.5-5.1 Potassium Serum ATHE NA ([facility]) ID Date Data Source [id number] 05/16/2021 08:34:00 AM EDT [facility]) Name Value Range Interpretation Code Description Data Michelle rce(s) Supporting Document(s) potassium serum 3.7 mEq/L 3.5-5.1 Potassium Serum ATHE NA ([facility]) ID Date Data Source [id number] 05/16/2021 08:34:00 AM EDT [facility]) Name Value Range Interpretation Code Description Data Michelle rce(s) Supporting Document(s) potassium serum 3.7 mEq/L 3.5-5.1 Potassium Serum ATHE NA ([facility]) ID Date Data Source [id number] 05/16/2021 08:34:00 AM EDT [facility]) Name Value Range Interpretation Code Description Data Michelle rce(s) Supporting Document(s) potassium serum 3.7 mEq/L 3.5-5.1 Potassium Serum ATHE NA ([facility]) ID Date Data Source [id number] 05/10/2021 11:58:00 AM EDT [facility]) Name Value Range Interpretation Code Description Data Michelle rce(s) Supporting Document(s) potassium serum 3.4 mEq/L 3.5-5.1 Below low normal [facility] ID Date Data Source [id number] 05/10/2021 11:58:00 AM EDT [facility]) Name Value Range Interpretation Code Description Data Michelle rce(s) Supporting Document(s) potassium serum 3.4 mEq/L 3.5-5.1 Below low normal Potassium Seru elizabeth MCDONALD ([facility]) ID Date Data Source [id number] 05/10/2021 11:58:00 AM EDT [facility]) Name Value Range Interpretation Code Description Data Michelle rce(s) Supporting Document(s) potassium serum 3.4 mEq/L 3.5-5.1 Below low normal Potassium Seru elizabeth MCDONALD [facility]) ID Date Data Source [id number] 05/10/2021 11:58:00 AM EDT [facility]) Name Value Range Interpretation Code Description Data Michelle rce(s) Supporting Document(s) potassium serum 3.4 mEq/L 3.5-5.1 Below low normal Potassium Seru elizabeth MCDONALD [facility]) ID Date Data Source [id number] 05/10/2021 11:58:00 AM EDT [facility]) Name Value Range Interpretation Code Description Data Michelle rce(s) Supporting Document(s) potassium serum 3.4 mEq/L 3.5-5.1 Below low normal Potassium [facility] ID Date Data Source [id number] 05/10/2021 11:58:00 AM EDT [facility]) Name Value Range Interpretation Code Description Data Michelle rce(s) Supporting Document(s) potassium serum 3.4 mEq/L 3.5-5.1 Below low normal Potassium Seru elizabeth MCDONALD [facility]) ID Date Data Source [id number] 05/10/2021 11:58:00 AM EDT [facility]) Name Value Range Interpretation Code Description Data Michelle rce(s) Supporting Document(s) potassium serum 3.4 mEq/L 3.5-5.1 Below low normal Potassium Seru elizabeth MCDONALD ([facility]) ID Date Data Source [id number] 05/10/2021 11:58:00 AM [facility] Name Value Range Interpretation Code Description Data Michelle rce(s) Supporting Document(s) potassium serum 3.4 mEq/L 3.5-5.1 Below low normal [facility] ID Date Data Source [id number] 05/10/2021 11:58:00 AM [facility] Name Value Range Interpretation Code Description Data Michelle rce(s) Supporting Document(s) potassium serum 3.4 mEq/L 3.5-5.1 Below low normal Potassium Seru elizabeth FARIASHARRY ([facility]) ID Date Data Source [id number] 05/05/2021 09:37:00 AM EDT [facility]) Name Value Range Interpretation Code Description Data Michelle rce(s) Supporting Document(s) thyroid stimulating hormone 1.490 uIU/mL 0.358-3.740 Thyroid Stimulating Hormone [facility] ID Date Data Source [id number] 05/05/2021 09:37:00 AM [facility]T [facility] Name Value Range Interpretation Code Description Data Michelle rce(s) Supporting Document(s) potassium serum 3.8 mEq/L 3.5-5.1 [facility] ID Date Data Source [id number] 05/05/2021 09:37:00 AM EDT HARRY ([facility]) Name Value Range Interpretation Code Description Data Michelle rce(s) Supporting Document(s) thyroid stimulating hormone 1.490 uIU/mL 0.358-3.740 Thyroid Stimulating Hormone HARRY ([facility]) ID Date Data Source [id number] 05/05/2021 09:37:00 AM [facility]T [facility] Name Value Range Interpretation Code Description Data Michelle rce(s) Supporting Document(s) potassium serum 3.8 mEq/L 3.5-5.1 Potassium Serum ATHE NA ([facility]) ID Date Data Source [id number] 05/05/2021 09:37:00 AM EDT [facility] Name Value Range Interpretation Code Description Data Michelle rce(s) Supporting Document(s) thyroid stimulating hormone 1.490 uIU/mL 0.358-3.740 Thyroid Stimulating Hormone HARRY ([facility]) ID Date Data Source [id number] 05/05/2021 09:37:00 AM [facility]T [facility] Name Value Range Interpretation Code Description Data Michelle rce(s) Supporting Document(s) potassium serum 3.8 mEq/L 3.5-5.1 Potassium Serum ATHE NA ([facility]) ID Date Data Source [id number] 05/05/2021 09:37:00 AM [facility]T [facility] Name Value Range Interpretation Code Description Data Michelle rce(s) Supporting Document(s) thyroid stimulating hormone 1.490 uIU/mL 0.358-3.740 Thyroid Stimulating Hormone HARRY ([facility]) ID Date Data Source [id number] 05/05/2021 09:37:00 AM [facility]T [facility] Name Value Range Interpretation Code Description Data Michelle rce(s) Supporting Document(s) potassium serum 3.8 mEq/L 3.5-5.1 Potassium Serum ATHE NA ([facility]) ID Date Data Source [id number] 05/05/2021 09:37:00 AM [facility]T [facility] Name Value Range Interpretation Code Description Data Michelle rce(s) Supporting Document(s) thyroid stimulating hormone 1.490 uIU/mL 0.358-3.740 Thyroid Stimulating Hormone HARRY ([facility]) ID Date Data Source [id number] 05/05/2021 09:37:00 AM [facility]T [facility] Name Value Range Interpretation Code Description Data Michelle rce(s) Supporting Document(s) potassium serum 3.8 mEq/L 3.5-5.1 Potassium Serum ATHE NA ([facility]) ID Date Data Source [id number] 05/05/2021 09:37:00 AM [facility]T [facility] Name Value Range Interpretation Code Description Data Michelle rce(s) Supporting Document(s) thyroid stimulating hormone 1.490 uIU/mL 0.358-3.740 [facility] ID Date Data Source [id number] 05/05/2021 09:37:00 AM [facility]T [facility] Name Value Range Interpretation Code Description Data Michelle rce(s) Supporting Document(s) potassium serum 3.8 mEq/L 3.5-5.1 Potassium Serum ATHE NA ([facility]) ID Date Data Source [id number] 05/05/2021 09:37:00 AM EDT [facility] Name Value Range Interpretation Code Description Data Michelle rce(s) Supporting Document(s) thyroid stimulating hormone 1.490 uIU/mL 0.358-3.740 Thyroid Stimulating Hormone HARRY ([facility]) ID Date Data Source [id number] 05/05/2021 09:37:00 AM [facility]T [facility] Name Value Range Interpretation Code Description Data Michelle rce(s) Supporting Document(s) potassium serum 3.8 mEq/L 3.5-5.1 Potassium Serum ATHE NA ([facility]) ID Date Data Source [id number] 05/05/2021 09:37:00 AM [facility]T [facility] Name Value Range Interpretation Code Description Data Michelle rce(s) Supporting Document(s) thyroid stimulating hormone 1.490 uIU/mL 0.358-3.740 [facility] ID Date Data Source [id number] 05/05/2021 09:37:00 AM [facility]T [facility] Name Value Range Interpretation Code Description Data Michelle rce(s) Supporting Document(s) potassium serum 3.8 mEq/L 3.5-5.1 Potassium Serum ATHE NA ([facility]) ID Date Data Source [id number] 05/05/2021 09:37:00 AM [facility]T [facility] Name Value Range Interpretation Code Description Data Michelle rce(s) Supporting Document(s) thyroid stimulating hormone 1.490 uIU/mL 0.358-3.740 [facility] ID Date Data Source [id number] 05/05/2021 09:37:00 AM [facility]T [facility] Name Value Range Interpretation Code Description Data Michelle rce(s) Supporting Document(s) potassium serum 3.8 mEq/L 3.5-5.1 Potassium Serum ATHE NA ([facility]) ID Date Data Source [id number] 05/04/2021 12:22:00 PM EDT HARRY ([facility]) Name Value Range Interpretation Code Description Data Michelle rce(s) Supporting Document(s) bilirubin neg Bilirubin HARRY ([facility]) glucose neg Glucose HARRY ([facility]) blood 3+ Abnormal (applies to non-numeric res ults) Blood HARRY ([facility]) leukocytes 3+ Abnormal (applies to non-numeric res ults) Leukocytes HARRY ([facility]) ketone neg Ketone HARRY ([facility]) nitrite neg Nitrite HARRY ([facility]) specific gravity Specific [place] [facility] ([facility]) pH Ph HARRY ([facility]) protein neg Protein HARRY ([facility]) urobilinogen Urobilinogen HARRY ([facility]) ID Date Data Source [id number] 05/04/2021 12:22:00 PM [facility]T [facility] Name Value Range Interpretation Code Description Data Michelle rce(s) Supporting Document(s) bilirubin neg Bilirubin HARRY ([facility]) blood 3+ Abnormal (applies to non-numeric res ults) Blood HARRY ([facility]) glucose neg Glucose HARRY ([facility]) ketone neg Ketone HARRY ([facility]) leukocytes 3+ Abnormal (applies to non-numeric res ults) Leukocytes HARRY ([facility]) pH Ph HARRY ([facility]) nitrite neg Nitrite HARRY ([facility]) protein neg Protein [facility]ARRY ([facility]) [facility]robilinogen [facility]ilinogen [facility] Hospital) specific gravity Specific [place] AT [facility] ([facility]) ID Date Data Source [id number] 05/04/2021 12:22:00 PM EDT [facility]ARR[facility] ([facility]) Name Value Range Interpretation Code Description Data Michelle rce(s) Supporting Document(s) bilirubin neg Bilirubin [facility] ([facility]) blood 3+ Abnormal (applies to non-numeric res ults) Blood [facility]ARR[facility] ([facility]) leukocytes 3+ Abnormal (applies to non-numeric res ults) Leukocytes [facility] ([facility]) ketone neg Ketone [facility] ([facility]) glucose neg Glucose [facility] ([facility]) nitrite neg Nitrite [facility] ([facility]) protein neg Protein [facility]ARRY ([facility]) pH Ph HARRY ([facility]) urobilinogen Urobilinogen [facility]ARRY ([facility]) specific gravity Specific [place] AT [facility]) ID Date Data Source [id number] 05/04/2021 12:22:00 PM EDT HARR[facility] ([facility]) Name Value Range Interpretation Code Description Data Michelle rce(s) Supporting Document(s) blood 3+ Abnormal (applies to non-numeric res ults) Blood [facility] ([facility]) bilirubin neg Bilirubin [facility] ([facility]) ketone neg Ketone [facility] ([facility]) glucose neg Glucose [facility] ([facility]) nitrite neg Nitrite [facility] ([facility]) leukocytes 3+ Abnormal (applies to non-numeric res ults) Leukocytes [facility] ([facility]) protein neg Protein [facility] ([facility]) pH Ph [facility] ([facility]) urobilinogen Urobilinogen [facility] ([facility]) specific gravity Specific [place] AT [facility]) ID Date Data Source [id number] 05/04/2021 12:22:00 [facility] Interpretation Code Description Data Michelle rce(s) Supporting Document(s) bilirubin neg Bilirubin [facility] ([facility]) blood 3+ Abnormal (applies to non-numeric res ults) Blood [facility] ([facility]) glucose neg Glucose [facility] ([facility]) ketone neg Ketone [facility] ([facility]) leukocytes 3+ Abnormal (applies to non-numeric res ults) Leukocytes [facility] ([facility]) nitrite neg Nitrite [facility] ([facility]) protein neg Protein [facility] ([facility]) pH Ph [facility] ([facility]) specific gravity Specific [place] AT [facility] ([facility]) urobilinogen Urobilinogen [facility] ([facility]) ID Date Data Source [id number] 05/04/2021 12:22:00 [facility] Name Value Range Interpretation Code Description Data Michelle rce(s) Supporting Document(s) glucose neg Glucose [facility] ([facility]) bilirubin neg Bilirubin [facility] ([facility]) blood 3+ Abnormal (applies to non-numeric res ults) Blood [facility] ([facility]) leukocytes 3+ Abnormal (applies to non-numeric res ults) Leukocytes [facility] ([facility]) ketone neg Ketone [facility] ([facility]) nitrite neg Nitrite [facility] ([facility]) pH Ph [facility] ([facility] protein neg Protein [facility] ([facility]) specific gravity Specific [place] AT [facility] ([facility]) urobilinogen Urobilinogen [facility] ([facility]) ID Date Data Source [id number] 05/04/2021 12:22:00 PM EDT [facility] ([facility]) Name Value Range Interpretation Code Description Data Michelle rce(s) Supporting Document(s) bilirubin neg Bilirubin [facility] ([facility]) glucose neg Glucose [facility] ([facility]) blood 3+ Abnormal (applies to non-numeric res ults) Blood [facility] ([facility]) ketone neg Ketone [facility] ([facility]) leukocytes 3+ Abnormal (applies to non-numeric res ults) Leukocytes [facility] ([facility]) pH Ph [facility] ([facility]) nitrite neg Nitrite [facility] ([facility]) protein neg Protein [facility] ([facility]) urobilinogen Urobilinogen [facility] ([facility]) specific gravity Specific [place] AT [facility]) ID Date Data Source [id number] 05/04/2021 12:22:00 PM EDT [facility] ([facility]) Name Value Range Interpretation Code Description Data Michelle rce(s) Supporting Document(s) bilirubin neg Bilirubin [facility] ([facility]) blood 3+ Abnormal (applies to non-numeric res ults) Blood [facility] ([facility]) ketone neg Ketone [facility] ([facility]) leukocytes 3+ Abnormal (applies to non-numeric res ults) Leukocytes [facility] ([facility]) glucose neg Glucose [facility] ([facility]) protein neg Protein [facility]Y ([facility]) nitrite neg Nitrite [facility] ([facility]) pH Ph [facility] ([facility]) urobilinogen Urobilinogen [facility] ([facility]) specific gravity Specific [place] AT [facility]) ID Date Data Source [id number] 05/04/2021 12:22:00 PM EDT [facility] ([facility]) Name Value Range Interpretation Code Description Data Michelle rce(s) Supporting Document(s) blood 3+ Abnormal (applies to non-numeric res ults) Blood [facility] ([facility]) bilirubin neg Bilirubin [facility] ([facility]) ketone neg Ketone [facility] ([facility]) glucose neg Glucose [facility] ([facility]) leukocytes 3+ Abnormal (applies to non-numeric res ults) Leukocytes [facility] ([facility]) nitrite neg Nitrite [facility] ([facility]) pH Ph [facility] ([facility]) protein neg Protein [facility] ([facility]) specific gravity Specific [place] AT [facility]) urobilinogen Urobilinogen [facility]) ID Date Data Source [id number] 05/04/2021 08:36:00 AM EDT [facility]) Name Value Range Interpretation Code Description Data Michelle rce(s) Supporting Document(s) C reactive protein quantitativ 0.30 mg/dL 0.00-0.30 C Reactive Protein Quantitativ [place] ([facility]) ID Date Data Source [id number] 05/04/2021 08:36:00 AM EDT [facility]) Name Value Range Interpretation Code Description Data Michelle rce(s) Supporting Document(s) total 25(oh) vitamin D 32.6 NG/mL 30.0-100.0 Total 25(Oh) Vitamin D [facility]) ID Date Data Source [id number] 05/04/2021 08:36:00 AM EDT [facility]) Name Value Range Interpretation Code Description Data Michelle rce(s) Supporting Document(s) bilirubin,direct 0.1 mg/dL 0.0-0.2 Bilirubin,direct AT [facility]) ID Date Data Source [id number] 05/04/2021 08:36:00 AM EDT [facility]) Name Value Range Interpretation Code Description Data Michelle rce(s) Supporting Document(s) glucose, fasting 91 mg/dL 70-100 Glucose, Fasting AT [facility]) blood urea nitrogen 15 mg/dL 7-18 Blood Urea Nitro gen [place] ([facility]) creatinine for GFR 0.69 mg/dL 0.55-1.30 Creatinine for GF R [place] ([facility]) glomerular filtration rate > 60.0 >51 Glomerula r Filtration Rate [place] ([facility]) sodium level 141 mEq/L 136-145 Sodium Level [place] ([facility]) chloride level 104 mEq/L 98-107 Chloride Level [facility] ([facility]) potassium serum 2.9 mEq/L 3.5-5.1 Below low normal Potassium Seru m [facility] ([facility]) calcium level 10.0 mg/dL 8.5-10.1 Calcium Level [facility] ( [facility]) carbon dioxide level 28 mEq/L 21-32 Carbon Dioxide Level [facility] ([facility]) anion gap 9 mEq/L 8-16 Anion Gap [facility] ([facility]) AST/SGOT 44 U/L 7-37 Above high normal AST/SGOT [facility] ([facility]) ALT/SGPT 64 U/L 12-78 ALT/SGPT [facility] ([facility]) alkaline phosphatase 55 U/L 45-117 Alkaline Phosph atase [facility] ([facility]) total protein 7.4 gm/dL 6.4-8.2 Total Protein [facility] ( [facility]) bilirubin,total 0.5 mg/dL 0.2-1.0 Bilirubin,total AT[facility] ([facility]) albumin 4.4 gm/dL 3.2-5.2 Albumin [facility] ([facility]) albumin/globulin ratio 1.2-2.2 Albumin/globu gisella Ratio [facility] ([facility]) ID Date Data Source [id number] 05/04/2021 08:36:00 AM EDT [facility] ([facility]) Name Value Range Interpretation Code Description Data Michelle rce(s) Supporting Document(s) erythrocyte sedimentation rate 8 mm/HR 0-30 Eryth rocyte Sedimentation Rate [facility] ([facility]) ID Date Data Source [id number] 05/04/2021 08:36:00 [facility] Name Value Range Interpretation Code Description Data Michelle rce(s) Supporting Document(s) red blood count 4.35 10 4.00-5.40 Red Blood Count AT[facility] ([facility]) white blood count 12.2 10 4.0-10.0 Above high normal White Blood Count [facility] ([facility]) hemoglobin 13.3 g/dL 12.0-15.5 Hemoglobin [facility] ([facility]) hematocrit 38.6 % 36.0-47.0 Hematocrit [facility] ([facility]) mean corpuscular hemoglobin 30.6 pg 27.0-33.0 Mean Cor puscular Hemoglobin [facility]Y ([facility]) mean corpuscular volume 88.7 fL 80.0-96.0 Mean Corpusc ular Volume [facility]Y ([facility]) red cell distribution width 13.8 % 11.5-14.5 Red Cell Distribution Width [facility] ([facility]) platelet count, automated 266 10 150-450 Platelet C ount, Automated H[facility] ([facility]) mean corpuscular HGB conc 34.5 g/dL 32.0-36.5 Mean Corpu scular HGB Conc [facility] ([facility]) neutrophils % 74.0 % 36.0-66.0 Above high normal Neutrophils % A [facility] ([facility]) mono % 7.4 % 2.0-8.0 [place] % [facility] ([facility]) lymph % 17.5 % 24.0-44.0 Below low normal Lymph % [facility]Y ( [facility]) eos % 0.4 % 0.0-3.0 Eos % [facility] ([facility]) immature granulocyte % 0.5 % 0-3.0 Immature Gran ulocyte % [facility] ([facility]) baso % 0.2 % 0.0-1.0 Baso % [facility] ([facility]) nucleated red blood cell % 0.0 % 0-0 Nucleated Red Blood Cell % [facility] ([facility]) neutrophils # 9.0 10 1.5-8.5 Above high normal Neutrophils # A [facility] ([facility]) mono # 0.9 10 0.0-0.8 Above high normal [place] # [facility]Y ([facility]) eos # 0.1 10 0.0-0.5 Eos # [facility] ([facility]) lymph # 2.1 10 1.5-5.0 Lymph # [facility] ([facility]) baso # 0.0 10 0.0-0.2 Baso # [facility] ([facility]) ID Date Data Source [id number] 05/04/2021 08:36:00 AM EDT [facility]) Name Value Range Interpretation Code Description Data Michelle rce(s) Supporting Document(s) C reactive protein quantitativ 0.30 mg/dL 0.00-0.30 C Reactive Protein Quantitativ [place] ([facility]) ID Date Data Source [id number] 05/04/2021 08:36:00 AM EDT [facility]) Name Value Range Interpretation Code Description Data Michelle rce(s) Supporting Document(s) total 25(oh) vitamin D 32.6 NG/mL 30.0-100.0 Total 25(Oh) Vitamin D [facility]) ID Date Data Source [id number] 05/04/2021 08:36:00 AM EDT [facility]) Name Value Range Interpretation Code Description Data Michelle rce(s) Supporting Document(s) bilirubin,direct 0.1 mg/dL 0.0-0.2 Bilirubin,direct AT [facility]) ID Date Data Source [id number] 05/04/2021 08:36:00 AM EDT [facility]) Name Value Range Interpretation Code Description Data Michelle rce(s) Supporting Document(s) glucose, fasting 91 mg/dL 70-100 Glucose, Fasting AT [facility] ([facility]) blood urea nitrogen 15 mg/dL 7-18 Blood Urea Nitro gen [place] ([facility]) creatinine for GFR 0.69 mg/dL 0.55-1.30 Creatinine for GF R [place] ([facility]) sodium level 141 mEq/L 136-145 Sodium Level [place] ([facility]) glomerular filtration rate > 60.0 >51 Glomerula r Filtration Rate [facility]Y ([facility]) potassium serum 2.9 mEq/L 3.5-5.1 Below low normal Potassium Seru m [facility] ([facility]) chloride level 104 mEq/L 98-107 Chloride Level [facility] ([facility]) carbon dioxide level 28 mEq/L 21-32 Carbon Dioxide Level [facility] ([facility]) anion gap 9 mEq/L 8-16 Anion Gap [facility] ([facility]) calcium level 10.0 mg/dL 8.5-10.1 Calcium Level [facility] ( [facility]) ALT/SGPT 64 U/L 12-78 ALT/SGPT [facility] ([facility]) AST/SGOT 44 U/L 7-37 Above high normal AST/SGOT [facility] ([facility]) bilirubin,total 0.5 mg/dL 0.2-1.0 Bilirubin,total AT[facility] ([facility]) alkaline phosphatase 55 U/L 45-117 Alkaline Phosph atase [facility] ([facility]) total protein 7.4 gm/dL 6.4-8.2 Total Protein [facility] ( [facility]) albumin 4.4 gm/dL 3.2-5.2 Albumin [facility] ([facility]) albumin/globulin ratio 1.2-2.2 Albumin/globu gisella Ratio [facility] ([facility]) ID Date Data Source [id number] 05/04/2021 08:36:00 AM EDT [facility] ([facility]) Name Value Range Interpretation Code Description Data Michelle rce(s) Supporting Document(s) erythrocyte sedimentation rate 8 mm/HR 0-30 Eryth rocyte Sedimentation Rate [facility] ([facility]) ID Date Data Source [id number] 05/04/2021 08:36:00 [facility] Name Value Range Interpretation Code Description Data Michelle rce(s) Supporting Document(s) white blood count 12.2 10 4.0-10.0 Above high normal White Blood Count [facility] ([facility]) red blood count 4.35 10 4.00-5.40 Red Blood Count ATHE NA ([facility]) hemoglobin 13.3 g/dL 12.0-15.5 Hemoglobin [facility] ([facility]) mean corpuscular volume 88.7 fL 80.0-96.0 Mean Corpusc ular Volume [facility] ([facility]) hematocrit 38.6 % 36.0-47.0 Hematocrit [facility] ([facility]) mean corpuscular HGB conc 34.5 g/dL 32.0-36.5 Mean Corpu scular HGB Conc [facility] ([facility]) mean corpuscular hemoglobin 30.6 pg 27.0-33.0 Mean Cor puscular Hemoglobin [facility] ([facility]) red cell distribution width 13.8 % 11.5-14.5 Red Cell Distribution Width [facility] ([facility]) platelet count, automated 266 10 150-450 Platelet C ount, Automated [facility] ([facility]) neutrophils % 74.0 % 36.0-66.0 Above high normal Neutrophils % A [facility] ([facility]) lymph % 17.5 % 24.0-44.0 Below low normal Lymph % [place] ( [facility]) mono % 7.4 % 2.0-8.0 [place] % [facility] ([facility]) eos % 0.4 % 0.0-3.0 Eos % [facility] ([facility]) baso % 0.2 % 0.0-1.0 Baso % [facility] ([facility]) nucleated red blood cell % 0.0 % 0-0 Nucleated Red Blood Cell % [facility] ([facility]) immature granulocyte % 0.5 % 0-3.0 Immature Gran ulocyte % [facility] ([facility]) lymph # 2.1 10 1.5-5.0 Lymph # [facility] ([facility]) neutrophils # 9.0 10 1.5-8.5 Above high normal Neutrophils # A [facility] ([facility]) mono # 0.9 10 0.0-0.8 Above high normal [place] # [place] ([facility]) eos # 0.1 10 0.0-0.5 Eos # [facility] ([facility]) baso # 0.0 10 0.0-0.2 Baso # [facility] ([facility]) ID Date Data Source [id number] 05/04/2021 08:36:00 AM EDT [facility]) Name Value Range Interpretation Code Description Data Michelle rce(s) Supporting Document(s) C reactive protein quantitativ 0.30 mg/dL 0.00-0.30 C Reactive Protein Quantitativ [place] ([facility]) ID Date Data Source [id number] 05/04/2021 08:36:00 AM EDT [facility]) Name Value Range Interpretation Code Description Data Michelle rce(s) Supporting Document(s) total 25(oh) vitamin D 32.6 NG/mL 30.0-100.0 Total 25(Oh) Vitamin D [facility]) ID Date Data Source [id number] 05/04/2021 08:36:00 AM EDT [facility]) Name Value Range Interpretation Code Description Data Michelle rce(s) Supporting Document(s) bilirubin,direct 0.1 mg/dL 0.0-0.2 Bilirubin,direct AT [facility]) ID Date Data Source [id number] 05/04/2021 08:36:00 AM EDT [facility]) Name Value Range Interpretation Code Description Data Michelle rce(s) Supporting Document(s) glucose, fasting 91 mg/dL 70-100 Glucose, Fasting AT [facility] ([facility]) blood urea nitrogen 15 mg/dL 7-18 Blood Urea Nitro gen [place] ([facility]) creatinine for GFR 0.69 mg/dL 0.55-1.30 Creatinine for GF R [place] ([facility]) glomerular filtration rate > 60.0 >51 Glomerula r Filtration Rate [facility] ([facility]) sodium level 141 mEq/L 136-145 Sodium Level [facility] ([facility]) chloride level 104 mEq/L 98-107 Chloride Level [facility] ([facility]) potassium serum 2.9 mEq/L 3.5-5.1 Below low normal Potassium Seru m [facility] ([facility]) carbon dioxide level 28 mEq/L 21-32 Carbon Dioxide Level [facility] ([facility]) anion gap 9 mEq/L 8-16 Anion Gap [facility] ([facility]) calcium level 10.0 mg/dL 8.5-10.1 Calcium Level [facility] ( [facility]) AST/SGOT 44 U/L 7-37 Above high normal AST/SGOT [facility] ([facility]) ALT/SGPT 64 U/L 12-78 ALT/SGPT [facility] ([facility]) bilirubin,total 0.5 mg/dL 0.2-1.0 Bilirubin,total ATHE NA ([facility]) alkaline phosphatase 55 U/L 45-117 Alkaline Phosph atase [facility] ([facility]) total protein 7.4 gm/dL 6.4-8.2 Total Protein [facility] ( [facility]) albumin 4.4 gm/dL 3.2-5.2 Albumin [facility] ([facility]) albumin/globulin ratio 1.2-2.2 Albumin/globu gisella Ratio [facility] ([facility]) ID Date Data Source [id number] 05/04/2021 08:36:00 AM EDT [facility] ([facility]) Name Value Range Interpretation Code Description Data Michelle rce(s) Supporting Document(s) erythrocyte sedimentation rate 8 mm/HR 0-30 Eryth rocyte Sedimentation Rate [facility] ([facility]) ID Date Data Source [id number] 05/04/2021 08:36:00 AM EDT [facility] ([facility]) Name Value Range Interpretation Code Description Data Michelle rce(s) Supporting Document(s) white blood count 12.2 10 4.0-10.0 Above high normal White Blood Count [facility] ([facility]) red blood count 4.35 10 4.00-5.40 Red Blood Count ATHE NA ([facility]) hematocrit 38.6 % 36.0-47.0 Hematocrit [facility] ([facility]) hemoglobin 13.3 g/dL 12.0-15.5 Hemoglobin [facility] ([facility]) mean corpuscular volume 88.7 fL 80.0-96.0 Mean Corpusc ular Volume [facility] ([facility]) mean corpuscular hemoglobin 30.6 pg 27.0-33.0 Mean Cor puscular Hemoglobin [facility] ([facility]) red cell distribution width 13.8 % 11.5-14.5 Red Cell Distribution Width [facility] ([facility]) mean corpuscular HGB conc 34.5 g/dL 32.0-36.5 Mean Corpu scular HGB Conc [facility] ([facility]) platelet count, automated 266 10 150-450 Platelet C ount, Automated [facility] ([facility]) neutrophils % 74.0 % 36.0-66.0 Above high normal Neutrophils % A [facility] ([facility]) lymph % 17.5 % 24.0-44.0 Below low normal Lymph % [facility] ( [facility]) eos % 0.4 % 0.0-3.0 Eos % [facility] ([facility]) mono % 7.4 % 2.0-8.0 [place] % [facility] ([facility]) baso % 0.2 % 0.0-1.0 Baso % [facility] ([facility]) immature granulocyte % 0.5 % 0-3.0 Immature Gran ulocyte % [facility] ([facility]) neutrophils # 9.0 10 1.5-8.5 Above high normal [facility]rophils # [facility] nucleated red blood cell % 0.0 % 0-0 Nucleated Red Blood Cell % [facility] ([facility]) lymph # 2.1 10 1.5-5.0 Lymph # [facility] ([facility]) mono # 0.9 10 0.0-0.8 Above high normal [place] # [facility] ([facility]) baso # 0.0 10 0.0-0.2 Baso # [facility] ([facility]) eos # 0.1 10 0.0-0.5 Eos # [facility] ([facility]) ID Date Data Source [id number] 05/04/2021 08:36:00 AM EDT [facility]) Name Value Range Interpretation Code Description Data Michelle rce(s) Supporting Document(s) C reactive protein quantitativ 0.30 mg/dL 0.00-0.30 C Reactive Protein Quantitativ [facility]) ID Date Data Source [id number] 05/04/2021 08:36:00 AM EDT [facility]) Name Value Range Interpretation Code Description Data Michelle rce(s) Supporting Document(s) total 25(oh) vitamin D 32.6 NG/mL 30.0-100.0 Total 25(Oh) Vitamin D [facility]) ID Date Data Source [id number] 05/04/2021 08:36:00 AM EDT [facility]) Name Value Range Interpretation Code Description Data Michelle rce(s) Supporting Document(s) bilirubin,direct 0.1 mg/dL 0.0-0.2 Bilirubin,direct AT [facility]) ID Date Data Source [id number] 05/04/2021 08:36:00 AM EDT [facility]) Name Value Range Interpretation Code Description Data Michelle rce(s) Supporting Document(s) glucose, fasting 91 mg/dL 70-100 Glucose, Fasting AT [facility] ([facility]) blood urea nitrogen 15 mg/dL 7-18 Blood Urea Nitro gen [facility]) creatinine for GFR 0.69 mg/dL 0.55-1.30 Creatinine for GF R [facility] ([facility]) glomerular filtration rate > 60.0 >51 Glomerula r Filtration Rate [facility] ([facility]) sodium level 141 mEq/L 136-145 Sodium Level [facility] ([facility]) potassium serum 2.9 mEq/L 3.5-5.1 Below low normal Potassium Seru m [facility] ([facility]) carbon dioxide level 28 mEq/L 21-32 Carbon Dioxide Level [facility] ([facility]) chloride level 104 mEq/L 98-107 Chloride Level [facility] ([facility]) anion gap 9 mEq/L 8-16 Anion Gap [facility] ([facility]) AST/SGOT 44 U/L 7-37 Above high normal AST/SGOT [facility] ([facility]) calcium level 10.0 mg/dL 8.5-10.1 Calcium Level [facility] ( [facility]) alkaline phosphatase 55 U/L 45-117 Alkaline Phosph atase [facility] ([facility]) ALT/SGPT 64 U/L 12-78 ALT/SGPT [facility] ([facility]) bilirubin,total 0.5 mg/dL 0.2-1.0 Bilirubin,total ATHE ([facility]) total protein 7.4 gm/dL 6.4-8.2 Total Protein HARRY ( [facility]) albumin 4.4 gm/dL 3.2-5.2 Albumin HARRY ([facility]) albumin/globulin ratio 1.2-2.2 Albumin/globu gisella Ratio HARRY ([facility]) ID Date Data Source [id number] 05/04/2021 08:36:00 AM EDT HARRY ([facility]) Name Value Range Interpretation Code Description Data Michelle rce(s) Supporting Document(s) erythrocyte sedimentation rate 8 mm/HR 0-30 Eryth rocyte Sedimentation Rate HARRY ([facility]) ID Date Data Source [id number] 05/04/2021 08:36:00 AM EDT HARRY ([facility]) Name Value Range Interpretation Code Description Data Michelle rce(s) Supporting Document(s) white blood count 12.2 10 4.0-10.0 Above high normal White Blood Count HARRY ([facility]) red blood count 4.35 10 4.00-5.40 Red Blood Count ATHE NA ([facility]) hematocrit 38.6 % 36.0-47.0 Hematocrit HARRY ([facility]) hemoglobin 13.3 g/dL 12.0-15.5 Hemoglobin HARRY ([facility]) mean corpuscular volume 88.7 fL 80.0-96.0 Mean Corpusc ular Volume HARRY ([facility]) mean corpuscular hemoglobin 30.6 pg 27.0-33.0 Mean Cor puscular Hemoglobin HARRY ([facility]) mean corpuscular HGB conc 34.5 g/dL 32.0-36.5 Mean Corpu scular HGB Conc HARRY ([facility]) red cell distribution width 13.8 % 11.5-14.5 Red Cell Distribution Width HARRY ([facility]) platelet count, automated 266 10 150-450 Platelet C ount, Automated HARRY ([facility]) neutrophils % 74.0 % 36.0-66.0 Above high normal Neutrophils % A THENA ([facility]) lymph % 17.5 % 24.0-44.0 Below low normal Lymph % HARRY ( [facility]) mono % 7.4 % 2.0-8.0 [place] % HARRY ([facility]) eos % 0.4 % 0.0-3.0 Eos % HARRY ([facility]) baso % 0.2 % 0.0-1.0 Baso % HARRY ([facility]) immature granulocyte % 0.5 % 0-3.0 Immature Gran ulocyte % HARRY ([facility]) nucleated red blood cell % 0.0 % 0-0 Nucleated Red Blood Cell % HARRY ([facility]) neutrophils # 9.0 10 1.5-8.5 Above high normal Neutrophils # A THENA ([facility]) lymph # 2.1 10 1.5-5.0 Lymph # HARRY ([facility]) mono # 0.9 10 0.0-0.8 Above high normal [place] # HARRY ([facility]) eos # 0.1 10 0.0-0.5 Eos # HARRY ([facility]) baso # 0.0 10 0.0-0.2 Baso # HARRY ([facility]) ID Date Data Source [id number] 05/04/2021 08:36:00 AM EDT [facility]) Name Value Range Interpretation Code Description Data Michelle rce(s) Supporting Document(s) C reactive protein quantitativ 0.30 mg/dL 0.00-0.30 C Reactive Protein Quantitativ [facility]) ID Date Data Source [id number] 05/04/2021 08:36:00 AM EDT [facility]) Name Value Range Interpretation Code Description Data Michelle rce(s) Supporting Document(s) total 25(oh) vitamin D 32.6 NG/mL 30.0-100.0 Total 25(Oh) Vitamin D [facility]) ID Date Data Source [id number] 05/04/2021 08:36:00 AM EDT [facility]) Name Value Range Interpretation Code Description Data Michelle rce(s) Supporting Document(s) bilirubin,direct 0.1 mg/dL 0.0-0.2 Bilirubin,direct AT [facility]) ID Date Data Source [id number] 05/04/2021 08:36:00 AM EDT [facility]) Name Value Range Interpretation Code Description Data Michelle rce(s) Supporting Document(s) glucose, fasting 91 mg/dL 70-100 Glucose, Fasting AT [facility] ([facility]) blood urea nitrogen 15 mg/dL 7-18 Blood Urea Nitro gen HARRY ([facility]) creatinine for GFR 0.69 mg/dL 0.55-1.30 Creatinine for GF R HARRY ([facility]) glomerular filtration rate > 60.0 >51 Glomerula r Filtration Rate HARRY ([facility]) sodium level 141 mEq/L 136-145 Sodium Level HARRY (No [facility]) potassium serum 2.9 mEq/L 3.5-5.1 Below low normal Potassium Seru m HARRY ([facility]) carbon dioxide level 28 mEq/L 21-32 Carbon Dioxide Level HARRY ([facility]) anion gap 9 mEq/L 8-16 Anion Gap HARRY ([facility]) chloride level 104 mEq/L 98-107 Chloride Level HARRY ([facility]) AST/SGOT 44 U/L 7-37 Above high normal AST/SGOT HARRY ([facility]) calcium level 10.0 mg/dL 8.5-10.1 Calcium Level HARRY ( [facility]) ALT/SGPT 64 U/L 12-78 ALT/SGPT HARRY ([facility]) alkaline phosphatase 55 U/L 45-117 Alkaline Phosph atase HARRY ([facility]) bilirubin,total 0.5 mg/dL 0.2-1.0 Bilirubin,total ATHE NA ([facility]) total protein 7.4 gm/dL 6.4-8.2 Total Protein HARRY ( [facility]) albumin 4.4 gm/dL 3.2-5.2 Albumin HARRY ([facility]) albumin/globulin ratio 1.2-2.2 Albumin/globu gisella Ratio HARRY ([facility]) ID Date Data Source [id number] 05/04/2021 08:36:00 AM EDT HARRY ([facility]) Name Value Range Interpretation Code Description Data Michelle rce(s) Supporting Document(s) erythrocyte sedimentation rate 8 mm/HR 0-30 Eryth rocyte Sedimentation Rate HARRY ([facility]) ID Date Data Source [id number] 05/04/2021 08:36:00 AM EDT HARRY ([facility]) Name Value Range Interpretation Code Description Data Michelle rce(s) Supporting Document(s) white blood count 12.2 10 4.0-10.0 Above high normal White Blood Count HARRY ([facility]) red blood count 4.35 10 4.00-5.40 Red Blood Count ATHE ([facility]) hemoglobin 13.3 g/dL 12.0-15.5 Hemoglobin HARRY ([facility]) hematocrit 38.6 % 36.0-47.0 Hematocrit HARRY ([facility]) mean corpuscular volume 88.7 fL 80.0-96.0 Mean Corpusc ular Volume HARRY ([facility]) mean corpuscular hemoglobin 30.6 pg 27.0-33.0 Mean Cor puscular Hemoglobin HARRY ([facility]) mean corpuscular HGB conc 34.5 g/dL 32.0-36.5 Mean Corpu scular HGB Conc HARRY ([facility]) red cell distribution width 13.8 % 11.5-14.5 Red Cell Distribution Width HARRY ([facility]) platelet count, automated 266 10 150-450 Platelet C ount, Automated HARRY ([facility]) lymph % 17.5 % 24.0-44.0 Below low normal Lymph % HARRY ( [facility]) neutrophils % 74.0 % 36.0-66.0 Above high normal Neutrophils % A THENA ([facility]) eos % 0.4 % 0.0-3.0 Eos % HARRY ([facility]) mono % 7.4 % 2.0-8.0 [place] % HARRY ([facility]) baso % 0.2 % 0.0-1.0 Baso % HARRY ([facility]) immature granulocyte % 0.5 % 0-3.0 Immature Gran ulocyte % HARRY ([facility]) nucleated red blood cell % 0.0 % 0-0 Nucleated Red Blood Cell % HARRY ([facility]) neutrophils # 9.0 10 1.5-8.5 Above high normal Neutrophils # A THENA ([facility]) lymph # 2.1 10 1.5-5.0 Lymph # HARRY ([facility]) mono # 0.9 10 0.0-0.8 Above high normal [place] # HARRY ([facility]) eos # 0.1 10 0.0-0.5 Eos # HARRY ([facility]) baso # 0.0 10 0.0-0.2 Baso # HARRY ([facility]) ID Date Data Source [id number] 05/04/2021 08:36:00 AM EDT [facility]) Name Value Range Interpretation Code Description Data Michelle rce(s) Supporting Document(s) C reactive protein quantitativ 0.30 mg/dL 0.00-0.30 C Reactive Protein Quantitativ ABILENE ([facility]) ID Date Data Source [id number] 05/04/2021 08:36:00 AM EDT [facility]) Name Value Range Interpretation Code Description Data Michelle rce(s) Supporting Document(s) total 25(oh) vitamin D 32.6 NG/mL 30.0-100.0 Total 25(Oh) Vitamin D [facility]) ID Date Data Source [id number] 05/04/2021 08:36:00 AM EDT [facility]) Name Value Range Interpretation Code Description Data Michelle rce(s) Supporting Document(s) bilirubin,direct 0.1 mg/dL 0.0-0.2 Bilirubin,direct AT [facility]) ID Date Data Source [id number] 05/04/2021 08:36:00 AM EDT [facility]) Name Value Range Interpretation Code Description Data Michelle rce(s) Supporting Document(s) glucose, fasting 91 mg/dL 70-100 Glucose, Fasting AT [facility]) blood urea nitrogen 15 mg/dL 7-18 Blood Urea Nitro gen HARRY ([facility]) creatinine for GFR 0.69 mg/dL 0.55-1.30 Creatinine for GF R HARRY ([facility]) glomerular filtration rate > 60.0 >51 Glomerula r Filtration Rate HARRY ([facility]) sodium level 141 mEq/L 136-145 Sodium Level [facility] potassium serum 2.9 mEq/L 3.5-5.1 Below low normal Potassium Seru m HARRY ([facility]) chloride level 104 mEq/L 98-107 Chloride Level ABILENE ([facility]) carbon dioxide level 28 mEq/L 21-32 Carbon Dioxide Level ABILENE ([facility]) anion gap 9 mEq/L 8-16 Anion Gap HARRY ([facility]) AST/SGOT 44 U/L 7-37 Above high normal AST/SGOT ABILENE ([facility]) calcium level 10.0 mg/dL 8.5-10.1 Calcium Level HARRY ( [facility]) ALT/SGPT 64 U/L 12-78 ALT/SGPT HARRY ([facility]) alkaline phosphatase 55 U/L 45-117 Alkaline Phosph atase HARRY ([facility]) total protein 7.4 gm/dL 6.4-8.2 Total Protein HARRY ( [facility]) bilirubin,total 0.5 mg/dL 0.2-1.0 Bilirubin,total ATHE ([facility]) albumin/globulin ratio 1.2-2.2 Albumin/globu gisella Ratio HARRY ([facility]) albumin 4.4 gm/dL 3.2-5.2 Albumin HARRY ([facility]) ID Date Data Source [id number] 05/04/2021 08:36:00 AM EDT HARRY ([facility]) Name Value Range Interpretation Code Description Data Michelle rce(s) Supporting Document(s) erythrocyte sedimentation rate 8 mm/HR 0-30 Eryth rocyte Sedimentation Rate HARRY ([facility]) ID Date Data Source [id number] 05/04/2021 08:36:00 AM EDT HARRY ([facility]) Name Value Range Interpretation Code Description Data Michelle rce(s) Supporting Document(s) white blood count 12.2 10 4.0-10.0 Above high normal White Blood Count HARRY ([facility]) red blood count 4.35 10 4.00-5.40 Red Blood Count ATHE NA ([facility]) hemoglobin 13.3 g/dL 12.0-15.5 Hemoglobin HARRY ([facility]) hematocrit 38.6 % 36.0-47.0 Hematocrit HARRY ([facility]) mean corpuscular volume 88.7 fL 80.0-96.0 Mean Corpusc ular Volume HARRY ([facility]) mean corpuscular hemoglobin 30.6 pg 27.0-33.0 Mean Cor puscular Hemoglobin HARRY ([facility]) mean corpuscular HGB conc 34.5 g/dL 32.0-36.5 Mean Corpu scular HGB Conc HARRY ([facility]) red cell distribution width 13.8 % 11.5-14.5 Red Cell Distribution Width HARRY ([facility]) platelet count, automated 266 10 150-450 Platelet C ount, Automated HARRY ([facility]) neutrophils % 74.0 % 36.0-66.0 Above high normal Neutrophils % A THENA ([facility]) lymph % 17.5 % 24.0-44.0 Below low normal Lymph % HARRY ( [facility]) mono % 7.4 % 2.0-8.0 [place] % HARRY ([facility]) eos % 0.4 % 0.0-3.0 Eos % HARRY ([facility]) baso % 0.2 % 0.0-1.0 Baso % HARRY ([facility]) immature granulocyte % 0.5 % 0-3.0 Immature Gran ulocyte % HARRY ([facility]) nucleated red blood cell % 0.0 % 0-0 Nucleated Red Blood Cell % HARRY ([facility]) neutrophils # 9.0 10 1.5-8.5 Above high normal Neutrophils # A THENA ([facility]) lymph # 2.1 10 1.5-5.0 Lymph # HARRY ([facility]) eos # 0.1 10 0.0-0.5 Eos # HARRY ([facility]) baso # 0.0 10 0.0-0.2 Baso # HARRY ([facility]) mono # 0.9 10 0.0-0.8 Above high normal [place] # HARRY ([facility]) ID Date Data Source [id number] 05/04/2021 08:36:00 AM EDT [facility]) Name Value Range Interpretation Code Description Data Michelle rce(s) Supporting Document(s) C reactive protein quantitativ 0.30 mg/dL 0.00-0.30 C Reactive Protein Quantitativ ABILENE ([facility]) ID Date Data Source [id number] 05/04/2021 08:36:00 AM EDT [facility]) Name Value Range Interpretation Code Description Data Michelle rce(s) Supporting Document(s) total 25(oh) vitamin D 32.6 NG/mL 30.0-100.0 Total 25(Oh) Vitamin D ABILENE ([facility]) ID Date Data Source [id number] 05/04/2021 08:36:00 AM EDT ABILENE ([facility]) Name Value Range Interpretation Code Description Data Michelle rce(s) Supporting Document(s) bilirubin,direct 0.1 mg/dL 0.0-0.2 Bilirubin,direct AT [facility]) ID Date Data Source [id number] 05/04/2021 08:36:00 AM EDT [facility]) Name Value Range Interpretation Code Description Data Michelle rce(s) Supporting Document(s) glucose, fasting 91 mg/dL 70-100 [facility] blood urea nitrogen 15 mg/dL 7-18 Blood Urea Nitro gen HARRY ([facility]) creatinine for GFR 0.69 mg/dL 0.55-1.30 Creatinine for GF R HARRY ([facility]) sodium level 141 mEq/L 136-145 Sodium Level ABILENE (No [facility]) glomerular filtration rate > 60.0 >51 Glomerula r Filtration Rate HARRY ([facility]) chloride level 104 mEq/L 98-107 Chloride Level ABILENE ([facility]) potassium serum 2.9 mEq/L 3.5-5.1 Below low normal Potassium Seru m ABILENE ([facility]) carbon dioxide level 28 mEq/L 21-32 Carbon Dioxide Level ABILENE ([facility]) anion gap 9 mEq/L 8-16 Anion Gap ABILENE ([facility]) calcium level 10.0 mg/dL 8.5-10.1 Calcium Level ABILENE ( [facility]) AST/SGOT 44 U/L 7-37 Above high normal AST/SGOT ABILENE ([facility]) ALT/SGPT 64 U/L 12-78 ALT/SGPT ABILENE ([facility]) alkaline phosphatase 55 U/L 45-117 Alkaline Phosph atase HARRY ([facility]) bilirubin,total 0.5 mg/dL 0.2-1.0 Bilirubin,total ATHE ([facility]) total protein 7.4 gm/dL 6.4-8.2 Total Protein HARRY ( [facility]) albumin 4.4 gm/dL 3.2-5.2 Albumin HARRY ([facility]) albumin/globulin ratio 1.2-2.2 Albumin/globu gisella Ratio ABILENE ([facility]) ID Date Data Source [id number] 05/04/2021 08:36:00 AM EDT [facility]) Name Value Range Interpretation Code Description Data Michelle rce(s) Supporting Document(s) erythrocyte sedimentation rate 8 mm/HR 0-30 Eryth rocyte Sedimentation Rate HARRY ([facility]) ID Date Data Source [id number] 05/04/2021 08:36:00 AM EDT HARRY ([facility]) Name Value Range Interpretation Code Description Data Michelle rce(s) Supporting Document(s) white blood count 12.2 10 4.0-10.0 Above high normal White Blood Count HARRY ([facility]) hemoglobin 13.3 g/dL 12.0-15.5 Hemoglobin HARRY ([facility]) red blood count 4.35 10 4.00-5.40 Red Blood Count ATHE ([facility]) mean corpuscular volume 88.7 fL 80.0-96.0 Mean Corpusc ular Volume HARRY ([facility]) hematocrit 38.6 % 36.0-47.0 Hematocrit HARRY ([facility]) mean corpuscular hemoglobin 30.6 pg 27.0-33.0 Mean Cor puscular Hemoglobin HARRY ([facility]) mean corpuscular HGB conc 34.5 g/dL 32.0-36.5 Mean Corpu scular HGB Conc HARRY ([facility]) red cell distribution width 13.8 % 11.5-14.5 Red Cell Distribution Width HARRY ([facility]) platelet count, automated 266 10 150-450 Platelet C ount, Automated HARRY ([facility]) neutrophils % 74.0 % 36.0-66.0 Above high normal Neutrophils % A THENA ([facility]) lymph % 17.5 % 24.0-44.0 Below low normal Lymph % HARRY ( [facility]) mono % 7.4 % 2.0-8.0 [place] % HARRY ([facility]) eos % 0.4 % 0.0-3.0 Eos % HARRY ([facility]) baso % 0.2 % 0.0-1.0 Baso % HARRY ([facility]) nucleated red blood cell % 0.0 % 0-0 Nucleated Red Blood Cell % HARRY ([facility]) immature granulocyte % 0.5 % 0-3.0 Immature Gran ulocyte % HARRY ([facility]) lymph # 2.1 10 1.5-5.0 Lymph # HARRY ([facility]) neutrophils # 9.0 10 1.5-8.5 Above high normal Neutrophils # A THENDara ([facility]) eos # 0.1 10 0.0-0.5 Eos # HARRY ([facility]) mono # 0.9 10 0.0-0.8 Above high normal [place] # HARRY ([facility]) baso # 0.0 10 0.0-0.2 Baso # HARRY ([facility]) ID Date Data Source [id number] 05/04/2021 08:36:00 AM EDT [facility]) Name Value Range Interpretation Code Description Data Michelle rce(s) Supporting Document(s) C reactive protein quantitativ 0.30 mg/dL 0.00-0.30 C Reactive Protein Quantitativ [facility]) ID Date Data Source [id number] 05/04/2021 08:36:00 AM EDT [facility]) Name Value Range Interpretation Code Description Data Michelle rce(s) Supporting Document(s) total 25(oh) vitamin D 32.6 NG/mL 30.0-100.0 Total 25(Oh) Vitamin D [facility]) ID Date Data Source [id number] 05/04/2021 08:36:00 AM EDT [facility]) Name Value Range Interpretation Code Description Data Michelle rce(s) Supporting Document(s) bilirubin,direct 0.1 mg/dL 0.0-0.2 Bilirubin,direct AT [facility]) ID Date Data Source [id number] 05/04/2021 08:36:00 AM EDT [facility]) Name Value Range Interpretation Code Description Data Michelle rce(s) Supporting Document(s) glucose, fasting 91 mg/dL 70-100 Glucose, Fasting AT JO ([facility]) blood urea nitrogen 15 mg/dL 7-18 Blood Urea Nitro gen HARRY ([facility]) creatinine for GFR 0.69 mg/dL 0.55-1.30 Creatinine for GF R HARRY ([facility]) glomerular filtration rate > 60.0 >51 Glomerula r Filtration Rate HARRY ([facility]) sodium level 141 mEq/L 136-145 Sodium Level HARRY ([facility]) potassium serum 2.9 mEq/L 3.5-5.1 Below low normal Potassium Seru m ABILENE ([facility]) chloride level 104 mEq/L 98-107 Chloride Level ABILENE ([facility]) calcium level 10.0 mg/dL 8.5-10.1 Calcium Level ABILENE ( [facility]) anion gap 9 mEq/L 8-16 Anion Gap HARRY ([facility]) carbon dioxide level 28 mEq/L 21-32 Carbon Dioxide Level HARRY ([facility]) AST/SGOT 44 U/L 7-37 Above high normal AST/SGOT HARRY ([facility]) bilirubin,total 0.5 mg/dL 0.2-1.0 Bilirubin,total ATHE ([facility]) alkaline phosphatase 55 U/L 45-117 Alkaline Phosph atase HARRY ([facility]) ALT/SGPT 64 U/L 12-78 ALT/SGPT HARRY ([facility]) total protein 7.4 gm/dL 6.4-8.2 Total Protein HARRY ( [facility]) albumin 4.4 gm/dL 3.2-5.2 Albumin HARRY ([facility]) albumin/globulin ratio 1.2-2.2 Albumin/globu gisella Ratio ABILENE ([facility]) ID Date Data Source [id number] 05/04/2021 08:36:00 AM EDT ABILENE ([facility]) Name Value Range Interpretation Code Description Data Michelle rce(s) Supporting Document(s) erythrocyte sedimentation rate 8 mm/HR 0-30 Eryth rocyte Sedimentation Rate HARRY ([facility]) ID Date Data Source [id number] 05/04/2021 08:36:00 AM EDT HARRY ([facility]) Name Value Range Interpretation Code Description Data Michelle rce(s) Supporting Document(s) white blood count 12.2 10 4.0-10.0 Above high normal White Blood Count HARRY ([facility]) red blood count 4.35 10 4.00-5.40 Red Blood Count ATHE ([facility]) hematocrit 38.6 % 36.0-47.0 Hematocrit HARRY ([facility]) hemoglobin 13.3 g/dL 12.0-15.5 Hemoglobin HARRY ([facility]) mean corpuscular hemoglobin 30.6 pg 27.0-33.0 Mean Cor puscular Hemoglobin HARRY ([facility]) mean corpuscular volume 88.7 fL 80.0-96.0 Mean Corpusc ular Volume HARRY ([facility]) mean corpuscular HGB conc 34.5 g/dL 32.0-36.5 Mean Corpu scular HGB Conc HARRY ([facility]) platelet count, automated 266 10 150-450 Platelet C ount, Automated HARRY ([facility]) red cell distribution width 13.8 % 11.5-14.5 Red Cell Distribution Width HARRY ([facility]) lymph % 17.5 % 24.0-44.0 Below low normal Lymph % HARRY ( [facility]) neutrophils % 74.0 % 36.0-66.0 Above high normal Neutrophils % A THENA ([facility]) mono % 7.4 % 2.0-8.0 [place] % HARRY ([facility]) eos % 0.4 % 0.0-3.0 Eos % HARRY ([facility]) baso % 0.2 % 0.0-1.0 Baso % HARRY ([facility]) immature granulocyte % 0.5 % 0-3.0 Immature Gran ulocyte % HARRY ([facility]) lymph # 2.1 10 1.5-5.0 Lymph # HARRY ([facility]) nucleated red blood cell % 0.0 % 0-0 Nucleated Red Blood Cell % HARRY ([facility]) neutrophils # 9.0 10 1.5-8.5 Above high normal Neutrophils # A THENA ([facility]) eos # 0.1 10 0.0-0.5 Eos # HARRY ([facility]) mono # 0.9 10 0.0-0.8 Above high normal [place] # HARRY ([facility]) baso # 0.0 10 0.0-0.2 Baso # HARRY ([facility]) ID Date Data Source [id number] 05/04/2021 08:36:00 AM EDT [facility]) Name Value Range Interpretation Code Description Data Michelle rce(s) Supporting Document(s) C reactive protein quantitativ 0.30 mg/dL 0.00-0.30 C Reactive Protein Quantitativ ABILENE ([facility]) ID Date Data Source [id number] 05/04/2021 08:36:00 AM EDT [facility]) Name Value Range Interpretation Code Description Data Michelle rce(s) Supporting Document(s) total 25(oh) vitamin D 32.6 NG/mL 30.0-100.0 Total 25(Oh) Vitamin D [facility]) ID Date Data Source [id number] 05/04/2021 08:36:00 AM EDT [facility]) Name Value Range Interpretation Code Description Data Michelle rce(s) Supporting Document(s) bilirubin,direct 0.1 mg/dL 0.0-0.2 Bilirubin,direct AT JO [facility]) ID Date Data Source [id number] 05/04/2021 08:36:00 AM EDT HARRY ([facility]) Name Value Range Interpretation Code Description Data Michelle rce(s) Supporting Document(s) blood urea nitrogen 15 mg/dL 7-18 Blood Urea Nitro gen HARRY ([facility]) glucose, fasting 91 mg/dL 70-100 Glucose, Fasting AT JO ([facility]) glomerular filtration rate > 60.0 >51 Glomerula r Filtration Rate HARRY ([facility]) creatinine for GFR 0.69 mg/dL 0.55-1.30 Creatinine for GF R HARRY ([facility]) sodium level 141 mEq/L 136-145 Sodium Level HARRY ([facility]) potassium serum 2.9 mEq/L 3.5-5.1 Below low normal Potassium Seru m HARRY ([facility]) chloride level 104 mEq/L 98-107 Chloride Level ABILENE ([facility]) carbon dioxide level 28 mEq/L 21-32 Carbon Dioxide Level HARRY ([facility]) anion gap 9 mEq/L 8-16 Anion Gap HARRY ([facility]) calcium level 10.0 mg/dL 8.5-10.1 Calcium Level HARRY ( [facility]) AST/SGOT 44 U/L 7-37 Above high normal AST/SGOT HARRY ([facility]) ALT/SGPT 64 U/L 12-78 ALT/SGPT ABILENE ([facility]) bilirubin,total 0.5 mg/dL 0.2-1.0 Bilirubin,total ATHE NA ([facility]) alkaline phosphatase 55 U/L 45-117 Alkaline Phosph atase HARRY ([facility]) total protein 7.4 gm/dL 6.4-8.2 Total Protein HARRY ( [facility]) albumin 4.4 gm/dL 3.2-5.2 Albumin HARRY ([facility]) albumin/globulin ratio 1.2-2.2 Albumin/globu gisella Ratio HARRY ([facility]) ID Date Data Source [id number] 05/04/2021 08:36:00 AM EDT HARRY ([facility]) Name Value Range Interpretation Code Description Data Michelle rce(s) Supporting Document(s) erythrocyte sedimentation rate 8 mm/HR 0-30 Eryth rocyte Sedimentation Rate HARRY ([facility]) ID Date Data Source [id number] 05/04/2021 08:36:00 AM EDT HARRY ([facility]) Name Value Range Interpretation Code Description Data Michelle rce(s) Supporting Document(s) white blood count 12.2 10 4.0-10.0 Above high normal White Blood Count HARRY ([facility]) red blood count 4.35 10 4.00-5.40 Red Blood Count ATHE ([facility]) hemoglobin 13.3 g/dL 12.0-15.5 Hemoglobin HARRY ([facility]) hematocrit 38.6 % 36.0-47.0 Hematocrit HARRY ([facility]) mean corpuscular hemoglobin 30.6 pg 27.0-33.0 Mean Cor puscular Hemoglobin HARRY ([facility]) mean corpuscular volume 88.7 fL 80.0-96.0 Mean Corpusc ular Volume HARRY ([facility]) red cell distribution width 13.8 % 11.5-14.5 Red Cell Distribution Width HARRY ([facility]) mean corpuscular HGB conc 34.5 g/dL 32.0-36.5 Mean Corpu scular HGB Conc HARRY ([facility]) platelet count, automated 266 10 150-450 Platelet C ount, Automated HARRY ([facility]) neutrophils % 74.0 % 36.0-66.0 Above high normal Neutrophils % A THENA ([facility]) mono % 7.4 % 2.0-8.0 [place] % HARRY ([facility]) lymph % 17.5 % 24.0-44.0 Below low normal Lymph % HARRY ( [facility]) eos % 0.4 % 0.0-3.0 Eos % HARRY ([facility]) baso % 0.2 % 0.0-1.0 Baso % HARRY ([facility]) nucleated red blood cell % 0.0 % 0-0 Nucleated Red Blood Cell % HARRY ([facility]) immature granulocyte % 0.5 % 0-3.0 Immature Gran ulocyte % HARRY ([facility]) neutrophils # 9.0 10 1.5-8.5 Above high normal Neutrophils # A THENA ([facility]) lymph # 2.1 10 1.5-5.0 Lymph # HARRY ([facility]) mono # 0.9 10 0.0-0.8 Above high normal [place] # HARRY ([facility]) eos # 0.1 10 0.0-0.5 Eos # HARRY ([facility]) baso # 0.0 10 0.0-0.2 Baso # HARRY ([facility]) ID Date Data Source [id number] 04/13/2021 12:00:00 AM EDT [facility] Name Value Range Interpretation Code Description Data Michelle rce(s) Supporting Document(s) SARS-CoV2 Rapid Antigen Negative [facility] This lab was ordered by [facility] and reported by [facility]. ID Date Data Source [id number] 04/08/2021 12:00:00 AM EDT [facility] Name Value Range Interpretation Code Description Data Michelle rce(s) Supporting Document(s) SARS coronavirus 2 Ag NEGATIVE [facility] This lab was ordered [facility] and reported by [facility]. ID Date Data Source [id number]/05/2021 12:00:00 AM EDT [facility] Name Value Range Interpretation Code Description Data Michelle rce(s) Supporting Document(s) SARS coronavirus 2 Ag NEGATIVE [facility] This lab was ordered by [facility] and reported by [facility]. ID Date Data Source [id number]/31/2021 12:00:00 AM EDT [facility] Name Value Range Interpretation Code Description Data Michelle rce(s) Supporting Document(s) SARS coronavirus 2 Ag NEGATIVE [facility] This lab was ordered by [facility] and reported by [facility]. ID Date Data Source [id number]/28/2021 12:00:00 AM EDT [facility] Name Value Range Interpretation Code Description Data Michelle rce(s) Supporting Document(s) SARS coronavirus 2 Ag NEGATIVE [facility] This lab was ordered by [facility] [place] and reported by [facility]. ID Date Data Source [id number]/27/2021 12:00:00 AM EDT [facility] Name Value Range Interpretation Code Description Data Michelle rce(s) Supporting Document(s) SARS coronavirus 2 Ag NEGATIVE [facility] This lab was ordered by [facility] and reported by [facility]. ID Date Data Source [id number] ACID 03/24/2021 12:00:00 AM EDT eCW1 ([facility]) Name Value Range Interpretation Code Description Data Michelle rce(s) Supporting Document(s) 7.6 2.6-6.0 URIC ACID eCW1 ([facility]) ID Date Data Source ERYTHROCYTE SEDIMENTATION RATE 03/24/2021 12:00:00 AM EDT eC W1 ([facility]) Name Value Range Interpretation Code Description Data Michelle rce(s) Supporting Document(s) 8 0-30 ERYTHROCYTE SEDIMENTATION RATE eCW1 ([facility]) ID Date Data Source C REACTIVE PROTEIN QUANTITATIV (At [facility]) 03/24/2021 12:00 :00 AM EDT eCW1 ([facility]) Name Value Range Interpretation Code Description Data Michelle rce(s) Supporting Document(s) 0.30 0.00-0.30 C REACTIVE PROTEIN QUANTI TATIV eCW1 ([facility]) ID Date Data Source Comprehensive Metabolic Profile (CMP) 03/24/2021 12:00:00 AM EDT eCW1 ([facility]) Name Value Range Interpretation Code Description Data Michelle rce(s) Supporting Document(s) 106 70-100 GLUCOSE, FASTING eCW1 ([facility]) 16 7-18 BLOOD UREA NITROGEN eCW1 ([facility]) > 60.0 >51 GLOMERULAR FILTRATION RATE eCW 1 ([facility]) 0.66 0.55-1.30 CREATININE FOR GFR eCW1 ([facility]) 137 136-145 SODIUM LEVEL eCW1 ([facility]) 3.1 3.5-5.1 POTASSIUM SERUM eCW1 ([facility]) 27 21-32 CARBON DIOXIDE LEVEL eCW1 ([facility]) 101 98-107 CHLORIDE LEVEL eCW1 ([facility]) 8.8 8.5-10.1 CALCIUM LEVEL eCW1 ([facility]) 45 7-37 AST/SGOT eCW1 ([facility]) 68 45-117 ALKALINE PHOSPHATASE eCW1 ([facility]) 0.9 0.2-1.0 BILIRUBIN,TOTAL eCW1 ([facility]) 56 12-78 ALT/SGPT eCW1 ([facility]) 1.4 1.2-2.2 ALBUMIN/GLOBULIN RATIO eCW1 ([facility]) 4.5 3.2-5.2 ALBUMIN eCW1 ([facility]) 7.8 6.4-8.2 TOTAL PROTEIN eCW1 ([facility]) ID Date Data Source CBC with Differential 03/24/2021 12:00:00 AM EDT eCW1 ([facility]) Name Value Range Interpretation Code Description Data Michelle rce(s) Supporting Document(s) 6.7 4.0-10.0 WHITE BLOOD COUNT eCW1 ([facility]) 13.7 12.0-15.5 HEMOGLOBIN eCW1 ([facility]) 4.46 4.00-5.40 RED BLOOD COUNT eCW1 ([facility]) 39.3 36.0-47.0 HEMATOCRIT eCW1 ([facility]) 88.1 80.0-96.0 MEAN CORPUSCULAR VOLUME e CW1 ([facility]) 30.7 27.0-33.0 MEAN CORPUSCULAR HEMOGLOB IN eCW1 ([facility]) 34.9 32.0-36.5 MEAN CORPUSCULAR HGB CONC eCW1 ([facility]) 14.0 11.5-14.5 RED CELL DISTRIBUTION WID TH eCW1 ([facility]) 66.7 36.0-66.0 NEUTROPHILS % eCW1 ([facility]) 239 150-450 PLATELET COUNT, AUTOMATED eCW1 ([facility]) 23.4 24.0-44.0 LYMPH % eCW1 ([facility]) 8.2 2.0-8.0 MONO % eCW1 ([facility]) 1.2 0.0-3.0 EOS % eCW1 ([facility]) 0.4 0.0-1.0 BASO % eCW1 ([facility]) 4.4 1.5-8.5 NEUTROPHILS # eCW1 ([facility]) 0.6 0.0-0.8 MONO # eCW1 ([facility]) 1.6 1.5-5.0 LYMPH # eCW1 ([facility]) 0.1 0.0-0.5 EOS # eCW1 ([facility]) 0.0 0.0-0.2 BASO # eCW1 ([facility]) ID Date Data Source 03/17/2021 12:00:00 AM EDT [facility] Name Value Range Interpretation Code Description Data Michelle rce(s) Supporting Document(s) SARS coronavirus 2 Ag NEGATIVE [facility] This lab was ordered by [facility] and reported by [facility]. ID Date Data Source 03/16/2021 12:00:00 AM EDT [facility] Name Value Range Interpretation Code Description Data Michelle rce(s) Supporting Document(s) SARS coronavirus 2 Ag NEGATIVE [facility] This lab was ordered by [facility] and reported by [facility]. ID Date Data Source [id number] 03/10/2021 12:00:00 AM EDT [facility] Name Value Range Interpretation Code Description Data Michelle rce(s) Supporting Document(s) SARS coronavirus 2 Ag NEGATIVE [facility] This lab was ordered by [facility] and reported by [facility]. ID Date Data Source [id number] 03/07/2021 12:00:00 AM EDT [facility] Name Value Range Interpretation Code Description Data Michelle rce(s) Supporting Document(s) SARS coronavirus 2 Ag NEGATIVE [facility] This lab was ordered by [facility] and reported by [facility]. ID Date Data Source [id number] 03/04/2021 12:00:00 AM EDT [facility] Name Value Range Interpretation Code Description Data Michelle rce(s) Supporting Document(s) SARS-CoV2 Rapid Antigen Negative [facility] This lab was ordered by [facility] and reported by [facility]. ID Date Data Source [id number] 02/28/2021 12:00:00 AM EDT [facility] Name Value Range Interpretation Code Description Data Michelle rce(s) Supporting Document(s) SARS coronavirus 2 Ag Negative [facility] This lab was ordered by [facility] and reported by [facility]. ID Date Data Source [id number] 02/24/2021 12:00:00 AM EDT [facility] Name Value Range Interpretation Code Description Data Michelle rce(s) Supporting Document(s) SARS coronavirus 2 Ag NEGATIVE [facility] This lab was ordered by [facility] and reported by [facility]. ID Date Data Source [id number] 02/21/2021 12:00:00 AM EDT [facility] Name Value Range Interpretation Code Description Data Michelle rce(s) Supporting Document(s) SARS coronavirus 2 Ag NEGATIVE [facility] This lab was ordered by [facility] and reported by [facility]. ID Date Data Source [id number] 02/03/2021 12:00:00 AM EDT [facility] Name Value Range Interpretation Code Description Data Michelle rce(s) Supporting Document(s) SARS coronavirus 2 Ag NEGATIVE [facility] This lab was ordered by [facility] and reported by [facility]. ID Date Data Source [id number] 01/31/2021 12:00:00 AM EDT [facility] Name Value Range Interpretation Code Description Data Michelle rce(s) Supporting Document(s) SARS coronavirus 2 Ag NEGATIVE [facility] This lab was ordered by [facility] and reported by [facility]. ID Date Data Source [id number] 01/27/2021 12:00:00 AM EDT [facility] Name Value Range Interpretation Code Description Data Michelle rce(s) Supporting Document(s) SARS coronavirus 2 Ag NEGATIVE [facility] This lab was ordered by [facility] and reported by [facility]. ID Date Data Source [id number] 01/24/2021 02:27:00 PM EDT [facility] Name Value Range Interpretation Code Description Data Michelle rce(s) Supporting Document(s) SARS coronavirus 2 RNA Not Detected [facility] This lab was ordered by [facility] and reported by [facility]. ID Date Data Source [id number] 01/17/2021 11:00:00 AM EDT [facility] Name Value Range Interpretation Code Description Data Michelle rce(s) Supporting Document(s) SARS coronavirus 2 RNA Not Detected [facility] [place] This lab was ordered by [facility] and reported by [facility]. ID Date Data Source [id number] 01/13/2021 12:00:00 AM EST [facility] Name Value Range Interpretation Code Description Data Michelle rce(s) Supporting Document(s) SARS coronavirus 2 Ag NEGATIVE [facility] This lab was ordered by [facility] and reported by [facility]. ID Date Data Source [id number] 01/10/2021 03:00:00 PM EST [facility] Name Value Range Interpretation Code Description Data Michelle rce(s) Supporting Document(s) SARS coronavirus 2 RNA Not Detected [facility] [place] This lab was ordered by [facility] and reported by [facility]. ID Date Data Source [id number] 01/07/2021 10:05:00 AM EST HARRY ([facility]) Name Value Range Interpretation Code Description Data Michelle rce(s) Supporting Document(s) erythrocyte sedimentation rate 32 mm/HR 0-30 Above high normal Erythrocyte Sedimentation Rate HARRY ([facility]) ID Date Data Source [id number] 01/07/2021 10:05:00 AM EST HARRY ([facility]) Name Value Range Interpretation Code Description Data Michelle rce(s) Supporting Document(s) white blood count 8.6 10 4.0-10.0 White Blood Count HARRY ([facility]) red blood count 4.29 10 4.00-5.40 Red Blood Count ATHE NA ([facility]) hemoglobin 13.1 g/dL 12.0-15.5 Hemoglobin HARRY ([facility]) hematocrit 39.4 % 36.0-47.0 Hematocrit HARRY ([facility]) mean corpuscular volume 91.8 fL 80.0-96.0 Mean Corpusc ular Volume HARRY ([facility]) mean corpuscular hemoglobin 30.5 pg 27.0-33.0 Mean Cor puscular Hemoglobin HARRY ([facility]) red cell distribution width 13.0 % 11.5-14.5 Red Cell Distribution Width HARRY ([facility]) platelet count, automated 206 10 150-450 Platelet C ount, Automated HARRY ([facility]) mean corpuscular HGB conc 33.2 g/dL 32.0-36.5 Mean Corpu scular HGB Conc HARRY ([facility]) mono % 6.7 % 2.0-8.0 [place] % HARRY ([facility]) lymph % 14.9 % 24.0-44.0 Below low normal Lymph % HARRY ( [facility]) neutrophils % 76.4 % 36.0-66.0 Above high normal Neutrophils % A THENA ([facility]) immature granulocyte % 0.3 % 0-3.0 Immature Gran ulocyte % HARRY ([facility]) baso % 0.5 % 0.0-1.0 Baso % HARRY ([facility]) eos % 1.2 % 0.0-3.0 Eos % HARRY ([facility]) lymph # 1.3 10 1.5-5.0 Below low normal Lymph # HARRY ( [facility]) mono # 0.6 10 0.0-0.8 [place] # HARRY ([facility]) neutrophils # 6.6 10 1.5-8.5 Neutrophils # HARRY ( [facility]) nucleated red blood cell % 0.0 % 0-0 Nucleated Red Blood Cell % HARRY ([facility]) eos # 0.1 10 0.0-0.5 Eos # HARRY ([facility]) baso # 0.0 10 0.0-0.2 Baso # HARRY ([facility]) ID Date Data Source [id number] 01/07/2021 10:05:00 AM EST HARRY ([facility]) Name Value Range Interpretation Code Description Data Michelle rce(s) Supporting Document(s) C reactive protein quantitativ 0.75 mg/dL 0.00-0.30 Above high normal C Reactive Protein Quantitativ HARRY ([facility]) ID Date Data Source [id number] 01/07/2021 10:05:00 AM EST ABILENE ([facility]) Name Value Range Interpretation Code Description Data Michelle rce(s) Supporting Document(s) triglycerides level 183 mg/dL <150 Above high normal Triglycer ides Level HARRY ([facility]) cholesterol level 202 mg/dL <200 Above high normal Cholesterol Level HARRY ([facility]) HDL cholesterol 41 mg/dL >40 HDL Cholesterol ATHE NA ([facility]) Cholesterol in LDL [Mass/volume] in Serum or Plasma 124 mg/dL <100 Above high normal LDL Cholesterol HARRY ([facility]) non-HDL-C 161 mg/dL Non-hdl-c HARRY ([facility]) cholesterol risk ratio <5 Cholesterol R isk Ratio HARRY ([facility]) ID Date Data Source [id number] 01/07/2021 10:05:00 AM EST HARRY ([facility]) Name Value Range Interpretation Code Description Data Michelle rce(s) Supporting Document(s) Hemoglobin A1c/Hemoglobin.total in Blood 5.2 % Hemoglobin a1C HARRY ([facility]) estimated average glucose 103 mg/dL 60-110 Estimated Average Glucose HARRY ([facility]) ID Date Data Source [id number] 01/07/2021 10:05:00 AM EST HARRY ([facility]) Name Value Range Interpretation Code Description Data Michelle rce(s) Supporting Document(s) erythrocyte sedimentation rate 32 mm/HR 0-30 Above high normal Erythrocyte Sedimentation Rate HARRY ([facility]) ID Date Data Source [id number] 01/07/2021 10:05:00 AM EST HARRY ([facility]) Name Value Range Interpretation Code Description Data Michelle rce(s) Supporting Document(s) white blood count 8.6 10 4.0-10.0 White Blood Count HARRY ([facility]) red blood count 4.29 10 4.00-5.40 Red Blood Count ATHE ([facility]) mean corpuscular volume 91.8 fL 80.0-96.0 Mean Corpusc ular Volume HARRY ([facility]) hemoglobin 13.1 g/dL 12.0-15.5 Hemoglobin HARRY ([facility]) hematocrit 39.4 % 36.0-47.0 Hematocrit HARRY ([facility]) mean corpuscular HGB conc 33.2 g/dL 32.0-36.5 Mean Corpu scular HGB Conc HARRY ([facility]) mean corpuscular hemoglobin 30.5 pg 27.0-33.0 Mean Cor puscular Hemoglobin HARRY ([facility]) red cell distribution width 13.0 % 11.5-14.5 Red Cell Distribution Width HARRY ([facility]) platelet count, automated 206 10 150-450 Platelet C ount, Automated HARRY ([facility]) mono % 6.7 % 2.0-8.0 [place] % HARRY ([facility]) neutrophils % 76.4 % 36.0-66.0 Above high normal Neutrophils % A THENA ([facility]) lymph % 14.9 % 24.0-44.0 Below low normal Lymph % HARRY ( [facility]) baso % 0.5 % 0.0-1.0 Baso % HARRY ([facility]) immature granulocyte % 0.3 % 0-3.0 Immature Gran ulocyte % HARRY ([facility]) eos % 1.2 % 0.0-3.0 Eos % HARRY ([facility]) lymph # 1.3 10 1.5-5.0 Below low normal Lymph # HARRY ( [facility]) nucleated red blood cell % 0.0 % 0-0 Nucleated Red Blood Cell % HARRY ([facility]) neutrophils # 6.6 10 1.5-8.5 Neutrophils # HARRY ( [facility]) eos # 0.1 10 0.0-0.5 Eos # HARRY ([facility]) mono # 0.6 10 0.0-0.8 [place] # HARRY ([facility]) baso # 0.0 10 0.0-0.2 Baso # HARRY ([facility]) ID Date Data Source [id number] 01/07/2021 10:05:00 AM EST HARRY ([facility]) Name Value Range Interpretation Code Description Data Michelle rce(s) Supporting Document(s) C reactive protein quantitativ 0.75 mg/dL 0.00-0.30 Above high normal C Reactive Protein Quantitativ HARRY ([facility]) ID Date Data Source [id number] 01/07/2021 10:05:00 AM EST HARRY ([facility]) Name Value Range Interpretation Code Description Data Michelle rce(s) Supporting Document(s) cholesterol level 202 mg/dL <200 Above high normal Cholesterol Level HARRY ([facility]) triglycerides level 183 mg/dL <150 Above high normal Triglycer ides Level HARRY ([facility]) HDL cholesterol 41 mg/dL >40 HDL Cholesterol ATHE NA ([facility]) Cholesterol in LDL [Mass/volume] in Serum or Plasma 124 mg/dL <100 Above high normal LDL Cholesterol HARRY ([facility]) non-HDL-C 161 mg/dL Non-hdl-c HARRY ([facility]) cholesterol risk ratio <5 Cholesterol R isk Ratio HARRY ([facility]) ID Date Data Source [id number] 01/07/2021 10:05:00 AM EST HARRY ([facility]) Name Value Range Interpretation Code Description Data Michelle rce(s) Supporting Document(s) Hemoglobin A1c/Hemoglobin.total in Blood 5.2 % Hemoglobin a1C HARRY ([facility]) estimated average glucose 103 mg/dL 60-110 Estimated Average Glucose HARRY ([facility]) ID Date Data Source [id number] 01/07/2021 10:05:00 AM EST HARRY ([facility]) Name Value Range Interpretation Code Description Data Michelle rce(s) Supporting Document(s) erythrocyte sedimentation rate 32 mm/HR 0-30 Above high normal Erythrocyte Sedimentation Rate HARRY ([facility]) ID Date Data Source [id number] 01/07/2021 10:05:00 AM EST HARRY ([facility]) Name Value Range Interpretation Code Description Data Michelle rce(s) Supporting Document(s) white blood count 8.6 10 4.0-10.0 White Blood Count HARRY ([facility]) red blood count 4.29 10 4.00-5.40 Red Blood Count ATHE NA ([facility]) hematocrit 39.4 % 36.0-47.0 Hematocrit HARRY ([facility]) hemoglobin 13.1 g/dL 12.0-15.5 Hemoglobin HARRY ([facility]) mean corpuscular hemoglobin 30.5 pg 27.0-33.0 Mean Cor puscular Hemoglobin HARRY ([facility]) mean corpuscular volume 91.8 fL 80.0-96.0 Mean Corpusc ular Volume HARRY ([facility]) red cell distribution width 13.0 % 11.5-14.5 Red Cell Distribution Width HARRY ([facility]) platelet count, automated 206 10 150-450 Platelet C ount, Automated HARRY ([facility]) mean corpuscular HGB conc 33.2 g/dL 32.0-36.5 Mean Corpu scular HGB Conc HARRY ([facility]) neutrophils % 76.4 % 36.0-66.0 Above high normal Neutrophils % A THENA ([facility]) lymph % 14.9 % 24.0-44.0 Below low normal Lymph % HARRY ( [facility]) mono % 6.7 % 2.0-8.0 [place] % HARRY ([facility]) eos % 1.2 % 0.0-3.0 Eos % HARRY ([facility]) baso % 0.5 % 0.0-1.0 Baso % ABILENE ([facility]) immature granulocyte % 0.3 % 0-3.0 Immature Gran ulocyte % HARRY ([facility]) nucleated red blood cell % 0.0 % 0-0 Nucleated Red Blood Cell % HARRY ([facility]) neutrophils # 6.6 10 1.5-8.5 Neutrophils # HARRY ( [facility]) mono # 0.6 10 0.0-0.8 [place] # HARRY ([facility]) eos # 0.1 10 0.0-0.5 Eos # HARRY ([facility]) lymph # 1.3 10 1.5-5.0 Below low normal Lymph # HARRY ( [facility]) baso # 0.0 10 0.0-0.2 Baso # ABILENE ([facility]) ID Date Data Source [id number] 01/07/2021 10:05:00 AM EST HARRY ([facility]) Name Value Range Interpretation Code Description Data Michelle rce(s) Supporting Document(s) C reactive protein quantitativ 0.75 mg/dL 0.00-0.30 Above high normal C Reactive Protein Quantitativ HARRY ([facility]) ID Date Data Source [id number] 01/07/2021 10:05:00 AM EST HARRY ([facility]) Name Value Range Interpretation Code Description Data Michelle rce(s) Supporting Document(s) triglycerides level 183 mg/dL <150 Above high normal Triglycer ides Level HARRY ([facility]) cholesterol level 202 mg/dL <200 Above high normal Cholesterol Level HARRY ([facility]) Cholesterol in LDL [Mass/volume] in Serum or Plasma 124 mg/dL <100 Above high normal LDL Cholesterol HARRY ([facility]) HDL cholesterol 41 mg/dL >40 HDL Cholesterol ATHE NA ([facility]) non-HDL-C 161 mg/dL Non-hdl-c HARRY ([facility]) cholesterol risk ratio <5 Cholesterol R isk Ratio HARRY ([facility]) ID Date Data Source [id number] 01/07/2021 10:05:00 AM EST HARRY ([facility]) Name Value Range Interpretation Code Description Data Michelle rce(s) Supporting Document(s) Hemoglobin A1c/Hemoglobin.total in Blood 5.2 % Hemoglobin a1C HARRY ([facility]) estimated average glucose 103 mg/dL 60-110 Estimated Average Glucose HARRY ([facility]) ID Date Data Source [id number] 01/07/2021 10:05:00 AM EST HARRY ([facility]) Name Value Range Interpretation Code Description Data Michelle rce(s) Supporting Document(s) erythrocyte sedimentation rate 32 mm/HR 0-30 Above high normal Erythrocyte Sedimentation Rate HARRY ([facility]) ID Date Data Source [id number] 01/07/2021 10:05:00 AM EST HARRY ([facility]) Name Value Range Interpretation Code Description Data Michelle rce(s) Supporting Document(s) white blood count 8.6 10 4.0-10.0 White Blood Count HARRY ([facility]) red blood count 4.29 10 4.00-5.40 Red Blood Count ATHE NA ([facility]) hematocrit 39.4 % 36.0-47.0 Hematocrit HARRY ([facility]) hemoglobin 13.1 g/dL 12.0-15.5 Hemoglobin HARRY ([facility]) mean corpuscular volume 91.8 fL 80.0-96.0 Mean Corpusc ular Volume HARRY ([facility]) mean corpuscular HGB conc 33.2 g/dL 32.0-36.5 Mean Corpu scular HGB Conc HARRY ([facility]) mean corpuscular hemoglobin 30.5 pg 27.0-33.0 Mean Cor puscular Hemoglobin HARRY ([facility]) platelet count, automated 206 10 150-450 Platelet C ount, Automated HARRY ([facility]) red cell distribution width 13.0 % 11.5-14.5 Red Cell Distribution Width HARRY ([facility]) neutrophils % 76.4 % 36.0-66.0 Above high normal Neutrophils % A THENA ([facility]) lymph % 14.9 % 24.0-44.0 Below low normal Lymph % HARRY ( [facility]) mono % 6.7 % 2.0-8.0 [place] % HARRY ([facility]) baso % 0.5 % 0.0-1.0 Baso % HARRY ([facility]) eos % 1.2 % 0.0-3.0 Eos % HARRY ([facility]) immature granulocyte % 0.3 % 0-3.0 Immature Gran ulocyte % HARRY ([facility]) nucleated red blood cell % 0.0 % 0-0 Nucleated Red Blood Cell % HARRY ([facility]) lymph # 1.3 10 1.5-5.0 Below low normal Lymph # HARRY ( [facility]) mono # 0.6 10 0.0-0.8 [place] # HARRY ([facility]) neutrophils # 6.6 10 1.5-8.5 Neutrophils # HARRY ( [facility]) baso # 0.0 10 0.0-0.2 Baso # HARRY ([facility]) eos # 0.1 10 0.0-0.5 Eos # HARRY ([facility]) ID Date Data Source [id number] 01/07/2021 10:05:00 AM EST HARRY ([facility]) Name Value Range Interpretation Code Description Data Michelle rce(s) Supporting Document(s) C reactive protein quantitativ 0.75 mg/dL 0.00-0.30 Above high normal C Reactive Protein Quantitativ HARRY ([facility]) ID Date Data Source [id number] 01/07/2021 10:05:00 AM EST HARRY ([facility]) Name Value Range Interpretation Code Description Data Michelle rce(s) Supporting Document(s) triglycerides level 183 mg/dL <150 Above high normal Triglycer ides Level HARRY ([facility]) cholesterol level 202 mg/dL <200 Above high normal Cholesterol Level HARRY ([facility]) HDL cholesterol 41 mg/dL >40 HDL Cholesterol ATHE ([facility]) Cholesterol in LDL [Mass/volume] in Serum or Plasma 124 mg/dL <100 Above high normal LDL Cholesterol HARRY ([facility]) non-HDL-C 161 mg/dL Non-hdl-c HARRY ([facility]) cholesterol risk ratio <5 Cholesterol R isk Ratio HARRY ([facility]) ID Date Data Source [id number] 01/07/2021 10:05:00 AM EST ABILENE ([facility]) Name Value Range Interpretation Code Description Data Michelle rce(s) Supporting Document(s) Hemoglobin A1c/Hemoglobin.total in Blood 5.2 % Hemoglobin a1C HARRY ([facility]) estimated average glucose 103 mg/dL 60-110 Estimated Average Glucose HARRY ([facility]) ID Date Data Source [id number] 01/07/2021 10:05:00 AM EST HARRY ([facility]) Name Value Range Interpretation Code Description Data Michelle rce(s) Supporting Document(s) erythrocyte sedimentation rate 32 mm/HR 0-30 Above high normal Erythrocyte Sedimentation Rate HARRY ([facility]) ID Date Data Source [id number] 01/07/2021 10:05:00 AM EST HARRY ([facility]) Name Value Range Interpretation Code Description Data Michelle rce(s) Supporting Document(s) white blood count 8.6 10 4.0-10.0 White Blood Count HARRY ([facility]) red blood count 4.29 10 4.00-5.40 Red Blood Count ATHE ([facility]) hemoglobin 13.1 g/dL 12.0-15.5 Hemoglobin HARRY ([facility]) mean corpuscular volume 91.8 fL 80.0-96.0 Mean Corpusc ular Volume HARRY ([facility]) hematocrit 39.4 % 36.0-47.0 Hematocrit HARRY ([facility]) mean corpuscular hemoglobin 30.5 pg 27.0-33.0 Mean Cor puscular Hemoglobin HARRY ([facility]) mean corpuscular HGB conc 33.2 g/dL 32.0-36.5 Mean Corpu scular HGB Conc HARRY ([facility]) platelet count, automated 206 10 150-450 Platelet C ount, Automated HARRY ([facility]) red cell distribution width 13.0 % 11.5-14.5 Red Cell Distribution Width HARRY ([facility]) lymph % 14.9 % 24.0-44.0 Below low normal Lymph % HARRY ( [facility]) neutrophils % 76.4 % 36.0-66.0 Above high normal Neutrophils % A THENA ([facility]) mono % 6.7 % 2.0-8.0 [place] % HARRY ([facility]) eos % 1.2 % 0.0-3.0 Eos % HARRY ([facility]) baso % 0.5 % 0.0-1.0 Baso % HARRY ([facility]) immature granulocyte % 0.3 % 0-3.0 Immature Gran ulocyte % HARRY ([facility]) nucleated red blood cell % 0.0 % 0-0 Nucleated Red Blood Cell % HARRY ([facility]) neutrophils # 6.6 10 1.5-8.5 Neutrophils # HARRY ( [facility]) lymph # 1.3 10 1.5-5.0 Below low normal Lymph # HARRY ( [facility]) mono # 0.6 10 0.0-0.8 [place] # HARRY ([facility]) baso # 0.0 10 0.0-0.2 Baso # HARRY ([facility]) eos # 0.1 10 0.0-0.5 Eos # HARRY ([facility]) ID Date Data Source [id number] 01/07/2021 10:05:00 AM EST HARRY ([facility]) Name Value Range Interpretation Code Description Data Michelle rce(s) Supporting Document(s) C reactive protein quantitativ 0.75 mg/dL 0.00-0.30 Above high normal C Reactive Protein Quantitativ ABILENE ([facility]) ID Date Data Source [id number] 01/07/2021 10:05:00 AM EST HARRY ([facility]) Name Value Range Interpretation Code Description Data Michelle rce(s) Supporting Document(s) triglycerides level 183 mg/dL <150 Above high normal Triglycer ides Level HARRY ([facility]) cholesterol level 202 mg/dL <200 Above high normal Cholesterol Level HARRY ([facility]) HDL cholesterol 41 mg/dL >40 HDL Cholesterol ATHE NA ([facility]) Cholesterol in LDL [Mass/volume] in Serum or Plasma 124 mg/dL <100 Above high normal LDL Cholesterol HARRY ([facility]) non-HDL-C 161 mg/dL Non-hdl-c HARRY ([facility]) cholesterol risk ratio <5 Cholesterol R isk Ratio HARRY ([facility]) ID Date Data Source [id number] 01/07/2021 10:05:00 AM EST HARRY ([facility]) Name Value Range Interpretation Code Description Data Michelle rce(s) Supporting Document(s) Hemoglobin A1c/Hemoglobin.total in Blood 5.2 % Hemoglobin a1C HARRY ([facility]) estimated average glucose 103 mg/dL 60-110 Estimated Average Glucose HARRY ([facility]) ID Date Data Source [id number] 01/07/2021 10:05:00 AM EST HARRY ([facility]) Name Value Range Interpretation Code Description Data Michelle rce(s) Supporting Document(s) erythrocyte sedimentation rate 32 mm/HR 0-30 Above high normal Erythrocyte Sedimentation Rate HARRY ([facility]) ID Date Data Source [id number] 01/07/2021 10:05:00 AM EST HARRY ([facility]) Name Value Range Interpretation Code Description Data Michelle rce(s) Supporting Document(s) red blood count 4.29 10 4.00-5.40 Red Blood Count ATHE ([facility]) white blood count 8.6 10 4.0-10.0 White Blood Count HARRY ([facility]) hemoglobin 13.1 g/dL 12.0-15.5 Hemoglobin HARRY ([facility]) mean corpuscular volume 91.8 fL 80.0-96.0 Mean Corpusc ular Volume HARRY ([facility]) hematocrit 39.4 % 36.0-47.0 Hematocrit HARRY ([facility]) mean corpuscular hemoglobin 30.5 pg 27.0-33.0 Mean Cor puscular Hemoglobin HARRY ([facility]) mean corpuscular HGB conc 33.2 g/dL 32.0-36.5 Mean Corpu scular HGB Conc HARRY ([facility]) red cell distribution width 13.0 % 11.5-14.5 Red Cell Distribution Width HARRY ([facility]) platelet count, automated 206 10 150-450 Platelet C ount, Automated HARRY ([facility]) mono % 6.7 % 2.0-8.0 [place] % HARRY ([facility]) neutrophils % 76.4 % 36.0-66.0 Above high normal Neutrophils % A THENA ([facility]) lymph % 14.9 % 24.0-44.0 Below low normal Lymph % HARRY ( [facility]) eos % 1.2 % 0.0-3.0 Eos % HARRY ([facility]) immature granulocyte % 0.3 % 0-3.0 Immature Gran ulocyte % HARRY ([facility]) baso % 0.5 % 0.0-1.0 Baso % ABILENE ([facility]) nucleated red blood cell % 0.0 % 0-0 Nucleated Red Blood Cell % HARRY ([facility]) neutrophils # 6.6 10 1.5-8.5 Neutrophils # HARRY ( [facility]) mono # 0.6 10 0.0-0.8 [place] # HARRY ([facility]) lymph # 1.3 10 1.5-5.0 Below low normal Lymph # HARRY ( [facility]) baso # 0.0 10 0.0-0.2 Baso # HARRY ([facility]) eos # 0.1 10 0.0-0.5 Eos # HARRY ([facility]) ID Date Data Source [id number] 01/07/2021 10:05:00 AM EST HARRY ([facility]) Name Value Range Interpretation Code Description Data Michelle rce(s) Supporting Document(s) C reactive protein quantitativ 0.75 mg/dL 0.00-0.30 Above high normal C Reactive Protein Quantitativ ABILENE ([facility]) ID Date Data Source [id number] 01/07/2021 10:05:00 AM EST HARRY ([facility]) Name Value Range Interpretation Code Description Data Michelle rce(s) Supporting Document(s) cholesterol level 202 mg/dL <200 Above high normal Cholesterol Level HARRY ([facility]) HDL cholesterol 41 mg/dL >40 HDL Cholesterol ATHE NA ([facility]) triglycerides level 183 mg/dL <150 Above high normal Triglycer ides Level HARRY ([facility]) Cholesterol in LDL [Mass/volume] in Serum or Plasma 124 mg/dL <100 Above high normal LDL Cholesterol HARRY ([facility]) non-HDL-C 161 mg/dL Non-hdl-c HARRY ([facility]) cholesterol risk ratio <5 Cholesterol R isk Ratio HARRY ([facility]) ID Date Data Source [id number] 01/07/2021 10:05:00 AM EST HARRY ([facility]) Name Value Range Interpretation Code Description Data Michelle rce(s) Supporting Document(s) Hemoglobin A1c/Hemoglobin.total in Blood 5.2 % Hemoglobin a1C HARRY ([facility]) estimated average glucose 103 mg/dL 60-110 Estimated Average Glucose HARRY ([facility]) ID Date Data Source [id number] 01/07/2021 10:05:00 AM EST HARRY ([facility]) Name Value Range Interpretation Code Description Data Michelle rce(s) Supporting Document(s) erythrocyte sedimentation rate 32 mm/HR 0-30 Above high normal Erythrocyte Sedimentation Rate HARRY ([facility]) ID Date Data Source [id number] 01/07/2021 10:05:00 AM EST HARRY ([facility]) Name Value Range Interpretation Code Description Data Michelle rce(s) Supporting Document(s) white blood count 8.6 10 4.0-10.0 White Blood Count HARRY ([facility]) red blood count 4.29 10 4.00-5.40 Red Blood Count ATHE NA ([facility]) hemoglobin 13.1 g/dL 12.0-15.5 Hemoglobin HARRY ([facility]) hematocrit 39.4 % 36.0-47.0 Hematocrit HARRY ([facility]) mean corpuscular hemoglobin 30.5 pg 27.0-33.0 Mean Cor puscular Hemoglobin HARRY ([facility]) mean corpuscular volume 91.8 fL 80.0-96.0 Mean Corpusc ular Volume HARRY ([facility]) mean corpuscular HGB conc 33.2 g/dL 32.0-36.5 Mean Corpu scular HGB Conc HARRY ([facility]) red cell distribution width 13.0 % 11.5-14.5 Red Cell Distribution Width HARRY ([facility]) neutrophils % 76.4 % 36.0-66.0 Above high normal Neutrophils % A THENA ([facility]) platelet count, automated 206 10 150-450 Platelet C ount, Automated HARRY ([facility]) lymph % 14.9 % 24.0-44.0 Below low normal Lymph % HARRY ( [facility]) baso % 0.5 % 0.0-1.0 Baso % HARRY ([facility]) mono % 6.7 % 2.0-8.0 [place] % HARRY ([facility]) eos % 1.2 % 0.0-3.0 Eos % ABILENE ([facility]) nucleated red blood cell % 0.0 % 0-0 Nucleated Red Blood Cell % HARRY ([facility]) neutrophils # 6.6 10 1.5-8.5 Neutrophils # ABILENE ( [facility]) immature granulocyte % 0.3 % 0-3.0 Immature Gran ulocyte % HARRY ([facility]) mono # 0.6 10 0.0-0.8 [place] # ABILENE ([facility]) lymph # 1.3 10 1.5-5.0 Below low normal Lymph # HARRY ( [facility]) eos # 0.1 10 0.0-0.5 Eos # HARRY ([facility]) baso # 0.0 10 0.0-0.2 Baso # ABILENE ([facility]) ID Date Data Source [id number] 01/07/2021 10:05:00 AM EST HARRY ([facility]) Name Value Range Interpretation Code Description Data Michelle rce(s) Supporting Document(s) C reactive protein quantitativ 0.75 mg/dL 0.00-0.30 Above high normal C Reactive Protein Quantitativ HARRY ([facility]) ID Date Data Source [id number] 01/07/2021 10:05:00 AM EST HARRY ([facility]) Name Value Range Interpretation Code Description Data Michelle rce(s) Supporting Document(s) triglycerides level 183 mg/dL <150 Above high normal Triglycer ides Level HARRY ([facility]) HDL cholesterol 41 mg/dL >40 HDL Cholesterol ATHE ([facility]) cholesterol level 202 mg/dL <200 Above high normal Cholesterol Level HARRY ([facility]) non-HDL-C 161 mg/dL Non-hdl-c HARRY ([facility]) Cholesterol in LDL [Mass/volume] in Serum or Plasma 124 mg/dL <100 Above high normal LDL Cholesterol HARRY ([facility]) cholesterol risk ratio <5 Cholesterol R isk Ratio HARRY ([facility]) ID Date Data Source [id number] 01/07/2021 10:05:00 AM EST HARRY ([facility]) Name Value Range Interpretation Code Description Data Michelle rce(s) Supporting Document(s) Hemoglobin A1c/Hemoglobin.total in Blood 5.2 % Hemoglobin a1C HARRY ([facility]) estimated average glucose 103 mg/dL 60-110 Estimated Average Glucose HARRY ([facility]) ID Date Data Source [id number] 01/07/2021 10:05:00 AM EST HARRY ([facility]) Name Value Range Interpretation Code Description Data Michelle rce(s) Supporting Document(s) erythrocyte sedimentation rate 32 mm/HR 0-30 Above high normal Erythrocyte Sedimentation Rate HARRY ([facility]) ID Date Data Source [id number] 01/07/2021 10:05:00 AM EST HARRY ([facility]) Name Value Range Interpretation Code Description Data Michelle rce(s) Supporting Document(s) white blood count 8.6 10 4.0-10.0 White Blood Count HARRY ([facility]) hemoglobin 13.1 g/dL 12.0-15.5 Hemoglobin HARRY ([facility]) hematocrit 39.4 % 36.0-47.0 Hematocrit HARRY ([facility]) red blood count 4.29 10 4.00-5.40 Red Blood Count ATHE NA ([facility]) mean corpuscular HGB conc 33.2 g/dL 32.0-36.5 Mean Corpu scular HGB Conc HARRY ([facility]) mean corpuscular hemoglobin 30.5 pg 27.0-33.0 Mean Cor puscular Hemoglobin HARRY ([facility]) mean corpuscular volume 91.8 fL 80.0-96.0 Mean Corpusc ular Volume HARRY ([facility]) red cell distribution width 13.0 % 11.5-14.5 Red Cell Distribution Width HARRY ([facility]) neutrophils % 76.4 % 36.0-66.0 Above high normal Neutrophils % A THENA ([facility]) platelet count, automated 206 10 150-450 Platelet C ount, Automated HARRY ([facility]) mono % 6.7 % 2.0-8.0 [place] % HARRY ([facility]) lymph % 14.9 % 24.0-44.0 Below low normal Lymph % HARRY ( [facility]) eos % 1.2 % 0.0-3.0 Eos % HARRY ([facility]) baso % 0.5 % 0.0-1.0 Baso % HARRY ([facility]) nucleated red blood cell % 0.0 % 0-0 Nucleated Red Blood Cell % HARRY ([facility]) immature granulocyte % 0.3 % 0-3.0 Immature Gran ulocyte % HARRY ([facility]) neutrophils # 6.6 10 1.5-8.5 Neutrophils # HARRY ( [facility]) mono # 0.6 10 0.0-0.8 [place] # HARRY ([facility]) lymph # 1.3 10 1.5-5.0 Below low normal Lymph # HARRY ( [facility]) eos # 0.1 10 0.0-0.5 Eos # HARRY ([facility]) baso # 0.0 10 0.0-0.2 Baso # HARRY ([facility]) ID Date Data Source [id number] 01/07/2021 10:05:00 AM EST HARRY ([facility]) Name Value Range Interpretation Code Description Data Michelle rce(s) Supporting Document(s) C reactive protein quantitativ 0.75 mg/dL 0.00-0.30 Above high normal C Reactive Protein Quantitativ HARRY ([facility]) ID Date Data Source [id number] 01/07/2021 10:05:00 AM EST HARRY ([facility]) Name Value Range Interpretation Code Description Data Michelle rce(s) Supporting Document(s) triglycerides level 183 mg/dL <150 Above high normal Triglycer ides Level HARRY ([facility]) cholesterol level 202 mg/dL <200 Above high normal Cholesterol Level HARRY ([facility]) HDL cholesterol 41 mg/dL >40 HDL Cholesterol ATHE NA ([facility]) Cholesterol in LDL [Mass/volume] in Serum or Plasma 124 mg/dL <100 Above high normal LDL Cholesterol HARRY ([facility]) non-HDL-C 161 mg/dL Non-hdl-c HARRY ([facility]) cholesterol risk ratio <5 Cholesterol R isk Ratio HARRY ([facility]) ID Date Data Source [id number] 01/07/2021 10:05:00 AM EST HARRY ([facility]) Name Value Range Interpretation Code Description Data Michelle rce(s) Supporting Document(s) estimated average glucose 103 mg/dL 60-110 Estimated Average Glucose HARRY ([facility]) Hemoglobin A1c/Hemoglobin.total in Blood 5.2 % Hemoglobin a1C HARRY ([facility]) ID Date Data Source [id number] 01/07/2021 10:05:00 AM EST HARRY ([facility]) Name Value Range Interpretation Code Description Data Michelle rce(s) Supporting Document(s) erythrocyte sedimentation rate 32 mm/HR 0-30 Above high normal Erythrocyte Sedimentation Rate HARRY ([facility]) ID Date Data Source [id number] 01/07/2021 10:05:00 AM EST HARRY ([facility]) Name Value Range Interpretation Code Description Data Michelle rce(s) Supporting Document(s) white blood count 8.6 10 4.0-10.0 White Blood Count HARRY ([facility]) red blood count 4.29 10 4.00-5.40 Red Blood Count ATHE ([facility]) hemoglobin 13.1 g/dL 12.0-15.5 Hemoglobin HARRY ([facility]) mean corpuscular volume 91.8 fL 80.0-96.0 Mean Corpusc ular Volume HARRY ([facility]) hematocrit 39.4 % 36.0-47.0 Hematocrit HARRY ([facility]) mean corpuscular hemoglobin 30.5 pg 27.0-33.0 Mean Cor puscular Hemoglobin HARRY ([facility]) mean corpuscular HGB conc 33.2 g/dL 32.0-36.5 Mean Corpu scular HGB Conc HARRY ([facility]) red cell distribution width 13.0 % 11.5-14.5 Red Cell Distribution Width HARRY ([facility]) platelet count, automated 206 10 150-450 Platelet C ount, Automated HARRY ([facility]) mono % 6.7 % 2.0-8.0 [place] % HARRY ([facility]) neutrophils % 76.4 % 36.0-66.0 Above high normal Neutrophils % A THENA ([facility]) lymph % 14.9 % 24.0-44.0 Below low normal Lymph % HARRY ( [facility]) baso % 0.5 % 0.0-1.0 Baso % HARRY ([facility]) eos % 1.2 % 0.0-3.0 Eos % HARRY ([facility]) immature granulocyte % 0.3 % 0-3.0 Immature Gran ulocyte % HARRY ([facility]) lymph # 1.3 10 1.5-5.0 Below low normal Lymph # HARRY ( [facility]) neutrophils # 6.6 10 1.5-8.5 Neutrophils # ABILENE ( [facility]) nucleated red blood cell % 0.0 % 0-0 Nucleated Red Blood Cell % HARRY ([facility]) eos # 0.1 10 0.0-0.5 Eos # HARRY ([facility]) mono # 0.6 10 0.0-0.8 [place] # HARRY ([facility]) baso # 0.0 10 0.0-0.2 Baso # HARRY ([facility]) ID Date Data Source [id number] 01/07/2021 10:05:00 AM EST HARRY ([facility]) Name Value Range Interpretation Code Description Data Michelle rce(s) Supporting Document(s) C reactive protein quantitativ 0.75 mg/dL 0.00-0.30 Above high normal C Reactive Protein Quantitativ HARRY ([facility]) ID Date Data Source [id number] 01/07/2021 10:05:00 AM EST HARRY ([facility]) Name Value Range Interpretation Code Description Data Michelle rce(s) Supporting Document(s) cholesterol level 202 mg/dL <200 Above high normal Cholesterol Level HARRY ([facility]) triglycerides level 183 mg/dL <150 Above high normal Triglycer ides Level HARRY ([facility]) HDL cholesterol 41 mg/dL >40 HDL Cholesterol ATHE NA ([facility]) non-HDL-C 161 mg/dL Non-hdl-c HARRY ([facility]) Cholesterol in LDL [Mass/volume] in Serum or Plasma 124 mg/dL <100 Above high normal LDL Cholesterol HARRY ([facility]) cholesterol risk ratio <5 Cholesterol R isk Ratio HARRY ([facility]) ID Date Data Source [id number] 01/07/2021 10:05:00 AM EST HARRY ([facility]) Name Value Range Interpretation Code Description Data Michelle rce(s) Supporting Document(s) Hemoglobin A1c/Hemoglobin.total in Blood 5.2 % Hemoglobin a1C HARRY ([facility]) estimated average glucose 103 mg/dL 60-110 Estimated Average Glucose HARRY ([facility]) ID Date Data Source [id number] 01/07/2021 10:05:00 AM EST HARRY ([facility]) Name Value Range Interpretation Code Description Data Michelle rce(s) Supporting Document(s) erythrocyte sedimentation rate 32 mm/HR 0-30 Above high normal Erythrocyte Sedimentation Rate HARRY ([facility]) ID Date Data Source [id number] 01/07/2021 10:05:00 AM EST HARRY ([facility]) Name Value Range Interpretation Code Description Data Michelle rce(s) Supporting Document(s) white blood count 8.6 10 4.0-10.0 White Blood Count HARRY ([facility]) red blood count 4.29 10 4.00-5.40 Red Blood Count ATHE NA ([facility]) mean corpuscular volume 91.8 fL 80.0-96.0 Mean Corpusc ular Volume HARRY ([facility]) hemoglobin 13.1 g/dL 12.0-15.5 Hemoglobin HARRY ([facility]) hematocrit 39.4 % 36.0-47.0 Hematocrit HARRY ([facility]) mean corpuscular HGB conc 33.2 g/dL 32.0-36.5 Mean Corpu scular HGB Conc ABILENE ([facility]) red cell distribution width 13.0 % 11.5-14.5 Red Cell Distribution Width ABILENE ([facility]) mean corpuscular hemoglobin 30.5 pg 27.0-33.0 Mean Cor puscular Hemoglobin HARRY ([facility]) lymph % 14.9 % 24.0-44.0 Below low normal Lymph % ABILENE ( [facility]) platelet count, automated 206 10 150-450 Platelet C ount, Automated HARRY ([facility]) neutrophils % 76.4 % 36.0-66.0 Above high normal Neutrophils % A THENA ([facility]) eos % 1.2 % 0.0-3.0 Eos % ABILENE ([facility]) mono % 6.7 % 2.0-8.0 [place] % ABILENE ([facility]) baso % 0.5 % 0.0-1.0 Baso % ABILENE ([facility]) nucleated red blood cell % 0.0 % 0-0 Nucleated Red Blood Cell % ABILENE ([facility]) immature granulocyte % 0.3 % 0-3.0 Immature Gran ulocyte % ABILENE ([facility]) neutrophils # 6.6 10 1.5-8.5 Neutrophils # ABILENE ( [facility]) mono # 0.6 10 0.0-0.8 [place] # ABILENE ([facility]) lymph # 1.3 10 1.5-5.0 Below low normal Lymph # HARRY ( [facility]) baso # 0.0 10 0.0-0.2 Baso # ABILENE ([facility]) eos # 0.1 10 0.0-0.5 Eos # ABILENE ([facility]) ID Date Data Source [id number] 01/07/2021 10:05:00 AM EST ABILENE ([facility]) Name Value Range Interpretation Code Description Data Michelle rce(s) Supporting Document(s) C reactive protein quantitativ 0.75 mg/dL 0.00-0.30 Above high normal C Reactive Protein Quantitativ HARRY ([facility]) ID Date Data Source [id number] 01/07/2021 10:05:00 AM EST HARRY ([facility]) Name Value Range Interpretation Code Description Data Michelle rce(s) Supporting Document(s) cholesterol level 202 mg/dL <200 Above high normal Cholesterol Level HARRY ([facility]) triglycerides level 183 mg/dL <150 Above high normal Triglycer ides Level HARRY ([facility]) Cholesterol in LDL [Mass/volume] in Serum or Plasma 124 mg/dL <100 Above high normal LDL Cholesterol HARRY ([facility]) HDL cholesterol 41 mg/dL >40 HDL Cholesterol ATHE ([facility]) cholesterol risk ratio <5 Cholesterol R isk Ratio HARRY ([facility]) non-HDL-C 161 mg/dL Non-hdl-c HARRY ([facility]) ID Date Data Source [id number] 01/07/2021 10:05:00 AM EST HARRY ([facility]) Name Value Range Interpretation Code Description Data Michelle rce(s) Supporting Document(s) Hemoglobin A1c/Hemoglobin.total in Blood 5.2 % Hemoglobin a1C HARRY ([facility]) estimated average glucose 103 mg/dL 60-110 Estimated Average Glucose HARRY ([facility]) ID Date Data Source [id number] 01/07/2021 10:05:00 AM EST HARRY ([facility]) Name Value Range Interpretation Code Description Data Michelle rce(s) Supporting Document(s) erythrocyte sedimentation rate 32 mm/HR 0-30 Above high normal Erythrocyte Sedimentation Rate HARRY ([facility]) ID Date Data Source [id number] 01/07/2021 10:05:00 AM EST HARRY ([facility]) Name Value Range Interpretation Code Description Data Michelle rce(s) Supporting Document(s) white blood count 8.6 10 4.0-10.0 White Blood Count HARRY ([facility]) hemoglobin 13.1 g/dL 12.0-15.5 Hemoglobin HARRY ([facility]) red blood count 4.29 10 4.00-5.40 Red Blood Count ATHE NA ([facility]) mean corpuscular volume 91.8 fL 80.0-96.0 Mean Corpusc ular Volume HARRY ([facility]) hematocrit 39.4 % 36.0-47.0 Hematocrit HARRY ([facility]) mean corpuscular HGB conc 33.2 g/dL 32.0-36.5 Mean Corpu scular HGB Conc HARRY ([facility]) red cell distribution width 13.0 % 11.5-14.5 Red Cell Distribution Width HARRY ([facility]) mean corpuscular hemoglobin 30.5 pg 27.0-33.0 Mean Cor puscular Hemoglobin HARRY ([facility]) platelet count, automated 206 10 150-450 Platelet C ount, Automated HARRY ([facility]) neutrophils % 76.4 % 36.0-66.0 Above high normal Neutrophils % A THENA ([facility]) lymph % 14.9 % 24.0-44.0 Below low normal Lymph % ABILENE ( [facility]) baso % 0.5 % 0.0-1.0 Baso % HARRY ([facility]) mono % 6.7 % 2.0-8.0 [place] % HARRY ([facility]) eos % 1.2 % 0.0-3.0 Eos % HARRY ([facility]) neutrophils # 6.6 10 1.5-8.5 Neutrophils # HARRY ( [facility]) nucleated red blood cell % 0.0 % 0-0 Nucleated Red Blood Cell % HARRY ([facility]) immature granulocyte % 0.3 % 0-3.0 Immature Gran ulocyte % HARRY ([facility]) lymph # 1.3 10 1.5-5.0 Below low normal Lymph # HARRY ( [facility]) mono # 0.6 10 0.0-0.8 [place] # AHRRY ([facility]) eos # 0.1 10 0.0-0.5 Eos # HARRY ([facility]) baso # 0.0 10 0.0-0.2 Baso # HARRY ([facility]) ID Date Data Source [id number] 01/07/2021 10:05:00 AM EST HARRY ([facility]) Name Value Range Interpretation Code Description Data Michelle rce(s) Supporting Document(s) C reactive protein quantitativ 0.75 mg/dL 0.00-0.30 Above high normal C Reactive Protein Quantitativ HARRY ([facility]) ID Date Data Source [id number] 01/07/2021 10:05:00 AM EST HARRY ([facility]) Name Value Range Interpretation Code Description Data Michelle rce(s) Supporting Document(s) triglycerides level 183 mg/dL <150 Above high normal Triglycer ides Level HARRY ([facility]) cholesterol level 202 mg/dL <200 Above high normal Cholesterol Level HARRY ([facility]) HDL cholesterol 41 mg/dL >40 HDL Cholesterol ATHE ([facility]) Cholesterol in LDL [Mass/volume] in Serum or Plasma 124 mg/dL <100 Above high normal LDL Cholesterol HARRY ([facility]) non-HDL-C 161 mg/dL Non-hdl-c HARRY ([facility]) cholesterol risk ratio <5 Cholesterol R isk Ratio HARRY ([facility]) ID Date Data Source [id number] 01/07/2021 10:05:00 AM EST HARRY ([facility]) Name Value Range Interpretation Code Description Data Michelle rce(s) Supporting Document(s) Hemoglobin A1c/Hemoglobin.total in Blood 5.2 % Hemoglobin a1C HARRY ([facility]) estimated average glucose 103 mg/dL 60-110 Estimated Average Glucose HARRY ([facility]) ID Date Data Source [id number] 01/07/2021 10:05:00 AM EST HARRY ([facility]) Name Value Range Interpretation Code Description Data Michelle rce(s) Supporting Document(s) erythrocyte sedimentation rate 32 mm/HR 0-30 Above high normal Erythrocyte Sedimentation Rate HARRY ([facility]) ID Date Data Source [id number] 01/07/2021 10:05:00 AM EST HARRY ([facility]) Name Value Range Interpretation Code Description Data Michelle rce(s) Supporting Document(s) white blood count 8.6 10 4.0-10.0 White Blood Count HARRY ([facility]) hematocrit 39.4 % 36.0-47.0 Hematocrit HARRY ([facility]) red blood count 4.29 10 4.00-5.40 Red Blood Count ATHE ([facility]) hemoglobin 13.1 g/dL 12.0-15.5 Hemoglobin HARRY ([facility]) mean corpuscular HGB conc 33.2 g/dL 32.0-36.5 Mean Corpu scular HGB Conc HARRY ([facility]) mean corpuscular hemoglobin 30.5 pg 27.0-33.0 Mean Cor puscular Hemoglobin HARRY ([facility]) mean corpuscular volume 91.8 fL 80.0-96.0 Mean Corpusc ular Volume HARRY ([facility]) platelet count, automated 206 10 150-450 Platelet C ount, Automated HARRY ([facility]) red cell distribution width 13.0 % 11.5-14.5 Red Cell Distribution Width HARRY ([facility]) neutrophils % 76.4 % 36.0-66.0 Above high normal Neutrophils % A THENA ([facility]) mono % 6.7 % 2.0-8.0 [place] % HARRY ([facility]) lymph % 14.9 % 24.0-44.0 Below low normal Lymph % HARRY ( [facility]) eos % 1.2 % 0.0-3.0 Eos % HARRY ([facility]) baso % 0.5 % 0.0-1.0 Baso % HARRY ([facility]) nucleated red blood cell % 0.0 % 0-0 Nucleated Red Blood Cell % HARRY ([facility]) immature granulocyte % 0.3 % 0-3.0 Immature Gran ulocyte % HARRY ([facility]) lymph # 1.3 10 1.5-5.0 Below low normal Lymph # HARRY ( [facility]) neutrophils # 6.6 10 1.5-8.5 Neutrophils # HARRY ( [facility]) mono # 0.6 10 0.0-0.8 [place] # HARRY ([facility]) baso # 0.0 10 0.0-0.2 Baso # HARRY ([facility]) eos # 0.1 10 0.0-0.5 Eos # HARRY ([facility]) ID Date Data Source [id number] 01/07/2021 10:05:00 AM EST HARRY ([facility]) Name Value Range Interpretation Code Description Data Michelle rce(s) Supporting Document(s) C reactive protein quantitativ 0.75 mg/dL 0.00-0.30 Above high normal C Reactive Protein Quantitativ HARRY ([facility]) ID Date Data Source [id number] 01/07/2021 10:05:00 AM EST HARRY ([facility]) Name Value Range Interpretation Code Description Data Michelle rce(s) Supporting Document(s) triglycerides level 183 mg/dL <150 Above high normal Triglycer ides Level HARRY ([facility]) cholesterol level 202 mg/dL <200 Above high normal Cholesterol Level HARRY ([facility]) HDL cholesterol 41 mg/dL >40 HDL Cholesterol ATHE NA ([facility]) non-HDL-C 161 mg/dL Non-hdl-c HARRY ([facility]) Cholesterol in LDL [Mass/volume] in Serum or Plasma 124 mg/dL <100 Above high normal LDL Cholesterol HARRY ([facility]) cholesterol risk ratio <5 Cholesterol R isk Ratio HARRY ([facility]) ID Date Data Source [id number] 01/07/2021 10:05:00 AM EST HARRY ([facility]) Name Value Range Interpretation Code Description Data Michelle rce(s) Supporting Document(s) Hemoglobin A1c/Hemoglobin.total in Blood 5.2 % Hemoglobin a1C HARRY ([facility]) estimated average glucose 103 mg/dL 60-110 Estimated Average Glucose HARRY ([facility]) ID Date Data Source [id number] 01/07/2021 10:05:00 AM EST HARRY ([facility]) Name Value Range Interpretation Code Description Data Michelle rce(s) Supporting Document(s) erythrocyte sedimentation rate 32 mm/HR 0-30 Above high normal Erythrocyte Sedimentation Rate HARRY ([facility]) ID Date Data Source [id number] 01/07/2021 10:05:00 AM EST HARRY ([facility]) Name Value Range Interpretation Code Description Data Michelle rce(s) Supporting Document(s) hemoglobin 13.1 g/dL 12.0-15.5 Hemoglobin HARRY ([facility]) red blood count 4.29 10 4.00-5.40 Red Blood Count ATHE ([facility]) white blood count 8.6 10 4.0-10.0 White Blood Count HARRY ([facility]) hematocrit 39.4 % 36.0-47.0 Hematocrit HARRY ([facility]) mean corpuscular volume 91.8 fL 80.0-96.0 Mean Corpusc ular Volume HARRY ([facility]) mean corpuscular hemoglobin 30.5 pg 27.0-33.0 Mean Cor puscular Hemoglobin HARRY ([facility]) mean corpuscular HGB conc 33.2 g/dL 32.0-36.5 Mean Corpu scular HGB Conc HARRY ([facility]) platelet count, automated 206 10 150-450 Platelet C ount, Automated HARRY ([facility]) red cell distribution width 13.0 % 11.5-14.5 Red Cell Distribution Width HARRY ([facility]) neutrophils % 76.4 % 36.0-66.0 Above high normal Neutrophils % A THENA ([facility]) lymph % 14.9 % 24.0-44.0 Below low normal Lymph % HARRY ( [facility]) mono % 6.7 % 2.0-8.0 [place] % HARRY ([facility]) eos % 1.2 % 0.0-3.0 Eos % HARRY ([facility]) baso % 0.5 % 0.0-1.0 Baso % ABILENE ([facility]) immature granulocyte % 0.3 % 0-3.0 Immature Gran ulocyte % HARRY ([facility]) nucleated red blood cell % 0.0 % 0-0 Nucleated Red Blood Cell % HARRY ([facility]) lymph # 1.3 10 1.5-5.0 Below low normal Lymph # HARRY ( [facility]) neutrophils # 6.6 10 1.5-8.5 Neutrophils # HARRY ( [facility]) eos # 0.1 10 0.0-0.5 Eos # HARRY ([facility]) baso # 0.0 10 0.0-0.2 Baso # HARRY ([facility]) mono # 0.6 10 0.0-0.8 [place] # HARRY ([facility]) ID Date Data Source [id number] 01/07/2021 10:05:00 AM EST HARRY ([facility]) Name Value Range Interpretation Code Description Data Michelle rce(s) Supporting Document(s) C reactive protein quantitativ 0.75 mg/dL 0.00-0.30 Above high normal C Reactive Protein Quantitativ ABILENE ([facility]) ID Date Data Source [id number] 01/07/2021 10:05:00 AM EST HARRY ([facility]) Name Value Range Interpretation Code Description Data Michelle rce(s) Supporting Document(s) cholesterol level 202 mg/dL <200 Above high normal Cholesterol Level HARRY ([facility]) triglycerides level 183 mg/dL <150 Above high normal Triglycer ides Level HARRY ([facility]) non-HDL-C 161 mg/dL Non-hdl-c HARRY ([facility]) HDL cholesterol 41 mg/dL >40 HDL Cholesterol ATHE NA ([facility]) Cholesterol in LDL [Mass/volume] in Serum or Plasma 124 mg/dL <100 Above high normal LDL Cholesterol HARRY ([facility]) cholesterol risk ratio <5 Cholesterol R isk Ratio HARRY ([facility]) ID Date Data Source [id number] 01/07/2021 10:05:00 AM EST HARRY ([facility]) Name Value Range Interpretation Code Description Data Michelle rce(s) Supporting Document(s) Hemoglobin A1c/Hemoglobin.total in Blood 5.2 % Hemoglobin a1C HARRY ([facility]) estimated average glucose 103 mg/dL 60-110 Estimated Average Glucose HARRY ([facility]) ID Date Data Source [id number] 01/07/2021 10:05:00 AM EST HARRY ([facility]) Name Value Range Interpretation Code Description Data Michelle rce(s) Supporting Document(s) erythrocyte sedimentation rate 32 mm/HR 0-30 Above high normal Erythrocyte Sedimentation Rate HARRY ([facility]) ID Date Data Source [id number] 01/07/2021 10:05:00 AM EST HARRY ([facility]) Name Value Range Interpretation Code Description Data Michelle rce(s) Supporting Document(s) white blood count 8.6 10 4.0-10.0 White Blood Count HARRY ([facility]) hematocrit 39.4 % 36.0-47.0 Hematocrit HARRY ([facility]) red blood count 4.29 10 4.00-5.40 Red Blood Count ATHE NA ([facility]) hemoglobin 13.1 g/dL 12.0-15.5 Hemoglobin HARRY ([facility]) mean corpuscular hemoglobin 30.5 pg 27.0-33.0 Mean Cor puscular Hemoglobin HARRY ([facility]) mean corpuscular volume 91.8 fL 80.0-96.0 Mean Corpusc ular Volume HARRY ([facility]) mean corpuscular HGB conc 33.2 g/dL 32.0-36.5 Mean Corpu scular HGB Conc HARRY ([facility]) red cell distribution width 13.0 % 11.5-14.5 Red Cell Distribution Width HARRY ([facility]) platelet count, automated 206 10 150-450 Platelet C ount, Automated HARRY ([facility]) neutrophils % 76.4 % 36.0-66.0 Above high normal Neutrophils % A THENA ([facility]) lymph % 14.9 % 24.0-44.0 Below low normal Lymph % HARRY ( [facility]) eos % 1.2 % 0.0-3.0 Eos % HARRY ([facility]) baso % 0.5 % 0.0-1.0 Baso % HARRY ([facility]) mono % 6.7 % 2.0-8.0 [place] % HARRY ([facility]) nucleated red blood cell % 0.0 % 0-0 Nucleated Red Blood Cell % HARRY ([facility]) immature granulocyte % 0.3 % 0-3.0 Immature Gran ulocyte % HARRY ([facility]) lymph # 1.3 10 1.5-5.0 Below low normal Lymph # HARRY ( [facility]) neutrophils # 6.6 10 1.5-8.5 Neutrophils # HARRY ( [facility]) baso # 0.0 10 0.0-0.2 Baso # HARRY ([facility]) mono # 0.6 10 0.0-0.8 [place] # HARRY ([facility]) eos # 0.1 10 0.0-0.5 Eos # HARRY ([facility]) ID Date Data Source [id number] 01/07/2021 10:05:00 AM EST HARRY ([facility]) Name Value Range Interpretation Code Description Data Michelle rce(s) Supporting Document(s) C reactive protein quantitativ 0.75 mg/dL 0.00-0.30 Above high normal C Reactive Protein Quantitativ HARRY ([facility]) ID Date Data Source [id number] 01/07/2021 10:05:00 AM EST HARRY ([facility]) Name Value Range Interpretation Code Description Data Michelle rce(s) Supporting Document(s) HDL cholesterol 41 mg/dL >40 HDL Cholesterol ATHE NA ([facility]) cholesterol level 202 mg/dL <200 Above high normal Cholesterol Level HARRY ([facility]) triglycerides level 183 mg/dL <150 Above high normal Triglycer ides Level HARRY ([facility]) cholesterol risk ratio <5 Cholesterol R isk Ratio HARRY ([facility]) non-HDL-C 161 mg/dL Non-hdl-c HARRY ([facility]) Cholesterol in LDL [Mass/volume] in Serum or Plasma 124 mg/dL <100 Above high normal LDL Cholesterol HARRY ([facility]) ID Date Data Source [id number] 01/07/2021 10:05:00 AM EST HARRY ([facility]) Name Value Range Interpretation Code Description Data Michelle rce(s) Supporting Document(s) Hemoglobin A1c/Hemoglobin.total in Blood 5.2 % Hemoglobin a1C HARRY ([facility]) estimated average glucose 103 mg/dL 60-110 Estimated Average Glucose HARRY ([facility]) ID Date Data Source [id number] 01/07/2021 10:00:00 AM EST HARRY ([facility]) Name Value Range Interpretation Code Description Data Michelle rce(s) Supporting Document(s) QRS Qrs HARRY ([facility]) Rate & Rhythm 71 sinus rhythm Rate & Rhythm ATH TIGIST ([facility]) QT Interval QT Interval HARRY ([facility]) QRS Duration 96 ms QRS Duration HARRY ([facility]) [place] Interval 120/168 ms [place] Interval HARRY ([facility]) ID Date Data Source [id number] 01/07/2021 10:00:00 AM EST HARRY ([facility]) Name Value Range Interpretation Code Description Data Michelle rce(s) Supporting Document(s) [place] Interval 120/168 ms [place] Interval HARRY ([facility]) Rate & Rhythm 71 sinus rhythm Rate & Rhythm ATH TIGIST ([facility]) QRS Qrs HARRY ([facility]) QT Interval QT Interval HARRY ([facility]) QRS Duration 96 ms QRS Duration HARRY ([facility]) ID Date Data Source [id number] 01/07/2021 10:00:00 AM EST HARRY ([facility]) Name Value Range Interpretation Code Description Data Michelle rce(s) Supporting Document(s) [place] Interval 120/168 ms [place] Interval HARRY ([facility]) Rate & Rhythm 71 sinus rhythm Rate & Rhythm ATH TIGIST ([facility]) QRS Qrs HARRY ([facility]) QT Interval QT Interval HARRY ([facility]) QRS Duration 96 ms QRS Duration HARRY ([facility]) ID Date Data Source [id number] 01/07/2021 10:00:00 AM EST HARRY ([facility]) Name Value Range Interpretation Code Description Data Michelle rce(s) Supporting Document(s) Rate & Rhythm 71 sinus rhythm Rate & Rhythm ATH TIGIST ([facility]) QRS Duration 96 ms QRS Duration HARRY ([facility]) QRS Qrs HARRY ([facility]) [place] Interval 120/168 [place] Interval HARRY ([facility]) QT Interval QT Interval HARRY ([facility]) ID Date Data Source [id number] 01/07/2021 10:00:00 AM EST HARRY ([facility]) Name Value Range Interpretation Code Description Data Michelle rce(s) Supporting Document(s) Rate & Rhythm 71 sinus rhythm Rate & Rhythm ATH TIGIST ([facility]) QRS Qrs HARRY ([facility]) QRS Duration 96 ms QRS Duration HARRY ([facility]) [place] Interval 120/168 ms [place] Interval HARRY ([facility]) QT Interval QT Interval HARRY ([facility]) ID Date Data Source [id number] 01/07/2021 10:00:00 AM EST HARRY ([facility]) Name Value Range Interpretation Code Description Data Michelle rce(s) Supporting Document(s) Rate & Rhythm 71 sinus rhythm Rate & Rhythm ATH TIGIST ([facility]) QRS Duration 96 ms QRS Duration HARRY ([facility]) [place] Interval 120/168 ms [place] Interval HARRY ([facility]) QRS Qrs HARRY ([facility]) QT Interval QT Interval HARRY ([facility]) ID Date Data Source [id number] 01/07/2021 10:00:00 AM EST HARRY ([facility]) Name Value Range Interpretation Code Description Data Mihcelle rce(s) Supporting Document(s) Rate & Rhythm 71 sinus rhythm Rate & Rhythm ATH TIGIST ([facility]) QRS Qrs HARRY ([facility]) [place] Interval 120/168 ms [place] Interval HARRY ([facility]) QRS Duration 96 ms QRS Duration HARRY ([facility]) QT Interval QT Interval HARRY ([facility]) ID Date Data Source [id number] 01/07/2021 10:00:00 AM EST HARRY ([facility]) Name Value Range Interpretation Code Description Data Michelle rce(s) Supporting Document(s) QRS Qrs HARRY ([facility]) [place] Interval 120/168 ms [place] Interval HARRY ([facility]) Rate & Rhythm 71 sinus rhythm Rate & Rhythm ATH TIGIST ([facility]) QT Interval QT Interval HARRY ([facility]) QRS Duration 96 ms QRS Duration HARRY ([facility]) ID Date Data Source [id number] 01/07/2021 10:00:00 AM EST HARRY ([facility]) Name Value Range Interpretation Code Description Data Michelle rce(s) Supporting Document(s) Rate & Rhythm 71 sinus rhythm Rate & Rhythm ATH TIGIST ([facility]) QRS Qrs HARRY ([facility]) [place] Interval 120/168 ms [place] Interval HARRY ([facility]) QRS Duration 96 ms QRS Duration HARRY ([facility]) QT Interval QT Interval HARYR ([facility]) ID Date Data Source [id number] 01/07/2021 10:00:00 AM EST HARRY ([facility]) Name Value Range Interpretation Code Description Data Michelle rce(s) Supporting Document(s) Rate & Rhythm 71 sinus rhythm Rate & Rhythm ATH TIGIST ([facility]) [place] Interval 120/168 ms [place] Interval HARRY ([facility]) QRS Qrs HARRY ([facility]) QRS Duration 96 ms QRS Duration HARRY ([facility]) QT Interval QT Interval HARRY ([facility]) ID Date Data Source [id number] 01/07/2021 10:00:00 AM EST HARRY ([facility]) Name Value Range Interpretation Code Description Data Michelle rce(s) Supporting Document(s) Rate & Rhythm 71 sinus rhythm Rate & Rhythm ATH TIGIST ([facility]) QRS Qrs HARRY ([facility]) [place] Interval 120/168 ms [place] Interval HARRY ([facility]) QRS Duration 96 ms QRS Duration HARRY ([facility]) QT Interval QT Interval HARRY ([facility]) ID Date Data Source [id number] 01/07/2021 10:00:00 AM EST HARRY ([facility]) Name Value Range Interpretation Code Description Data Michelle rce(s) Supporting Document(s) Rate & Rhythm 71 sinus rhythm Rate & Rhythm ATH TIGIST ([facility]) [place] Interval 120/168 ms [place] Interval HARRY ([facility]) QRS Qrs HARRY ([facility]) QRS Duration 96 ms QRS Duration HARRY ([facility]) QT Interval QT Interval HARRY ([facility]) ID Date Data Source [id number] 01/07/2021 10:00:00 AM EST HARRY ([facility]) Name Value Range Interpretation Code Description Data Michelle rce(s) Supporting Document(s) QRS Qrs HARRY ([facility]) Rate & Rhythm 71 sinus rhythm Rate & Rhythm ATH TIGIST ([facility]) [place] Interval 120/168 ms [place] Interval HARRY ([facility]) QRS Duration 96 ms QRS Duration HARRY ([facility]) QT Interval QT Interval HARRY ([facility]) ID Date Data Source [id number] 01/07/2021 10:00:00 AM EST HARRY ([facility]) Name Value Range Interpretation Code Description Data Michelle rce(s) Supporting Document(s) QRS Qrs HARRY ([facility]) Rate & Rhythm 71 sinus rhythm Rate & Rhythm ATH TIGIST ([facility]) [place] Interval 120/168 ms [place] Interval HARRY ([facility]) QT Interval QT Interval HARRY ([facility]) QRS Duration 96 ms QRS Duration HARRY ([facility]) ID Date Data Source [id number] 01/06/2021 12:00:00 AM EST [facility] Name Value Range Interpretation Code Description Data Michelle rce(s) Supporting Document(s) SARS coronavirus 2 Ag NEGATIVE [facility] This lab was ordered by [facility] and reported by [facility]. ID Date Data Source [id number] 01/03/2021 11:20:00 AM EST [facility] Name Value Range Interpretation Code Description Data Michelle rce(s) Supporting Document(s) SARS coronavirus 2 RNA Not Detected [facility] [place] This lab was ordered by [facility] and reported by [facility]. ID Date Data Source [id number] 12/30/2020 12:00:00 AM EST [facility] Name Value Range Interpretation Code Description Data Michelle rce(s) Supporting Document(s) SARS coronavirus 2 Ag NEGATIVE [facility] This lab was ordered by [facility] and reported by [facility]. ID Date Data Source [id number] 12/27/2020 03:00:00 PM EST [facility] Name Value Range Interpretation Code Description Data Michelle rce(s) Supporting Document(s) SARS coronavirus 2 RNA Not Detected [facility] [place] This lab was ordered by [facility] and reported by [facility]. ID Date Data Source [id number] 12/23/2020 12:00:00 AM EST [facility] Name Value Range Interpretation Code Description Data Michelle rce(s) Supporting Document(s) SARS coronavirus 2 Ag NEGATIVE [facility] This lab was ordered by [facility] and reported by [facility]. ID Date Data Source [facility] Knee, complete 12/21/2020 12:00:00 AM EST eCW1 ([facility]) Name Value Range Interpretation Code Description Data Michelle rce(s) Supporting Document(s) [facility] Knee, complete eCW1 ([facility]) ID Date Data Source [id number] 12/20/2020 01:30:00 PM EST HARRY ([facility]) Name Value Range Interpretation Code Description Data Michelle rce(s) Supporting Document(s) blood urea nitrogen 13 mg/dL 7-18 Blood Urea Nitro gen ABILENE ([facility]) creatinine for GFR 0.68 mg/dL 0.55-1.30 Creatinine for GF R HARRY ([facility]) glucose, fasting 111 mg/dL 70-100 Above high normal Glucose, Fas ting HARRY ([facility]) potassium serum 4.0 mEq/L 3.5-5.1 Potassium Serum ATHE NA ([facility]) glomerular filtration rate > 60.0 >51 Glomerula r Filtration Rate HARRY ([facility]) chloride level 102 mEq/L 98-107 Chloride Level HARRY ([facility]) sodium level 138 mEq/L 136-145 Sodium Level HARRY (No [facility]) anion gap 10 mEq/L 8-16 Anion Gap HARRY ([facility]) carbon dioxide level 26 mEq/L 21-32 Carbon Dioxide Level HARRY ([facility]) calcium level 9.5 mg/dL 8.5-10.1 Calcium Level HARRY ( [facility]) AST/SGOT 36 U/L 7-37 AST/SGOT HARRY ([facility]) ALT/SGPT 60 U/L 12-78 ALT/SGPT HARRY ([facility]) alkaline phosphatase 74 U/L 45-117 Alkaline Phosph atase HARRY ([facility]) bilirubin,total 0.3 mg/dL 0.2-1.0 Bilirubin,total ATHE NA ([facility]) albumin/globulin ratio 1.2-2.2 Albumin/globu gisella Ratio HARRY ([facility]) albumin 4.4 gm/dL 3.2-5.2 Albumin HARRY ([facility]) total protein 7.5 gm/dL 6.4-8.2 Total Protein HARRY ( [facility]) ID Date Data Source [id number] 12/20/2020 01:30:00 PM EST HARRY ([facility]) Name Value Range Interpretation Code Description Data Michelle rce(s) Supporting Document(s) erythrocyte sedimentation rate 13 mm/HR 0-30 Eryth rocyte Sedimentation Rate HARRY ([facility]) ID Date Data Source [id number] 12/20/2020 01:30:00 PM EST HARRY ([facility]) Name Value Range Interpretation Code Description Data Michelle rce(s) Supporting Document(s) hemoglobin 13.1 g/dL 12.0-15.5 Hemoglobin HARRY ([facility]) red blood count 4.25 10 4.00-5.40 Red Blood Count ATHE NA ([facility]) white blood count 5.8 10 4.0-10.0 White Blood Count HARRY ([facility]) hematocrit 38.7 % 36.0-47.0 Hematocrit HARRY ([facility]) mean corpuscular volume 91.1 fL 80.0-96.0 Mean Corpusc ular Volume HARRY ([facility]) mean corpuscular hemoglobin 30.8 pg 27.0-33.0 Mean Cor puscular Hemoglobin HARRY ([facility]) red cell distribution width 13.2 % 11.5-14.5 Red Cell Distribution Width HARRY ([facility]) mean corpuscular HGB conc 33.9 g/dL 32.0-36.5 Mean Corpu scular HGB Conc ABILENE ([facility]) platelet count, automated 244 10 150-450 Platelet C ount, Automated HARRY ([facility]) neutrophils % 69.4 % 36.0-66.0 Above high normal Neutrophils % A THENA ([facility]) lymph % 22.7 % 24.0-44.0 Below low normal Lymph % HARRY ( [facility]) mono % 5.5 % 0.0-8.0 [place] % ABILENE ([facility]) immature granulocyte % 0.3 % 0-3.0 Immature Gran ulocyte % HARRY ([facility]) eos % 1.6 % 0.0-3.0 Eos % HARRY ([facility]) baso % 0.5 % 0.0-1.0 Baso % HARRY ([facility]) neutrophils # 4.0 10 1.5-8.5 Neutrophils # HARRY ( [facility]) nucleated red blood cell % 0.0 % 0-0 Nucleated Red Blood Cell % HARRY ([facility]) lymph # 1.3 10 1.5-5.0 Below low normal Lymph # HARRY ( [facility]) eos # 0.1 10 0.0-0.5 Eos # HARRY ([facility]) mono # 0.3 10 0.0-0.8 [place] # HARRY ([facility]) baso # 0.0 10 0.0-0.2 Baso # HARRY ([facility]) ID Date Data Source [id number] 12/20/2020 01:30:00 PM EST HARRY ([facility]) Name Value Range Interpretation Code Description Data Michelle rce(s) Supporting Document(s) C reactive protein quantitativ 0.38 mg/dL 0.00-0.30 Above high normal C Reactive Protein Quantitativ HARRY ([facility]) ID Date Data Source [id number] 12/20/2020 01:30:00 PM EST HARRY ([facility]) Name Value Range Interpretation Code Description Data Michelle rce(s) Supporting Document(s) total 25(oh) vitamin D 27.2 NG/mL 30.0-100.0 Below low normal T otal 25(Oh) Vitamin D HARRY ([facility]) ID Date Data Source [id number] 12/20/2020 01:30:00 PM EST HARRY ([facility]) Name Value Range Interpretation Code Description Data Michelle rce(s) Supporting Document(s) folate > 24.0 Folate HARRY ([facility]) vitamin B12 level 807 pg/mL Vitamin B12 Level HARRY ([facility]) ID Date Data Source [id number] 12/20/2020 01:30:00 PM EST HARRY ([facility]) Name Value Range Interpretation Code Description Data Michelle rce(s) Supporting Document(s) thyroid stimulating hormone 1.830 uIU/mL 0.358-3.740 Thyroid Stimulating Hormone HARRY ([facility]) free T4 1.00 NG/dL 0.76-1.46 Free T4 ABILENE ([facility]) ID Date Data Source [id number] 12/20/2020 01:30:00 PM EST HARRY ([facility]) Name Value Range Interpretation Code Description Data Michelle rce(s) Supporting Document(s) glucose, fasting 111 mg/dL 70-100 Above high normal Glucose, Fas ting HARRY ([facility]) blood urea nitrogen 13 mg/dL 7-18 Blood Urea Nitro gen ABILENE ([facility]) creatinine for GFR 0.68 mg/dL 0.55-1.30 Creatinine for GF R ABILENE ([facility]) glomerular filtration rate > 60.0 >51 Glomerula r Filtration Rate HARRY ([facility]) sodium level 138 mEq/L 136-145 Sodium Level HARRY (No [facility]) potassium serum 4.0 mEq/L 3.5-5.1 Potassium Serum ATHE NA ([facility]) chloride level 102 mEq/L 98-107 Chloride Level ABILENE ([facility]) carbon dioxide level 26 mEq/L 21-32 Carbon Dioxide Level ABILENE ([facility]) anion gap 10 mEq/L 8-16 Anion Gap HARRY ([facility]) calcium level 9.5 mg/dL 8.5-10.1 Calcium Level HARRY ( [facility]) ALT/SGPT 60 U/L 12-78 ALT/SGPT HARRY ([facility]) AST/SGOT 36 U/L 7-37 AST/SGOT HARRY ([facility]) alkaline phosphatase 74 U/L 45-117 Alkaline Phosph atase HARRY ([facility]) bilirubin,total 0.3 mg/dL 0.2-1.0 Bilirubin,total ATHE NA ([facility]) total protein 7.5 gm/dL 6.4-8.2 Total Protein HARRY ( [facility]) albumin/globulin ratio 1.2-2.2 Albumin/globu gisella Ratio HARRY ([facility]) albumin 4.4 gm/dL 3.2-5.2 Albumin HARRY ([facility]) ID Date Data Source [id number] 12/20/2020 01:30:00 PM EST HARRY ([facility]) Name Value Range Interpretation Code Description Data Michelle rce(s) Supporting Document(s) erythrocyte sedimentation rate 13 mm/HR 0-30 Eryth rocyte Sedimentation Rate HARRY ([facility]) ID Date Data Source [id number] 12/20/2020 01:30:00 PM EST HARRY ([facility]) Name Value Range Interpretation Code Description Data Michelle rce(s) Supporting Document(s) white blood count 5.8 10 4.0-10.0 White Blood Count HARRY ([facility]) hemoglobin 13.1 g/dL 12.0-15.5 Hemoglobin HARRY ([facility]) red blood count 4.25 10 4.00-5.40 Red Blood Count ATHE ([facility]) mean corpuscular volume 91.1 fL 80.0-96.0 Mean Corpusc ular Volume HARRY ([facility]) hematocrit 38.7 % 36.0-47.0 Hematocrit HARRY ([facility]) mean corpuscular HGB conc 33.9 g/dL 32.0-36.5 Mean Corpu scular HGB Conc HARRY ([facility]) mean corpuscular hemoglobin 30.8 pg 27.0-33.0 Mean Cor puscular Hemoglobin HARRY ([facility]) red cell distribution width 13.2 % 11.5-14.5 Red Cell Distribution Width HARRY ([facility]) platelet count, automated 244 10 150-450 Platelet C ount, Automated HARRY ([facility]) lymph % 22.7 % 24.0-44.0 Below low normal Lymph % HARRY ( [facility]) neutrophils % 69.4 % 36.0-66.0 Above high normal Neutrophils % Dara THENA ([facility]) mono % 5.5 % 0.0-8.0 [place] % HARRY ([facility]) baso % 0.5 % 0.0-1.0 Baso % HARRY ([facility]) eos % 1.6 % 0.0-3.0 Eos % HARRY ([facility]) nucleated red blood cell % 0.0 % 0-0 Nucleated Red Blood Cell % HARRY ([facility]) immature granulocyte % 0.3 % 0-3.0 Immature Gran ulocyte % HARRY ([facility]) neutrophils # 4.0 10 1.5-8.5 Neutrophils # HARRY ( [facility]) lymph # 1.3 10 1.5-5.0 Below low normal Lymph # HARRY ( [facility]) eos # 0.1 10 0.0-0.5 Eos # HARRY ([facility]) mono # 0.3 10 0.0-0.8 [place] # HARRY ([facility]) baso # 0.0 10 0.0-0.2 Baso # HARRY ([facility]) ID Date Data Source [id number] 12/20/2020 01:30:00 PM EST HARRY ([facility]) Name Value Range Interpretation Code Description Data Michelle rce(s) Supporting Document(s) C reactive protein quantitativ 0.38 mg/dL 0.00-0.30 Above high normal C Reactive Protein Quantitativ ABILENE ([facility]) ID Date Data Source [id number] 12/20/2020 01:30:00 PM EST ABILENE ([facility]) Name Value Range Interpretation Code Description Data Michelle rce(s) Supporting Document(s) total 25(oh) vitamin D 27.2 NG/mL 30.0-100.0 Below low normal T otal 25(Oh) Vitamin D ABILENE ([facility]) ID Date Data Source [id number] 12/20/2020 01:30:00 PM EST HARRY ([facility]) Name Value Range Interpretation Code Description Data Michelle rce(s) Supporting Document(s) vitamin B12 level 807 pg/mL Vitamin B12 Level HARRY ([facility]) folate > 24.0 Folate HARRY ([facility]) ID Date Data Source [id number] 12/20/2020 01:30:00 PM EST HARRY ([facility]) Name Value Range Interpretation Code Description Data Michelle rce(s) Supporting Document(s) thyroid stimulating hormone 1.830 uIU/mL 0.358-3.740 Thyroid Stimulating Hormone HARRY ([facility]) free T4 1.00 NG/dL 0.76-1.46 Free T4 ABILENE ([facility]) ID Date Data Source [id number] 12/20/2020 01:30:00 PM EST HARRY ([facility]) Name Value Range Interpretation Code Description Data Michelle rce(s) Supporting Document(s) glucose, fasting 111 mg/dL 70-100 Above high normal Glucose, Fas ting HARRY ([facility]) glomerular filtration rate > 60.0 >51 Glomerula r Filtration Rate AHRRY ([facility]) blood urea nitrogen 13 mg/dL 7-18 Blood Urea Nitro gen HARRY ([facility]) creatinine for GFR 0.68 mg/dL 0.55-1.30 Creatinine for GF R HARRY ([facility]) sodium level 138 mEq/L 136-145 Sodium Level HARRY ([facility]) potassium serum 4.0 mEq/L 3.5-5.1 Potassium Serum ATHE NA ([facility]) chloride level 102 mEq/L 98-107 Chloride Level HARRY ([facility]) anion gap 10 mEq/L 8-16 Anion Gap HARRY ([facility]) AST/SGOT 36 U/L 7-37 AST/SGOT HARRY ([facility]) carbon dioxide level 26 mEq/L 21-32 Carbon Dioxide Level HARRY ([facility]) calcium level 9.5 mg/dL 8.5-10.1 Calcium Level HARRY ( [facility]) alkaline phosphatase 74 U/L 45-117 Alkaline Phosph atase HARRY ([facility]) total protein 7.5 gm/dL 6.4-8.2 Total Protein HARRY ( [facility]) ALT/SGPT 60 U/L 12-78 ALT/SGPT HARRY ([facility]) bilirubin,total 0.3 mg/dL 0.2-1.0 Bilirubin,total ATHE NA ([facility]) albumin/globulin ratio 1.2-2.2 Albumin/globu gisella Ratio HARRY ([facility]) albumin 4.4 gm/dL 3.2-5.2 Albumin HARRY ([facility]) ID Date Data Source [id number] 12/20/2020 01:30:00 PM EST HARRY ([facility]) Name Value Range Interpretation Code Description Data Michelle rce(s) Supporting Document(s) erythrocyte sedimentation rate 13 mm/HR 0-30 Eryth rocyte Sedimentation Rate HARRY ([facility]) ID Date Data Source [id number] 12/20/2020 01:30:00 PM EST HARRY ([facility]) Name Value Range Interpretation Code Description Data Michelle rce(s) Supporting Document(s) red blood count 4.25 10 4.00-5.40 Red Blood Count ATHE NA ([facility]) white blood count 5.8 10 4.0-10.0 White Blood Count HARRY ([facility]) hematocrit 38.7 % 36.0-47.0 Hematocrit HARRY ([facility]) hemoglobin 13.1 g/dL 12.0-15.5 Hemoglobin HARRY ([facility]) mean corpuscular HGB conc 33.9 g/dL 32.0-36.5 Mean Corpu scular HGB Conc HARRY ([facility]) mean corpuscular volume 91.1 fL 80.0-96.0 Mean Corpusc ular Volume HARRY ([facility]) mean corpuscular hemoglobin 30.8 pg 27.0-33.0 Mean Cor puscular Hemoglobin HARRY ([facility]) neutrophils % 69.4 % 36.0-66.0 Above high normal Neutrophils % A THENA ([facility]) red cell distribution width 13.2 % 11.5-14.5 Red Cell Distribution Width HARRY ([facility]) platelet count, automated 244 10 150-450 Platelet C ount, Automated HARRY ([facility]) mono % 5.5 % 0.0-8.0 [place] % HARRY ([facility]) lymph % 22.7 % 24.0-44.0 Below low normal Lymph % HARRY ( [facility]) eos % 1.6 % 0.0-3.0 Eos % HARRY ([facility]) baso % 0.5 % 0.0-1.0 Baso % ABILENE ([facility]) immature granulocyte % 0.3 % 0-3.0 Immature Gran ulocyte % HARRY ([facility]) nucleated red blood cell % 0.0 % 0-0 Nucleated Red Blood Cell % HARRY ([facility]) neutrophils # 4.0 10 1.5-8.5 Neutrophils # HARRY ( [facility]) lymph # 1.3 10 1.5-5.0 Below low normal Lymph # HARRY ( [facility]) mono # 0.3 10 0.0-0.8 [place] # HARRY ([facility]) eos # 0.1 10 0.0-0.5 Eos # HARRY ([facility]) baso # 0.0 10 0.0-0.2 Baso # HARRY ([facility]) ID Date Data Source [id number] 12/20/2020 01:30:00 PM EST HARRY ([facility]) Name Value Range Interpretation Code Description Data Michelle rce(s) Supporting Document(s) C reactive protein quantitativ 0.38 mg/dL 0.00-0.30 Above high normal C Reactive Protein Quantitativ ABILENE ([facility]) ID Date Data Source [id number] 12/20/2020 01:30:00 PM EST HARRY ([facility]) Name Value Range Interpretation Code Description Data Michelle rce(s) Supporting Document(s) total 25(oh) vitamin D 27.2 NG/mL 30.0-100.0 Below low normal T otal 25(Oh) Vitamin D ABILENE ([facility]) ID Date Data Source [id number] 12/20/2020 01:30:00 PM EST ABILENE ([facility]) Name Value Range Interpretation Code Description Data Michelle rce(s) Supporting Document(s) vitamin B12 level 807 pg/mL Vitamin B12 Level [facility]) folate > 24.0 Folate ABILENE ([facility]) ID Date Data Source [id number] 12/20/2020 01:30:00 PM EST ABILENE ([facility]) Name Value Range Interpretation Code Description Data Michelle rce(s) Supporting Document(s) thyroid stimulating hormone 1.830 uIU/mL 0.358-3.740 Thyroid Stimulating Hormone ABILENE ([facility]) free T4 1.00 NG/dL 0.76-1.46 Free T4 ABILENE ([facility]) ID Date Data Source [id number] 12/20/2020 01:30:00 PM EST ABILENE ([facility]) Name Value Range Interpretation Code Description Data Michelle rce(s) Supporting Document(s) blood urea nitrogen 13 mg/dL 7-18 Blood Urea Nitro gen ABILENE ([facility]) creatinine for GFR 0.68 mg/dL 0.55-1.30 Creatinine for GF R ABILENE ([facility]) glucose, fasting 111 mg/dL 70-100 Above high normal Glucose, Fas ting ABILENE ([facility]) chloride level 102 mEq/L 98-107 Chloride Level HARRY ([facility]) glomerular filtration rate > 60.0 >51 Glomerula r Filtration Rate HARRY ([facility]) potassium serum 4.0 mEq/L 3.5-5.1 Potassium Serum ATHE NA ([facility]) sodium level 138 mEq/L 136-145 Sodium Level HARRY ([facility]) anion gap 10 mEq/L 8-16 Anion Gap HARRY ([facility]) calcium level 9.5 mg/dL 8.5-10.1 Calcium Level AHRRY ( [facility]) carbon dioxide level 26 mEq/L 21-32 Carbon Dioxide Level HARRY ([facility]) ALT/SGPT 60 U/L 12-78 ALT/SGPT HARRY ([facility]) AST/SGOT 36 U/L 7-37 AST/SGOT HARRY ([facility]) alkaline phosphatase 74 U/L 45-117 Alkaline Phosph atase HARRY ([facility]) total protein 7.5 gm/dL 6.4-8.2 Total Protein HARRY ( [facility]) bilirubin,total 0.3 mg/dL 0.2-1.0 Bilirubin,total ATHE NA ([facility]) albumin 4.4 gm/dL 3.2-5.2 Albumin HARRY ([facility]) albumin/globulin ratio 1.2-2.2 Albumin/globu gisella Ratio HARRY ([facility]) ID Date Data Source [id number] 12/20/2020 01:30:00 PM EST HARRY ([facility]) Name Value Range Interpretation Code Description Data Michelle rce(s) Supporting Document(s) erythrocyte sedimentation rate 13 mm/HR 0-30 Eryth rocyte Sedimentation Rate HARRY ([facility]) ID Date Data Source [id number] 12/20/2020 01:30:00 PM EST HARRY ([facility]) Name Value Range Interpretation Code Description Data Michelle rce(s) Supporting Document(s) white blood count 5.8 10 4.0-10.0 White Blood Count HARRY ([facility]) hematocrit 38.7 % 36.0-47.0 Hematocrit HARRY ([facility]) red blood count 4.25 10 4.00-5.40 Red Blood Count ATHE NA ([facility]) hemoglobin 13.1 g/dL 12.0-15.5 Hemoglobin HARRY ([facility]) mean corpuscular hemoglobin 30.8 pg 27.0-33.0 Mean Cor puscular Hemoglobin HARRY ([facility]) mean corpuscular volume 91.1 fL 80.0-96.0 Mean Corpusc ular Volume HARRY ([facility]) mean corpuscular HGB conc 33.9 g/dL 32.0-36.5 Mean Corpu scular HGB Conc HARRY ([facility]) neutrophils % 69.4 % 36.0-66.0 Above high normal Neutrophils % A THENA ([facility]) lymph % 22.7 % 24.0-44.0 Below low normal Lymph % HARRY ( [facility]) platelet count, automated 244 10 150-450 Platelet C ount, Automated HARRY ([facility]) red cell distribution width 13.2 % 11.5-14.5 Red Cell Distribution Width HARRY ([facility]) mono % 5.5 % 0.0-8.0 [place] % HARRY ([facility]) eos % 1.6 % 0.0-3.0 Eos % HARRY ([facility]) baso % 0.5 % 0.0-1.0 Baso % HARRY ([facility]) immature granulocyte % 0.3 % 0-3.0 Immature Gran ulocyte % HARRY ([facility]) nucleated red blood cell % 0.0 % 0-0 Nucleated Red Blood Cell % HARRY ([facility]) neutrophils # 4.0 10 1.5-8.5 Neutrophils # HARRY ( [facility]) lymph # 1.3 10 1.5-5.0 Below low normal Lymph # HARRY ( [facility]) mono # 0.3 10 0.0-0.8 [place] # HARRY ([facility]) eos # 0.1 10 0.0-0.5 Eos # HARRY ([facility]) baso # 0.0 10 0.0-0.2 Baso # HARRY ([facility]) ID Date Data Source [id number] 12/20/2020 01:30:00 PM EST HARRY ([facility]) Name Value Range Interpretation Code Description Data Michelle rce(s) Supporting Document(s) C reactive protein quantitativ 0.38 mg/dL 0.00-0.30 Above high normal C Reactive Protein Quantitativ HARRY ([facility]) ID Date Data Source [id number] 12/20/2020 01:30:00 PM EST HARRY ([facility]) Name Value Range Interpretation Code Description Data Michelle rce(s) Supporting Document(s) total 25(oh) vitamin D 27.2 NG/mL 30.0-100.0 Below low normal T otal 25(Oh) Vitamin D HARRY ([facility]) ID Date Data Source [id number] 12/20/2020 01:30:00 PM EST HARRY ([facility]) Name Value Range Interpretation Code Description Data Michelle rce(s) Supporting Document(s) vitamin B12 level 807 pg/mL Vitamin B12 Level HARRY ([facility]) folate > 24.0 Folate HARRY ([facility]) ID Date Data Source [id number] 12/20/2020 01:30:00 PM EST HARRY ([facility]) Name Value Range Interpretation Code Description Data Michelle rce(s) Supporting Document(s) free T4 1.00 NG/dL 0.76-1.46 Free T4 HARRY ([facility]) thyroid stimulating hormone 1.830 uIU/mL 0.358-3.740 Thyroid Stimulating Hormone HARRY ([facility]) ID Date Data Source [id number] 12/20/2020 01:30:00 PM EST HARRY ([facility]) Name Value Range Interpretation Code Description Data Michelle rce(s) Supporting Document(s) blood urea nitrogen 13 mg/dL 7-18 Blood Urea Nitro gen HARRY ([facility]) creatinine for GFR 0.68 mg/dL 0.55-1.30 Creatinine for GF R HARRY ([facility]) glucose, fasting 111 mg/dL 70-100 Above high normal Glucose, Fas ting HARRY ([facility]) chloride level 102 mEq/L 98-107 Chloride Level HARRY ([facility]) potassium serum 4.0 mEq/L 3.5-5.1 Potassium Serum ATHE NA ([facility]) sodium level 138 mEq/L 136-145 Sodium Level HARRY ([facility]) glomerular filtration rate > 60.0 >51 Glomerula r Filtration Rate HARRY ([facility]) anion gap 10 mEq/L 8-16 Anion Gap HARRY ([facility]) ALT/SGPT 60 U/L 12-78 ALT/SGPT HARRY ([facility]) calcium level 9.5 mg/dL 8.5-10.1 Calcium Level HARRY ( [facility]) AST/SGOT 36 U/L 7-37 AST/SGOT HARRY ([facility]) carbon dioxide level 26 mEq/L 21-32 Carbon Dioxide Level HARRY ([facility]) albumin/globulin ratio 1.2-2.2 Albumin/globu gisella Ratio HARRY ([facility]) total protein 7.5 gm/dL 6.4-8.2 Total Protein HARRY ( [facility]) bilirubin,total 0.3 mg/dL 0.2-1.0 Bilirubin,total ATHE NA ([facility]) albumin 4.4 gm/dL 3.2-5.2 Albumin HARRY ([facility]) alkaline phosphatase 74 U/L 45-117 Alkaline Phosph atase HARRY ([facility]) ID Date Data Source [id number] 12/20/2020 01:30:00 PM EST HARRY ([facility]) Name Value Range Interpretation Code Description Data Michelle rce(s) Supporting Document(s) erythrocyte sedimentation rate 13 mm/HR 0-30 Eryth rocyte Sedimentation Rate HARRY ([facility]) ID Date Data Source [id number] 12/20/2020 01:30:00 PM EST HARRY ([facility]) Name Value Range Interpretation Code Description Data Michelle rce(s) Supporting Document(s) white blood count 5.8 10 4.0-10.0 White Blood Count HARRY ([facility]) red blood count 4.25 10 4.00-5.40 Red Blood Count ATHE ([facility]) hematocrit 38.7 % 36.0-47.0 Hematocrit HARRY ([facility]) hemoglobin 13.1 g/dL 12.0-15.5 Hemoglobin HARRY ([facility]) mean corpuscular volume 91.1 fL 80.0-96.0 Mean Corpusc ular Volume HARRY ([facility]) mean corpuscular hemoglobin 30.8 pg 27.0-33.0 Mean Cor puscular Hemoglobin HARRY ([facility]) mean corpuscular HGB conc 33.9 g/dL 32.0-36.5 Mean Corpu scular HGB Conc HARRY ([facility]) red cell distribution width 13.2 % 11.5-14.5 Red Cell Distribution Width HARRY ([facility]) platelet count, automated 244 10 150-450 Platelet C ount, Automated HARRY ([facility]) neutrophils % 69.4 % 36.0-66.0 Above high normal Neutrophils % A THENA ([facility]) baso % 0.5 % 0.0-1.0 Baso % HARRY ([facility]) eos % 1.6 % 0.0-3.0 Eos % HARRY ([facility]) lymph % 22.7 % 24.0-44.0 Below low normal Lymph % HARRY ( [facility]) mono % 5.5 % 0.0-8.0 [place] % HARRY ([facility]) lymph # 1.3 10 1.5-5.0 Below low normal Lymph # HARRY ( [facility]) immature granulocyte % 0.3 % 0-3.0 Immature Gran ulocyte % HARRY ([facility]) nucleated red blood cell % 0.0 % 0-0 Nucleated Red Blood Cell % HARRY ([facility]) neutrophils # 4.0 10 1.5-8.5 Neutrophils # HARRY ( [facility]) eos # 0.1 10 0.0-0.5 Eos # HARRY ([facility]) mono # 0.3 10 0.0-0.8 [place] # HARRY ([facility]) baso # 0.0 10 0.0-0.2 Baso # HARRY ([facility]) ID Date Data Source [id number] 12/20/2020 01:30:00 PM EST HARRY ([facility]) Name Value Range Interpretation Code Description Data Michelle rce(s) Supporting Document(s) C reactive protein quantitativ 0.38 mg/dL 0.00-0.30 Above high normal C Reactive Protein Quantitativ ABILENE ([facility]) ID Date Data Source [id number] 12/20/2020 01:30:00 PM EST HARRY ([facility]) Name Value Range Interpretation Code Description Data Michelle rce(s) Supporting Document(s) total 25(oh) vitamin D 27.2 NG/mL 30.0-100.0 Below low normal T otal 25(Oh) [facility] Data Source [id number] 12/20/2020 01:30:00 PM EST AHRRY ([facility]) Name Value Range Interpretation Code Description Data Michelle rce(s) Supporting Document(s) vitamin B12 level 807 pg/mL Vitamin B12 Level HARRY ([facility]) folate > 24.0 Folate HARRY ([facility]) ID Date Data Source [id number] 12/20/2020 01:30:00 PM EST HARRY ([facility]) Name Value Range Interpretation Code Description Data Michelle rce(s) Supporting Document(s) free T4 1.00 NG/dL 0.76-1.46 Free T4 ABILENE ([facility]) thyroid stimulating hormone 1.830 uIU/mL 0.358-3.740 Thyroid Stimulating Hormone ABILENE ([facility]) ID Date Data Source [id number] 12/20/2020 01:30:00 PM EST HARRY ([facility]) Name Value Range Interpretation Code Description Data Michelle rce(s) Supporting Document(s) creatinine for GFR 0.68 mg/dL 0.55-1.30 Creatinine for GF R ABILENE ([facility]) glucose, fasting 111 mg/dL 70-100 Above high normal Glucose, Fas ting HARRY ([facility]) blood urea nitrogen 13 mg/dL 7-18 Blood Urea Nitro gen HARRY ([facility]) potassium serum 4.0 mEq/L 3.5-5.1 Potassium Serum ATHE ([facility]) glomerular filtration rate > 60.0 >51 Glomerula r Filtration Rate HARRY ([facility]) chloride level 102 mEq/L 98-107 Chloride Level HARRY ([facility]) sodium level 138 mEq/L 136-145 Sodium Level HARRY ([facility]) anion gap 10 mEq/L 8-16 Anion Gap HARRY ([facility]) AST/SGOT 36 U/L 7-37 AST/SGOT ABILENE ([facility]) carbon dioxide level 26 mEq/L 21-32 Carbon Dioxide Level HARRY ([facility]) ALT/SGPT 60 U/L 12-78 ALT/SGPT ABILENE ([facility]) calcium level 9.5 mg/dL 8.5-10.1 Calcium Level HARRY ( [facility]) bilirubin,total 0.3 mg/dL 0.2-1.0 Bilirubin,total ATHE NA ([facility]) albumin 4.4 gm/dL 3.2-5.2 Albumin HARRY ([facility]) total protein 7.5 gm/dL 6.4-8.2 Total Protein HARRY ( [facility]) alkaline phosphatase 74 U/L 45-117 Alkaline Phosph atase HARRY ([facility]) albumin/globulin ratio 1.2-2.2 Albumin/globu gisella Ratio HARRY ([facility]) ID Date Data Source [id number] 12/20/2020 01:30:00 PM EST HARRY ([facility]) Name Value Range Interpretation Code Description Data Michelle rce(s) Supporting Document(s) erythrocyte sedimentation rate 13 mm/HR 0-30 Eryth rocyte Sedimentation Rate HARRY ([facility]) ID Date Data Source [id number] 12/20/2020 01:30:00 PM EST HARRY ([facility]) Name Value Range Interpretation Code Description Data Michelle rce(s) Supporting Document(s) white blood count 5.8 10 4.0-10.0 White Blood Count HARRY ([facility]) red blood count 4.25 10 4.00-5.40 Red Blood Count ATHE NA ([facility]) hemoglobin 13.1 g/dL 12.0-15.5 Hemoglobin HARRY ([facility]) mean corpuscular volume 91.1 fL 80.0-96.0 Mean Corpusc ular Volume HARRY ([facility]) hematocrit 38.7 % 36.0-47.0 Hematocrit HARRY ([facility]) mean corpuscular hemoglobin 30.8 pg 27.0-33.0 Mean Cor puscular Hemoglobin HARRY ([facility]) mean corpuscular HGB conc 33.9 g/dL 32.0-36.5 Mean Corpu scular HGB Conc HARRY ([facility]) red cell distribution width 13.2 % 11.5-14.5 Red Cell Distribution Width HARRY ([facility]) platelet count, automated 244 10 150-450 Platelet C ount, Automated HARRY ([facility]) neutrophils % 69.4 % 36.0-66.0 Above high normal Neutrophils % A THENA ([facility]) lymph % 22.7 % 24.0-44.0 Below low normal Lymph % HARRY ( [facility]) mono % 5.5 % 0.0-8.0 [place] % HARRY ([facility]) eos % 1.6 % 0.0-3.0 Eos % HARRY ([facility]) baso % 0.5 % 0.0-1.0 Baso % ABILENE ([facility]) immature granulocyte % 0.3 % 0-3.0 Immature Gran ulocyte % HARRY ([facility]) nucleated red blood cell % 0.0 % 0-0 Nucleated Red Blood Cell % ABILENE ([facility]) neutrophils # 4.0 10 1.5-8.5 Neutrophils # HARRY ( [facility]) mono # 0.3 10 0.0-0.8 [place] # HARRY ([facility]) lymph # 1.3 10 1.5-5.0 Below low normal Lymph # HARRY ( [facility]) baso # 0.0 10 0.0-0.2 Baso # HARRY ([facility]) eos # 0.1 10 0.0-0.5 Eos # HARRY ([facility]) ID Date Data Source [id number] 12/20/2020 01:30:00 PM EST HARRY ([facility]) Name Value Range Interpretation Code Description Data Michelle rce(s) Supporting Document(s) C reactive protein quantitativ 0.38 mg/dL 0.00-0.30 Above high normal C Reactive Protein Quantitativ ABILENE ([facility]) ID Date Data Source [id number] 12/20/2020 01:30:00 PM EST HARRY ([facility]) Name Value Range Interpretation Code Description Data Michelle rce(s) Supporting Document(s) total 25(oh) vitamin D 27.2 NG/mL 30.0-100.0 Below low normal T otal 25(Oh) Vitamin D HARRY ([facility]) ID Date Data Source [id number] 12/20/2020 01:30:00 PM EST HARRY ([facility]) Name Value Range Interpretation Code Description Data Michelle rce(s) Supporting Document(s) folate > 24.0 Folate HARRY ([facility]) vitamin B12 level 807 pg/mL Vitamin B12 Level ABILENE ([facility]) ID Date Data Source [id number] 12/20/2020 01:30:00 PM EST HARRY ([facility]) Name Value Range Interpretation Code Description Data Michelle rce(s) Supporting Document(s) thyroid stimulating hormone 1.830 uIU/mL 0.358-3.740 [facility] free T4 1.00 NG/dL 0.76-1.46 Free T4 ABILENE ([facility]) ID Date Data Source [id number] 12/20/2020 01:30:00 PM EST [facility]) Name Value Range Interpretation Code Description Data Michelle rce(s) Supporting Document(s) glucose, fasting 111 mg/dL 70-100 Above high normal Glucose, Fas ting ABILENE ([facility]) creatinine for GFR 0.68 mg/dL 0.55-1.30 Creatinine for GF R ABILENE ([facility]) glomerular filtration rate > 60.0 >51 Glomerula r Filtration Rate HARRY ([facility]) sodium level 138 mEq/L 136-145 Sodium Level HARRY (No [facility]) blood urea nitrogen 13 mg/dL 7-18 Blood Urea Nitro gen HARRY ([facility]) carbon dioxide level 26 mEq/L 21-32 Carbon Dioxide Level ABILENE ([facility]) potassium serum 4.0 mEq/L 3.5-5.1 Potassium Serum ATHE NA ([facility]) anion gap 10 mEq/L 8-16 Anion Gap HARRY ([facility]) chloride level 102 mEq/L 98-107 Chloride Level HARRY ([facility]) AST/SGOT 36 U/L 7-37 AST/SGOT HARRY ([facility]) calcium level 9.5 mg/dL 8.5-10.1 Calcium Level HARRY ( [facility]) alkaline phosphatase 74 U/L 45-117 Alkaline Phosph atase HARRY ([facility]) bilirubin,total 0.3 mg/dL 0.2-1.0 Bilirubin,total ATHE NA ([facility]) ALT/SGPT 60 U/L 12-78 ALT/SGPT HARRY ([facility]) total protein 7.5 gm/dL 6.4-8.2 Total Protein HARRY ( [facility]) albumin 4.4 gm/dL 3.2-5.2 Albumin HARRY ([facility]) albumin/globulin ratio 1.2-2.2 Albumin/globu gisella Ratio HARRY ([facility]) ID Date Data Source [id number] 12/20/2020 01:30:00 PM EST HARRY ([facility]) Name Value Range Interpretation Code Description Data Michelle rce(s) Supporting Document(s) erythrocyte sedimentation rate 13 mm/HR 0-30 Eryth rocyte Sedimentation Rate HARRY ([facility]) ID Date Data Source [id number] 12/20/2020 01:30:00 PM EST HARRY ([facility]) Name Value Range Interpretation Code Description Data Michelle rce(s) Supporting Document(s) red blood count 4.25 10 4.00-5.40 Red Blood Count ATHE NA ([facility]) white blood count 5.8 10 4.0-10.0 White Blood Count HARRY ([facility]) hemoglobin 13.1 g/dL 12.0-15.5 Hemoglobin HARRY ([facility]) mean corpuscular volume 91.1 fL 80.0-96.0 Mean Corpusc ular Volume HARRY ([facility]) hematocrit 38.7 % 36.0-47.0 Hematocrit HARRY ([facility]) mean corpuscular hemoglobin 30.8 pg 27.0-33.0 Mean Cor puscular Hemoglobin HARRY ([facility]) mean corpuscular HGB conc 33.9 g/dL 32.0-36.5 Mean Corpu scular HGB Conc HARRY ([facility]) platelet count, automated 244 10 150-450 Platelet C ount, Automated HARRY ([facility]) lymph % 22.7 % 24.0-44.0 Below low normal Lymph % HARRY ( [facility]) red cell distribution width 13.2 % 11.5-14.5 Red Cell Distribution Width HARRY ([facility]) neutrophils % 69.4 % 36.0-66.0 Above high normal Neutrophils % A THENA ([facility]) eos % 1.6 % 0.0-3.0 Eos % HARRY ([facility]) mono % 5.5 % 0.0-8.0 [place] % HARRY ([facility]) neutrophils # 4.0 10 1.5-8.5 Neutrophils # HARRY ( [facility]) baso % 0.5 % 0.0-1.0 Baso % HARRY ([facility]) immature granulocyte % 0.3 % 0-3.0 Immature Gran ulocyte % HARRY ([facility]) nucleated red blood cell % 0.0 % 0-0 Nucleated Red Blood Cell % HARRY ([facility]) lymph # 1.3 10 1.5-5.0 Below low normal Lymph # HARRY ( [facility]) mono # 0.3 10 0.0-0.8 [place] # HARRY ([facility]) baso # 0.0 10 0.0-0.2 Baso # HARRY ([facility]) eos # 0.1 10 0.0-0.5 Eos # HARRY ([facility]) ID Date Data Source [id number] 12/20/2020 01:30:00 PM EST HARRY ([facility]) Name Value Range Interpretation Code Description Data Michelle rce(s) Supporting Document(s) C reactive protein quantitativ 0.38 mg/dL 0.00-0.30 Above high normal C Reactive Protein Quantitativ HARRY ([facility]) ID Date Data Source [id number] 12/20/2020 01:30:00 PM EST HARRY ([facility]) Name Value Range Interpretation Code Description Data Michelle rce(s) Supporting Document(s) total 25(oh) vitamin D 27.2 NG/mL 30.0-100.0 Below low normal T otal 25(Oh) Vitamin D ABILENE ([facility]) ID Date Data Source [id number] 12/20/2020 01:30:00 PM EST HARRY ([facility]) Name Value Range Interpretation Code Description Data Michelle rce(s) Supporting Document(s) folate > 24.0 Folate HARRY ([facility]) vitamin B12 level 807 pg/mL Vitamin B12 Level ABILENE ([facility]) ID Date Data Source [id number] 12/20/2020 01:30:00 PM EST HARRY ([facility]) Name Value Range Interpretation Code Description Data Michelle rce(s) Supporting Document(s) thyroid stimulating hormone 1.830 uIU/mL 0.358-3.740 Thyroid Stimulating Hormone HARRY ([facility]) free T4 1.00 NG/dL 0.76-1.46 Free T4 ABILENE ([facility]) ID Date Data Source [id number] 12/20/2020 01:30:00 PM EST HARRY ([facility]) Name Value Range Interpretation Code Description Data Michelle rce(s) Supporting Document(s) glucose, fasting 111 mg/dL 70-100 Above high normal Glucose, Fas ting HARRY ([facility]) creatinine for GFR 0.68 mg/dL 0.55-1.30 Creatinine for GF R HARRY ([facility]) blood urea nitrogen 13 mg/dL 7-18 Blood Urea Nitro gen HARRY ([facility]) glomerular filtration rate > 60.0 >51 Glomerula r Filtration Rate HARRY ([facility]) sodium level 138 mEq/L 136-145 Sodium Level HARRY (No [facility]) potassium serum 4.0 mEq/L 3.5-5.1 Potassium Serum ATHE NA ([facility]) chloride level 102 mEq/L 98-107 Chloride Level HARRY ([facility]) carbon dioxide level 26 mEq/L 21-32 Carbon Dioxide Level HARRY ([facility]) anion gap 10 mEq/L 8-16 Anion Gap HARRY ([facility]) ALT/SGPT 60 U/L 12-78 ALT/SGPT HARRY ([facility]) calcium level 9.5 mg/dL 8.5-10.1 Calcium Level HARRY ( [facility]) AST/SGOT 36 U/L 7-37 AST/SGOT HARRY ([facility]) albumin/globulin ratio 1.2-2.2 Albumin/globu gisella Ratio HARRY ([facility]) alkaline phosphatase 74 U/L 45-117 Alkaline Phosph atase HARRY ([facility]) albumin 4.4 gm/dL 3.2-5.2 Albumin HARRY ([facility]) total protein 7.5 gm/dL 6.4-8.2 Total Protein HARRY ( [facility]) bilirubin,total 0.3 mg/dL 0.2-1.0 Bilirubin,total ATHE NA ([facility]) ID Date Data Source [id number] 12/20/2020 01:30:00 PM EST HARRY ([facility]) Name Value Range Interpretation Code Description Data Michelle rce(s) Supporting Document(s) erythrocyte sedimentation rate 13 mm/HR 0-30 Eryth rocyte Sedimentation Rate HARRY ([facility]) ID Date Data Source [id number] 12/20/2020 01:30:00 PM EST HARRY ([facility]) Name Value Range Interpretation Code Description Data Michelle rce(s) Supporting Document(s) white blood count 5.8 10 4.0-10.0 White Blood Count HARRY ([facility]) hematocrit 38.7 % 36.0-47.0 Hematocrit HARRY ([facility]) hemoglobin 13.1 g/dL 12.0-15.5 Hemoglobin HARRY ([facility]) red blood count 4.25 10 4.00-5.40 Red Blood Count ATHE NA ([facility]) red cell distribution width 13.2 % 11.5-14.5 Red Cell Distribution Width HARRY ([facility]) mean corpuscular hemoglobin 30.8 pg 27.0-33.0 Mean Cor puscular Hemoglobin HARRY ([facility]) mean corpuscular HGB conc 33.9 g/dL 32.0-36.5 Mean Corpu scular HGB Conc HARRY ([facility]) mean corpuscular volume 91.1 fL 80.0-96.0 Mean Corpusc ular Volume HARRY ([facility]) lymph % 22.7 % 24.0-44.0 Below low normal Lymph % ABILENE ( [facility]) platelet count, automated 244 10 150-450 Platelet C ount, Automated HARRY ([facility]) neutrophils % 69.4 % 36.0-66.0 Above high normal Neutrophils % A THENA ([facility]) baso % 0.5 % 0.0-1.0 Baso % HARRY ([facility]) mono % 5.5 % 0.0-8.0 [place] % HARRY ([facility]) eos % 1.6 % 0.0-3.0 Eos % HARRY ([facility]) immature granulocyte % 0.3 % 0-3.0 Immature Gran ulocyte % HARRY ([facility]) lymph # 1.3 10 1.5-5.0 Below low normal Lymph # HARRY ( [facility]) neutrophils # 4.0 10 1.5-8.5 Neutrophils # HARRY ( [facility]) nucleated red blood cell % 0.0 % 0-0 Nucleated Red Blood Cell % HARRY ([facility]) eos # 0.1 10 0.0-0.5 Eos # HARRY ([facility]) mono # 0.3 10 0.0-0.8 [place] # HARRY ([facility]) baso # 0.0 10 0.0-0.2 Baso # HARRY ([facility]) ID Date Data Source [id number] 12/20/2020 01:30:00 PM EST HARRY ([facility]) Name Value Range Interpretation Code Description Data Michelle rce(s) Supporting Document(s) C reactive protein quantitativ 0.38 mg/dL 0.00-0.30 Above high normal C Reactive Protein Quantitativ ABILENE ([facility]) ID Date Data Source [id number] 12/20/2020 01:30:00 PM EST HARRY ([facility]) Name Value Range Interpretation Code Description Data Michelle rce(s) Supporting Document(s) total 25(oh) vitamin D 27.2 NG/mL 30.0-100.0 Below low normal T otal 25(Oh) Vitamin D HARRY ([facility]) ID Date Data Source [id number] 12/20/2020 01:30:00 PM EST HARRY ([facility]) Name Value Range Interpretation Code Description Data Michelle rce(s) Supporting Document(s) vitamin B12 level 807 pg/mL Vitamin B12 Level HARRY ([facility]) folate > 24.0 Folate HARRY ([facility]) ID Date Data Source [id number] 12/20/2020 01:30:00 PM EST HARRY ([facility]) Name Value Range Interpretation Code Description Data Michelle rce(s) Supporting Document(s) thyroid stimulating hormone 1.830 uIU/mL 0.358-3.740 Thyroid Stimulating Hormone HARRY ([facility]) free T4 1.00 NG/dL 0.76-1.46 Free T4 ABILENE ([facility]) ID Date Data Source [id number] 12/20/2020 01:30:00 PM EST HARRY ([facility]) Name Value Range Interpretation Code Description Data Michelle rce(s) Supporting Document(s) glucose, fasting 111 mg/dL 70-100 Above high normal Glucose, Fas ting HARRY ([facility]) blood urea nitrogen 13 mg/dL 7-18 Blood Urea Nitro gen HARRY ([facility]) creatinine for GFR 0.68 mg/dL 0.55-1.30 Creatinine for GF R ABILENE ([facility]) glomerular filtration rate > 60.0 >51 Glomerula r Filtration Rate HARRY ([facility]) chloride level 102 mEq/L 98-107 Chloride Level HARRY ([facility]) sodium level 138 mEq/L 136-145 Sodium Level HARRY ([facility]) potassium serum 4.0 mEq/L 3.5-5.1 Potassium Serum ATHE NA ([facility]) calcium level 9.5 mg/dL 8.5-10.1 Calcium Level ABILENE ( [facility]) ALT/SGPT 60 U/L 12-78 ALT/SGPT HARRY ([facility]) AST/SGOT 36 U/L 7-37 AST/SGOT HARRY ([facility]) carbon dioxide level 26 mEq/L 21-32 Carbon Dioxide Level HARRY ([facility]) anion gap 10 mEq/L 8-16 Anion Gap HARRY ([facility]) total protein 7.5 gm/dL 6.4-8.2 Total Protein HARRY ( [facility]) alkaline phosphatase 74 U/L 45-117 Alkaline Phosph atase HARRY ([facility]) bilirubin,total 0.3 mg/dL 0.2-1.0 Bilirubin,total ATHE NA ([facility]) albumin 4.4 gm/dL 3.2-5.2 Albumin HARRY ([facility]) albumin/globulin ratio 1.2-2.2 Albumin/globu gisella Ratio HARRY ([facility]) ID Date Data Source [id number] 12/20/2020 01:30:00 PM EST HARRY ([facility]) Name Value Range Interpretation Code Description Data Michelle rce(s) Supporting Document(s) erythrocyte sedimentation rate 13 mm/HR 0-30 Eryth rocyte Sedimentation Rate HARRY ([facility]) ID Date Data Source [id number] 12/20/2020 01:30:00 PM EST HARRY ([facility]) Name Value Range Interpretation Code Description Data Michelle rce(s) Supporting Document(s) white blood count 5.8 10 4.0-10.0 White Blood Count HARRY ([facility]) hematocrit 38.7 % 36.0-47.0 Hematocrit HARRY ([facility]) red blood count 4.25 10 4.00-5.40 Red Blood Count ATHE ([facility]) hemoglobin 13.1 g/dL 12.0-15.5 Hemoglobin HARRY ([facility]) red cell distribution width 13.2 % 11.5-14.5 Red Cell Distribution Width HARRY ([facility]) mean corpuscular HGB conc 33.9 g/dL 32.0-36.5 Mean Corpu scular HGB Conc HARRY ([facility]) mean corpuscular hemoglobin 30.8 pg 27.0-33.0 Mean Cor puscular Hemoglobin HARRY ([facility]) mean corpuscular volume 91.1 fL 80.0-96.0 Mean Corpusc ular Volume HARRY ([facility]) platelet count, automated 244 10 150-450 Platelet C ount, Automated HARRY ([facility]) neutrophils % 69.4 % 36.0-66.0 Above high normal Neutrophils % A THENA ([facility]) lymph % 22.7 % 24.0-44.0 Below low normal Lymph % HARRY ( [facility]) mono % 5.5 % 0.0-8.0 [place] % HARRY ([facility]) baso % 0.5 % 0.0-1.0 Baso % HARRY ([facility]) eos % 1.6 % 0.0-3.0 Eos % HARRY ([facility]) immature granulocyte % 0.3 % 0-3.0 Immature Gran ulocyte % HARRY ([facility]) nucleated red blood cell % 0.0 % 0-0 Nucleated Red Blood Cell % HARRY ([facility]) neutrophils # 4.0 10 1.5-8.5 Neutrophils # HARRY ( [facility]) baso # 0.0 10 0.0-0.2 Baso # HARRY ([facility]) mono # 0.3 10 0.0-0.8 [place] # HARRY ([facility]) lymph # 1.3 10 1.5-5.0 Below low normal Lymph # HARRY ( [facility]) eos # 0.1 10 0.0-0.5 Eos # HARRY ([facility]) ID Date Data Source [id number] 12/20/2020 01:30:00 PM EST HARRY ([facility]) Name Value Range Interpretation Code Description Data Michelle rce(s) Supporting Document(s) C reactive protein quantitativ 0.38 mg/dL 0.00-0.30 Above high normal C Reactive Protein Quantitativ ABILENE ([facility]) ID Date Data Source [id number] 12/20/2020 01:30:00 PM EST HARRY ([facility]) Name Value Range Interpretation Code Description Data Michelle rce(s) Supporting Document(s) total 25(oh) vitamin D 27.2 NG/mL 30.0-100.0 Below low normal T otal 25(Oh) Vitamin D ABILENE ([facility]) ID Date Data Source [id number] 12/20/2020 01:30:00 PM EST HARRY ([facility]) Name Value Range Interpretation Code Description Data Michelel rce(s) Supporting Document(s) vitamin B12 level 807 pg/mL Vitamin B12 Level HARRY ([facility]) folate > 24.0 Folate HARRY ([facility]) ID Date Data Source [id number] 12/20/2020 01:30:00 PM EST HARRY ([facility]) Name Value Range Interpretation Code Description Data Michelle rce(s) Supporting Document(s) thyroid stimulating hormone 1.830 uIU/mL 0.358-3.740 Thyroid Stimulating Hormone HARRY ([facility]) free T4 1.00 NG/dL 0.76-1.46 Free T4 ABILENE ([facility]) ID Date Data Source [id number] 12/20/2020 01:30:00 PM EST HARRY ([facility]) Name Value Range Interpretation Code Description Data Michelle rce(s) Supporting Document(s) blood urea nitrogen 13 mg/dL 7-18 Blood Urea Nitro gen HARRY ([facility]) glucose, fasting 111 mg/dL 70-100 Above high normal Glucose, Fas ting HARRY ([facility]) sodium level 138 mEq/L 136-145 Sodium Level HARRY ([facility]) glomerular filtration rate > 60.0 >51 Glomerula r Filtration Rate HARRY ([facility]) creatinine for GFR 0.68 mg/dL 0.55-1.30 Creatinine for GF R HARRY ([facility]) potassium serum 4.0 mEq/L 3.5-5.1 Potassium Serum ATHE NA ([facility]) chloride level 102 mEq/L 98-107 Chloride Level HARRY ([facility]) anion gap 10 mEq/L 8-16 Anion Gap HARRY ([facility]) carbon dioxide level 26 mEq/L 21-32 Carbon Dioxide Level HARRY ([facility]) ALT/SGPT 60 U/L 12-78 ALT/SGPT HARRY ([facility]) AST/SGOT 36 U/L 7-37 AST/SGOT HARRY ([facility]) alkaline phosphatase 74 U/L 45-117 Alkaline Phosph atase HARRY ([facility]) calcium level 9.5 mg/dL 8.5-10.1 Calcium Level HARRY ( [facility]) albumin 4.4 gm/dL 3.2-5.2 Albumin HARRY ([facility]) albumin/globulin ratio 1.2-2.2 Albumin/globu gisella Ratio HARRY ([facility]) bilirubin,total 0.3 mg/dL 0.2-1.0 Bilirubin,total ATHE NA ([facility]) total protein 7.5 gm/dL 6.4-8.2 Total Protein HARRY ( [facility]) ID Date Data Source [id number] 12/20/2020 01:30:00 PM EST HARRY ([facility]) Name Value Range Interpretation Code Description Data Michelle rce(s) Supporting Document(s) erythrocyte sedimentation rate 13 mm/HR 0-30 Eryth rocyte Sedimentation Rate HARRY ([facility]) ID Date Data Source [id number] 12/20/2020 01:30:00 PM EST HARRY ([facility]) Name Value Range Interpretation Code Description Data Michelle rce(s) Supporting Document(s) white blood count 5.8 10 4.0-10.0 White Blood Count HARRY ([facility]) hemoglobin 13.1 g/dL 12.0-15.5 Hemoglobin HARRY ([facility]) red blood count 4.25 10 4.00-5.40 Red Blood Count ATHE NA ([facility]) hematocrit 38.7 % 36.0-47.0 Hematocrit HARRY ([facility]) mean corpuscular hemoglobin 30.8 pg 27.0-33.0 Mean Cor puscular Hemoglobin HARRY ([facility]) mean corpuscular volume 91.1 fL 80.0-96.0 Mean Corpusc ular Volume HARRY ([facility]) mean corpuscular HGB conc 33.9 g/dL 32.0-36.5 Mean Corpu scular HGB Conc HARRY ([facility]) neutrophils % 69.4 % 36.0-66.0 Above high normal Neutrophils % A THENA ([facility]) lymph % 22.7 % 24.0-44.0 Below low normal Lymph % HARRY ( [facility]) red cell distribution width 13.2 % 11.5-14.5 Red Cell Distribution Width HARRY ([facility]) platelet count, automated 244 10 150-450 Platelet C ount, Automated HARRY ([facility]) immature granulocyte % 0.3 % 0-3.0 Immature Gran ulocyte % HARRY ([facility]) baso % 0.5 % 0.0-1.0 Baso % HARRY ([facility]) mono % 5.5 % 0.0-8.0 [place] % HARRY ([facility]) eos % 1.6 % 0.0-3.0 Eos % HARRY ([facility]) neutrophils # 4.0 10 1.5-8.5 Neutrophils # HARRY ( [facility]) mono # 0.3 10 0.0-0.8 [place] # HARRY ([facility]) lymph # 1.3 10 1.5-5.0 Below low normal Lymph # HARRY ( [facility]) nucleated red blood cell % 0.0 % 0-0 Nucleated Red Blood Cell % HARRY ([facility]) eos # 0.1 10 0.0-0.5 Eos # HARRY ([facility]) baso # 0.0 10 0.0-0.2 Baso # HARRY ([facility]) ID Date Data Source [id number] 12/20/2020 01:30:00 PM EST HARRY ([facility]) Name Value Range Interpretation Code Description Data Michelle rce(s) Supporting Document(s) C reactive protein quantitativ 0.38 mg/dL 0.00-0.30 Above high normal C Reactive Protein Quantitativ HARRY ([facility]) ID Date Data Source [id number] 12/20/2020 01:30:00 PM EST HARRY ([facility]) Name Value Range Interpretation Code Description Data Michelle rce(s) Supporting Document(s) total 25(oh) vitamin D 27.2 NG/mL 30.0-100.0 Below low normal T otal 25(Oh) Vitamin D HARRY ([facility]) ID Date Data Source [id number] 12/20/2020 01:30:00 PM EST HARRY ([facility]) Name Value Range Interpretation Code Description Data Michelle rce(s) Supporting Document(s) folate > 24.0 Folate ABILENE ([facility]) vitamin B12 level 807 pg/mL Vitamin B12 Level ABILENE ([facility]) ID Date Data Source [id number] 12/20/2020 01:30:00 PM EST HARRY ([facility]) Name Value Range Interpretation Code Description Data Michelle rce(s) Supporting Document(s) thyroid stimulating hormone 1.830 uIU/mL 0.358-3.740 Thyroid Stimulating Hormone ABILENE ([facility]) free T4 1.00 NG/dL 0.76-1.46 Free T4 ABILENE ([facility]) ID Date Data Source [id number] 12/20/2020 01:30:00 PM EST HARRY ([facility]) Name Value Range Interpretation Code Description Data Michelle rce(s) Supporting Document(s) glucose, fasting 111 mg/dL 70-100 Above high normal Glucose, Fas ting ABILENE ([facility]) creatinine for GFR 0.68 mg/dL 0.55-1.30 Creatinine for GF R ABILENE ([facility]) blood urea nitrogen 13 mg/dL 7-18 Blood Urea Nitro gen HARRY ([facility]) sodium level 138 mEq/L 136-145 Sodium Level HARRY ([facility]) potassium serum 4.0 mEq/L 3.5-5.1 Potassium Serum ATHE NA ([facility]) glomerular filtration rate > 60.0 >51 Glomerula r Filtration Rate HARRY ([facility]) chloride level 102 mEq/L 98-107 Chloride Level HARRY ([facility]) anion gap 10 mEq/L 8-16 Anion Gap HARRY ([facility]) calcium level 9.5 mg/dL 8.5-10.1 Calcium Level HARRY ( [facility]) AST/SGOT 36 U/L 7-37 AST/SGOT HARRY ([facility]) carbon dioxide level 26 mEq/L 21-32 Carbon Dioxide Level HARRY ([facility]) total protein 7.5 gm/dL 6.4-8.2 Total Protein HARRY ( [facility]) ALT/SGPT 60 U/L 12-78 ALT/SGPT HARRY ([facility]) alkaline phosphatase 74 U/L 45-117 Alkaline Phosph atase HARRY ([facility]) bilirubin,total 0.3 mg/dL 0.2-1.0 Bilirubin,total ATHE NA ([facility]) albumin 4.4 gm/dL 3.2-5.2 Albumin HARRY ([facility]) albumin/globulin ratio 1.2-2.2 Albumin/globu gisella Ratio HARRY ([facility]) ID Date Data Source [id number] 12/20/2020 01:30:00 PM EST HARRY ([facility]) Name Value Range Interpretation Code Description Data Michelle rce(s) Supporting Document(s) erythrocyte sedimentation rate 13 mm/HR 0-30 Eryth rocyte Sedimentation Rate HARRY ([facility]) ID Date Data Source [id number] 12/20/2020 01:30:00 PM EST HARRY ([facility]) Name Value Range Interpretation Code Description Data Michelle rce(s) Supporting Document(s) white blood count 5.8 10 4.0-10.0 White Blood Count HARRY ([facility]) hemoglobin 13.1 g/dL 12.0-15.5 Hemoglobin HARRY ([facility]) red blood count 4.25 10 4.00-5.40 Red Blood Count ATHE NA ([facility]) mean corpuscular volume 91.1 fL 80.0-96.0 Mean Corpusc ular Volume HARRY ([facility]) hematocrit 38.7 % 36.0-47.0 Hematocrit HARRY ([facility]) red cell distribution width 13.2 % 11.5-14.5 Red Cell Distribution Width HARRY ([facility]) mean corpuscular HGB conc 33.9 g/dL 32.0-36.5 Mean Corpu scular HGB Conc HARRY ([facility]) mean corpuscular hemoglobin 30.8 pg 27.0-33.0 Mean Cor puscular Hemoglobin HARRY ([facility]) lymph % 22.7 % 24.0-44.0 Below low normal Lymph % HARRY ( [facility]) neutrophils % 69.4 % 36.0-66.0 Above high normal Neutrophils % A THENA ([facility]) mono % 5.5 % 0.0-8.0 [place] % HARRY ([facility]) platelet count, automated 244 10 150-450 Platelet C ount, Automated HARRY ([facility]) eos % 1.6 % 0.0-3.0 Eos % HARRY ([facility]) nucleated red blood cell % 0.0 % 0-0 Nucleated Red Blood Cell % HARRY ([facility]) immature granulocyte % 0.3 % 0-3.0 Immature Gran ulocyte % AHRRY ([facility]) baso % 0.5 % 0.0-1.0 Baso % HARRY ([facility]) mono # 0.3 10 0.0-0.8 [place] # HARRY ([facility]) neutrophils # 4.0 10 1.5-8.5 Neutrophils # HARRY ( [facility]) lymph # 1.3 10 1.5-5.0 Below low normal Lymph # HARRY ( [facility]) baso # 0.0 10 0.0-0.2 Baso # HARRY ([facility]) eos # 0.1 10 0.0-0.5 Eos # HARRY ([facility]) ID Date Data Source [id number] 12/20/2020 01:30:00 PM EST HARRY ([facility]) Name Value Range Interpretation Code Description Data Michelle rce(s) Supporting Document(s) C reactive protein quantitativ 0.38 mg/dL 0.00-0.30 Above high normal C Reactive Protein Quantitativ HARRY ([facility]) ID Date Data Source [id number] 12/20/2020 01:30:00 PM EST HARRY ([facility]) Name Value Range Interpretation Code Description Data Michelle rce(s) Supporting Document(s) total 25(oh) vitamin D 27.2 NG/mL 30.0-100.0 Below low normal T otal 25(Oh) Vitamin D HARRY ([facility]) ID Date Data Source [id number] 12/20/2020 01:30:00 PM EST HARRY ([facility]) Name Value Range Interpretation Code Description Data Michelle rce(s) Supporting Document(s) vitamin B12 level 807 pg/mL Vitamin B12 Level HARRY ([facility]) folate > 24.0 Folate HARRY ([facility]) ID Date Data Source [id number] 12/20/2020 01:30:00 PM EST HARRY ([facility]) Name Value Range Interpretation Code Description Data Michelle rce(s) Supporting Document(s) thyroid stimulating hormone 1.830 uIU/mL 0.358-3.740 Thyroid Stimulating Hormone HARRY ([facility]) free T4 1.00 NG/dL 0.76-1.46 Free T4 HARRY ([facility]) ID Date Data Source [id number] 12/20/2020 01:30:00 PM EST HARRY ([facility]) Name Value Range Interpretation Code Description Data Michelle rce(s) Supporting Document(s) glucose, fasting 111 mg/dL 70-100 Above high normal Glucose, Fas ting HARRY ([facility]) blood urea nitrogen 13 mg/dL 7-18 Blood Urea Nitro gen HARRY ([facility]) glomerular filtration rate > 60.0 >51 Glomerula r Filtration Rate HARRY ([facility]) creatinine for GFR 0.68 mg/dL 0.55-1.30 Creatinine for GF R HARRY ([facility]) sodium level 138 mEq/L 136-145 Sodium Level HARRY ([facility]) anion gap 10 mEq/L 8-16 Anion Gap HARRY ([facility]) potassium serum 4.0 mEq/L 3.5-5.1 Potassium Serum ATHE ([facility]) carbon dioxide level 26 mEq/L 21-32 Carbon Dioxide Level HARRY ([facility]) chloride level 102 mEq/L 98-107 Chloride Level HARRY ([facility]) calcium level 9.5 mg/dL 8.5-10.1 Calcium Level HARRY ( [facility]) alkaline phosphatase 74 U/L 45-117 Alkaline Phosph atase HARRY ([facility]) ALT/SGPT 60 U/L 12-78 ALT/SGPT HARRY ([facility]) AST/SGOT 36 U/L 7-37 AST/SGOT HARRY ([facility]) albumin 4.4 gm/dL 3.2-5.2 Albumin HARRY ([facility]) total protein 7.5 gm/dL 6.4-8.2 Total Protein HARRY ( [facility]) albumin/globulin ratio 1.2-2.2 Albumin/globu gisella Ratio HARRY ([facility]) bilirubin,total 0.3 mg/dL 0.2-1.0 Bilirubin,total ATHE NA ([facility]) ID Date Data Source [id number] 12/20/2020 01:30:00 PM EST HARRY ([facility]) Name Value Range Interpretation Code Description Data Michelle rce(s) Supporting Document(s) erythrocyte sedimentation rate 13 mm/HR 0-30 Eryth rocyte Sedimentation Rate HARRY ([facility]) ID Date Data Source [id number] 12/20/2020 01:30:00 PM EST HARRY ([facility]) Name Value Range Interpretation Code Description Data Michelle rce(s) Supporting Document(s) white blood count 5.8 10 4.0-10.0 White Blood Count HARRY ([facility]) mean corpuscular volume 91.1 fL 80.0-96.0 Mean Corpusc ular Volume HARRY ([facility]) red blood count 4.25 10 4.00-5.40 Red Blood Count ATHE ([facility]) hemoglobin 13.1 g/dL 12.0-15.5 Hemoglobin HARRY ([facility]) hematocrit 38.7 % 36.0-47.0 Hematocrit HARRY ([facility]) mean corpuscular hemoglobin 30.8 pg 27.0-33.0 Mean Cor puscular Hemoglobin HARRY ([facility]) red cell distribution width 13.2 % 11.5-14.5 Red Cell Distribution Width HARRY ([facility]) mean corpuscular HGB conc 33.9 g/dL 32.0-36.5 Mean Corpu scular HGB Conc HARRY ([facility]) platelet count, automated 244 10 150-450 Platelet C ount, Automated HARRY ([facility]) mono % 5.5 % 0.0-8.0 [place] % HARRY ([facility]) lymph % 22.7 % 24.0-44.0 Below low normal Lymph % HARRY ( [facility]) neutrophils % 69.4 % 36.0-66.0 Above high normal Neutrophils % A THENA ([facility]) baso % 0.5 % 0.0-1.0 Baso % HARRY ([facility]) immature granulocyte % 0.3 % 0-3.0 Immature Gran ulocyte % HARRY ([facility]) eos % 1.6 % 0.0-3.0 Eos % HARRY ([facility]) mono # 0.3 10 0.0-0.8 [place] # HARRY ([facility]) nucleated red blood cell % 0.0 % 0-0 Nucleated Red Blood Cell % HARRY ([facility]) lymph # 1.3 10 1.5-5.0 Below low normal Lymph # HARRY ( [facility]) neutrophils # 4.0 10 1.5-8.5 Neutrophils # HARRY ( [facility]) eos # 0.1 10 0.0-0.5 Eos # HARRY ([facility]) baso # 0.0 10 0.0-0.2 Baso # HARRY ([facility]) ID Date Data Source [id number] 12/20/2020 01:30:00 PM EST HARRY ([facility]) Name Value Range Interpretation Code Description Data Michelle rce(s) Supporting Document(s) C reactive protein quantitativ 0.38 mg/dL 0.00-0.30 Above high normal C Reactive Protein Quantitativ ABILENE ([facility]) ID Date Data Source [id number] 12/20/2020 01:30:00 PM EST HARRY ([facility]) Name Value Range Interpretation Code Description Data Michelle rce(s) Supporting Document(s) total 25(oh) vitamin D 27.2 NG/mL 30.0-100.0 Below low normal T otal 25(Oh) Vitamin D ABILENE ([facility]) ID Date Data Source [id number] 12/20/2020 01:30:00 PM EST HARRY ([facility]) Name Value Range Interpretation Code Description Data Michelle rce(s) Supporting Document(s) folate > 24.0 Folate HARRY ([facility]) vitamin B12 level 807 pg/[facility] Data Source [id number] 12/20/2020 01:30:00 PM EST HARRY ([facility]) Name Value Range Interpretation Code Description Data Michelle rce(s) Supporting Document(s) thyroid stimulating hormone 1.830 uIU/mL 0.358-3.740 Thyroid Stimulating Hormone HARRY ([facility]) free T4 1.00 NG/dL 0.76-1.46 Free T4 HARRY ([facility]) ID Date Data Source [id number] 12/20/2020 01:30:00 PM EST HARRY ([facility]) Name Value Range Interpretation Code Description Data Michelle rce(s) Supporting Document(s) blood urea nitrogen 13 mg/dL 7-18 Blood Urea Nitro gen HARRY ([facility]) glucose, fasting 111 mg/dL 70-100 Above high normal Glucose, Fas ting HARRY ([facility]) potassium serum 4.0 mEq/L 3.5-5.1 Potassium Serum ATHE ([facility]) sodium level 138 mEq/L 136-145 Sodium Level HARRY ([facility]) creatinine for GFR 0.68 mg/dL 0.55-1.30 Creatinine for GF R HARRY ([facility]) glomerular filtration rate > 60.0 >51 Glomerula r Filtration Rate HARRY ([facility]) chloride level 102 mEq/L 98-107 Chloride Level HARRY ([facility]) carbon dioxide level 26 mEq/L 21-32 Carbon Dioxide Level HARRY ([facility]) AST/SGOT 36 U/L 7-37 AST/SGOT HARRY ([facility]) calcium level 9.5 mg/dL 8.5-10.1 Calcium Level HARRY ( [facility]) anion gap 10 mEq/L 8-16 Anion Gap HARRY ([facility]) ALT/SGPT 60 U/L 12-78 ALT/SGPT HARRY ([facility]) bilirubin,total 0.3 mg/dL 0.2-1.0 Bilirubin,total ATHE NA ([facility]) total protein 7.5 gm/dL 6.4-8.2 Total Protein HARRY ( [facility]) alkaline phosphatase 74 U/L 45-117 Alkaline Phosph atase HARRY ([facility]) albumin/globulin ratio 1.2-2.2 Albumin/globu gisella Ratio HARRY ([facility]) albumin 4.4 gm/dL 3.2-5.2 Albumin HARRY ([facility]) ID Date Data Source [id number] 12/20/2020 01:30:00 PM EST HARRY ([facility]) Name Value Range Interpretation Code Description Data Michelle rce(s) Supporting Document(s) erythrocyte sedimentation rate 13 mm/HR 0-30 Eryth rocyte Sedimentation Rate HARRY ([facility]) ID Date Data Source [id number] 12/20/2020 01:30:00 PM EST HARRY ([facility]) Name Value Range Interpretation Code Description Data Michelle rce(s) Supporting Document(s) white blood count 5.8 10 4.0-10.0 White Blood Count HARRY ([facility]) hemoglobin 13.1 g/dL 12.0-15.5 Hemoglobin HARRY ([facility]) red blood count 4.25 10 4.00-5.40 Red Blood Count ATHE ([facility]) hematocrit 38.7 % 36.0-47.0 Hematocrit HARRY ([facility]) mean corpuscular HGB conc 33.9 g/dL 32.0-36.5 Mean Corpu scular HGB Conc HARRY ([facility]) mean corpuscular volume 91.1 fL 80.0-96.0 Mean Corpusc ular Volume HARRY ([facility]) mean corpuscular hemoglobin 30.8 pg 27.0-33.0 Mean Cor puscular Hemoglobin HARRY ([facility]) red cell distribution width 13.2 % 11.5-14.5 Red Cell Distribution Width HARRY ([facility]) platelet count, automated 244 10 150-450 Platelet C ount, Automated HARRY ([facility]) lymph % 22.7 % 24.0-44.0 Below low normal Lymph % HARRY ( [facility]) neutrophils % 69.4 % 36.0-66.0 Above high normal Neutrophils % A THENA ([facility]) baso % 0.5 % 0.0-1.0 Baso % HARRY ([facility]) mono % 5.5 % 0.0-8.0 [place] % HARRY ([facility]) eos % 1.6 % 0.0-3.0 Eos % ABILENE ([facility]) immature granulocyte % 0.3 % 0-3.0 Immature Gran ulocyte % ABILENE ([facility]) nucleated red blood cell % 0.0 % 0-0 Nucleated Red Blood Cell % ABILENE ([facility]) neutrophils # 4.0 10 1.5-8.5 Neutrophils # ABILENE ( [facility]) baso # 0.0 10 0.0-0.2 Baso # HARRY ([facility]) eos # 0.1 10 0.0-0.5 Eos # HARRY ([facility]) mono # 0.3 10 0.0-0.8 [place] # HARRY ([facility]) lymph # 1.3 10 1.5-5.0 Below low normal Lymph # ABILENE ( [facility]) ID Date Data Source [id number] 12/20/2020 01:30:00 PM EST HARRY ([facility]) Name Value Range Interpretation Code Description Data Michelle rce(s) Supporting Document(s) C reactive protein quantitativ 0.38 mg/dL 0.00-0.30 Above high normal C Reactive Protein Quantitativ ABILENE ([facility]) ID Date Data Source [id number] 12/20/2020 01:30:00 PM EST HARRY ([facility]) Name Value Range Interpretation Code Description Data Michelle rce(s) Supporting Document(s) total 25(oh) vitamin D 27.2 NG/mL 30.0-100.0 Below low normal T otal 25(Oh) Vitamin D HARRY ([facility]) ID Date Data Source [id number] 12/20/2020 01:30:00 PM EST HARRY ([facility]) Name Value Range Interpretation Code Description Data Michelle rce(s) Supporting Document(s) folate > 24.0 Folate HARRY ([facility]) vitamin B12 level 807 pg/mL Vitamin B12 Level HARRY ([facility]) ID Date Data Source [id number] 12/20/2020 01:30[facility] Name Value Range Interpretation Code Description Data Michelle rce(s) Supporting Document(s) thyroid stimulating hormone 1.830 uIU/mL 0.358-3.740 Thyroid Stimulating Hormone HARRY ([facility]) free T4 1.00 NG/dL 0.76-1.46 Free T4 ABILENE ([facility]) ID Date Data Source [id number] 12/20/2020 01:30:00 PM EST HARRY ([facility]) Name Value Range Interpretation Code Description Data Michelle rce(s) Supporting Document(s) glucose, fasting 111 mg/dL 70-100 Above high normal Glucose, Fas ting HARRY ([facility]) blood urea nitrogen 13 mg/dL 7-18 Blood Urea Nitro gen HARRY ([facility]) potassium serum 4.0 mEq/L 3.5-5.1 Potassium Serum ATH NA ([facility]) sodium level 138 mEq/L 136-145 Sodium Level HARRY ([facility]) creatinine for GFR 0.68 mg/dL 0.55-1.30 Creatinine for GF R HARRY ([facility]) glomerular filtration rate > 60.0 >51 Glomerula r Filtration Rate HARRY ([facility]) AST/SGOT 36 U/L 7-37 AST/SGOT HARRY ([facility]) calcium level 9.5 mg/dL 8.5-10.1 Calcium Level HARRY ( [facility]) carbon dioxide level 26 mEq/L 21-32 Carbon Dioxide Level HARRY ([facility]) anion gap 10 mEq/L 8-16 Anion Gap HARRY ([facility]) chloride level 102 mEq/L 98-107 Chloride Level HARRY ([facility]) total protein 7.5 gm/dL 6.4-8.2 Total Protein HARRY ( [facility]) ALT/SGPT 60 U/L 12-78 ALT/SGPT HARRY ([facility]) bilirubin,total 0.3 mg/dL 0.2-1.0 Bilirubin,total ATHE NA ([facility]) alkaline phosphatase 74 U/L 45-117 Alkaline Phosph atase HARRY ([facility]) albumin 4.4 gm/dL 3.2-5.2 Albumin HARRY ([facility]) albumin/globulin ratio 1.2-2.2 Albumin/globu gisella Ratio HARRY ([facility]) ID Date Data Source [id number] 12/20/2020 01:30:00 PM EST HARRY ([facility]) Name Value Range Interpretation Code Description Data Michelle rce(s) Supporting Document(s) erythrocyte sedimentation rate 13 mm/HR 0-30 Eryth rocyte Sedimentation Rate HARRY ([facility]) ID Date Data Source [id number] 12/20/2020 01:30:00 PM EST HARRY ([facility]) Name Value Range Interpretation Code Description Data Michelle rce(s) Supporting Document(s) hemoglobin 13.1 g/dL 12.0-15.5 Hemoglobin HARRY ([facility]) red blood count 4.25 10 4.00-5.40 Red Blood Count ATHE ([facility]) hematocrit 38.7 % 36.0-47.0 Hematocrit HARRY ([facility]) white blood count 5.8 10 4.0-10.0 White Blood Count HARRY ([facility]) red cell distribution width 13.2 % 11.5-14.5 Red Cell Distribution Width HARRY ([facility]) mean corpuscular volume 91.1 fL 80.0-96.0 Mean Corpusc ular Volume HARRY ([facility]) mean corpuscular HGB conc 33.9 g/dL 32.0-36.5 Mean Corpu scular HGB Conc HARRY ([facility]) mean corpuscular hemoglobin 30.8 pg 27.0-33.0 Mean Cor puscular Hemoglobin HARRY ([facility]) lymph % 22.7 % 24.0-44.0 Below low normal Lymph % HARRY ( [facility]) mono % 5.5 % 0.0-8.0 [place] % HARRY ([facility]) neutrophils % 69.4 % 36.0-66.0 Above high normal Neutrophils % A THENA ([facility]) platelet count, automated 244 10 150-450 Platelet C ount, Automated HARRY ([facility]) neutrophils # 4.0 10 1.5-8.5 Neutrophils # ABILENE ( [facility]) nucleated red blood cell % 0.0 % 0-0 Nucleated Red Blood Cell % HARRY ([facility]) baso % 0.5 % 0.0-1.0 Baso % HARRY ([facility]) immature granulocyte % 0.3 % 0-3.0 Immature Gran ulocyte % HARRY ([facility]) eos % 1.6 % 0.0-3.0 Eos % HARRY ([facility]) baso # 0.0 10 0.0-0.2 Baso # HARRY ([facility]) mono # 0.3 10 0.0-0.8 [place] # HARRY ([facility]) eos # 0.1 10 0.0-0.5 Eos # HARRY ([facility]) lymph # 1.3 10 1.5-5.0 Below low normal Lymph # HARRY ( [facility]) ID Date Data Source [id number] 12/20/2020 01:30:00 PM EST HARRY ([facility]) Name Value Range Interpretation Code Description Data Michelle rce(s) Supporting Document(s) C reactive protein quantitativ 0.38 mg/dL 0.00-0.30 Above high normal C Reactive Protein Quantitativ HARRY ([facility]) ID Date Data Source [id number] 12/20/2020 01:30:00 PM EST HARRY ([facility]) Name Value Range Interpretation Code Description Data Michelle rce(s) Supporting Document(s) total 25(oh) vitamin D 27.2 NG/mL 30.0-100.0 Below low normal T otal 25(Oh) Vitamin D ABILENE ([facility]) ID Date Data Source [id number] 12/20/2020 01:30:00 PM EST HARRY ([facility]) Name Value Range Interpretation Code Description Data Michelle rce(s) Supporting Document(s) vitamin B12 level 807 pg/mL Vitamin B12 Level HARRY ([facility]) folate > 24.0 Folate HARRY ([facility]) ID Date Data Source [id number] 12/20/2020 01:30:00 PM EST HARRY ([facility]) Name Value Range Interpretation Code Description Data Michelle rce(s) Supporting Document(s) thyroid stimulating hormone 1.830 uIU/mL 0.358-3.740 Thyroid Stimulating Hormone HARRY ([facility]) free T4 1.00 NG/dL 0.76-1.46 Free T4 ABILENE ([facility]) ID Date Data Source [id number] 12/20/2020 01:30:00 PM EST HARRY ([facility]) Name Value Range Interpretation Code Description Data Michelle rce(s) Supporting Document(s) glucose, fasting 111 mg/dL 70-100 Above high normal Glucose, Fas ting HARRY ([facility]) blood urea nitrogen 13 mg/dL 7-18 Blood Urea Nitro gen HARRY ([facility]) creatinine for GFR 0.68 mg/dL 0.55-1.30 Creatinine for GF R HARRY ([facility]) sodium level 138 mEq/L 136-145 Sodium Level HARRY ([facility]) glomerular filtration rate > 60.0 >51 Glomerula r Filtration Rate HARRY ([facility]) potassium serum 4.0 mEq/L 3.5-5.1 Potassium Serum ATHE NA ([facility]) carbon dioxide level 26 mEq/L 21-32 Carbon Dioxide Level HARRY ([facility]) chloride level 102 mEq/L 98-107 Chloride Level HARRY ([facility]) AST/SGOT 36 U/L 7-37 AST/SGOT HARRY ([facility]) ALT/SGPT 60 U/L 12-78 ALT/SGPT HARRY ([facility]) anion gap 10 mEq/L 8-16 Anion Gap HARRY ([facility]) calcium level 9.5 mg/dL 8.5-10.1 Calcium Level HARRY ( [facility]) bilirubin,total 0.3 mg/dL 0.2-1.0 Bilirubin,total ATHE ([facility]) albumin/globulin ratio 1.2-2.2 Albumin/globu gisella Ratio HARRY ([facility]) total protein 7.5 gm/dL 6.4-8.2 Total Protein HARRY ( [facility]) alkaline phosphatase 74 U/L 45-117 Alkaline Phosph atase HARRY ([facility]) albumin 4.4 gm/dL 3.2-5.2 Albumin HARRY ([facility]) ID Date Data Source [id number] 12/20/2020 01:30:00 PM EST HARRY ([facility]) Name Value Range Interpretation Code Description Data Michelle rce(s) Supporting Document(s) erythrocyte sedimentation rate 13 mm/HR 0-30 Eryth rocyte Sedimentation Rate HARRY ([facility]) ID Date Data Source [id number] 12/20/2020 01:30:00 PM EST HARRY ([facility]) Name Value Range Interpretation Code Description Data Michelle rce(s) Supporting Document(s) white blood count 5.8 10 4.0-10.0 White Blood Count HARRY ([facility]) hemoglobin 13.1 g/dL 12.0-15.5 Hemoglobin HARRY ([facility]) red blood count 4.25 10 4.00-5.40 Red Blood Count ATHE NA ([facility]) mean corpuscular volume 91.1 fL 80.0-96.0 Mean Corpusc ular Volume HARRY ([facility]) hematocrit 38.7 % 36.0-47.0 Hematocrit HARRY ([facility]) mean corpuscular hemoglobin 30.8 pg 27.0-33.0 Mean Cor puscular Hemoglobin HARRY ([facility]) mean corpuscular HGB conc 33.9 g/dL 32.0-36.5 Mean Corpu scular HGB Conc HARRY ([facility]) red cell distribution width 13.2 % 11.5-14.5 Red Cell Distribution Width HARRY ([facility]) platelet count, automated 244 10 150-450 Platelet C ount, Automated HARRY ([facility]) neutrophils % 69.4 % 36.0-66.0 Above high normal Neutrophils % A THENA ([facility]) eos % 1.6 % 0.0-3.0 Eos % ABILENE ([facility]) lymph % 22.7 % 24.0-44.0 Below low normal Lymph % HARRY ( [facility]) mono % 5.5 % 0.0-8.0 [place] % HARRY ([facility]) baso % 0.5 % 0.0-1.0 Baso % ABILENE ([facility]) nucleated red blood cell % 0.0 % 0-0 Nucleated Red Blood Cell % HARRY ([facility]) immature granulocyte % 0.3 % 0-3.0 Immature Gran ulocyte % HARRY ([facility]) neutrophils # 4.0 10 1.5-8.5 Neutrophils # ABILENE ( [facility]) lymph # 1.3 10 1.5-5.0 Below low normal Lymph # HARRY ( [facility]) mono # 0.3 10 0.0-0.8 [place] # HARRY ([facility]) eos # 0.1 10 0.0-0.5 Eos # HARRY ([facility]) baso # 0.0 10 0.0-0.2 Baso # HARRY ([facility]) ID Date Data Source [id number] 12/20/2020 01:30:00 PM EST HARRY ([facility]) Name Value Range Interpretation Code Description Data Michelle rce(s) Supporting Document(s) C reactive protein quantitativ 0.38 mg/dL 0.00-0.30 Above high normal C Reactive Protein Quantitativ ABILENE ([facility]) ID Date Data Source [id number] 12/20/2020 01:30:00 PM EST HARRY ([facility]) Name Value Range Interpretation Code Description Data Michelle rce(s) Supporting Document(s) total 25(oh) vitamin D 27.2 NG/mL 30.0-100.0 Below low normal T otal 25(Oh) Vitamin D ABILENE ([facility]) ID Date Data Source [id number] 12/20/2020 01:30:00 PM EST HARRY ([facility]) Name Value Range Interpretation Code Description Data Michelle rce(s) Supporting Document(s) vitamin B12 level 807 pg/mL Vitamin B12 Level HARRY ([facility]) folate > 24.0 Folate ABILENE ([facility]) ID Date Data Source [id number] 12/20/2020 01:30:00 PM EST HARRY ([facility]) Name Value Range Interpretation Code Description Data Michelle rce(s) Supporting Document(s) thyroid stimulating hormone 1.830 uIU/mL 0.358-3.740 Thyroid Stimulating Hormone HARRY ([facility]) free T4 1.00 NG/dL 0.76-1.46 Free T4 ABILENE ([facility]) ID Date Data Source [id number] 12/20/2020 01:00:00 PM EST [facility] Name Value Range Interpretation Code Description Data Michelle rce(s) Supporting Document(s) SARS coronavirus 2 RNA Not Detected [facility] This lab was ordered by [facility] and reported by [facility]. ID Date Data Source [id number] 12/16/2020 12:00:00 AM EST [facility] Name Value Range Interpretation Code Description Data Michelle rce(s) Supporting Document(s) SARS coronavirus 2 Ag NEGATIVE [facility] This lab was ordered by [facility] and reported by [facility]. ID Date Data Source [id number] 12/13/2020 02:30:00 PM EST [facility] Name Value Range Interpretation Code Description Data Michelle rce(s) Supporting Document(s) SARS coronavirus 2 RNA Not Detected [facility] [place] This lab was ordered by [facility] and reported by [facility]. ID Date Data Source [id number] 12/09/2020 12:00:00 AM EST [facility] Name Value Range Interpretation Code Description Data Michelle rce(s) Supporting Document(s) SARS coronavirus 2 Ag [facility] This lab was ordered by [facility] and reported by [facility]. ID Date Data Source [id number] 12/06/2020 01:00:00 PM EST [facility] Name Value Range Interpretation Code Description Data Michelle rce(s) Supporting Document(s) SARS coronavirus 2 RNA Not Detected [facility] [place] This lab was ordered by [facility] and reported by [facility]. ID Date Data Source [id number] 12/02/2020 12:00:00 AM EST [facility] Name Value Range Interpretation Code Description Data Michelle rce(s) Supporting Document(s) SARS coronavirus 2 Ag NEGATIVE [facility] This lab was ordered by [facility] and reported by [facility]. ID Date Data Source [id number] 11/29/2020 02:00:00 PM EST [facility] Name Value Range Interpretation Code Description Data Michelle rce(s) Supporting Document(s) SARS coronavirus 2 RNA Not Detected [facility] [place] This lab was ordered by [facility] and reported by [facility]. ID Date Data Source [id number] 11/22/2020 02:00:00 PM EST [facility] Name Value Range Interpretation Code Description Data Michelle rce(s) Supporting Document(s) SARS coronavirus 2 RNA Not Detected [facility] [place] This lab was ordered by [facility] and reported by [facility]. ID Date Data Source [id number] 11/18/2020 12:00:00 AM EST [facility] Name Value Range Interpretation Code Description Data Michelle rce(s) Supporting Document(s) SARS-CoV2 Rapid Antigen Negative [facility] This lab was ordered by [facility] and reported by [facility]. ID Date Data Source [id number] 11/15/2020 12:30:00 PM EST [facility] Name Value Range Interpretation Code Description Data Michelle rce(s) Supporting Document(s) SARS coronavirus 2 RNA Not Detected [facility] [place] This lab was ordered by [facility] and reported by [facility]. ID Date Data Source [id number] 11/08/2020 11:30:00 AM EST [facility] Name Value Range Interpretation Code Description Data Michelle rce(s) Supporting Document(s) SARS coronavirus 2 RNA Not Detected [facility] [place] This lab was ordered by [facility] and reported by [facility]. ID Date Data Source [id number] 11/01/2020 02:30:00 PM EST [facility] Name Value Range Interpretation Code Description Data Michelle rce(s) Supporting Document(s) SARS coronavirus 2 RNA [facility] This lab was ordered by [facility] and reported by [facility]. ID Date Data Source [id number] 10/25/2020 01:45:00 PM EST [facility] Name Value Range Interpretation Code Description Data Michelle rce(s) Supporting Document(s) SARS coronavirus 2 RNA [facility] This lab was ordered by [facility] and reported by [facility]. ID Date Data Source [id number] 10/18/2020 12:14:00 PM EST [facility] Name Value Range Interpretation Code Description Data Michelle rce(s) Supporting Document(s) SARS coronavirus 2 RNA [facility] This lab was ordered by [facility] and reported by [facility]. ID Date Data Source [facility] Hip,Ap,Lat 10/13/2020 12:00:00 AM EST eCW1 ([facility]) Name Value Range Interpretation Code Description Data Michelle rce(s) Supporting Document(s) [facility] Hip,Ap,Lat eCW1 ([facility]) ID Date Data Source [id number] 10/11/2020 10:50:00 AM EST [facility] Name Value Range Interpretation Code Description Data Michelle rce(s) Supporting Document(s) SARS coronavirus 2 RNA [facility] This lab was ordered by [facility] and reported by [facility]. ID Date Data Source [id number] 2020 01:00:00 PM EST [facility] Name Value Range Interpretation Code Description Data Michelle rce(s) Supporting Document(s) SARS coronavirus 2 RNA [facility] This lab was ordered by [facility] and reported by [facility]. ID Date Data Source [id number] 10/01/2020 12:00:00 AM EST [facility] Name Value Range Interpretation Code Description Data Michelle rce(s) Supporting Document(s) SARS-CoV2 Rapid Antigen [facility] This lab was ordered by [facility] and reported by [facility]. ID Date Data Source [id number] 09/27/2020 01:45:00 PM EST [facility] Name Value Range Interpretation Code Description Data Michelle rce(s) Supporting Document(s) SARS coronavirus 2 RNA [facility] This lab was ordered by [facility] and reported by [facility]. ID Date Data Source [id number] 09/20/2020 02:15:00 PM EST [facility] Name Value Range Interpretation Code Description Data Michelle rce(s) Supporting Document(s) SARS coronavirus 2 RNA [facility] This lab was ordered by [facility] and reported by [facility]. ID Date Data Source [id number] 09/06/2020 11:03:00 AM EST [facility] Name Value Range Interpretation Code Description Data Michelle rce(s) Supporting Document(s) SARS coronavirus 2 RNA [facility] This lab was ordered by [facility] and reported by [facility]. ID Date Data Source [id number] 08/30/2020 01:00:00 PM EDT [facility] Name Value Range Interpretation Code Description Data Michelle rce(s) Supporting Document(s) SARS coronavirus 2 RNA [facility] This lab was ordered by [facility] and reported by [facility]. ID Date Data Source [id number] 08/23/2020 01:00:00 PM EDT [facility] Name Value Range Interpretation Code Description Data Michelle rce(s) Supporting Document(s) SARS coronavirus 2 RNA [facility] This lab was ordered by [facility] and reported by [facility]. ID Date Data Source [id number] 08/16/2020 12:50:00 PM EDT [facility] Name Value Range Interpretation Code Description Data Michelle rce(s) Supporting Document(s) SARS coronavirus 2 RNA [facility] This lab was ordered by [facility] and reported by [facility]. ID Date Data Source QUANTIFERON TB GOLD TEST 08/13/2020 05:14:41 AM EDT eCW1 ([facility]) Name Value Range Interpretation Code Description Data Michelle rce(s) Supporting Document(s) QUANTIFERON TB GOLD TEST eCW1 ([facility]) ID Date Data Source [id number] 08/09/2020 02:00:00 PM EDT [facility] Name Value Range Interpretation Code Description Data Michelle rce(s) Supporting Document(s) SARS coronavirus 2 RNA [facility] This lab was ordered by [facility] and reported by [facility]. ID Date Data Source [id number] 08/02/2020 12:00:00 PM EDT [facility] Name Value Range Interpretation Code Description Data Michelle rce(s) Supporting Document(s) SARS coronavirus 2 RNA [facility] This lab was ordered by [facility] and reported by [facility]. ID Date Data Source [id number] 07/26/2020 12:00:00 PM EDT [facility] Name Value Range Interpretation Code Description Data Michelle rce(s) Supporting Document(s) SARS coronavirus 2 RNA [facility] This lab was ordered by [facility] and reported by [facility]. ID Date Data Source [id number] 07/19/2020 10:00:00 AM EDT [facility] Name Value Range Interpretation Code Description Data Michelle rce(s) Supporting Document(s) SARS coronavirus 2 RNA [facility] This lab was ordered by [facility] and reported by [facility]. ID Date Data Source [id number] 07/14/2020 10:00:00 AM EDT [facility] Name Value Range Interpretation Code Description Data Michelle rce(s) Supporting Document(s) SARS coronavirus 2 RNA [facility] This lab was ordered by [facility] and reported by [facility]. ID Date Data Source [id number] 07/05/2020 12:19:00 PM EDT [facility] Name Value Range Interpretation Code Description Data Michelle rce(s) Supporting Document(s) SARS coronavirus 2 RNA [facility] This lab was ordered by [facility] and reported by [facility]. ID Date Data Source [id number] 06/28/2020 02:24:00 PM EDT [facility] Name Value Range Interpretation Code Description Data Michelle rce(s) Supporting Document(s) SARS coronavirus 2 RNA [facility] This lab was ordered by [facility] and reported by [facility]. Procedure Social History Code Duration Value Status Description Data Source(s ) Smoking 03/24/2021 12:00:00 AM EDT Never Smoker completed Never S moker eCW1 ([facility]) Smoking 03/24/2021 12:00:00 AM EDT Never Smoker completed Never S moker eCW1 ([facility]) Smoking 03/24/2021 12:00:00 AM EDT Never Smoker completed Never S moker eCW1 ([facility]) Smoking 03/24/2021 12:00:00 AM EDT Never Smoker completed Never S moker eCW1 ([facility]) Smoking 03/24/2021 12:00:00 AM EDT Never Smoker completed Never S moker eCW1 ([facility]) Smoking 03/24/2021 12:00:00 AM EDT Never Smoker completed Never S moker eCW1 ([facility]) Smoking 03/24/2021 12:00:00 AM EDT Never Smoker completed Never S moker eCW1 ([facility]) Smoking 03/24/2021 12:00:00 AM EDT Never Smoker completed Never S moker eCW1 ([facility]) Smoking 03/24/2021 12:00:00 AM EDT Never Smoker completed Never S moker eCW1 ([facility]) Smoking 03/24/2021 12:00:00 AM EDT Never Smoker completed Never S moker eCW1 ([facility]) Smoking 03/24/2021 12:00:00 AM EDT Never Smoker completed Never S moker eCW1 ([facility]) Smoking 12/21/2020 12:00:00 AM EST Never Smoker completed Never S moker eCW1 ([facility]) Smoking 12/21/2020 12:00:00 AM EST Never Smoker completed Never S moker eCW1 ([facility]) Smoking 12/21/2020 12:00:00 AM EST Never Smoker completed Never S moker eCW1 ([facility]) Smoking 11/24/2020 12:00:00 AM EST Patient has never smoked co mpleted Patient has never smoked MEDENT ([facility]) Smoking 10/13/2020 12:00:00 AM EST Never Smoker completed Never S moker eCW1 ([facility]) Smoking 10/13/2020 12:00:00 AM EST Never Smoker completed Never S moker eCW1 ([facility]) Smoking 10/13/2020 12:00:00 AM EST Never Smoker completed Never S moker eCW1 ([facility]) Smoking 09/28/2020 12:00:00 AM EST Never Smoker completed Never S moker eCW1 ([facility]) Smoking 09/28/2020 12:00:00 AM EST Never Smoker completed Never S moker eCW1 ([facility]) Smoking 09/28/2020 12:00:00 AM EST Never Smoker completed Never S moker eCW1 ([facility]) Smoking 09/28/2020 12:00:00 AM EST Never Smoker completed Never S moker eCW1 ([facility]) Smoking 09/28/2020 12:00:00 AM EST Never Smoker completed Never S moker eCW1 ([facility]) Smoking 09/28/2020 12:00:00 AM EST Never Smoker completed Never S moker eCW1 ([facility]) Smoking 09/28/2020 12:00:00 AM EST Never Smoker completed Never S moker eCW1 ([facility]) Vital Signs ID Date Data Source UNK Name Value Range Interpretation Code Description Data Source(s) Diastolic blood pressure 81 mm[Hg] 81 mm[Hg] HARRY ([facility]) Body height 64 [in_i] 64 [in_i] ABILENE ([facility]) Body mass index (BMI) [Ratio] 30.9 kg/m2 30.9 k g/m2 HARRY ([facility]) Systolic blood pressure 126 mm[Hg] 126 mm[Hg] A THENA ([facility]) Body weight 2876.8 [oz_av] 2876.8 [oz_av] ATHEN A ([facility]) Systolic blood pressure 130 mm[Hg] 130 mm[Hg] M EDRC ([facility], ) Diastolic blood pressure 68 mm[Hg] 68 mm[facility]Hg[facility] Body temperature 98.2 [degF] 98.2 [degF] [facility] Body height 64 [in_i] 64 [in_i] [facility] 5'4" Body weight 187.50 [lb_av] 187.50 [lb_av] MEDEN T ([facility]) Body mass index (BMI) [Ratio] 32.2 kg/m2 32.2 k g/m2 [facility] [place] body weight 120 [lb_av] 120 [lb_av] MEDEN T ([facility]) Body weight 85.050 kg 85.050 kg [facility] ([facility]) Body surface area Derived from formula 1.90 m2 1.90 m2 JESS ([facility], ) Body height 64 [in_i] 64 [in_i] HARRY ([facility]) Diastolic blood pressure 80 mm[Hg] 80 mm[Hg] HARRY ([facility]) Systolic blood pressure 120 mm[Hg] 120 mm[Hg] A [facility] ([facility]) Body weight 3072 [oz_av] 3072 [oz_av] HARRY ([facility]) Body mass index (BMI) [Ratio] 33 kg/m2 33 kg/ m2 HARRY ([facility]) Diastolic blood pressure 80 mm[Hg] 80 mm[Hg] HARRY ([facility]) Body height 64 [in_i] 64 [in_i] HARRY ([facility]) Body mass index (BMI) [Ratio] 33 kg/m2 33 kg/ m2 HARRY ([facility]) Systolic blood pressure 120 mm[Hg] 120 mm[Hg] A [facility] ([facility]) Body weight 3072 [oz_av] 3072 [oz_av] HARRY ([facility]) Diastolic blood pressure 80 mm[Hg] 80 mm[Hg] HARRY ([facility]) Body height 64 [in_i] 64 [in_i] HARRY ([facility]) Body mass index (BMI) [Ratio] 33 kg/m2 33 kg/ m2 HARRY ([facility]) Systolic blood pressure 120 mm[Hg] 120 mm[Hg] A THENA ([facility]) Body weight 3072 [oz_av] 3072 [oz_av] HARRY ([facility]) Diastolic blood pressure 80 mm[Hg] 80 mm[Hg] HARRY ([facility]) Body height 64 [in_i] 64 [in_i] HARRY ([facility]) Body weight 3072 [oz_av] 3072 [oz_av] HARRY ([facility]) Body mass index (BMI) [Ratio] 33 kg/m2 33 kg/ m2 HARRY ([facility]) Systolic blood pressure 120 mm[Hg] 120 mm[Hg] A THENA ([facility]) Body weight 3072 [oz_av] 3072 [oz_av] HARRY ([facility]) Diastolic blood pressure 80 mm[Hg] 80 mm[Hg] HARRY ([facility]) Body height 64 [in_i] 64 [in_i] HARRY ([facility]) Body mass index (BMI) [Ratio] 33 kg/m2 33 kg/ m2 HARRY ([facility]) Systolic blood pressure 120 mm[Hg] 120 mm[Hg] [facility] Diastolic blood pressure 80 mm[Hg] 80 mm[Hg] HARRY ([facility]) Body height 64 [in_i] 64 [in_i] HARRY ([facility]) Body mass index (BMI) [Ratio] 33 kg/m2 33 kg/ m2 HARRY ([facility]) Systolic blood pressure 120 mm[Hg] 120 mm[Hg] A [facility] ([facility]) Body weight 3072 [oz_av] 3072 [oz_av] HARRY ([facility]) Diastolic blood pressure 80 mm[Hg] 80 mm[Hg] HARRY ([facility]) Body height 64 [in_i] 64 [in_i] HARRY ([facility]) Body mass index (BMI) [Ratio] 33 kg/m2 33 kg/ m2 HARRY ([facility]) Systolic blood pressure 120 mm[Hg] 120 mm[Hg] A [facility]) Body weight 3072 [oz_av] 3072 [oz_av] HARRY ([facility]) Body mass index (BMI) [Ratio] 33 kg/m2 33 kg/ m2 HARRY ([facility]) Systolic blood pressure 120 mm[Hg] 120 mm[Hg] A THENA ([facility]) Body weight 3072 [oz_av] 3072 [oz_av] HARRY ([facility]) Diastolic blood pressure 80 mm[Hg] 80 mm[Hg] HARRY ([facility]) Body height 64 [in_i] 64 [in_i] HARRY ([facility]) Diastolic blood pressure 81 mm[Hg] 81 mm[Hg] HARRY ([facility]) Body height 64 [in_i] 64 [in_i] HARRY ([facility]) Body mass index (BMI) [Ratio] 34 kg/m2 34 kg/ m2 HARRY ([facility]) Systolic blood pressure 125 mm[Hg] 125 mm[Hg] [facility] Body weight 3168 [oz_av] 3168 [oz_av] HARRY ([facility]) Diastolic blood pressure 81 mm[Hg] 81 mm[Hg] HARRY ([facility]) Body height 64 [in_i] 64 [in_i] HARRY ([facility]) Body mass index (BMI) [Ratio] 34 kg/m2 34 kg/ m2 HARRY ([facility]) Systolic blood pressure 125 mm[Hg] 125 mm[Hg] [facility]) Body weight 3168 [oz_av] 3168 [oz_av] HARRY ([facility]) Diastolic blood pressure 81 mm[Hg] 81 mm[Hg] HARRY ([facility]) Body height 64 [in_i] 64 [in_i] HARRY ([facility]) Body mass index (BMI) [Ratio] 34 kg/m2 34 kg/ m2 HARRY ([facility]) Systolic blood pressure 125 mm[Hg] 125 mm[Hg] A THENA ([facility]) Body weight 3168 [oz_av] 3168 [oz_av] HARRY ([facility]) Diastolic blood pressure 81 mm[Hg] 81 mm[Hg] HARRY ([facility]) Body height 64 [in_i] 64 [in_i] HARRY ([facility]) Body mass index (BMI) [Ratio] 34 kg/m2 34 kg/ m2 HARRY ([facility]) Systolic blood pressure 125 mm[Hg] 125 mm[Hg] A THENA ([facility]) Body weight 3168 [oz_av] 3168 [oz_av] HARRY ([facility]) Body height 64 [in_i] 64 [in_i] HARRY ([facility]) Body mass index (BMI) [Ratio] 34 kg/m2 34 kg/ m2 HARRY ([facility]) Systolic blood pressure 125 mm[Hg] 125 mm[Hg] [facility]) Body weight 3168 [oz_av] 3168 [oz_av] HARRY ([facility]) Diastolic blood pressure 81 mm[Hg] 81 mm[Hg] HARRY ([facility]) Diastolic blood pressure 81 mm[Hg] 81 mm[Hg] HARRY ([facility]) Body height 64 [in_i] 64 [in_i] HARRY ([facility]) Body mass index (BMI) [Ratio] 34 kg/m2 34 kg/ m2 HARRY ([facility]) Systolic blood pressure 125 mm[Hg] 125 mm[Hg] A THENA ([facility]) Body weight 3168 [oz_av] 3168 [oz_av] HARRY ([facility]) Diastolic blood pressure 81 mm[Hg] 81 mm[Hg] HARRY ([facility]) Body height 64 [in_i] 64 [in_i] HARRY ([facility]) Body mass index (BMI) [Ratio] 34 kg/m2 34 kg/ m2 HARRY ([facility]) Systolic blood pressure 125 mm[Hg] 125 mm[Hg] A THENA ([facility]) Body weight 3168 [oz_av] 3168 [oz_av] HARRY ([facility]) Diastolic blood pressure 81 mm[Hg] 81 mm[Hg] HARRY ([facility]) Body height 64 [in_i] 64 [in_i] HARRY ([facility]) Body mass index (BMI) [Ratio] 34 kg/m2 34 kg/ m2 HARRY ([facility]) Systolic blood pressure 125 mm[Hg] 125 mm[Hg] A THENA ([facility]) Body weight 3168 [oz_av] 3168 [oz_av] HARRY ([facility]) Diastolic blood pressure 81 mm[Hg] 81 mm[Hg] HARRY ([facility]) Body height 64 [in_i] 64 [in_i] HARRY ([facility]) Body mass index (BMI) [Ratio] 34 kg/m2 34 kg/ m2 HARRY ([facility]) Systolic blood pressure 125 mm[Hg] 125 mm[Hg] A THENA ([facility]) Body weight 3168 [oz_av] 3168 [oz_av] HARRY ([facility]) Body temperature 97.7 [degF] 97.7 [degF] eCW1 ( [facility]) Diastolic blood pressure 68 mm[Hg] 68 mm[Hg] eCW1 ([facility]) Systolic blood pressure 140 mm[Hg] 140 mm[Hg] e CW1 ([facility]) Body weight 210.8 [lb_av] 210.8 [lb_av] eCW1 ([facility]) Body weight 95.6 kg 95.6 kg eCW1 ([facility]) Body height 63.5 [in_i] 63.5 [in_i] eCW1 ([facility]) Body mass index (BMI) [Ratio] 36.75 kg/m2 36.75 kg/m2 eCW1 ([facility]) Heart rate 84 /min 84 /min eCW1 ([facility]) Respiratory rate 18 /min 18 /min eCW1 ([facility]) Body height 64 [in_i] 64 [in_i] HARRY ([facility]) Body height 64 [in_i] 64 [in_i] HARRY ([facility]) Body height 64 [in_i] 64 [in_i] HARRY ([facility]) Body height 64 [in_i] 64 [in_i] HARRY ([facility]) Body height 64 [in_i] 64 [in_i] HARRY ([facility]) Body height 64 [in_i] 64 [in_i] HARRY ([facility]) Body height 64 [in_i] 64 [in_i] HARRY ([facility]) Body height 64 [in_i] 64 [in_i] HARRY ([facility]) Body height 64 [in_i] 64 [in_i] HARRY ([facility]) Body height 64 [in_i] 64 [in_i] HARRY ([facility]) Body height 64 [in_i] 64 [in_i] HARRY ([facility]) Body height 64 [in_i] 64 [in_i] HARRY ([facility]) Body height 64 [in_i] 64 [in_i] HARRY ([facility]) Body height 64 [in_i] 64 [in_i] HARRY ([facility]) Diastolic blood pressure 88 mm[Hg] 88 mm[Hg] HARRY ([facility]) Body height 64 [in_i] 64 [in_i] HARRY ([facility]) Body mass index (BMI) [Ratio] 38.6 kg/m2 38.6 k g/m2 HARRY ([facility]) Systolic blood pressure 135 mm[Hg] 135 mm[Hg] [facility] Body weight 3593.6 [oz_av] 3593.6 [oz_av] ATHEN A ([facility]) Diastolic blood pressure 88 mm[Hg] 88 mm[Hg] HARRY ([facility]) Body height 64 [in_i] 64 [in_i] HARRY ([facility]) Body mass index (BMI) [Ratio] 38.6 kg/m2 38.6 k g/m2 HARRY ([facility]) Systolic blood pressure 135 mm[Hg] 135 mm[Hg] A THENA ([facility]) Body weight 3593.6 [oz_av] 3593.6 [oz_av] ATHEN A ([facility]) Diastolic blood pressure 88 mm[Hg] 88 mm[Hg] HARRY ([facility]) Body height 64 [in_i] 64 [in_i] HARRY ([facility]) Body mass index (BMI) [Ratio] 38.6 kg/m2 38.6 k g/m2 HARRY ([facility]) Systolic blood pressure 135 mm[Hg] 135 mm[Hg] A THENA ([facility]) Body weight 3593.6 [oz_av] 3593.6 [oz_av] ATHEN A ([facility]) Diastolic blood pressure 88 mm[Hg] 88 mm[Hg] HARRY ([facility]) Body height 64 [in_i] 64 [in_i] HARRY ([facility]) Body mass index (BMI) [Ratio] 38.6 kg/m2 38.6 k g/m2 HARRY ([facility]) Systolic blood pressure 135 mm[Hg] 135 mm[Hg] [facility]) Body weight 3593.6 [oz_av] 3593.6 [oz_av] ATHEN A ([facility]) Diastolic blood pressure 88 mm[Hg] 88 mm[Hg] HARRY ([facility]) Body height 64 [in_i] 64 [in_i] HARRY ([facility]) Body mass index (BMI) [Ratio] 38.6 kg/m2 38.6 k g/m2 HARRY ([facility]) Systolic blood pressure 135 mm[Hg] 135 mm[Hg] [facility]) Body weight 3593.6 [oz_av] 3593.6 [oz_av] ATHEN A ([facility]) Diastolic blood pressure 88 mm[Hg] 88 mm[Hg] HARRY ([facility]) Body height 64 [in_i] 64 [in_i] HARRY ([facility]) Body mass index (BMI) [Ratio] 38.6 kg/m2 38.6 k g/m2 HARRY ([facility]) Systolic blood pressure 135 mm[Hg] 135 mm[Hg] A THENA ([facility]) Body weight 3593.6 [oz_av] 3593.6 [oz_av] ATHEN A ([facility]) Diastolic blood pressure 88 mm[Hg] 88 mm[Hg] HARRY ([facility]) Body height 64 [in_i] 64 [in_i] HARRY ([facility]) Body mass index (BMI) [Ratio] 38.6 kg/m2 38.6 k g/m2 HARRY ([facility]) Systolic blood pressure 135 mm[Hg] 135 mm[Hg] [facility]) Body weight 3593.6 [oz_av] 3593.6 [oz_av] ATHEN A ([facility]) Diastolic blood pressure 88 mm[Hg] 88 mm[Hg] HARRY ([facility]) Body height 64 [in_i] 64 [in_i] HARRY ([facility]) Body mass index (BMI) [Ratio] 38.6 kg/m2 38.6 k g/m2 HARRY ([facility]) Systolic blood pressure 135 mm[Hg] 135 mm[Hg] [facility]) Body weight 3593.6 [oz_av] 3593.6 [oz_av] ATHEN A ([facility]) Body weight 3593.6 [oz_av] 3593.6 [oz_av] ATHEN A ([facility]) Systolic blood pressure 135 mm[Hg] 135 mm[Hg] [facility]) Diastolic blood pressure 88 mm[Hg] 88 mm[Hg] HARRY ([facility]) Body height 64 [in_i] 64 [in_i] HARRY ([facility]) Body mass index (BMI) [Ratio] 38.6 kg/m2 38.6 k g/m2 HARRY ([facility]) Diastolic blood pressure 88 mm[Hg] 88 mm[Hg] HARRY ([facility]) Body height 64 [in_i] 64 [in_i] HARRY ([facility]) Body mass index (BMI) [Ratio] 38.6 kg/m2 38.6 k g/m2 HARRY ([facility]) Systolic blood pressure 135 mm[Hg] 135 mm[Hg] A THENA ([facility]) Body weight 3593.6 [oz_av] 3593.6 [oz_av] ATHEN A ([facility]) Diastolic blood pressure 88 mm[Hg] 88 mm[Hg] HARRY ([facility]) Body height 64 [in_i] 64 [in_i] HARRY ([facility]) Body mass index (BMI) [Ratio] 38.6 kg/m2 38.6 k g/m2 HARRY ([facility]) Systolic blood pressure 135 mm[Hg] 135 mm[Hg] [facility]) Body weight 3593.6 [oz_av] 3593.6 [oz_av] ATHEN A ([facility]) Diastolic blood pressure 88 mm[Hg] 88 mm[Hg] HARRY ([facility]) Body height 64 [in_i] 64 [in_i] HARRY ([facility]) Body mass index (BMI) [Ratio] 38.6 kg/m2 38.6 k g/m2 HARRY ([facility]) Systolic blood pressure 135 mm[Hg] 135 mm[Hg] [facility]) Body weight 3593.6 [oz_av] 3593.6 [oz_av] ATHEN A ([facility]) Diastolic blood pressure 88 mm[Hg] 88 mm[Hg] HARRY ([facility]) Body height 64 [in_i] 64 [in_i] HARRY ([facility]) Body mass index (BMI) [Ratio] 38.6 kg/m2 38.6 k g/m2 HARRY ([facility]) Systolic blood pressure 135 mm[Hg] 135 mm[Hg] [facility]) Body weight 3593.6 [oz_av] 3593.6 [oz_av] ATHEN A ([facility]) Diastolic blood pressure 88 mm[Hg] 88 mm[Hg] HARRY ([facility]) Body height 64 [in_i] 64 [in_i] HARRY ([facility]) Body mass index (BMI) [Ratio] 38.6 kg/m2 38.6 k g/m2 HARRY ([facility]) Systolic blood pressure 135 mm[Hg] 135 mm[Hg] A THENA ([facility]) Body weight 3593.6 [oz_av] 3593.6 [oz_av] [facility]EN A [facility] [facility]) Diastolic blood pressure 88 mm[Hg] 88 mm[Hg] HARRY ([facility]) Body height 64 [in_i] 64 [in_i] HARRY ([facility]) Body mass index (BMI) [Ratio] 38.6 kg/m2 38.6 k g/m2 HARRY ([facility]) Systolic blood pressure 135 mm[Hg] 135 mm[Hg] A [facility] ([facility]) Body weight 3593.6 [oz_av] 3593.6 [oz_av] ATHEN A ([facility]) Body weight 225.6 [lb_av] 225.6 [lb_av] eCW1 ([facility]) Body weight 102.3 kg 102.3 kg eCW1 ([facility]) Body height 63.5 [in_i] 63.5 [in_i] eCW1 ([facility]) Body mass index (BMI) [Ratio] 39.33 kg/m2 39.33 kg/m2 eCW1 ([facility]) Heart rate 76 /min 76 /min eCW1 ([facility]) Respiratory rate 18 /min 18 /min eCW1 ([facility]) Body temperature 97.3 [degF] 97.3 [degF] eCW1 ( [facility]) Systolic blood pressure 122 mm[Hg] 122 mm[Hg] e CW1 ([facility]) Diastolic blood pressure 70 mm[Hg] 70 mm[Hg] eCW1 ([facility]) Systolic blood pressure 120 mm[Hg] 120 mm[Hg] M EDENT ([facility], [facility]) Diastolic blood pressure 82 mm[Hg] 82 mm[Hg] MEDENT ([facility], [facility]) Heart rate 77 /min 77 /min MEDENT ([facility], [facility]) Respiratory rate 15 /min 15 /min MEDENT ( [facility], [facility]) Oxygen saturation in Arterial blood by Pulse oximetry 99 % 99 % MEDENT ([facility], [facility]) Body temperature 98.6 [degF] 98.6 [degF] MEDENT ([facility], [facility]) Body weight 220.00 [lb_av] 220.00 [lb_av] MEDEN T ([facility], [facility]) Body height 64 [in_i] 64 [in_i] MEDENT ([facility], [facility]) 5'4" Body mass index (BMI) [Ratio] 37.8 kg/m2 37.8 k g/m2 MEDENT ([facility], [facility]) Body temperature 96.6 [degF] 96.6 [degF] eCW1 ( [facility]) Body weight 223.4 [lb_av] 223.4 [lb_av] eCW1 ([facility]) Systolic blood pressure 120 mm[Hg] 120 mm[Hg] e CW1 ([facility]) Body weight 101.3 kg 101.3 kg eCW1 ([facility]) Body height 63.5 [in_i] 63.5 [in_i] eCW1 ([facility]) Diastolic blood pressure 86 mm[Hg] 86 mm[Hg] eCW1 ([facility]) Body mass index (BMI) [Ratio] 38.95 kg/m2 38.95 kg/m2 eCW1 ([facility]) Heart rate 73 /min 73 /min eCW1 ([facility]) Respiratory rate 18 /min 18 /min eCW1 ([facility]) Body weight 101.1 kg 101.1 kg eCW1 ([facility]) Body weight 222.8 [lb_av] 222.8 [lb_av] eCW1 ([facility]) Body height 63.5 [in_i] 63.5 [in_i] eCW1 ([facility]) Body mass index (BMI) [Ratio] 38.84 kg/m2 38.84 kg/m2 eCW1 ([facility]) Heart rate 88 /min 88 /min eCW1 ([facility]) Respiratory rate 18 /min 18 /min eCW1 ([facility]) Body temperature 97.5 [degF] 97.5 [degF] eCW1 ( [facility]) Systolic blood pressure 138 mm[Hg] 138 mm[Hg] e CW1 ([facility]) Diastolic blood pressure 70 mm[Hg] 70 mm[Hg] eCW1 ([facility]) Patient Treatment Plan of Care Planned Activity Planned Date Details Description Data Source (s) Prednisone 20 MG Oral Tablet 02/01/2021 12:00:00 AM EDT eCW1 ([facility]) Diphenhydramine Hydrochloride 25 MG Oral Tablet [Benad ryl] 09/28/2020 12:00:00 AM EST eCW1 ([facility]) Acetaminophen 325 MG Oral Tablet 09/28/2020 12:00:00 AM EST eCW1 ([facility]) Diphenhydramine Hydrochloride 25 MG Oral Tablet [Benad ryl] 09/28/2020 12:00:00 AM EST eCW1 ([facility]) Acetaminophen 325 MG Oral Tablet 09/28/2020 12:00:00 AM EST eCW1 ([facility]) Diphenhydramine Hydrochloride 25 MG Oral Tablet [Benad ryl] 09/28/2020 12:00:00 AM EST eCW1 ([facility]) Acetaminophen 325 MG Oral Tablet 09/28/2020 12:00:00 AM EST eCW1 ([facility]) Diphenhydramine Hydrochloride 25 MG Oral Tablet [Benad ryl] 09/28/2020 12:00:00 AM EST eCW1 ([facility]) Acetaminophen 325 MG Oral Tablet 09/28/2020 12:00:00 AM EST eCW1 ([facility]) Diphenhydramine Hydrochloride 25 MG Oral Tablet [Benad ryl] 09/28/2020 12:00:00 AM EST eCW1 ([facility]) Acetaminophen 325 MG Oral Tablet 09/28/2020 12:00:00 AM EST eCW1 ([facility]) Diphenhydramine Hydrochloride 25 MG Oral Tablet [Benad ryl] 09/28/2020 12:00:00 AM EST eCW1 ([facility]) Acetaminophen 325 MG Oral Tablet 09/28/2020 12:00:00 AM EST eCW1 ([facility]) Diphenhydramine Hydrochloride 25 MG Oral Tablet [Benad ryl] 09/28/2020 12:00:00 AM EST eCW1 ([facility]) Diphenhydramine Hydrochloride 25 MG Oral Tablet [Benad ryl] 09/28/2020 12:00:00 AM EST eCW1 ([facility]) Acetaminophen 325 MG Oral Tablet 09/28/2020 12:00:00 AM EST eCW1 ([facility]) Diphenhydramine Hydrochloride 25 MG Oral Tablet [Benad ryl] 09/28/2020 12:00:00 AM EST eCW1 ([facility]) Acetaminophen 325 MG Oral Tablet 09/28/2020 12:00:00 AM EST eCW1 ([facility]) Acetaminophen 325 MG Oral Tablet 09/28/2020 12:00:00 AM EST eCW1 ([facility]) Diphenhydramine Hydrochloride 25 MG Oral Tablet [Benad ryl] 09/28/2020 12:00:00 AM EST eCW1 ([facility]) Acetaminophen 325 MG Oral Tablet 09/28/2020 12:00:00 AM EST eCW1 ([facility]) Diphenhydramine Hydrochloride 25 MG Oral Tablet [Benad ryl] 09/28/2020 12:00:00 AM EST eCW1 ([facility]) Acetaminophen 325 MG Oral Tablet 09/28/2020 12:00:00 AM EST eCW1 ([facility]) Diphenhydramine Hydrochloride 25 MG Oral Tablet [Benad ryl] 09/28/2020 12:00:00 AM EST eCW1 ([facility]) Acetaminophen 325 MG Oral Tablet 09/28/2020 12:00:00 AM EST eCW1 ([facility]) Diphenhydramine Hydrochloride 25 MG Oral Tablet [Benad ryl] 09/28/2020 12:00:00 AM EST eCW1 ([facility]) Acetaminophen 325 MG Oral Tablet 09/28/2020 12:00:00 AM EST eCW1 ([facility]) Diphenhydramine Hydrochloride 25 MG Oral Tablet [Benad ryl] 09/28/2020 12:00:00 AM EST eCW1 ([facility]) Acetaminophen 325 MG Oral Tablet 09/28/2020 12:00:00 AM EST eCW1 ([facility]) Diphenhydramine Hydrochloride 25 MG Oral Tablet [Benad ryl] 09/28/2020 12:00:00 AM EST eCW1 ([facility]) Acetaminophen 325 MG Oral Tablet 09/28/2020 12:00:00 AM EST eCW1 ([facility]) Diphenhydramine Hydrochloride 25 MG Oral Tablet [Benad ryl] 09/28/2020 12:00:00 AM EST eCW1 ([facility]) Acetaminophen 325 MG Oral Tablet 09/28/2020 12:00:00 AM EST eCW1 ([facility]) Diphenhydramine Hydrochloride 25 MG Oral Tablet [Benad ryl] 09/28/2020 12:00:00 AM EST eCW1 ([facility]) Acetaminophen 325 MG Oral Tablet 09/28/2020 12:00:00 AM EST eCW1 ([facility]) Diphenhydramine Hydrochloride 25 MG Oral Tablet [Benad ryl] 09/28/2020 12:00:00 AM EST eCW1 ([facility]) Acetaminophen 325 MG Oral Tablet 09/28/2020 12:00:00 AM EST eCW1 ([facility]) Naproxen 500 MG Oral Tablet HARRY ([facility]) methylprednisolone 4 mg tablets in a dose pack TAKE DIRECTED FOR 6 DAYS HARRY ([facility]) Methocarbamol 750 MG Oral Tablet HARRY ([facility]) meloxicam 15 MG Oral Tablet HARRY ([facility]) meloxicam 15 MG Oral Tablet HARRY ([facility]) losartan potassium (bulk) 100 mg daily HARRY ([facility]) Losartan Potassium 100 MG Oral Tablet HARRY ([facility]) Ibuprofen 800 MG Oral Tablet HARRY ([facility]) gabapentin 400 MG Oral Capsule HARRY ([facility]) 24 HR Bupropion Hydrochloride 300 MG Extended Release Oral Tablet HARRY ([facility]) bupropion HCl 150 mg tablet,12 hr sustai mellisa-release(smoking deterrent) Take 1 tablet twice a day by oral route. HARRY ([facility]) Amoxicillin 500 MG Oral Capsule HARRY ([facility]) NITROFURANTOIN, MACROCRYSTALS 25 MG / Ni trofurantoin, Monohydrate 75 MG Oral Capsule HARRY ([facility]) Naproxen 500 MG Oral Tablet HARRY ([facility]) methylprednisolone 4 mg tablets in a dose pack TAKE DIRECTED FOR 6 DAYS HARRY ([facility]) Methocarbamol 750 MG Oral Tablet HARRY ([facility]) meloxicam 15 MG Oral Tablet HARRY ([facility]) meloxicam 15 MG Oral Tablet HARRY ([facility]) losartan potassium (bulk) 100 mg daily HARRY ([facility]) Losartan Potassium 100 MG Oral Tablet HARRY ([facility]) Ibuprofen 800 MG Oral Tablet HARRY ([facility]) gabapentin 400 MG Oral Capsule HARRY ([facility]) 24 HR Bupropion Hydrochloride 300 MG Extended Release Oral Tablet HARRY ([facility]) bupropion HCl 150 mg tablet,12 hr sustai mellisa-release(smoking deterrent) Take 1 tablet twice a day by oral route. HARRY ([facility]) Amoxicillin 500 MG Oral Capsule HARRY ([facility]) tramadol hydrochloride 50 MG Oral Tablet HARRY ([facility]) tizanidine 4 MG Oral Tablet HARRY ([facility]) Sertraline 50 MG Oral Tablet HARRY ([facility]) Prednisone 20 MG Oral Tablet HARRY ([facility]) Prednisone 2.5 MG Oral Tablet HARRY ([facility]) NITROFURANTOIN, MACROCRYSTALS 25 MG / Ni trofurantoin, Monohydrate 75 MG Oral Capsule HARRY ([facility]) Naproxen 500 MG Oral Tablet HARRY ([facility]) methylprednisolone 4 mg tablets in a dose pack TAKE DIRECTED FOR 6 DAYS HARRY ([facility]) Methocarbamol 750 MG Oral Tablet HARRY ([facility]) meloxicam 15 MG Oral Tablet HARRY ([facility]) meloxicam 15 MG Oral Tablet HARRY ([facility]) losartan potassium (bulk) 100 mg daily HARRY ([facility]) Losartan Potassium 100 MG Oral Tablet HARRY ([facility]) Ibuprofen 800 MG Oral Tablet HARRY ([facility]) gabapentin 400 MG Oral Capsule HARRY ([facility]) 24 HR Bupropion Hydrochloride 300 MG Extended Release Oral Tablet HARRY ([facility]) bupropion HCl 150 mg tablet,12 hr sustai mellisa-release(smoking deterrent) Take 1 tablet twice a day by oral route. HARRY ([facility]) Amoxicillin 500 MG Oral Capsule HARRY ([facility]) tramadol hydrochloride 50 MG Oral Tablet HARRY ([facility]) tizanidine 4 MG Oral Tablet HARRY ([facility]) Sertraline 50 MG Oral Tablet HARRY ([facility]) Prednisone 20 MG Oral Tablet HARRY ([facility]) Prednisone 2.5 MG Oral Tablet HARRY ([facility]) NITROFURANTOIN, MACROCRYSTALS 25 MG / Ni trofurantoin, Monohydrate 75 MG Oral Capsule HARRY ([facility]) Naproxen 500 MG Oral Tablet HARRY ([facility]) methylprednisolone 4 mg tablets in a dose pack TAKE DIRECTED FOR 6 DAYS HARRY ([facility]) Methocarbamol 750 MG Oral Tablet HARRY ([facility]) meloxicam 15 MG Oral Tablet HARRY ([facility]) meloxicam 15 MG Oral Tablet HARRY ([facility]) losartan potassium (bulk) 100 mg daily HARRY ([facility]) Losartan Potassium 100 MG Oral Tablet HARRY ([facility]) Ibuprofen 800 MG Oral Tablet HARRY ([facility]) gabapentin 400 MG Oral Capsule HARRY ([facility]) 24 HR Bupropion Hydrochloride 300 MG Extended Release Oral Tablet HARRY ([facility]) bupropion HCl 150 mg tablet,12 hr sustai mellisa-release(smoking deterrent) Take 1 tablet twice a day by oral route. HARRY ([facility]) Amoxicillin 500 MG Oral Capsule HARRY ([facility]) tramadol hydrochloride 50 MG Oral Tablet HARRY ([facility]) tizanidine 4 MG Oral Tablet HARRY ([facility]) Sertraline 100 MG Oral Tablet HARRY ([facility]) Prednisone 20 MG Oral Tablet HARRY ([facility]) Prednisone 2.5 MG Oral Tablet HARRY ([facility]) Naproxen 500 MG Oral Tablet HARRY ([facility]) methylprednisolone 4 mg tablets in a dose pack TAKE DIRECTED FOR 6 DAYS HARRY ([facility]) Methocarbamol 750 MG Oral Tablet HARRY ([facility]) meloxicam 15 MG Oral Tablet HARRY ([facility]) meloxicam 15 MG Oral Tablet HARRY ([facility]) losartan potassium (bulk) 100 mg daily HARRY ([facility]) Losartan Potassium 100 MG Oral Tablet HARRY ([facility]) Ibuprofen 800 MG Oral Tablet HARRY ([facility]) gabapentin 400 MG Oral Capsule HARRY ([facility]) bupropion HCl 150 mg tablet,12 hr sustai mellisa-release(smoking deterrent) Take 1 tablet twice a day by oral route. HARRY ([facility]) Amoxicillin 500 MG Oral Capsule HARRY ([facility]) tramadol hydrochloride 50 MG Oral Tablet HARRY ([facility]) tizanidine 4 MG Oral Tablet HARRY ([facility]) Sertraline 100 MG Oral Tablet HARRY ([facility]) Prednisone 20 MG Oral Tablet HARRY ([facility]) Naproxen 500 MG Oral Tablet HARRY ([facility]) methylprednisolone 4 mg tablets in a dose pack TAKE DIRECTED FOR 6 DAYS HARRY ([facility]) Methocarbamol 750 MG Oral Tablet HARRY ([facility]) meloxicam 15 MG Oral Tablet HARRY ([facility]) meloxicam 15 MG Oral Tablet HARRY ([facility]) losartan potassium (bulk) 100 mg daily HARRY ([facility]) Amoxicillin 500 MG Oral Capsule HARRY ([facility]) tramadol hydrochloride 50 MG Oral Tablet HARRY ([facility]) tizanidine 4 MG Oral Tablet HARRY ([facility]) Sertraline 50 MG Oral Tablet HARRY ([facility]) Prednisone 20 MG Oral Tablet HARRY ([facility]) Prednisone 2.5 MG Oral Tablet HARRY ([facility]) NITROFURANTOIN, MACROCRYSTALS 25 MG / Ni trofurantoin, Monohydrate 75 MG Oral Capsule HARRY ([facility]) Naproxen 500 MG Oral Tablet HARRY ([facility]) methylprednisolone 4 mg tablets in a dose pack TAKE DIRECTED FOR 6 DAYS HARRY ([facility]) methotrexate (PF) HARRY ([facility]) Methocarbamol 750 MG Oral Tablet HARRY ([facility]) meloxicam 15 MG Oral Tablet HARRY ([facility]) meloxicam 15 MG Oral Tablet HARRY ([facility]) losartan potassium (bulk) 100 mg daily HARRY ([facility]) Losartan Potassium 100 MG Oral Tablet HARRY ([facility]) Ibuprofen 800 MG Oral Tablet HARRY ([facility]) gabapentin 400 MG Oral Capsule HARRY ([facility]) 24 HR Bupropion Hydrochloride 300 MG Extended Release Oral Tablet HARRY ([facility]) bupropion HCl 150 mg tablet,12 hr sustai mellisa-release(smoking deterrent) Take 1 tablet twice a day by oral route. HARRY ([facility]) Amoxicillin 500 MG Oral Capsule HARRY ([facility]) tramadol hydrochloride 50 MG Oral Tablet HARRY ([facility]) tizanidine 4 MG Oral Tablet HARRY ([facility]) tramadol hydrochloride 50 MG Oral Tablet HARRY ([facility]) tizanidine 4 MG Oral Tablet HARRY ([facility]) Sertraline 50 MG Oral Tablet HARRY ([facility]) Prednisone 20 MG Oral Tablet HARRY ([facility]) Prednisone 2.5 MG Oral Tablet HARRY ([facility]) NITROFURANTOIN, MACROCRYSTALS 25 MG / Ni trofurantoin, Monohydrate 75 MG Oral Capsule HARRY ([facility]) Naproxen 500 MG Oral Tablet HARRY ([facility]) methylprednisolone 4 mg tablets in a dose pack TAKE DIRECTED FOR 6 DAYS HARRY ([facility]) Methocarbamol 750 MG Oral Tablet HARRY ([facility]) meloxicam 15 MG Oral Tablet HARRY ([facility]) meloxicam 15 MG Oral Tablet HARRY ([facility]) losartan potassium (bulk) 100 mg daily HARRY ([facility]) Losartan Potassium 100 MG Oral Tablet HARRY ([facility]) Ibuprofen 800 MG Oral Tablet HARRY ([facility]) gabapentin 400 MG Oral Capsule HARRY ([facility]) bupropion HCl 150 mg tablet,12 hr sustai mellisa-release(smoking deterrent) Take 1 tablet twice a day by oral route. HARRY ([facility]) Amoxicillin 500 MG Oral Capsule HARRY ([facility]) tramadol hydrochloride 50 MG Oral Tablet HARRY ([facility]) tizanidine 4 MG Oral Tablet HARRY ([facility]) Sertraline 50 MG Oral Tablet HARRY ([facility]) Prednisone 20 MG Oral Tablet HARRY ([facility]) Prednisone 2.5 MG Oral Tablet HARRY ([facility]) NITROFURANTOIN, MACROCRYSTALS 25 MG / Ni trofurantoin, Monohydrate 75 MG Oral Capsule HARRY ([facility]) Naproxen 500 MG Oral Tablet HARRY ([facility]) methylprednisolone 4 mg tablets in a dose pack TAKE DIRECTED FOR 6 DAYS HARRY ([facility]) Methocarbamol 750 MG Oral Tablet HARRY ([facility]) meloxicam 15 MG Oral Tablet HARRY ([facility]) meloxicam 15 MG Oral Tablet HARRY ([facility]) losartan potassium (bulk) 100 mg daily HARRY ([facility]) Losartan Potassium 100 MG Oral Tablet HARRY ([facility]) Ibuprofen 800 MG Oral Tablet HARRY ([facility]) gabapentin 400 MG Oral Capsule HARRY ([facility]) bupropion HCl 150 mg tablet,12 hr sustai mellisa-release(smoking deterrent) Take 1 tablet twice a day by oral route. HARRY ([facility]) Amoxicillin 500 MG Oral Capsule HARRY ([facility]) tramadol hydrochloride 50 MG Oral Tablet HARRY ([facility]) tizanidine 4 MG Oral Tablet HARRY ([facility]) Sertraline 50 MG Oral Tablet HARRY ([facility]) Prednisone 20 MG Oral Tablet HARRY ([facility]) Prednisone 2.5 MG Oral Tablet HARRY ([facility]) NITROFURANTOIN, MACROCRYSTALS 25 MG / Ni trofurantoin, Monohydrate 75 MG Oral Capsule HARRY ([facility]) Naproxen 500 MG Oral Tablet HARRY ([facility]) methylprednisolone 4 mg tablets in a dose pack TAKE DIRECTED FOR 6 DAYS HARRY ([facility]) Methocarbamol 750 MG Oral Tablet HARRY ([facility]) meloxicam 15 MG Oral Tablet HARRY ([facility]) meloxicam 15 MG Oral Tablet HARRY ([facility]) losartan potassium (bulk) 100 mg daily HARRY ([facility]) Losartan Potassium 100 MG Oral Tablet HARRY ([facility]) Ibuprofen 800 MG Oral Tablet HARRY ([facility]) gabapentin 400 MG Oral Capsule HARRY ([facility]) 24 HR Bupropion Hydrochloride 300 MG Extended Release Oral Tablet HARRY ([facility]) bupropion HCl 150 mg tablet,12 hr sustai mellisa-release(smoking deterrent) Take 1 tablet twice a day by oral route. HARRY ([facility]) Amoxicillin 500 MG Oral Capsule HARRY ([facility]) tramadol hydrochloride 50 MG Oral Tablet HARRY ([facility]) tizanidine 4 MG Oral Tablet HARRY ([facility]) Sertraline 50 MG Oral Tablet HARRY ([facility]) Prednisone 20 MG Oral Tablet HARRY ([facility]) Prednisone 2.5 MG Oral Tablet HARRY ([facility]) bupropion HCl 150 mg tablet,12 hr sustai mellisa-release(smoking deterrent) Take 1 tablet twice a day by oral route. HARRY ([facility]) tizanidine 4 MG Oral Tablet HARRY ([facility]) methylprednisolone 4 mg tablets in a dose pack TAKE DIRECTED FOR 6 DAYS HARRY ([facility]) losartan potassium (bulk) 100 mg daily HARRY ([facility]) Sertraline 50 MG Oral Tablet HARRY ([facility]) Prednisone 20 MG Oral Tablet HARRY ([facility]) Prednisone 2.5 MG Oral Tablet HARRY ([facility]) NITROFURANTOIN, MACROCRYSTALS 25 MG / Ni trofurantoin, Monohydrate 75 MG Oral Capsule HARRY ([facility]) Losartan Potassium 100 MG Oral Tablet HARRY ([facility]) Ibuprofen 800 MG Oral Tablet HARRY ([facility]) gabapentin 400 MG Oral Capsule HARRY ([facility]) bupropion HCl 150 mg tablet,12 hr sustai mellisa-release(smoking deterrent) Take 1 tablet twice a day by oral route. HARRY ([facility]) tramadol hydrochloride 50 MG Oral Tablet HARRY ([facility]) tizanidine 4 MG Oral Tablet HARRY ([facility]) Sertraline 100 MG Oral Tablet HARRY ([facility]) Prednisone 20 MG Oral Tablet HARRY ([facility]) Naproxen 500 MG Oral Tablet HARRY ([facility]) methylprednisolone 4 mg tablets in a dose pack TAKE DIRECTED FOR 6 DAYS HARRY ([facility]) Methocarbamol 750 MG Oral Tablet HARRY ([facility]) meloxicam 15 MG Oral Tablet HARRY ([facility]) meloxicam 15 MG Oral Tablet HARRY ([facility]) losartan potassium (bulk) 100 mg daily HARRY ([facility]) Losartan Potassium 100 MG Oral Tablet HARRY ([facility]) Ibuprofen 800 MG Oral Tablet HARRY ([facility]) gabapentin 400 MG Oral Capsule HARRY ([facility]) bupropion HCl 150 mg tablet,12 hr sustai mellisa-release(smoking deterrent) Take 1 tablet twice a day by oral route. HARRY ([facility]) Amoxicillin 500 MG Oral Capsule HARRY ([facility]) tramadol hydrochloride 50 MG Oral Tablet [facility] ([facility]) tizanidine 4 MG Oral Tablet [facility]ARR[facility] ([facility]) Sertraline 100 MG Oral Tablet [facility] ([facility]) Prednisone 20 MG Oral Tablet [facility] ([facility]) Naproxen 500 MG Oral Tablet [facility] ([facility]) methylprednisolone 4 mg tablets in a dose pack TAKE DIRECTED FOR 6 DAYS [facility] ([facility]) Methocarbamol 750 MG Oral Tablet [facility] ([facility]) meloxicam 15 MG Oral Tablet [facility] ([facility]) meloxicam 15 MG Oral Tablet [facility] ([facility]) losartan potassium (bulk) 100 mg daily [facility] ([facility]) Losartan Potassium 100 MG Oral Tablet [facility] ([facility]) Ibuprofen 800 MG Oral Tablet [facility] ([facility]) gabapentin 400 MG Oral Capsule [facility] ([facility]) bupropion HCl 150 mg tablet,12 hr sustai mellisa-release(smoking deterrent) Take 1 tablet twice a day by oral route. [facility] ([facility]) Amoxicillin 500 MG Oral Capsule [facility] ([facility]) tizanidine 4 MG Oral Tablet [facility] ([facility]) Sertraline 100 MG Oral Tablet [facility] ([facility]) methylprednisolone 4 mg tablets in a dose pack TAKE DIRECTED FOR 6 DAYS [facility] ([facility]) losartan potassium (bulk) 100 mg daily [facility] ([facility]) gabapentin 400 MG Oral Capsule [facility] ([facility]) tizanidine 4 MG Oral Tablet [facility] ([facility]) Sertraline 100 MG Oral Tablet [facility] ([facility]) methylprednisolone 4 mg tablets in a dose pack TAKE DIRECTED FOR 6 DAYS [facility] ([facility]) losartan potassium (bulk) 100 mg daily [facility] ([facility]) gabapentin 400 MG Oral Capsule [facility] ([facility]) bupropion HCl 150 mg tablet,12 hr sustai mellisa-release(smoking deterrent) Take 1 tablet twice a day by oral route. [facility] ([facility])
[2021-08-18] MEDS ORDERED: propofoL 200 MG/20 ML VIAL As Ordered ONE (11:04)
[2021-08-18] MEDS ORDERED: LIDOCAINE 2% 100MG/5ML SDV (FOR ANES.) As Ordered ONE (11:25)
--- NOTE | 2021-08-18 11:52 | ROOR ---
Patient Name: Alma Blanco Procedure Date: 08/18/2021 11:30 AM Date of : 1970 Age: 50 Room: [facility] Gender: Female Note Status: Finalized Procedure: Colonoscopy Indications: Change in bowel habits Providers: Zia Sarabia Jr, MD Referring MD: KATARZYNA Rush Requesting Provider: Medicines: Propofol per Anesthesia Complications: No immediate complications. Procedure: Pre-Anesthesia Assessment: - Prior to the procedure, a History and Physical was performed, and patient medications and allergies were reviewed. The patient is competent. The risks and benefits of the procedure and the sedation options and risks were discussed with the patient. All questions were answered and informed consent was obtained. Patient identification and proposed procedure were verified by the physician and the nurse in the pre-procedure area and in the procedure room. Mental Status Examination: alert and oriented. Airway Examination: normal oropharyngeal airway and neck mobility. Respiratory Examination: clear to auscultation. CV Examination: normal. ASA Grade Assessment: II - A patient with mild systemic disease. After reviewing the risks and benefits, the patient was deemed in satisfactory condition to undergo the procedure. The anesthesia plan was to use moderate sedation / analgesia (conscious sedation). Immediately prior to administration of medications, the patient was re-assessed for adequacy to receive sedatives. The heart rate, respiratory rate, oxygen saturations, blood pressure, adequacy of pulmonary ventilation, and response to care were monitored throughout the procedure. The physical status of the patient was re-assessed after the procedure. The Colonoscope was introduced through the anus and advanced to the cecum, identified by appendiceal orifice and ileocecal valve. The colonoscopy was performed without difficulty. The patient tolerated the procedure well. The quality of the bowel preparation was adequate. Findings: The anus, rectum, recto-sigmoid colon, sigmoid colon, descending colon, transverse colon, ascending colon, cecum, appendiceal orifice and ileocecal valve appeared normal. Impression: - The anus, rectum, recto-sigmoid colon, sigmoid colon, descending colon, transverse colon, ascending colon, cecum, appendiceal orifice and ileocecal valve are normal. - No specimens collected. Recommendation: - Discharge patient to home (ambulatory). - Return to my office as previously scheduled. Procedure Code(s): --- Professional --- 65248, Colonoscopy, flexible; diagnostic, including collection of specimen(s) by brushing or washing, when performed (separate procedure) Diagnosis Code(s): --- Professional --- R19.4, Change in bowel habit CPT copyright 2019 [employer]. All rights reserved. The codes documented in this report are preliminary and upon platform software engineer review may be revised to meet current compliance requirements. Zia Sarabia MD Zia Sarabia Jr, MD 08/18/2021 11:51:52 AM Electronically signed by Zia Sarabia Jr, MD Number of Addenda: 0 Note Initiated On: 08/18/2021 11:30 AM Estimated Blood Loss: Estimated blood loss: none.
[2021-08-18 12:12] VITALS: BP 110/55
== END 2021-08-18 12:25 | disposition home or self-care (01) ==
LOC: M OPP 09:59
PROVIDERS: ATTEND Surgery
DX: R19.4 Change in bowel habit (principal); R12 Heartburn; I10 Essential (primary) hypertension; Z79.899 Other long term (current) drug therapy; Z88.2 Allergy status to sulfonamides

== ENCOUNTER 2021-08-23 07:59 | Outpatient (CLI) | payer BC ==
[~2021-08-23] VITALS: Ht 162.6 cm; Wt 95.6 kg
[~2021-08-23 07:59] MED LIST changes: +ACETAMINOPHEN 650MG PO PRIOR TO INFUSION PO ONE; +ALBUTEROL SULFATE 2.5 MG/0.5 ML INH NEB SOLN INH PRN; +EPINEPHrine INJ 1 MG/ML 1ML AMP IM PRN; +INFLIXIMAB BIOSIMILAR 300 MG in NS 220 ML IV ONE; -NS 1,000 ML IV ONE; +NS 1,000 ML IV SCH; +diphenhydrAMINE 25MG PO PRIOR TO INFUSION PO ONE; +diphenhydrAMINE 50MG/ML VIAL (J1200) IV PRN; +methylPREDNISolone 125MG 2ML VIAL IV PRN
[2021-08-23 08:42] VITALS: BP 131/80
[2021-08-23 09:02] VITALS: BP 127/78
[2021-08-23 09:45] VITALS: BP 132/81
[2021-08-23 10:15] VITALS: BP 127/61
== END 2021-08-23 10:55 | disposition home or self-care (01) ==
LOC: M INFU 07:59
PROVIDERS: ATTEND Internal Medicine Rheumatology
DX: M05.79 Rheumatoid arthritis with rheumatoid factor of multiple sites without organ or systems involvement (principal); Z88.2 Allergy status to sulfonamides
CPT/HCPCS: 96365; 96366; Q5103

== ENCOUNTER 2021-11-01 13:09 | Outpatient (CLI) | payer BC ==
[~2021-11-01] VITALS: Ht 162.6 cm; Wt 77.3 kg
[~2021-11-01 13:09] MED LIST changes: -NS 1,000 ML IV SCH
[2021-11-01 13:23] VITALS: BP 141/72
[2021-11-01 16:24] VITALS: BP 130/74
== END 2021-11-01 16:25 | disposition home or self-care (01) ==
LOC: M INFU 13:09
PROVIDERS: ATTEND Internal Medicine Rheumatology
DX: M05.79 Rheumatoid arthritis with rheumatoid factor of multiple sites without organ or systems involvement (principal); Z88.2 Allergy status to sulfonamides
CPT/HCPCS: 96365; 96366; Q5103

== ENCOUNTER → 2021-11-02 | Outpatient (REF) ==
[~2021-11-02] MED LIST changes: -ACETAMINOPHEN 650MG PO PRIOR TO INFUSION PO ONE; -ALBUTEROL SULFATE 2.5 MG/0.5 ML INH NEB SOLN INH PRN; -EPINEPHrine INJ 1 MG/ML 1ML AMP IM PRN; -INFLIXIMAB BIOSIMILAR 300 MG in NS 220 ML IV ONE; -diphenhydrAMINE 25MG PO PRIOR TO INFUSION PO ONE; -diphenhydrAMINE 50MG/ML VIAL (J1200) IV PRN; -methylPREDNISolone 125MG 2ML VIAL IV PRN
== END ==
LOC: M LABSMTC 09:17
PROVIDERS: ATTEND Pediatrics
DX: Z11.52 Encounter for screening for COVID-19 (principal); Z20.822 Contact with and (suspected) exposure to COVID-19

== ENCOUNTER → 2021-11-25 | Outpatient (CLI) | payer BC ==
[~2021-11-25] MED LIST changes: +LOSA100T45 PO; -LOSA100T50 PO
[2021-11-25 10:25] LABS: BASO % 0.4 % (0.0-1.0); EOS # 0.1 10^3/uL (0.0-0.5); EOS % 1.7 % (0.0-3.0); HEMOGLOBIN 12.3 g/dl (12.0-15.5); LYMPH # 1.9 10^3/uL (1.5-5.0); LYMPH % 25.6 % (24.0-44.0); MEAN CORPUSCULAR HEMOGLOBIN 30.7 pg (27.0-33.0); MEAN CORPUSCULAR HGB CONC 34.2 g/dl (32.0-36.5); MEAN CORPUSCULAR VOLUME 89.8 fl (80.0-96.0); MONO # 0.5 10^3/uL (0.0-0.8); MONO % 7.3 % (2.0-8.0); NEUTROPHILS # 4.7 10^3/uL (1.5-8.5); NEUTROPHILS % 64.6 % (36.0-66.0); PLATELET COUNT, AUTOMATED 200 10^3/uL (150-450); RED BLOOD COUNT 4.01 10^6/uL (4.00-5.40); WHITE BLOOD COUNT 7.2 10^3/uL (4.0-10.0)
[2021-11-25 10:43] LABS: ALBUMIN 3.8 GM/DL (3.2-5.2); ALT/SGPT 29 U/L (12-78); BILIRUBIN,TOTAL 0.5 MG/DL (0.2-1.0); BLOOD UREA NITROGEN 11 MG/DL (7-18); CALCIUM LEVEL 9.1 MG/DL (8.5-10.1); CARBON DIOXIDE LEVEL 31 MEQ/L (21-32); CHLORIDE LEVEL 108 MEQ/L (98-107); CREATININE FOR GFR 0.54 MG/DL (0.55-1.30); GLOMERULAR FILTRATION RATE > 60.0 (>51); GLUCOSE, FASTING 99 MG/DL (70-100); POTASSIUM SERUM 3.9 MEQ/L (3.5-5.1); SODIUM LEVEL 141 MEQ/L (136-145); TOTAL PROTEIN 6.6 GM/DL (6.4-8.2)
[2021-11-25 10:51] LABS: TOTAL 25(OH) VITAMIN D 25.7 NG/ML (30.0-100.0)
[2021-11-25 10:53] LABS: ERYTHROCYTE SEDIMENTATION RATE 7 mm/hr (0-30)
== END ==
LOC: M LAB 09:19
PROVIDERS: ATTEND Internal Medicine Rheumatology
DX: M05.79 Rheumatoid arthritis with rheumatoid factor of multiple sites without organ or systems involvement (principal); Z79.899 Other long term (current) drug therapy; E55.9 Vitamin D deficiency, unspecified

== ENCOUNTER → 2022-02-14 | Outpatient (CLI) | payer BC | LOC: M WHC 08:12 | PROVIDERS: ATTEND Internal Medicine Rheumatology | DX: M05.79 Rheumatoid arthritis with rheumatoid factor of multiple sites without organ or systems involvement (principal); E55.9 Vitamin D deficiency, unspecified; Z79.52 Long term (current) use of systemic steroids ==

== ENCOUNTER 2022-02-21 12:40 | Outpatient (CLI) | payer BC ==
[~2022-02-21] VITALS: Ht 162.6 cm; Wt 77.0 kg
[~2022-02-21 12:40] MED LIST changes: +ALBUTEROL SULFATE 2.5 MG/0.5 ML INH NEB SOLN INH PRN; +EPINEPHrine INJ 1 MG/ML 1ML AMP IM PRN; +diphenhydrAMINE 50MG/ML VIAL (J1200) IV PRN; +methylPREDNISolone 125MG 2ML VIAL IV PRN
[2022-02-21 12:53] VITALS: BP 137/78
[2022-02-21] MEDS ORDERED: NS 1,000 ML IV SCH (13:00)
[2022-02-21] MEDS ORDERED: ACETAMINOPHEN 650MG PO PRIOR TO INFUSION PO ONE (13:00)
[2022-02-21] MEDS ORDERED: INFLIXIMAB BIOSIMILAR 400 MG in NS 210 ML IV ONE (13:00)
[2022-02-21] MEDS ORDERED: diphenhydrAMINE 25MG PO PRIOR TO INFUSION PO ONE (13:00)
[2022-02-21 15:20] VITALS: BP 137/74
== END 2022-02-21 15:20 | disposition home or self-care (01) ==
LOC: M INFU 12:40
PROVIDERS: ATTEND Internal Medicine Rheumatology
DX: M05.79 Rheumatoid arthritis with rheumatoid factor of multiple sites without organ or systems involvement (principal); Z88.2 Allergy status to sulfonamides
CPT/HCPCS: 96413; 96415; Q5103

== ENCOUNTER → 2022-03-07 | Outpatient (CLI) | payer BC ==
[~2022-03-07] MED LIST changes: -ALBUTEROL SULFATE 2.5 MG/0.5 ML INH NEB SOLN INH PRN; -EPINEPHrine INJ 1 MG/ML 1ML AMP IM PRN; -diphenhydrAMINE 50MG/ML VIAL (J1200) IV PRN; -methylPREDNISolone 125MG 2ML VIAL IV PRN
[2022-03-07 17:55] LABS: BASO % 0.4 % (0.0-1.0); EOS # 0.1 10^3/uL (0.0-0.5); EOS % 1.6 % (0.0-3.0); HEMATOCRIT 37.4 % (36.0-47.0); HEMOGLOBIN 12.7 g/dl (12.0-15.5); LYMPH # 2.9 10^3/uL (1.5-5.0); LYMPH % 35.6 % (24.0-44.0); MEAN CORPUSCULAR HEMOGLOBIN 31.5 pg (27.0-33.0); MEAN CORPUSCULAR VOLUME 92.8 fl (80.0-96.0); MONO # 0.5 10^3/uL (0.0-0.8); MONO % 6.6 % (2.0-8.0); NEUTROPHILS # 4.4 10^3/uL (1.5-8.5); NEUTROPHILS % 55.4 % (36.0-66.0); PLATELET COUNT, AUTOMATED 217 10^3/uL (150-450); RED BLOOD COUNT 4.03 10^6/uL (4.00-5.40)
[2022-03-07 18:32] LABS: ALBUMIN 4.3 GM/DL (3.2-5.2); ALT/SGPT 31 U/L (12-78); BILIRUBIN,TOTAL 0.2 MG/DL (0.2-1.0); BLOOD UREA NITROGEN 17 MG/DL (7-18); CARBON DIOXIDE LEVEL 27 MEQ/L (21-32); CHLORIDE LEVEL 105 MEQ/L (98-107); CREATININE FOR GFR 0.81 MG/DL (0.55-1.30); GLOMERULAR FILTRATION RATE > 60.0 (>51); GLUCOSE, FASTING 82 MG/DL (70-100); POTASSIUM SERUM 3.8 MEQ/L (3.5-5.1); SODIUM LEVEL 139 MEQ/L (136-145); TOTAL PROTEIN 6.9 GM/DL (6.4-8.2)
[2022-03-07 18:45] LABS: ERYTHROCYTE SEDIMENTATION RATE 5 mm/hr (0-30)
== END ==
LOC: M LAB 16:31
PROVIDERS: ATTEND Internal Medicine Rheumatology
DX: M05.79 Rheumatoid arthritis with rheumatoid factor of multiple sites without organ or systems involvement (principal); Z79.899 Other long term (current) drug therapy; Z79.52 Long term (current) use of systemic steroids

== ENCOUNTER → 2022-04-07 | Outpatient (CLI) | payer BC ==
[2022-04-07 09:04] LABS: HEMATOCRIT 39.2 % (36.0-47.0); HEMOGLOBIN 13.5 g/dl (12.0-15.5); MEAN CORPUSCULAR HEMOGLOBIN 31.9 pg (27.0-33.0); MEAN CORPUSCULAR HGB CONC 34.4 g/dl (32.0-36.5); MEAN CORPUSCULAR VOLUME 92.7 fl (80.0-96.0); PLATELET COUNT, AUTOMATED 202 10^3/uL (150-450); RED BLOOD COUNT 4.23 10^6/uL (4.00-5.40); WHITE BLOOD COUNT 6.8 10^3/uL (4.0-10.0)
== END ==
LOC: M LAB 08:30
PROVIDERS: ATTEND Physician Assistant
DX: R53.83 Other fatigue (principal)

== ENCOUNTER 2022-04-18 13:03 | Outpatient (CLI) | payer BC ==
[~2022-04-18] VITALS: Ht 162.6 cm; Wt 77.0 kg
[~2022-04-18 13:03] MED LIST changes: +ACETAMINOPHEN 650MG PO PRIOR TO INFUSION PO ONE; +ALBUTEROL SULFATE 2.5 MG/0.5 ML INH NEB SOLN INH PRN; +EPINEPHrine INJ 1 MG/ML 1ML AMP IM PRN; +INFLIXIMAB BIOSIMILAR 400 MG in NS 210 ML IV ONE; +NS 1,000 ML IV SCH; +diphenhydrAMINE 25MG PO PRIOR TO INFUSION PO ONE; +diphenhydrAMINE 50MG/ML VIAL (J1200) IV PRN; +methylPREDNISolone 125MG 2ML VIAL IV PRN
[2022-04-18 13:10] VITALS: BP 136/68
[2022-04-18 13:40] VITALS: BP 126/72
[2022-04-18 13:55] VITALS: BP 122/65
[2022-04-18 14:10] VITALS: BP 118/67
[2022-04-18 14:55] VITALS: BP 128/69
[2022-04-18 15:30] VITALS: BP 133/71
== END 2022-04-18 14:35 | disposition home or self-care (01) ==
LOC: M INFU 13:03
PROVIDERS: ATTEND Internal Medicine Rheumatology
DX: M05.79 Rheumatoid arthritis with rheumatoid factor of multiple sites without organ or systems involvement (principal); Z88.2 Allergy status to sulfonamides
CPT/HCPCS: 96413; 96415; Q5103

== ENCOUNTER 2022-05-23 17:02 | Emergency (ER) | payer BC ==
[~2022-05-23] VITALS: Ht 162.6 cm; Wt 73.6 kg
[~2022-05-23 17:02] MED LIST changes: -ACETAMINOPHEN 650MG PO PRIOR TO INFUSION PO ONE; -ALBUTEROL SULFATE 2.5 MG/0.5 ML INH NEB SOLN INH PRN; -EPINEPHrine INJ 1 MG/ML 1ML AMP IM PRN; -INFLIXIMAB BIOSIMILAR 400 MG in NS 210 ML IV ONE; -NS 1,000 ML IV SCH; -diphenhydrAMINE 25MG PO PRIOR TO INFUSION PO ONE; -diphenhydrAMINE 50MG/ML VIAL (J1200) IV PRN; -methylPREDNISolone 125MG 2ML VIAL IV PRN
[2022-05-23] MEDS ORDERED: ACETAMINOPH W/CODEINE #3 TAB UD PO ONE (20:00)
[2022-05-23] MEDS ORDERED: ACET-716 PO (22:02)
[2022-05-23 22:13] VITALS: BP 151/77
== END 2022-05-23 22:33 | disposition home or self-care (01) ==
LOC: M ED 17:02
DX: S46.211A Strain of muscle, fascia and tendon of other parts of biceps, right arm, initial encounter (principal); X50.9XXA Other and unspecified overexertion or strenuous movements or postures, initial encounter; Y92.018 Other place in single-family (private) house as the place of occurrence of the external cause; I10 Essential (primary) hypertension; E78.5 Hyperlipidemia, unspecified; F32.A Depression, unspecified; F41.9 Anxiety disorder, unspecified; M06.9 Rheumatoid arthritis, unspecified; Z88.2 Allergy status to sulfonamides; Z79.899 Other long term (current) drug therapy

== ENCOUNTER → 2022-06-08 | Outpatient (CLI) | payer BC ==
[~2022-06-08] MED LIST changes: +ACET-716 PO
[2022-06-08 12:13] LABS: BASO % 0.6 % (0.0-1.0); EOS # 0.1 10^3/uL (0.0-0.5); EOS % 1.4 % (0.0-3.0); HEMATOCRIT 39.1 % (36.0-47.0); HEMOGLOBIN 13.7 g/dl (12.0-15.5); LYMPH # 1.9 10^3/uL (1.5-5.0); LYMPH % 29.4 % (24.0-44.0); MEAN CORPUSCULAR HEMOGLOBIN 31.9 pg (27.0-33.0); MEAN CORPUSCULAR VOLUME 90.9 fl (80.0-96.0); MONO # 0.4 10^3/uL (0.0-0.8); MONO % 5.6 % (2.0-8.0); NEUTROPHILS # 4.1 10^3/uL (1.5-8.5); NEUTROPHILS % 62.8 % (36.0-66.0); PLATELET COUNT, AUTOMATED 215 10^3/uL (150-450); WHITE BLOOD COUNT 6.6 10^3/uL (4.0-10.0)
[2022-06-08 12:38] LABS: ALT/SGPT 50 U/L (12-78); BILIRUBIN,TOTAL 0.3 MG/DL (0.2-1.0); BLOOD UREA NITROGEN 12 MG/DL (7-18); CALCIUM LEVEL 9.2 MG/DL (8.5-10.1); CARBON DIOXIDE LEVEL 31 MEQ/L (21-32); CHLORIDE LEVEL 104 MEQ/L (98-107); CREATININE FOR GFR 0.55 MG/DL (0.55-1.30); GLOMERULAR FILTRATION RATE > 60.0 (>51); GLUCOSE, FASTING 91 MG/DL (70-100); POTASSIUM SERUM 4.1 MEQ/L (3.5-5.1); SODIUM LEVEL 138 MEQ/L (136-145); TOTAL PROTEIN 7.1 GM/DL (6.4-8.2)
[2022-06-08 12:41] LABS: ERYTHROCYTE SEDIMENTATION RATE 6 mm/hr (0-30)
[2022-06-08 14:08] LABS: TOTAL 25(OH) VITAMIN D 21.1 NG/ML (30.0-100.0)
== END ==
LOC: M LAB 11:33
PROVIDERS: ATTEND Internal Medicine Rheumatology
DX: E55.9 Vitamin D deficiency, unspecified (principal); M05.79 Rheumatoid arthritis with rheumatoid factor of multiple sites without organ or systems involvement; Z79.899 Other long term (current) drug therapy; Z79.52 Long term (current) use of systemic steroids

== ENCOUNTER → 2022-06-08 | Outpatient (CLI) | payer BC ==
[2022-06-08 12:48] LABS: CHOLESTEROL RISK RATIO 2.84 (<5); THYROID STIMULATING HORMONE 1.29 uIU/ML (0.358-3.740)
== END ==
LOC: M LAB 11:28
PROVIDERS: ATTEND Physician Assistant
DX: E03.9 Hypothyroidism, unspecified (principal); E78.5 Hyperlipidemia, unspecified

== ENCOUNTER 2022-06-13 12:30 | Outpatient (CLI) | payer BC ==
[~2022-06-13] VITALS: Ht 162.6 cm; Wt 77.0 kg
[~2022-06-13 12:30] MED LIST changes: +ALBUTEROL SULFATE 2.5 MG/0.5 ML INH NEB SOLN INH PRN; +EPINEPHrine INJ 1 MG/ML 1ML AMP IM PRN; +diphenhydrAMINE 50MG/ML VIAL (J1200) IV PRN; +methylPREDNISolone 125MG 2ML VIAL IV PRN
[2022-06-13] MEDS ORDERED: diphenhydrAMINE 25MG PO PRIOR TO INFUSION PO ONE (13:00)
[2022-06-13] MEDS ORDERED: NS 1,000 ML IV SCH (13:00)
[2022-06-13] MEDS ORDERED: ACETAMINOPHEN 650MG PO PRIOR TO INFUSION PO ONE (13:00)
[2022-06-13] MEDS ORDERED: INFLIXIMAB BIOSIMILAR 400 MG in NS 210 ML IV ONE (13:00)
[2022-06-13 13:03] VITALS: BP 160/88
[2022-06-13 15:30] VITALS: BP 137/74
== END 2022-06-13 15:30 | disposition home or self-care (01) ==
LOC: M INFU 12:30
PROVIDERS: ATTEND Internal Medicine Rheumatology
DX: M05.79 Rheumatoid arthritis with rheumatoid factor of multiple sites without organ or systems involvement (principal); Z88.2 Allergy status to sulfonamides
CPT/HCPCS: 96413; 96415; Q5103

== ENCOUNTER → 2022-08-01 | Outpatient (CLI) | payer BC ==
[~2022-08-01] MED LIST changes: -ALBUTEROL SULFATE 2.5 MG/0.5 ML INH NEB SOLN INH PRN; -EPINEPHrine INJ 1 MG/ML 1ML AMP IM PRN; -diphenhydrAMINE 50MG/ML VIAL (J1200) IV PRN; -methylPREDNISolone 125MG 2ML VIAL IV PRN
== END ==
LOC: M WHC 12:43
PROVIDERS: ATTEND Physician Assistant
DX: N60.19 Diffuse cystic mastopathy of unspecified breast (principal)
CPT/HCPCS: 77066; G0279

== ENCOUNTER 2022-08-08 12:00 | Outpatient (CLI) | payer BC ==
[~2022-08-08] VITALS: Ht 160 cm; Wt 74.2 kg
[~2022-08-08 12:00] MED LIST changes: +ALBUTEROL SULFATE 2.5 MG/0.5 ML INH NEB SOLN INH PRN; +EPINEPHrine INJ 1 MG/ML 1ML AMP IM PRN; +diphenhydrAMINE 50MG/ML VIAL (J1200) IV PRN; +methylPREDNISolone 125MG 2ML VIAL IV PRN
[2022-08-08 12:10] VITALS: BP 139/87
[2022-08-08] MEDS ORDERED: INFLIXIMAB BIOSIMILAR 400 MG in NS 210 ML IV ONE (13:00)
[2022-08-08] MEDS ORDERED: ACETAMINOPHEN 650MG PO PRIOR TO INFUSION PO ONE (13:00)
[2022-08-08] MEDS ORDERED: diphenhydrAMINE 25MG PO PRIOR TO INFUSION PO ONE (13:00)
[2022-08-08 14:37] VITALS: BP 127/69
== END 2022-08-08 14:35 | disposition home or self-care (01) ==
LOC: M INFU 12:00
PROVIDERS: ATTEND Internal Medicine Rheumatology
DX: M05.79 Rheumatoid arthritis with rheumatoid factor of multiple sites without organ or systems involvement (principal); Z88.2 Allergy status to sulfonamides
CPT/HCPCS: 96413; 96415; Q5103

== ENCOUNTER 2022-08-22 07:45 | Outpatient (RCR) | payer BC ==
[~2022-08-22 07:45] MED LIST changes: -ALBUTEROL SULFATE 2.5 MG/0.5 ML INH NEB SOLN INH PRN; -EPINEPHrine INJ 1 MG/ML 1ML AMP IM PRN; -diphenhydrAMINE 50MG/ML VIAL (J1200) IV PRN; -methylPREDNISolone 125MG 2ML VIAL IV PRN
== END 2022-09-04 ==
LOC: M PT 07:45
PROVIDERS: ATTEND Orthopaedic Surgery
DX: S46.211D Strain of muscle, fascia and tendon of other parts of biceps, right arm, subsequent encounter (principal)

== ENCOUNTER 2022-10-10 10:05 | Outpatient (CLI) | payer BC ==
[~2022-10-10] VITALS: Ht 162.6 cm; Wt 74.0 kg
[~2022-10-10 10:05] MED LIST changes: +ACETAMINOPHEN 650MG PO PRIOR TO INFUSION PO ONE; +ALBUTEROL SULFATE 2.5 MG/0.5 ML INH NEB SOLN INH PRN; +EPINEPHrine INJ 1 MG/ML 1ML AMP IM PRN; +INFLIXIMAB BIOSIMILAR 400 MG in NS 210 ML IV ONE; +diphenhydrAMINE 25MG PO PRIOR TO INFUSION PO ONE; +diphenhydrAMINE 50MG/ML VIAL IV PRN; +methylPREDNISolone 125MG 2ML VIAL IV PRN
[2022-10-10 10:27] VITALS: BP 134/79
[2022-10-10 10:37] LABS: BASO % 0.8 % (0.0-1.0); EOS # 0.1 10^3/uL (0.0-0.5); HEMATOCRIT 38.1 % (36.0-47.0); HEMOGLOBIN 13.2 g/dl (12.0-15.5); LYMPH # 1.4 10^3/uL (1.5-5.0); LYMPH % 26.8 % (24.0-44.0); MEAN CORPUSCULAR HEMOGLOBIN 31.3 pg (27.0-33.0); MEAN CORPUSCULAR HGB CONC 34.6 g/dl (32.0-36.5); MEAN CORPUSCULAR VOLUME 90.3 fl (80.0-96.0); MONO # 0.4 10^3/uL (0.0-0.8); MONO % 7.7 % (2.0-8.0); NEUTROPHILS # 3.2 10^3/uL (1.5-8.5); NEUTROPHILS % 62.5 % (36.0-66.0); PLATELET COUNT, AUTOMATED 214 10^3/uL (150-450); RED BLOOD COUNT 4.22 10^6/uL (4.00-5.40); WHITE BLOOD COUNT 5.1 10^3/uL (4.0-10.0)
[2022-10-10 11:07] LABS: ALBUMIN 4.2 G/DL (3.2-5.2); ALKALINE PHOSPHATASE 59 U/L (46-116); ALT/SGPT 37 U/L (7.0-40); AST/SGOT 26 U/L (<34); BILIRUBIN,TOTAL 0.6 MG/DL (0.3-1.2); BLOOD UREA NITROGEN 13 MG/DL (9-23); CALCIUM LEVEL 9.3 MG/DL (8.5-10.1); CARBON DIOXIDE LEVEL 28 MMOL/L (20-31); CHLORIDE LEVEL 102 MMOL/L (98-107); CREATININE FOR GFR 0.51 MG/DL (0.55-1.30); GLOMERULAR FILTRATION RATE > 60.0 (>51); GLUCOSE, FASTING 97 MG/DL (60-100); POTASSIUM SERUM 3.7 MMOL/L (3.5-5.1); SODIUM LEVEL 138 MMOL/L (136-145); TOTAL PROTEIN 7.1 G/DL (5.7-8.2)
[2022-10-10 11:10] LABS: TOTAL 25(OH) VITAMIN D 42.3 NG/ML (20.0-100.0)
[2022-10-10 11:13] LABS: ERYTHROCYTE SEDIMENTATION RATE 9 mm/hr (0-30)
[2022-10-10 13:08] VITALS: BP 134/86
== END 2022-10-10 13:10 | disposition home or self-care (01) ==
LOC: M INFU 10:05
PROVIDERS: ATTEND Internal Medicine Rheumatology
DX: M05.79 Rheumatoid arthritis with rheumatoid factor of multiple sites without organ or systems involvement (principal); Z88.2 Allergy status to sulfonamides
CPT/HCPCS: 36592; 80053; 82306; 85025; 85652; 86140; 96413; 96415; Q5103

== ENCOUNTER 2022-12-05 12:15 | Outpatient (CLI) | payer BC ==
[~2022-12-05] VITALS: Ht 162.6 cm; Wt 74.0 kg
[~2022-12-05 12:15] MED LIST changes: -ACETAMINOPHEN 650MG PO PRIOR TO INFUSION PO ONE; -ALBUTEROL SULFATE 2.5 MG/0.5 ML INH NEB SOLN INH PRN; +ALBUTEROL SULFATE 2.5MG/0.5ML INH NEB SOLN INH PRN; -INFLIXIMAB BIOSIMILAR 400 MG in NS 210 ML IV ONE; -diphenhydrAMINE 25MG PO PRIOR TO INFUSION PO ONE
[2022-12-05 12:19] VITALS: BP 117/74
[2022-12-05] MEDS ORDERED: INFLIXIMAB BIOSIMILAR 400 MG in NS 210 ML IV ONE (12:30)
[2022-12-05] MEDS ORDERED: ACETAMINOPHEN 650MG PO PRIOR TO INFUSION PO ONE (12:30)
[2022-12-05] MEDS ORDERED: diphenhydrAMINE 25MG PO PRIOR TO INFUSION PO ONE (12:30)
[2022-12-05 13:15] VITALS: BP 116/67
[2022-12-05 13:45] VITALS: BP 121/68
[2022-12-05 14:15] VITALS: BP 124/71
[2022-12-05 14:45] VITALS: BP 114/64
[2022-12-05 15:30] VITALS: BP 112/61
== END 2022-12-05 15:30 | disposition home or self-care (01) ==
LOC: M INFU 12:15
PROVIDERS: ATTEND Internal Medicine Rheumatology
DX: M05.79 Rheumatoid arthritis with rheumatoid factor of multiple sites without organ or systems involvement (principal); Z88.2 Allergy status to sulfonamides
CPT/HCPCS: 96413; 96415; Q5103

== ENCOUNTER → 2022-12-26 | Outpatient (CLI) | payer BC ==
[~2022-12-26] MED LIST changes: -ALBUTEROL SULFATE 2.5MG/0.5ML INH NEB SOLN INH PRN; +D3 S20002 PO; -EPINEPHrine INJ 1 MG/ML 1ML AMP IM PRN; +FOLI1TAB11 PO; +MAGN200T PO; +METH25IN12 SC; +VITMTA PO; -diphenhydrAMINE 50MG/ML VIAL IV PRN; -methylPREDNISolone 125MG 2ML VIAL IV PRN
[2022-12-26 16:56] LABS: FOLLICLE STIMULATING HORMONE 58.3 mIU/ML
[2022-12-26 16:57] LABS: LUTEINIZING HORMONE 38.3 mIU/ML
[2022-12-26 17:00] LABS: PROGESTERONE 0.21 NG/ML
== END ==
LOC: M LAB 15:38
PROVIDERS: ATTEND Physician Assistant
DX: N95.1 Menopausal and female climacteric states (principal)

== ENCOUNTER 2022-12-31 11:33 | Emergency (ER) | payer OTHER, BC ==
[~2022-12-31] VITALS: Ht 162.6 cm; Wt 77.8 kg
[2022-12-31 11:34] VITALS: BP 135/77
[2022-12-31] MEDS ORDERED: ACETAMINOPHEN 500 MG TAB PO ONE (12:30)
== END 2022-12-31 13:53 | disposition home or self-care (01) ==
LOC: M ED 11:33
DX: S80.01XA Contusion of right knee, initial encounter (principal); S46.911A Strain of unspecified muscle, fascia and tendon at shoulder and upper arm level, right arm, initial encounter; W19.XXXA Unspecified fall, initial encounter; Y99.0 Civilian activity done for income or pay; I10 Essential (primary) hypertension; Z79.899 Other long term (current) drug therapy; Z88.2 Allergy status to sulfonamides

== ENCOUNTER → 2023-01-01 | Outpatient (CLI) | payer BC | LOC: M LABSMTC 11:19 | PROVIDERS: ATTEND Anesthesiology | DX: Z01.812 Encounter for preprocedural laboratory examination (principal) ==

== ENCOUNTER 2023-01-05 10:03 | Day surgery (SDC) | payer BC ==
[~2023-01-05] VITALS: Ht 162.6 cm; Wt 76.8 kg
[2023-01-05] MEDS ORDERED: propofoL 200 MG/20 ML VIAL As Ordered ONE (10:18)
[2023-01-05] MEDS ORDERED: LIDOCAINE 2% 100MG/5ML SDV (FOR ANES.) As Ordered ONE (10:18)
[2023-01-05] MEDS ORDERED: fentaNYL 100 MCG/2 ML INJECTION As Ordered ONE (10:18)
[2023-01-05 13:20] VITALS: BP 130/76
== END 2023-01-05 10:12 | disposition home or self-care (01) ==
LOC: M OPP 10:03
PROVIDERS: ATTEND Internal Medicine Gastroenterology
DX: R12 Heartburn (principal); K22.89 Other specified disease of esophagus; I10 Essential (primary) hypertension; E78.5 Hyperlipidemia, unspecified; K21.9 Gastro-esophageal reflux disease without esophagitis; M06.9 Rheumatoid arthritis, unspecified; F41.9 Anxiety disorder, unspecified; Z88.2 Allergy status to sulfonamides; Z79.899 Other long term (current) drug therapy; Z83.49 Family history of other endocrine, nutritional and metabolic diseases; Z82.49 Family history of ischemic heart disease and other diseases of the circulatory system; Z84.89 Family history of other specified conditions
CPT/HCPCS: 43239; 88305; J3010

== ENCOUNTER 2023-01-30 12:08 | Outpatient (CLI) | payer BC ==
[~2023-01-30] VITALS: Ht 161.3 cm; Wt 74.1 kg
[~2023-01-30 12:08] MED LIST changes: +ALBUTEROL SULFATE 2.5MG/0.5ML INH NEB SOLN INH PRN; +EPINEPHrine INJ 1 MG/ML 1ML AMP IM PRN; +diphenhydrAMINE 50MG/ML VIAL IV PRN; +methylPREDNISolone 125MG 2ML VIAL IV PRN
[2023-01-30] MEDS ORDERED: ACETAMINOPHEN 650MG PO PRIOR TO INFUSION PO ONE (12:30)
[2023-01-30] MEDS ORDERED: diphenhydrAMINE 25MG PO PRIOR TO INFUSION PO ONE (12:30)
[2023-01-30] MEDS ORDERED: INFLIXIMAB BIOSIMILAR 400 MG in NS 210 ML IV ONE (12:30)
[2023-01-30] MEDS ORDERED: NS 1,000 ML IV SCH (12:30)
[2023-01-30 12:59] VITALS: BP 119/80
[2023-01-30 14:28] VITALS: BP 159/81
== END 2023-01-30 12:40 | disposition home or self-care (01) ==
LOC: M INFU 12:08
PROVIDERS: ATTEND Internal Medicine Rheumatology
DX: M05.79 Rheumatoid arthritis with rheumatoid factor of multiple sites without organ or systems involvement (principal); Z88.2 Allergy status to sulfonamides
CPT/HCPCS: 96413; 96415; Q5103

== ENCOUNTER 2023-03-27 12:20 | Outpatient (CLI) | payer BC ==
[~2023-03-27] VITALS: Ht 162.6 cm; Wt 76.0 kg
[~2023-03-27 12:20] MED LIST changes: -LOSA100T45 PO; +LOSA100T46 PO
[2023-03-27] MEDS ORDERED: diphenhydrAMINE 25MG PO PRIOR TO INFUSION PO ONE (12:30)
[2023-03-27] MEDS ORDERED: ACETAMINOPHEN 325 MG TAB PO ONE (12:30)
[2023-03-27] MEDS ORDERED: INFLIXIMAB BIOSIMILAR 400 MG in NS 210 ML IV ONE (12:30)
[2023-03-27 13:30] VITALS: BP 132/70
[2023-03-27 15:07] VITALS: BP 137/86
== END 2023-03-27 15:05 | disposition home or self-care (01) ==
LOC: M INFU 12:20
PROVIDERS: ATTEND Internal Medicine Rheumatology
DX: M05.79 Rheumatoid arthritis with rheumatoid factor of multiple sites without organ or systems involvement (principal); Z88.2 Allergy status to sulfonamides
CPT/HCPCS: 96413; 96415; Q5103

== ENCOUNTER → 2023-04-16 | Outpatient (CLI) | payer BC ==
[~2023-04-16] MED LIST changes: -ALBUTEROL SULFATE 2.5MG/0.5ML INH NEB SOLN INH PRN; -EPINEPHrine INJ 1 MG/ML 1ML AMP IM PRN; -diphenhydrAMINE 50MG/ML VIAL IV PRN; -methylPREDNISolone 125MG 2ML VIAL IV PRN
[2023-04-16 09:24] LABS: BASO % 0.7 % (0.0-1.0); EOS # 0.1 10^3/uL (0.0-0.5); HEMATOCRIT 39.4 % (36.0-47.0); LYMPH # 1.6 10^3/uL (1.5-5.0); LYMPH % 29.8 % (24.0-44.0); MEAN CORPUSCULAR HEMOGLOBIN 31.9 pg (27.0-33.0); MEAN CORPUSCULAR HGB CONC 35.5 g/dl (32.0-36.5); MEAN CORPUSCULAR VOLUME 89.7 fl (80.0-96.0); MONO # 0.6 10^3/uL (0.0-0.8); MONO % 10.5 % (2.0-8.0); NEUTROPHILS # 3.1 10^3/uL (1.5-8.5); NEUTROPHILS % 56.8 % (36.0-66.0); PLATELET COUNT, AUTOMATED 220 10^3/uL (150-450); RED BLOOD COUNT 4.39 10^6/uL (4.00-5.40); WHITE BLOOD COUNT 5.5 10^3/uL (4.0-10.0)
[2023-04-16 09:39] LABS: ERYTHROCYTE SEDIMENTATION RATE 2 mm/hr (0-30)
[2023-04-16 09:46] LABS: C REACTIVE PROTEIN QUANTITATIV < 0.40 MG/DL (<1.0)
[2023-04-16 09:48] LABS: ALBUMIN 4.2 G/DL (3.2-5.2); ALKALINE PHOSPHATASE 67 U/L (46-116); ALT/SGPT 35 U/L (7.0-40); AST/SGOT 21 U/L (<34); BILIRUBIN,TOTAL 0.5 MG/DL (0.3-1.2); BLOOD UREA NITROGEN 14 MG/DL (9-23); CALCIUM LEVEL 9.6 MG/DL (8.5-10.1); CARBON DIOXIDE LEVEL 32 MMOL/L (20-31); CHLORIDE LEVEL 104 MMOL/L (98-107); CREATININE FOR GFR 0.57 MG/DL (0.55-1.30); GLOMERULAR FILTRATION RATE > 60.0 (>51); GLUCOSE, FASTING 94 MG/DL (60-100); POTASSIUM SERUM 3.9 MMOL/L (3.5-5.1); SODIUM LEVEL 140 MMOL/L (136-145); TOTAL PROTEIN 6.9 G/DL (5.7-8.2)
== END ==
LOC: M LAB 08:53
PROVIDERS: ATTEND Internal Medicine Rheumatology
DX: M05.79 Rheumatoid arthritis with rheumatoid factor of multiple sites without organ or systems involvement (principal); E55.9 Vitamin D deficiency, unspecified; Z79.899 Other long term (current) drug therapy; Z79.52 Long term (current) use of systemic steroids

== ENCOUNTER → 2023-05-10 | Outpatient (REF) | payer BC ==
[2023-05-10 17:14] LABS: HEMATOCRIT 39.6 % (36.0-47.0); HEMOGLOBIN 13.7 g/dl (12.0-15.5); MEAN CORPUSCULAR HEMOGLOBIN 31.2 pg (27.0-33.0); MEAN CORPUSCULAR HGB CONC 34.6 g/dl (32.0-36.5); MEAN CORPUSCULAR VOLUME 90.2 fl (80.0-96.0); PLATELET COUNT, AUTOMATED 220 10^3/uL (150-450); RED BLOOD COUNT 4.39 10^6/uL (4.00-5.40); WHITE BLOOD COUNT 4.6 10^3/uL (4.0-10.0)
[2023-05-10 17:39] LABS: THYROID STIMULATING HORMONE 1.672 uIU/ML (0.55-4.78)
[2023-05-10 17:56] LABS: ALBUMIN 4.4 G/DL (3.2-5.2); ALKALINE PHOSPHATASE 64 U/L (46-116); ALT/SGPT 13 U/L (7.0-40); AST/SGOT 15 U/L (<34); BILIRUBIN,TOTAL 0.6 MG/DL (0.3-1.2); BLOOD UREA NITROGEN 17 MG/DL (9-23); CALCIUM LEVEL 9.5 MG/DL (8.5-10.1); CARBON DIOXIDE LEVEL 28 MMOL/L (20-31); CHLORIDE LEVEL 103 MMOL/L (98-107); CHOLESTEROL LEVEL 159 MG/DL (<200); CHOLESTEROL RISK RATIO 3.23 (<5); CREATININE FOR GFR 0.48 MG/DL (0.55-1.30); GLOMERULAR FILTRATION RATE > 60.0 (>51); GLUCOSE, FASTING 98 MG/DL (60-100); HDL CHOLESTEROL 49.2 MG/DL (>40); NON-HDL-C 109.8 MG/DL; POTASSIUM SERUM 3.9 MMOL/L (3.5-5.1); SODIUM LEVEL 140 MMOL/L (136-145); TOTAL PROTEIN 7.1 G/DL (5.7-8.2); TRIGLYCERIDES LEVEL 144 MG/DL (<150)
== END ==
LOC: M LAB REF 16:42
PROVIDERS: ATTEND Physician Assistant
DX: E78.5 Hyperlipidemia, unspecified (principal); E03.9 Hypothyroidism, unspecified; I11.9 Hypertensive heart disease without heart failure

== ENCOUNTER → 2023-05-18 | Outpatient (CLI) | payer BC ==
[2023-05-18 15:34] LABS: TOTAL 25(OH) VITAMIN D 36.5 NG/ML (20.0-100.0)
[2023-05-18 15:46] LABS: HEPATITIS B SURFACE ANTIGEN NEGATIVE (NEGATIVE)
[2023-05-18 16:07] LABS: HEPATITIS B CORE ANTIBODY IGM NEGATIVE (NEGATIVE); HEPATITIS C VIRUS ABY INDEX 0.08 INDEX (<0.8)
== END ==
LOC: M LAB 14:12
PROVIDERS: ATTEND Internal Medicine Rheumatology
DX: M05.79 Rheumatoid arthritis with rheumatoid factor of multiple sites without organ or systems involvement (principal); E55.9 Vitamin D deficiency, unspecified; Z79.899 Other long term (current) drug therapy; Z79.52 Long term (current) use of systemic steroids

== ENCOUNTER → 2023-05-22 | Outpatient (CLI) | payer BC ==
[2023-05-22 12:00] LABS: BASO % 0.5 % (0.0-1.0); EOS # 0.1 10^3/uL (0.0-0.5); EOS % 1.5 % (0.0-3.0); HEMATOCRIT 36.1 % (36.0-47.0); HEMOGLOBIN 12.8 g/dl (12.0-15.5); LYMPH # 1.6 10^3/uL (1.5-5.0); LYMPH % 25.3 % (24.0-44.0); MEAN CORPUSCULAR HEMOGLOBIN 31.5 pg (27.0-33.0); MEAN CORPUSCULAR HGB CONC 35.5 g/dl (32.0-36.5); MEAN CORPUSCULAR VOLUME 88.9 fl (80.0-96.0); MONO # 0.5 10^3/uL (0.0-0.8); NEUTROPHILS # 4.2 10^3/uL (1.5-8.5); NEUTROPHILS % 64.4 % (36.0-66.0); PLATELET COUNT, AUTOMATED 221 10^3/uL (150-450); RED BLOOD COUNT 4.06 10^6/uL (4.00-5.40); WHITE BLOOD COUNT 6.5 10^3/uL (4.0-10.0)
[2023-05-22 12:19] LABS: URIC ACID 5.8 MG/DL (3.1-7.8)
[2023-05-22 12:20] LABS: C REACTIVE PROTEIN QUANTITATIV < 0.40 MG/DL (<1.0)
[2023-05-22 12:21] LABS: ALBUMIN 4.1 G/DL (3.2-5.2); ALKALINE PHOSPHATASE 68 U/L (46-116); ALT/SGPT 29 U/L (7.0-40); AST/SGOT 21 U/L (<34); BILIRUBIN,TOTAL 0.6 MG/DL (0.3-1.2); BLOOD UREA NITROGEN 12 MG/DL (9-23); CARBON DIOXIDE LEVEL 28 MMOL/L (20-31); CHLORIDE LEVEL 102 MMOL/L (98-107); CREATININE FOR GFR 0.55 MG/DL (0.55-1.30); GLOMERULAR FILTRATION RATE > 60.0 (>51); GLUCOSE, FASTING 85 MG/DL (60-100); POTASSIUM SERUM 3.7 MMOL/L (3.5-5.1); SODIUM LEVEL 138 MMOL/L (136-145); TOTAL PROTEIN 6.9 G/DL (5.7-8.2)
[2023-05-22 12:53] LABS: ERYTHROCYTE SEDIMENTATION RATE 5 mm/hr (0-30)
== END ==
LOC: M LAB 11:15
PROVIDERS: ATTEND Internal Medicine Rheumatology
DX: M05.79 Rheumatoid arthritis with rheumatoid factor of multiple sites without organ or systems involvement (principal)

== ENCOUNTER 2023-06-21 10:10 | Outpatient (CLI) | payer BC ==
[~2023-06-21] VITALS: Ht 162.6 cm; Wt 83.6 kg
[~2023-06-21 10:10] MED LIST changes: +ALBUTEROL SULFATE 2.5MG/0.5ML INH NEB SOLN INH PRN; +EPINEPHrine INJ 1 MG/ML 1ML AMP IM PRN; -GABA-283; +GABA-284; +diphenhydrAMINE 50MG/ML VIAL IV PRN; +methylPREDNISolone 125MG 2ML VIAL IV PRN
[2023-06-21 11:15] VITALS: BP 135/88; O2SAT 98
[2023-06-21] MEDS ORDERED: ACETAMINOPHEN 650MG ER TAB (TYLENOL ARTHRITIS) PO ONE (11:30)
[2023-06-21] MEDS ORDERED: diphenhydrAMINE 50MG PO PRIOR TO INFUSION PO ONE (11:30)
[2023-06-21] MEDS ORDERED: INFLIXIMAB BIOSIMILAR 800 MG in NS 170 ML IV ONE (11:30)
[2023-06-21 13:15] VITALS: BP 138/75; O2SAT 100
[2023-06-21 14:25] VITALS: BP 137/80; O2SAT 98
== END 2023-06-21 14:20 | disposition home or self-care (01) ==
LOC: M INFU 10:10
PROVIDERS: ATTEND Internal Medicine Rheumatology
DX: M05.79 Rheumatoid arthritis with rheumatoid factor of multiple sites without organ or systems involvement (principal); Z88.2 Allergy status to sulfonamides
CPT/HCPCS: 96413; 96415; Q5103

== ENCOUNTER 2023-08-24 15:39 | Outpatient (CLI) | payer BC ==
[2023-08-24] MEDS ORDERED: diphenhydrAMINE 50MG CAP PO ONE (16:00)
[2023-08-24] MEDS ORDERED: ABATACEPT 750 MG OVER 30 MINUTES IV ONE ×2 (16:00)
[2023-08-24] MEDS ORDERED: ACETAMINOPHEN TAB 650MG DOSE (2X325MG) PO ONE (16:00)
[2023-08-24] MEDS ORDERED: NS 1,000 ML IV SCH (16:00)
[2023-08-24 16:16] VITALS: BP 118/62; TEMP 98; O2SAT 97
[2023-08-24 17:18] VITALS: BP 150/84; TEMP 98.3; O2SAT 100
== END 2023-08-24 17:19 ==
LOC: M INFU 15:39
PROVIDERS: ATTEND Internal Medicine Rheumatology
DX: M05.79 Rheumatoid arthritis with rheumatoid factor of multiple sites without organ or systems involvement (principal); Z88.2 Allergy status to sulfonamides
CPT/HCPCS: 96365; J0129

== ENCOUNTER 2023-09-07 15:25 | Outpatient (CLI) | payer BC ==
[~2023-09-07] VITALS: Ht 162.6 cm; Wt 86.3 kg
[2023-09-07 15:50] VITALS: BP 137/71; TEMP 98.1; O2SAT 97
[2023-09-07] MEDS ORDERED: diphenhydrAMINE 50MG CAP PO ONE (16:00)
[2023-09-07] MEDS ORDERED: ABATACEPT 750 MG OVER 30 MINUTES IV ONE ×2 (16:00)
[2023-09-07] MEDS ORDERED: ACETAMINOPHEN TAB 650MG DOSE (2X325MG) PO ONE (16:00)
[2023-09-07 17:03] VITALS: BP 130/60; O2SAT 100
== END 2023-09-07 17:05 ==
LOC: M INFU 15:25
PROVIDERS: ATTEND Internal Medicine Rheumatology
DX: M05.79 Rheumatoid arthritis with rheumatoid factor of multiple sites without organ or systems involvement (principal); Z88.2 Allergy status to sulfonamides
CPT/HCPCS: 96365; J0129

== ENCOUNTER → 2023-09-11 | Outpatient (CLI) | payer BC ==
[~2023-09-11] MED LIST changes: -ALBUTEROL SULFATE 2.5MG/0.5ML INH NEB SOLN INH PRN; -EPINEPHrine INJ 1 MG/ML 1ML AMP IM PRN; -diphenhydrAMINE 50MG/ML VIAL IV PRN; -methylPREDNISolone 125MG 2ML VIAL IV PRN
[2023-09-11 10:27] LABS: BASO # 0.1 10^3/uL (0.0-0.2); BASO % 0.7 % (0.0-1.0); EOS # 0.1 10^3/uL (0.0-0.5); EOS % 1.4 % (0.0-3.0); HEMATOCRIT 38.8 % (36.0-47.0); HEMOGLOBIN 13.5 g/dl (12.0-15.5); LYMPH # 2.1 10^3/uL (1.5-5.0); MEAN CORPUSCULAR HEMOGLOBIN 31.7 pg (27.0-33.0); MEAN CORPUSCULAR HGB CONC 34.8 g/dl (32.0-36.5); MEAN CORPUSCULAR VOLUME 91.1 fl (80.0-96.0); MONO # 0.5 10^3/uL (0.0-0.8); MONO % 7.4 % (2.0-8.0); NEUTROPHILS # 4.6 10^3/uL (1.5-8.5); NEUTROPHILS % 62.1 % (36.0-66.0); PLATELET COUNT, AUTOMATED 216 10^3/uL (150-450); RED BLOOD COUNT 4.26 10^6/uL (4.00-5.40); WHITE BLOOD COUNT 7.3 10^3/uL (4.0-10.0)
[2023-09-11 10:46] LABS: ERYTHROCYTE SEDIMENTATION RATE < 1 mm/hr (0-30)
[2023-09-11 10:52] LABS: C REACTIVE PROTEIN QUANTITATIV < 0.40 MG/DL (<1.0)
[2023-09-11 10:54] LABS: ALBUMIN 3.9 G/DL (3.2-5.2); ALKALINE PHOSPHATASE 74 U/L (46-116); ALT/SGPT 39 U/L (7.0-40); AST/SGOT 26 U/L (<34); BILIRUBIN,TOTAL 0.7 MG/DL (0.3-1.2); BLOOD UREA NITROGEN 12 MG/DL (9-23); CALCIUM LEVEL 9.4 MG/DL (8.5-10.1); CARBON DIOXIDE LEVEL 29 MMOL/L (20-31); CHLORIDE LEVEL 103 MMOL/L (98-107); GLOMERULAR FILTRATION RATE > 60.0 (>51); GLUCOSE, FASTING 95 MG/DL (60-100); POTASSIUM SERUM 3.9 MMOL/L (3.5-5.1); SODIUM LEVEL 141 MMOL/L (136-145); TOTAL PROTEIN 6.8 G/DL (5.7-8.2)
== END ==
LOC: M LAB 09:07
PROVIDERS: ATTEND Internal Medicine Rheumatology
DX: M05.79 Rheumatoid arthritis with rheumatoid factor of multiple sites without organ or systems involvement (principal); E55.9 Vitamin D deficiency, unspecified; Z79.899 Other long term (current) drug therapy; Z79.52 Long term (current) use of systemic steroids

== ENCOUNTER 2023-09-21 15:30 | Outpatient (CLI) | payer BC ==
[~2023-09-21] VITALS: Ht 162.6 cm; Wt 84.0 kg
[~2023-09-21 15:30] MED LIST changes: +ALBUTEROL SULFATE 2.5MG/0.5ML INH NEB SOLN INH PRN; +EPINEPHrine INJ 1 MG/ML 1ML AMP IM PRN; +diphenhydrAMINE 50MG/ML VIAL IV PRN; +methylPREDNISolone 125MG 2ML VIAL IV PRN
[2023-09-21] MEDS ORDERED: ACETAMINOPHEN TAB 650MG DOSE (2X325MG) PO ONE (16:00)
[2023-09-21] MEDS ORDERED: diphenhydrAMINE 25MG CAP PO ONE (16:00)
[2023-09-21 16:04] VITALS: BP 138/75; TEMP 97.6; O2SAT 98
[2023-09-21] MEDS ORDERED: ABATACEPT 750 MG OVER 30 MINUTES IV ONE ×2 (16:05)
[2023-09-21 17:01] VITALS: BP 142/82; TEMP 98.4; O2SAT 98
== END 2023-09-21 17:00 | disposition home or self-care (01) ==
LOC: M INFU 15:30
PROVIDERS: ATTEND Internal Medicine Rheumatology
DX: M05.79 Rheumatoid arthritis with rheumatoid factor of multiple sites without organ or systems involvement (principal); Z88.2 Allergy status to sulfonamides
CPT/HCPCS: 96365; J0129

== ENCOUNTER → 2023-09-30 | Outpatient (REF) | payer BC ==
[~2023-09-30] MED LIST changes: -ALBUTEROL SULFATE 2.5MG/0.5ML INH NEB SOLN INH PRN; -EPINEPHrine INJ 1 MG/ML 1ML AMP IM PRN; -diphenhydrAMINE 50MG/ML VIAL IV PRN; -methylPREDNISolone 125MG 2ML VIAL IV PRN
== END ==
LOC: M LAB REF 13:05
PROVIDERS: ATTEND Physician Assistant Medical
DX: Z79.899 Other long term (current) drug therapy (principal); B96.81 Helicobacter pylori [H. pylori] as the cause of diseases classified elsewhere

== ENCOUNTER 2023-10-19 16:00 | Outpatient (CLI) | payer BC ==
[~2023-10-19] VITALS: Ht 162.6 cm; Wt 90.2 kg
[2023-10-19 16:00] VITALS: BP 152/83; O2SAT 98
[~2023-10-19 16:00] MED LIST changes: +ALBUTEROL SULFATE 2.5MG/0.5ML INH NEB SOLN INH PRN; +EPINEPHrine INJ 1 MG/ML 1ML AMP IM PRN; +diphenhydrAMINE 50MG/ML VIAL IV PRN; +methylPREDNISolone 125MG 2ML VIAL IV PRN
[2023-10-19] MEDS ORDERED: NS 1,000 ML IV SCH (16:30)
[2023-10-19] MEDS ORDERED: ACETAMINOPHEN TAB 650MG DOSE (2X325MG) PO ONE (16:30)
[2023-10-19] MEDS ORDERED: diphenhydrAMINE 25MG CAP PO ONE (16:30)
[2023-10-19] MEDS ORDERED: ABATACEPT 750 MG OVER 30 MINUTES IV ONE ×2 (16:30)
[2023-10-19 17:15] VITALS: BP 142/88; O2SAT 99
== END 2023-10-19 17:15 | disposition home or self-care (01) ==
LOC: M INFU 16:00
PROVIDERS: ATTEND Internal Medicine Rheumatology
DX: M05.79 Rheumatoid arthritis with rheumatoid factor of multiple sites without organ or systems involvement (principal); Z88.2 Allergy status to sulfonamides
CPT/HCPCS: 96365; J0129

== ENCOUNTER → 2023-11-12 | Outpatient (REF) ==
[~2023-11-12] MED LIST changes: -ALBUTEROL SULFATE 2.5MG/0.5ML INH NEB SOLN INH PRN; -EPINEPHrine INJ 1 MG/ML 1ML AMP IM PRN; -diphenhydrAMINE 50MG/ML VIAL IV PRN; -methylPREDNISolone 125MG 2ML VIAL IV PRN
== END ==
LOC: M EMP 09:11
PROVIDERS: ATTEND Family Medicine
DX: Z20.9 Contact with and (suspected) exposure to unspecified communicable disease (principal)

== ENCOUNTER 2023-11-16 15:58 | Outpatient (CLI) | payer BC ==
[~2023-11-16] VITALS: Ht 162.6 cm; Wt 89.1 kg
[~2023-11-16 15:58] MED LIST changes: +ALBUTEROL SULFATE 2.5MG/0.5ML INH NEB SOLN INH PRN; +EPINEPHrine INJ 1 MG/ML 1ML AMP IM PRN; +diphenhydrAMINE 50MG/ML VIAL IV PRN; +methylPREDNISolone 125MG 2ML VIAL IV PRN
[2023-11-16] MEDS ORDERED: diphenhydrAMINE 50MG CAP PO ONE (16:00)
[2023-11-16] MEDS ORDERED: ACETAMINOPHEN TAB 650MG DOSE (2X325MG) PO ONE (16:00)
[2023-11-16] MEDS ORDERED: ABATACEPT 750 MG OVER 30 MINUTES IV ONE ×2 (16:00)
[2023-11-16 16:05] VITALS: BP 181/93; O2SAT 99
[2023-11-16 17:35] VITALS: BP 148/88; O2SAT 100
== END 2023-11-16 17:40 ==
LOC: M INFU 15:58
PROVIDERS: ATTEND Internal Medicine Rheumatology
DX: M05.79 Rheumatoid arthritis with rheumatoid factor of multiple sites without organ or systems involvement (principal); Z88.2 Allergy status to sulfonamides
CPT/HCPCS: 96365; J0129

== ENCOUNTER → 2023-11-27 | Outpatient (CLI) | payer BC ==
[~2023-11-27] MED LIST changes: -ALBUTEROL SULFATE 2.5MG/0.5ML INH NEB SOLN INH PRN; -EPINEPHrine INJ 1 MG/ML 1ML AMP IM PRN; -diphenhydrAMINE 50MG/ML VIAL IV PRN; -methylPREDNISolone 125MG 2ML VIAL IV PRN
[2023-11-27 12:41] LABS: BASO % 0.6 % (0.0-1.0); EOS # 0.1 10^3/uL (0.0-0.5); EOS % 1.4 % (0.0-3.0); HEMATOCRIT 39.3 % (36.0-47.0); HEMOGLOBIN 13.7 g/dl (12.0-15.5); LYMPH # 2.1 10^3/uL (1.5-5.0); LYMPH % 29.6 % (24.0-44.0); MEAN CORPUSCULAR HEMOGLOBIN 31.3 pg (27.0-33.0); MEAN CORPUSCULAR HGB CONC 34.9 g/dl (32.0-36.5); MEAN CORPUSCULAR VOLUME 89.7 fl (80.0-96.0); MONO # 0.5 10^3/uL (0.0-0.8); MONO % 7.2 % (2.0-8.0); NEUTROPHILS # 4.4 10^3/uL (1.5-8.5); NEUTROPHILS % 60.9 % (36.0-66.0); PLATELET COUNT, AUTOMATED 242 10^3/uL (150-450); RED BLOOD COUNT 4.38 10^6/uL (4.00-5.40); WHITE BLOOD COUNT 7.1 10^3/uL (4.0-10.0)
[2023-11-27 12:47] LABS: ERYTHROCYTE SEDIMENTATION RATE 5 mm/hr (0-30)
[2023-11-27 13:11] LABS: C REACTIVE PROTEIN QUANTITATIV < 0.40 MG/DL (<1.0)
[2023-11-27 13:13] LABS: ALBUMIN 4.2 G/DL (3.2-5.2); ALKALINE PHOSPHATASE 70 U/L (46-116); ALT/SGPT 41 U/L (7.0-40); AST/SGOT 25 U/L (<34); BILIRUBIN,TOTAL 0.5 MG/DL (0.3-1.2); BLOOD UREA NITROGEN 14 MG/DL (9-23); CALCIUM LEVEL 9.5 MG/DL (8.5-10.1); CARBON DIOXIDE LEVEL 30 MMOL/L (20-31); CHLORIDE LEVEL 102 MMOL/L (98-107); CREATININE FOR GFR 0.54 MG/DL (0.55-1.30); GLOMERULAR FILTRATION RATE > 60.0 (>51); GLUCOSE, FASTING 106 MG/DL (60-100); POTASSIUM SERUM 3.8 MMOL/L (3.5-5.1); SODIUM LEVEL 137 MMOL/L (136-145); TOTAL PROTEIN 7.2 G/DL (5.7-8.2)
== END ==
LOC: M LAB 11:54
PROVIDERS: ATTEND Internal Medicine Rheumatology
DX: M05.79 Rheumatoid arthritis with rheumatoid factor of multiple sites without organ or systems involvement (principal); E55.9 Vitamin D deficiency, unspecified; Z79.899 Other long term (current) drug therapy

== ENCOUNTER 2023-12-14 16:00 | Outpatient (CLI) | payer BC ==
[~2023-12-14] VITALS: Ht 162.6 cm; Wt 86.0 kg
[2023-12-14 16:00] VITALS: BP_SYST 122; BP_DIAS 72; BP_DIAS 74; TEMP 97.6; O2SAT 97
[~2023-12-14 16:00] MED LIST changes: +ALBUTEROL SULFATE 2.5MG/0.5ML INH NEB SOLN INH PRN; +EPINEPHrine INJ 1 MG/ML 1ML AMP IM PRN; +NS 1,000 ML IV SCH; +diphenhydrAMINE 50MG/ML VIAL IV PRN; +methylPREDNISolone 125MG 2ML VIAL IV PRN
[2023-12-14] MEDS: diphenhydrAMINE 50MG PO PRIOR TO INFUSION PO ONE (16:08)
[2023-12-14] MEDS: ACETAMINOPHEN 650MG PO PRIOR TO INFUSION PO ONE (16:08)
[2023-12-14] MEDS: ABATACEPT 750 MG OVER 30 MINUTES IV ONE (16:38)
[2023-12-14 17:12] VITALS: BP 165/85; O2SAT 100
== END 2023-12-14 17:15 ==
LOC: M INFU 16:00
PROVIDERS: ATTEND Internal Medicine Rheumatology
DX: M05.79 Rheumatoid arthritis with rheumatoid factor of multiple sites without organ or systems involvement (principal); Z88.2 Allergy status to sulfonamides
CPT/HCPCS: 96365; J0129

== ENCOUNTER 2024-01-11 16:00 | Outpatient (CLI) | payer BC ==
[~2024-01-11] VITALS: Ht 162.6 cm; Wt 65.0 kg
[~2024-01-11 16:00] MED LIST changes: -NS 1,000 ML IV SCH
[2024-01-11 16:03] VITALS: BP 136/76; O2SAT 100
[2024-01-11] MEDS: diphenhydrAMINE 50MG PO PRIOR TO INFUSION PO ONE (16:24)
[2024-01-11] MEDS: ACETAMINOPHEN 650MG PO PRIOR TO INFUSION PO ONE (16:25)
[2024-01-11] MEDS: ABATACEPT 750 MG OVER 30 MINUTES IV ONE (16:29)
[2024-01-11 17:15] VITALS: BP 156/86; O2SAT 100
== END 2024-01-11 19:15 | disposition home or self-care (01) ==
LOC: M INFU 16:00
PROVIDERS: ATTEND Internal Medicine Rheumatology
DX: M05.79 Rheumatoid arthritis with rheumatoid factor of multiple sites without organ or systems involvement (principal); Z88.2 Allergy status to sulfonamides
CPT/HCPCS: 96365; J0129

== ENCOUNTER → 2024-01-16 | Outpatient (CLI) | payer BC ==
[~2024-01-16] MED LIST changes: -ALBUTEROL SULFATE 2.5MG/0.5ML INH NEB SOLN INH PRN; -EPINEPHrine INJ 1 MG/ML 1ML AMP IM PRN; -diphenhydrAMINE 50MG/ML VIAL IV PRN; -methylPREDNISolone 125MG 2ML VIAL IV PRN
[2024-01-16 12:04] LABS: ALBUMIN 4.2 G/DL (3.2-5.2); ALKALINE PHOSPHATASE 72 U/L (46-116); ALT/SGPT 52 U/L (7.0-40); AST/SGOT 31 U/L (<34); BILIRUBIN,TOTAL 0.6 MG/DL (0.3-1.2); BLOOD UREA NITROGEN 19 MG/DL (9-23); CALCIUM LEVEL 8.6 MG/DL (8.5-10.1); CARBON DIOXIDE LEVEL 29 MMOL/L (20-31); CHLORIDE LEVEL 104 MMOL/L (98-107); CHOLESTEROL LEVEL 146 MG/DL (<200); CHOLESTEROL RISK RATIO 3.01 (<5); CREATININE FOR GFR 0.59 MG/DL (0.55-1.30); GLOMERULAR FILTRATION RATE > 60.0 (>51); GLUCOSE, FASTING 96 MG/DL (60-100); HDL CHOLESTEROL 48.5 MG/DL (>40); LDL CHOLESTEROL 69.7 MG/DL (<100); NON-HDL-C 97.5 MG/DL; POTASSIUM SERUM 4.1 MMOL/L (3.5-5.1); SODIUM LEVEL 140 MMOL/L (136-145); TOTAL PROTEIN 6.8 G/DL (5.7-8.2); TRIGLYCERIDES LEVEL 139 MG/DL (<150)
[2024-01-16 12:05] LABS: THYROID STIMULATING HORMONE 1.175 uIU/ML (0.55-4.78)
== END ==
LOC: M LAB 10:27
PROVIDERS: ATTEND Physician Assistant
DX: E78.5 Hyperlipidemia, unspecified (principal)

== ENCOUNTER → 2024-01-29 | Outpatient (CLI) | payer BC | LOC: M WHC 07:34 | PROVIDERS: ATTEND Physician Assistant | DX: Z12.31 Encounter for screening mammogram for malignant neoplasm of breast (principal) ==

== ENCOUNTER 2024-02-08 15:45 | Outpatient (CLI) | payer BC ==
[~2024-02-08] VITALS: Ht 162.6 cm; Wt 88.6 kg
[2024-02-08 15:40] VITALS: BP 146/81; TEMP 97.1; O2SAT 96
[~2024-02-08 15:45] MED LIST changes: +ALBUTEROL SULFATE 2.5MG/0.5ML INH NEB SOLN INH PRN; +EPINEPHrine INJ 1 MG/ML 1ML AMP IM PRN; +diphenhydrAMINE 50MG/ML VIAL IV PRN; +methylPREDNISolone 125MG 2ML VIAL IV PRN
[2024-02-08] MEDS: ACETAMINOPHEN TAB 650MG DOSE (2X325MG) PO ONE (15:58)
[2024-02-08] MEDS: diphenhydrAMINE 25MG CAP PO ONE (15:58)
[2024-02-08] MEDS: ABATACEPT 750 MG OVER 30 MINUTES IV ONE (16:23)
[2024-02-08 16:50] VITALS: BP 158/88; TEMP 97.8; O2SAT 100
== END 2024-02-08 16:50 ==
LOC: M INFU 15:45
PROVIDERS: ATTEND Internal Medicine Rheumatology
DX: M05.79 Rheumatoid arthritis with rheumatoid factor of multiple sites without organ or systems involvement (principal); Z88.2 Allergy status to sulfonamides
CPT/HCPCS: 96365; J0129

== ENCOUNTER 2024-03-07 16:05 | Outpatient (CLI) | payer BC ==
[~2024-03-07 16:05] MED LIST changes: +ALBUTEROL SULFATE 2.5MG/0.5ML INH NEB SOLN INH PRN; +EPINEPHrine INJ 1 MG/ML 1ML AMP IM PRN; +diphenhydrAMINE 50MG/ML VIAL IV PRN; +methylPREDNISolone 125MG 2ML VIAL IV PRN
[2024-03-07 16:17] VITALS: BP 170/92; O2SAT 100
[2024-03-07] MEDS: ACETAMINOPHEN TAB 650MG DOSE (2X325MG) PO ONE (16:19)
[2024-03-07] MEDS: diphenhydrAMINE 25MG CAP PO ONE (16:21)
[2024-03-07] MEDS: ABATACEPT 750 MG OVER 30 MINUTES IV ONE (16:23)
[2024-03-07 17:00] VITALS: BP 162/88; O2SAT 100
== END 2024-03-07 17:00 ==
LOC: M INFU 16:05
PROVIDERS: ATTEND Internal Medicine Rheumatology
DX: M05.79 Rheumatoid arthritis with rheumatoid factor of multiple sites without organ or systems involvement (principal); Z88.2 Allergy status to sulfonamides
CPT/HCPCS: 96365; J0129

== ENCOUNTER → 2024-03-07 | Outpatient (CLI) | payer BC ==
[~2024-03-07] MED LIST changes: -ALBUTEROL SULFATE 2.5MG/0.5ML INH NEB SOLN INH PRN; +BUPR-597 PO; -BUPR300T92 PO; -EPINEPHrine INJ 1 MG/ML 1ML AMP IM PRN; -diphenhydrAMINE 50MG/ML VIAL IV PRN; -methylPREDNISolone 125MG 2ML VIAL IV PRN
[2024-03-07 16:31] LABS: BASO % 0.4 % (0.0-1.0); EOS # 0.1 10^3/uL (0.0-0.5); EOS % 1.4 % (0.0-3.0); HEMATOCRIT 38.6 % (36.0-47.0); HEMOGLOBIN 13.7 g/dl (12.0-15.5); LYMPH # 2.2 10^3/uL (1.5-5.0); LYMPH % 31.8 % (24.0-44.0); MEAN CORPUSCULAR HEMOGLOBIN 31.4 pg (27.0-33.0); MEAN CORPUSCULAR HGB CONC 35.5 g/dl (32.0-36.5); MEAN CORPUSCULAR VOLUME 88.3 fl (80.0-96.0); MONO # 0.3 10^3/uL (0.0-0.8); MONO % 4.7 % (2.0-8.0); NEUTROPHILS # 4.3 10^3/uL (1.5-8.5); NEUTROPHILS % 61.6 % (36.0-66.0); PLATELET COUNT, AUTOMATED 236 10^3/uL (150-450); RED BLOOD COUNT 4.37 10^6/uL (4.00-5.40)
[2024-03-07 16:43] LABS: ERYTHROCYTE SEDIMENTATION RATE 2 mm/hr (0-30)
[2024-03-07 16:45] LABS: C REACTIVE PROTEIN QUANTITATIV < 0.40 MG/DL (<1.0)
[2024-03-07 16:47] LABS: ALBUMIN 4.5 G/DL (3.2-5.2); ALKALINE PHOSPHATASE 82 U/L (46-116); ALT/SGPT 64 U/L (7.0-40); AST/SGOT 39 U/L (<34); BILIRUBIN,TOTAL 0.4 MG/DL (0.3-1.2); BLOOD UREA NITROGEN 21 MG/DL (9-23); CALCIUM LEVEL 9.5 MG/DL (8.5-10.1); CARBON DIOXIDE LEVEL 28 MMOL/L (20-31); CHLORIDE LEVEL 103 MMOL/L (98-107); CREATININE FOR GFR 0.62 MG/DL (0.55-1.30); GLOMERULAR FILTRATION RATE > 60.0 (>51); GLUCOSE, FASTING 101 MG/DL (60-100); POTASSIUM SERUM 3.1 MMOL/L (3.5-5.1); SODIUM LEVEL 140 MMOL/L (136-145); TOTAL PROTEIN 7.2 G/DL (5.7-8.2)
== END ==
LOC: M LAB 15:53
PROVIDERS: ATTEND Internal Medicine Rheumatology
DX: M05.79 Rheumatoid arthritis with rheumatoid factor of multiple sites without organ or systems involvement (principal); E55.9 Vitamin D deficiency, unspecified; Z79.899 Other long term (current) drug therapy

== ENCOUNTER 2024-04-04 16:03 | Outpatient (CLI) | payer BC ==
[~2024-04-04] VITALS: Ht 162.6 cm; Wt 89.0 kg
[2024-04-04 16:00] VITALS: BP 139/84; O2SAT 97
[2024-04-04] MEDS: diphenhydrAMINE 50MG CAP PO ONE (16:10)
[2024-04-04] MEDS: ACETAMINOPHEN TAB 650MG DOSE (2X325MG) PO ONE (16:10)
[2024-04-04] MEDS: ABATACEPT 750 MG OVER 30 MINUTES IV ONE (16:25)
[2024-04-04 17:00] VITALS: BP 151/84; O2SAT 98
== END 2024-04-04 17:00 | disposition home or self-care (01) ==
LOC: M INFU 16:03
PROVIDERS: ATTEND Internal Medicine Rheumatology
DX: M05.79 Rheumatoid arthritis with rheumatoid factor of multiple sites without organ or systems involvement (principal); Z88.2 Allergy status to sulfonamides
CPT/HCPCS: 96365; J0129

== ENCOUNTER → 2024-04-24 | Outpatient (REF) | payer BC ==
[~2024-04-24] MED LIST changes: -ALBUTEROL SULFATE 2.5MG/0.5ML INH NEB SOLN INH PRN; -EPINEPHrine INJ 1 MG/ML 1ML AMP IM PRN; -diphenhydrAMINE 50MG/ML VIAL IV PRN; -methylPREDNISolone 125MG 2ML VIAL IV PRN
[2024-04-24 17:34] LABS: ALBUMIN 4.2 G/DL (3.2-5.2); ALKALINE PHOSPHATASE 89 U/L (46-116); ALT/SGPT 55 U/L (7.0-40); AST/SGOT 28 U/L (<34); BILIRUBIN,TOTAL 0.5 MG/DL (0.3-1.2); BLOOD UREA NITROGEN 12 MG/DL (9-23); CALCIUM LEVEL 9.4 MG/DL (8.5-10.1); CARBON DIOXIDE LEVEL 28 MMOL/L (20-31); CHLORIDE LEVEL 105 MMOL/L (98-107); CREATININE FOR GFR 0.54 MG/DL (0.55-1.30); GLOMERULAR FILTRATION RATE > 60.0 (>51); GLUCOSE, FASTING 117 MG/DL (60-100); POTASSIUM SERUM 3.7 MMOL/L (3.5-5.1); SODIUM LEVEL 139 MMOL/L (136-145); TOTAL PROTEIN 6.7 G/DL (5.7-8.2)
== END ==
LOC: M LAB REF 16:26
PROVIDERS: ATTEND Physician Assistant
DX: R74.01 Elevation of levels of liver transaminase levels (principal); E87.6 Hypokalemia

== ENCOUNTER 2024-05-02 15:40 | Outpatient (CLI) | payer BC ==
[~2024-05-02] VITALS: Ht 162.6 cm; Wt 88.0 kg
[~2024-05-02 15:40] MED LIST changes: +ALBUTEROL SULFATE 2.5MG/0.5ML INH NEB SOLN INH PRN; +EPINEPHrine INJ 1 MG/ML 1ML AMP IM PRN; +diphenhydrAMINE 50MG/ML VIAL IV PRN; +methylPREDNISolone 125MG 2ML VIAL IV PRN
[2024-05-02 15:55] VITALS: BP 156/81; O2SAT 99
[2024-05-02] MEDS: diphenhydrAMINE 50MG CAP PO ONE (16:01)
[2024-05-02] MEDS: ACETAMINOPHEN TAB 650MG DOSE (2X325MG) PO ONE (16:01)
[2024-05-02] MEDS: ABATACEPT 750 MG OVER 30 MINUTES IV ONE (16:19)
[2024-05-02 16:50] VITALS: BP 118/62; O2SAT 100
[2024-05-02 16:55] VITALS: BP 118/62; TEMP 36.8; O2SAT 100
== END 2024-05-02 16:55 ==
LOC: M INFU 15:40
PROVIDERS: ATTEND Internal Medicine Rheumatology
DX: M05.79 Rheumatoid arthritis with rheumatoid factor of multiple sites without organ or systems involvement (principal); Z88.2 Allergy status to sulfonamides
CPT/HCPCS: 96365; J0129

== ENCOUNTER 2024-05-30 15:13 | Outpatient (CLI) | payer BC ==
[~2024-05-30] VITALS: Ht 162.6 cm; Wt 87.3 kg
[2024-05-30] MEDS ORDERED: NS 1,000 ML IV SCH (16:00)
[2024-05-30] MEDS: diphenhydrAMINE 50MG CAP PO ONE (16:00)
[2024-05-30] MEDS: ACETAMINOPHEN TAB 650MG DOSE (2X325MG) PO ONE (16:00)
[2024-05-30] MEDS: ABATACEPT 750 MG OVER 30 MINUTES IV ONE (16:06)
[2024-05-30 16:56] VITALS: BP 150/70; O2SAT 100
== END 2024-05-30 17:00 ==
LOC: M INFU 15:13
PROVIDERS: ATTEND Internal Medicine Rheumatology
DX: M05.79 Rheumatoid arthritis with rheumatoid factor of multiple sites without organ or systems involvement (principal); Z88.2 Allergy status to sulfonamides
CPT/HCPCS: 96365; J0129

== ENCOUNTER → 2024-06-11 | Outpatient (CLI) | payer BC ==
[~2024-06-11] MED LIST changes: -ALBUTEROL SULFATE 2.5MG/0.5ML INH NEB SOLN INH PRN; -EPINEPHrine INJ 1 MG/ML 1ML AMP IM PRN; -diphenhydrAMINE 50MG/ML VIAL IV PRN; -methylPREDNISolone 125MG 2ML VIAL IV PRN
[2024-06-11 14:37] LABS: BASO % 0.5 % (0.0-1.0); EOS # 0.1 10^3/uL (0.0-0.5); EOS % 2.1 % (0.0-3.0); HEMATOCRIT 40.6 % (36.0-47.0); HEMOGLOBIN 14.4 g/dl (12.0-15.5); LYMPH % 31.4 % (24.0-44.0); MEAN CORPUSCULAR HEMOGLOBIN 31.9 pg (27.0-33.0); MEAN CORPUSCULAR HGB CONC 35.5 g/dl (32.0-36.5); MEAN CORPUSCULAR VOLUME 89.8 fl (80.0-96.0); MONO # 0.4 10^3/uL (0.0-0.8); MONO % 5.8 % (2.0-8.0); NEUTROPHILS # 3.8 10^3/uL (1.5-8.5); PLATELET COUNT, AUTOMATED 215 10^3/uL (150-450); RED BLOOD COUNT 4.52 10^6/uL (4.00-5.40); WHITE BLOOD COUNT 6.3 10^3/uL (4.0-10.0)
[2024-06-11 14:47] LABS: ERYTHROCYTE SEDIMENTATION RATE 3 mm/hr (0-30)
[2024-06-11 15:06] LABS: C REACTIVE PROTEIN QUANTITATIV < 0.40 MG/DL (<1.0)
[2024-06-11 15:08] LABS: ALBUMIN 4.5 G/DL (3.2-5.2); ALKALINE PHOSPHATASE 73 U/L (46-116); ALT/SGPT 52 U/L (7.0-40); AST/SGOT 31 U/L (<34); BILIRUBIN,TOTAL 0.8 MG/DL (0.3-1.2); BLOOD UREA NITROGEN 10 MG/DL (9-23); CALCIUM LEVEL 9.9 MG/DL (8.5-10.1); CARBON DIOXIDE LEVEL 30 MMOL/L (20-31); CHLORIDE LEVEL 104 MMOL/L (98-107); CREATININE FOR GFR 0.65 MG/DL (0.55-1.30); GLOMERULAR FILTRATION RATE > 60.0 (>51); GLUCOSE, FASTING 84 MG/DL (60-100); POTASSIUM SERUM 3.9 MMOL/L (3.5-5.1); SODIUM LEVEL 142 MMOL/L (136-145); TOTAL PROTEIN 7.3 G/DL (5.7-8.2)
== END ==
LOC: M LAB 13:38
PROVIDERS: ATTEND Internal Medicine Rheumatology
DX: M05.79 Rheumatoid arthritis with rheumatoid factor of multiple sites without organ or systems involvement (principal); E55.9 Vitamin D deficiency, unspecified; Z79.899 Other long term (current) drug therapy

== ENCOUNTER → 2024-06-16 | Outpatient (CLI) | payer BC ==
[2024-06-16 18:25] LABS: ALBUMIN 4.3 G/DL (3.2-5.2); BILIRUBIN,DIRECT 0.1 MG/DL (<0.4); BILIRUBIN,TOTAL 0.4 MG/DL (0.3-1.2)
== END ==
LOC: M LAB 17:18
PROVIDERS: ATTEND Physician Assistant
DX: E87.6 Hypokalemia (principal); K74.01 Hepatic fibrosis, early fibrosis

== ENCOUNTER 2024-06-27 15:45 | Outpatient (CLI) | payer BC ==
[~2024-06-27] VITALS: Ht 165.1 cm; Wt 85.0 kg
[2024-06-27 15:40] VITALS: BP 142/77; O2SAT 100
[~2024-06-27 15:45] MED LIST changes: +ALBUTEROL SULFATE 2.5MG/0.5ML INH NEB SOLN INH PRN; +EPINEPHrine INJ 1 MG/ML 1ML AMP IM PRN; +diphenhydrAMINE 50MG/ML VIAL IV PRN; +methylPREDNISolone 125MG 2ML VIAL IV PRN
[2024-06-27] MEDS: diphenhydrAMINE 50MG CAP PO ONE (15:56)
[2024-06-27] MEDS: ACETAMINOPHEN TAB 650MG DOSE (2X325MG) PO ONE (15:56)
[2024-06-27] MEDS: ABATACEPT 750 MG OVER 30 MINUTES IV ONE (16:06)
[2024-06-27 16:35] VITALS: BP 136/88; O2SAT 100
== END 2024-06-27 16:40 ==
LOC: M INFU 15:45
PROVIDERS: ATTEND Internal Medicine Rheumatology
DX: M05.79 Rheumatoid arthritis with rheumatoid factor of multiple sites without organ or systems involvement (principal); Z88.2 Allergy status to sulfonamides
CPT/HCPCS: 96365; J0129

== ENCOUNTER → 2024-07-01 | Outpatient (CLI) | payer BC ==
[~2024-07-01] MED LIST changes: -ALBUTEROL SULFATE 2.5MG/0.5ML INH NEB SOLN INH PRN; -EPINEPHrine INJ 1 MG/ML 1ML AMP IM PRN; -diphenhydrAMINE 50MG/ML VIAL IV PRN; -methylPREDNISolone 125MG 2ML VIAL IV PRN
== END ==
LOC: M RAD 08:26
PROVIDERS: ATTEND Physician Assistant
DX: E87.6 Hypokalemia (principal)

== ENCOUNTER 2024-07-25 15:40 | Outpatient (CLI) | payer BC ==
[~2024-07-25] VITALS: Ht 160 cm; Wt 90.0 kg
[~2024-07-25 15:40] MED LIST changes: +ALBUTEROL SULFATE 2.5MG/0.5ML INH NEB SOLN INH PRN; +EPINEPHrine INJ 1 MG/ML 1ML AMP IM PRN; +diphenhydrAMINE 50MG/ML VIAL IV PRN; +methylPREDNISolone 125MG 2ML VIAL IV PRN
[2024-07-25 15:45] VITALS: BP 156/88; O2SAT 98
[2024-07-25] MEDS: diphenhydrAMINE 50MG PO PRIOR TO INFUSION PO ONE (15:46)
[2024-07-25] MEDS: ACETAMINOPHEN 650MG PO PRIOR TO INFUSION PO ONE (15:46)
[2024-07-25] MEDS: ABATACEPT 750 MG OVER 30 MINUTES IV ONE (16:39)
[2024-07-25 17:15] VITALS: BP 130/76; TEMP 36.3; O2SAT 99
== END 2024-07-25 17:15 ==
LOC: M INFU 15:40
PROVIDERS: ATTEND Internal Medicine Rheumatology
DX: M05.79 Rheumatoid arthritis with rheumatoid factor of multiple sites without organ or systems involvement (principal); Z88.2 Allergy status to sulfonamides
CPT/HCPCS: 96365; J0129

== ENCOUNTER → 2024-07-25 | Outpatient (CLI) | payer BC ==
[2024-07-25 11:12] LABS: C REACTIVE PROTEIN QUANTITATIV < 0.40 MG/DL (<1.0)
[2024-07-25 11:13] LABS: ALBUMIN 4.2 G/DL (3.2-5.2); ALKALINE PHOSPHATASE 71 U/L (46-116); ALT/SGPT 44 U/L (7.0-40); AST/SGOT 25 U/L (<34); BILIRUBIN,TOTAL 0.7 MG/DL (0.3-1.2); BLOOD UREA NITROGEN 16 MG/DL (9-23); CALCIUM LEVEL 9.5 MG/DL (8.5-10.1); CARBON DIOXIDE LEVEL 28 MMOL/L (20-31); CHLORIDE LEVEL 104 MMOL/L (98-107); GLOMERULAR FILTRATION RATE > 60.0 (>51); GLUCOSE, FASTING 100 MG/DL (60-100); POTASSIUM SERUM 3.8 MMOL/L (3.5-5.1); SODIUM LEVEL 136 MMOL/L (136-145); TOTAL PROTEIN 6.8 G/DL (5.7-8.2)
== END ==
LOC: M LAB 08:58
PROVIDERS: ATTEND Internal Medicine Rheumatology
DX: M05.79 Rheumatoid arthritis with rheumatoid factor of multiple sites without organ or systems involvement (principal)

== ENCOUNTER → 2024-08-22 | Outpatient (CLI) | payer BC ==
[~2024-08-22] VITALS: Ht 162.6 cm; Wt 83.6 kg
[2024-08-22 15:45] VITALS: BP 128/77; O2SAT 99
[2024-08-22] MEDS: ACETAMINOPHEN 500 MG TAB PO ONE (16:02)
[2024-08-22] MEDS: diphenhydrAMINE 50MG CAP PO ONE (16:02)
[2024-08-22] MEDS: ABATACEPT 750 MG OVER 30 MINUTES IV ONE (16:28)
[2024-08-22 17:01] VITALS: BP 139/82; O2SAT 98
== END ==
LOC: M INFU 15:38
PROVIDERS: ATTEND Internal Medicine Rheumatology
DX: M05.79 Rheumatoid arthritis with rheumatoid factor of multiple sites without organ or systems involvement (principal); Z88.2 Allergy status to sulfonamides
CPT/HCPCS: 96365; J0129

== ENCOUNTER 2024-09-19 16:00 | Outpatient (CLI) | payer BC ==
[2024-09-19] MEDS: ACETAMINOPHEN 500 MG TAB PO ONE (16:09)
[2024-09-19] MEDS: diphenhydrAMINE 50MG CAP PO ONE (16:09)
[2024-09-19] MEDS: ABATACEPT 750 MG OVER 30 MINUTES IV ONE (16:26)
[2024-09-19 16:59] VITALS: BP 136/82; O2SAT 99
== END 2024-09-19 17:00 ==
LOC: M INFU 16:00
PROVIDERS: ATTEND Internal Medicine Rheumatology
DX: M05.79 Rheumatoid arthritis with rheumatoid factor of multiple sites without organ or systems involvement (principal); Z88.2 Allergy status to sulfonamides
CPT/HCPCS: 96365; J0129

== ENCOUNTER → 2024-09-24 | Outpatient (CLI) | payer BC ==
[~2024-09-24] MED LIST changes: -ALBUTEROL SULFATE 2.5MG/0.5ML INH NEB SOLN INH PRN; -EPINEPHrine INJ 1 MG/ML 1ML AMP IM PRN; -diphenhydrAMINE 50MG/ML VIAL IV PRN; -methylPREDNISolone 125MG 2ML VIAL IV PRN
[2024-09-24 09:55] LABS: BASO % 0.2 % (0.0-1.0); EOS # 0.1 10^3/uL (0.0-0.5); EOS % 0.7 % (0.0-3.0); LYMPH # 1.8 10^3/uL (1.5-5.0); LYMPH % 18.4 % (24.0-44.0); MEAN CORPUSCULAR HEMOGLOBIN 31.9 pg (27.0-33.0); MEAN CORPUSCULAR VOLUME 91.1 fl (80.0-96.0); MONO # 0.5 10^3/uL (0.0-0.8); MONO % 5.2 % (2.0-8.0); NEUTROPHILS # 7.2 10^3/uL (1.5-8.5); NEUTROPHILS % 74.9 % (36.0-66.0); PLATELET COUNT, AUTOMATED 243 10^3/uL (150-450); RED BLOOD COUNT 4.39 10^6/uL (4.00-5.40); WHITE BLOOD COUNT 9.6 10^3/uL (4.0-10.0)
[2024-09-24 10:26] LABS: C REACTIVE PROTEIN QUANTITATIV < 0.40 MG/DL (<1.0)
[2024-09-24 10:33] LABS: ALBUMIN 4.2 G/DL (3.2-5.2); ALKALINE PHOSPHATASE 82 U/L (35-104); ALT/SGPT 43 U/L (7.0-40); AST/SGOT 25 U/L (<34); BILIRUBIN,TOTAL 0.4 MG/DL (0.3-1.2); BLOOD UREA NITROGEN 18 MG/DL (9-23); CALCIUM LEVEL 10.6 MG/DL (8.5-10.1); CARBON DIOXIDE LEVEL 31 MMOL/L (20-31); CHLORIDE LEVEL 104 MMOL/L (98-107); CREATININE FOR GFR 0.59 MG/DL (0.55-1.30); GLOMERULAR FILTRATION RATE > 60.0 (>51); GLUCOSE, FASTING 88 MG/DL (60-100); POTASSIUM SERUM 4.4 MMOL/L (3.5-5.1); SODIUM LEVEL 141 MMOL/L (136-145); TOTAL PROTEIN 7.3 G/DL (5.7-8.2)
== END ==
LOC: M LAB 08:49
PROVIDERS: ATTEND Internal Medicine Rheumatology
DX: M05.79 Rheumatoid arthritis with rheumatoid factor of multiple sites without organ or systems involvement (principal)

== ENCOUNTER 2024-10-17 13:40 | Outpatient (CLI) | payer BC ==
[~2024-10-17] VITALS: Ht 162.6 cm; Wt 82.7 kg
[~2024-10-17 13:40] MED LIST changes: +ALBUTEROL SULFATE 2.5MG/0.5ML INH NEB SOLN INH PRN; +EPINEPHrine INJ 1 MG/ML 1ML AMP IM PRN; +diphenhydrAMINE 50MG/ML VIAL IV PRN; +methylPREDNISolone 125MG 2ML VIAL IV PRN
[2024-10-17] MEDS: diphenhydrAMINE 25MG CAP PO ONE (16:29)
[2024-10-17] MEDS: ACETAMINOPHEN 500 MG TAB PO ONE (16:29)
[2024-10-17] MEDS: ABATACEPT 750 MG OVER 30 MINUTES IV ONE (16:36)
[2024-10-17 16:59] VITALS: BP 127/74; O2SAT 98
== END 2024-10-17 17:05 ==
LOC: M INFU 13:40
PROVIDERS: ATTEND Internal Medicine Rheumatology
DX: M05.79 Rheumatoid arthritis with rheumatoid factor of multiple sites without organ or systems involvement (principal); Z88.2 Allergy status to sulfonamides
CPT/HCPCS: 96365; J0129

== ENCOUNTER 2024-11-14 15:15 | Outpatient (CLI) | payer BC ==
[~2024-11-14] VITALS: Ht 160 cm; Wt 89.4 kg
[2024-11-14 15:20] VITALS: BP 135/79; O2SAT 98
[2024-11-14] MEDS: diphenhydrAMINE 25MG CAP PO ONE (15:31)
[2024-11-14] MEDS: ACETAMINOPHEN 500 MG TAB PO ONE (15:31)
[2024-11-14] MEDS: ABATACEPT 750 MG OVER 30 MINUTES IV ONE (16:01)
[2024-11-14 16:45] VITALS: BP 137/80; O2SAT 100
== END 2024-11-14 16:45 | disposition home or self-care (01) ==
LOC: M INFU 15:15
PROVIDERS: ATTEND Internal Medicine Rheumatology
DX: M05.79 Rheumatoid arthritis with rheumatoid factor of multiple sites without organ or systems involvement (principal); Z88.2 Allergy status to sulfonamides
CPT/HCPCS: 96365; J0129

== ENCOUNTER → 2024-11-21 | Outpatient (REF) | payer BC ==
[~2024-11-21] MED LIST changes: -ALBUTEROL SULFATE 2.5MG/0.5ML INH NEB SOLN INH PRN; -EPINEPHrine INJ 1 MG/ML 1ML AMP IM PRN; -diphenhydrAMINE 50MG/ML VIAL IV PRN; -methylPREDNISolone 125MG 2ML VIAL IV PRN
== END ==
LOC: M LAB REF 16:09
PROVIDERS: ATTEND Physician Assistant
DX: N30.00 Acute cystitis without hematuria (principal)

== ENCOUNTER 2024-12-12 08:10 | Outpatient (CLI) | payer BC ==
[~2024-12-12] VITALS: Ht 162.6 cm; Wt 83.1 kg
[~2024-12-12 08:10] MED LIST changes: +ALBUTEROL SULFATE 2.5MG/0.5ML INH NEB SOLN INH PRN; +EPINEPHrine INJ 1 MG/ML 1ML AMP IM PRN; +diphenhydrAMINE 50MG/ML VIAL IV PRN; +methylPREDNISolone 125MG 2ML VIAL IV PRN
[2024-12-12 08:23] VITALS: BP 133/58; TEMP 97; O2SAT 98
[2024-12-12] MEDS: diphenhydrAMINE 25MG CAP PO ONE (08:27)
[2024-12-12] MEDS: ACETAMINOPHEN 650 MG PO ONE (08:28)
[2024-12-12] MEDS: ABATACEPT 750 MG OVER 30 MINUTES IV ONE (08:56)
[2024-12-12 09:30] VITALS: BP 154/78; O2SAT 99
== END 2024-12-12 09:30 ==
LOC: M INFU 08:10
PROVIDERS: ATTEND Internal Medicine Rheumatology
DX: M05.79 Rheumatoid arthritis with rheumatoid factor of multiple sites without organ or systems involvement (principal); Z88.2 Allergy status to sulfonamides
CPT/HCPCS: 96365; J0129

== ENCOUNTER → 2025-01-06 | Outpatient (CLI) | payer BC ==
[~2025-01-06] MED LIST changes: -ALBUTEROL SULFATE 2.5MG/0.5ML INH NEB SOLN INH PRN; -EPINEPHrine INJ 1 MG/ML 1ML AMP IM PRN; -diphenhydrAMINE 50MG/ML VIAL IV PRN; -methylPREDNISolone 125MG 2ML VIAL IV PRN
[2025-01-06 20:01] LABS: BASO % 0.5 % (0.0-1.0); EOS # 0.2 10^3/uL (0.0-0.5); EOS % 3.3 % (0.0-3.0); HEMATOCRIT 36.4 % (36.0-47.0); HEMOGLOBIN 12.5 g/dl (12.0-15.5); LYMPH % 30.8 % (24.0-44.0); MEAN CORPUSCULAR HEMOGLOBIN 31.2 pg (27.0-33.0); MEAN CORPUSCULAR HGB CONC 34.3 g/dl (32.0-36.5); MEAN CORPUSCULAR VOLUME 90.8 fl (80.0-96.0); MONO # 0.5 10^3/uL (0.0-0.8); MONO % 7.4 % (2.0-8.0); NEUTROPHILS # 3.8 10^3/uL (1.5-8.5); NEUTROPHILS % 57.5 % (36.0-66.0); PLATELET COUNT, AUTOMATED 214 10^3/uL (150-450); RED BLOOD COUNT 4.01 10^6/uL (4.00-5.40); WHITE BLOOD COUNT 6.6 10^3/uL (4.0-10.0)
[2025-01-06 20:32] LABS: C REACTIVE PROTEIN QUANTITATIV < 0.50 MG/DL (<1.0)
[2025-01-06 20:52] LABS: ERYTHROCYTE SEDIMENTATION RATE 1 mm/hr (0-30)
[2025-01-06 21:42] LABS: ALBUMIN 4.2 G/DL (3.2-5.2); ALKALINE PHOSPHATASE 74 U/L (35-104); ALT/SGPT 39 U/L (7.0-40); AST/SGOT 25 U/L (<34); BILIRUBIN,TOTAL 0.2 MG/DL (0.3-1.2); BLOOD UREA NITROGEN 17 MG/DL (9-23); CALCIUM LEVEL 9.5 MG/DL (8.5-10.1); CARBON DIOXIDE LEVEL 29 MMOL/L (20-31); CHLORIDE LEVEL 105 MMOL/L (98-107); CREATININE FOR GFR 0.63 MG/DL (0.55-1.30); GLOMERULAR FILTRATION RATE > 60.0 (>51); GLUCOSE, FASTING 84 MG/DL (60-100); SODIUM LEVEL 140 MMOL/L (136-145); TOTAL PROTEIN 6.9 G/DL (5.7-8.2)
== END ==
LOC: M LAB 17:03
PROVIDERS: ATTEND Internal Medicine Rheumatology
DX: M05.79 Rheumatoid arthritis with rheumatoid factor of multiple sites without organ or systems involvement (principal)

== ENCOUNTER 2025-01-09 10:00 | Outpatient (CLI) | payer BC ==
[~2025-01-09] VITALS: Ht 162.6 cm; Wt 86.3 kg
[2025-01-09 09:45] VITALS: BP 162/86; O2SAT 96
[2025-01-09] MEDS: diphenhydrAMINE 25MG CAP PO ONE (09:55)
[2025-01-09] MEDS: ACETAMINOPHEN 500 MG TAB PO ONE (09:56)
[~2025-01-09 10:00] MED LIST changes: +ALBUTEROL SULFATE 2.5MG/0.5ML INH NEB SOLN INH PRN; +EPINEPHrine INJ 1 MG/ML 1ML AMP IM PRN; +NS (Normal Saline) 0.9% 1,000 ML IV SCH; +diphenhydrAMINE 50MG/ML VIAL IV PRN; +methylPREDNISolone 125MG 2ML VIAL IV PRN
[2025-01-09] MEDS: ABATACEPT 750 MG OVER 30 MINUTES IV ONE (10:33)
[2025-01-09 11:15] VITALS: BP 146/88; O2SAT 100
== END 2025-01-09 11:15 ==
LOC: M INFU 10:00
PROVIDERS: ATTEND Internal Medicine Rheumatology
DX: M05.79 Rheumatoid arthritis with rheumatoid factor of multiple sites without organ or systems involvement (principal); Z88.2 Allergy status to sulfonamides
CPT/HCPCS: 96365; J0129

== ENCOUNTER 2025-01-16 13:12 | Outpatient (RCR) | payer BC ==
[~2025-01-16 13:12] MED LIST changes: -ALBUTEROL SULFATE 2.5MG/0.5ML INH NEB SOLN INH PRN; -EPINEPHrine INJ 1 MG/ML 1ML AMP IM PRN; -NS (Normal Saline) 0.9% 1,000 ML IV SCH; -diphenhydrAMINE 50MG/ML VIAL IV PRN; -methylPREDNISolone 125MG 2ML VIAL IV PRN
== END 2025-02-02 ==
LOC: M PT 13:12
PROVIDERS: ATTEND Physician Assistant
DX: N81.11 Cystocele, midline (principal); N39.3 Stress incontinence (female) (male)

== ENCOUNTER 2025-02-06 09:15 | Outpatient (CLI) | payer BC ==
[~2025-02-06] VITALS: Ht 162.6 cm; Wt 86.4 kg
[2025-02-06 09:15] VITALS: BP 147/76; O2SAT 97
[~2025-02-06 09:15] MED LIST changes: +ALBUTEROL SULFATE 2.5MG/0.5ML INH CONCENTRATE NEB SOLN INH PRN; +EPINEPHrine INJ 1 MG/ML 1ML AMP IM PRN; +diphenhydrAMINE 50MG/ML VIAL IV PRN; +methylPREDNISolone 125MG 2ML VIAL IV PRN
[2025-02-06] MEDS: ACETAMINOPHEN 650 MG PO ONE (09:45)
[2025-02-06] MEDS: diphenhydrAMINE 25MG CAP PO ONE (09:46)
[2025-02-06] MEDS: ABATACEPT 750 MG OVER 30 MINUTES IV ONE (10:08)
== END 2025-02-06 10:40 ==
LOC: M INFU 09:15
PROVIDERS: ATTEND Internal Medicine Rheumatology
DX: M05.79 Rheumatoid arthritis with rheumatoid factor of multiple sites without organ or systems involvement (principal); Z88.2 Allergy status to sulfonamides
CPT/HCPCS: 96365; J0129

== ENCOUNTER → 2025-02-19 | Outpatient (REF) | payer BC ==
[~2025-02-19] MED LIST changes: -ALBUTEROL SULFATE 2.5MG/0.5ML INH CONCENTRATE NEB SOLN INH PRN; -EPINEPHrine INJ 1 MG/ML 1ML AMP IM PRN; -diphenhydrAMINE 50MG/ML VIAL IV PRN; -methylPREDNISolone 125MG 2ML VIAL IV PRN
== END ==
LOC: M LAB REF 17:18
PROVIDERS: ATTEND Physician Assistant
DX: R30.0 Dysuria (principal)

== ENCOUNTER → 2025-02-24 | Outpatient (CLI) | payer BC ==
[2025-02-24 08:37] LABS: CHOLESTEROL RISK RATIO 3.13 (<5); HDL CHOLESTEROL 50.4 MG/DL (>40); NON-HDL-C 107.6 MG/DL
[2025-02-24 08:41] LABS: THYROID STIMULATING HORMONE 1.429 uIU/ML (0.55-4.78)
== END ==
LOC: M LAB 07:29
PROVIDERS: ATTEND Physician Assistant
DX: E78.5 Hyperlipidemia, unspecified (principal)

== ENCOUNTER → 2025-02-26 | Outpatient (CLI) | payer BC ==
[~2025-02-26] MED LIST changes: -BUPR-597 PO; +BUPR-766 PO
== END ==
LOC: M EKG 12:18
PROVIDERS: ATTEND Physician Assistant
DX: R07.9 Chest pain, unspecified (principal)

== ENCOUNTER → 2025-03-05 | Outpatient (REF) | payer BC ==
[2025-03-05 18:00] LABS: APPEARANCE, URINE HAZY (CLEAR); BACTERIA, URINE AUTO 1+ (NEGATIVE); BILIRUBIN, URINE AUTO NEGATIVE (NEGATIVE); BLOOD, URINE BLOOD 3+ (NEGATIVE); COLOR, URINE YELLOW (YELLOW); GLUCOSE, URINE (UA) AUTO NEGATIVE (NEGATIVE); KETONE, URINE AUTO NEGATIVE (NEGATIVE); LEUKOCYTE ESTERASE, URINE AUTO 3+ (NEGATIVE); MUCUS, URINE SMALL (NEGATIVE); NITRITE, URINE AUTO NEGATIVE (NEGATIVE); PROTEIN, URINE AUTO NEGATIVE (NEGATIVE); RBC, URINE AUTO 25 /HPF (0-3); SPECIFIC GRAVITY URINE AUTO 1.006 (1.002-1.035); SQUAMOUS EPITHELIAL CELL UR AU 0 /HPF (0-6); UROBILINOGEN, URINE AUTO 0.2 mg/dL (0.0-2.0); WBC, URINE AUTO 178 /HPF (0-3)
== END ==
LOC: M LAB REF 17:12
PROVIDERS: ATTEND Physician Assistant
DX: N39.0 Urinary tract infection, site not specified (principal)

== ENCOUNTER 2025-03-06 09:08 | Outpatient (CLI) | payer BC ==
[~2025-03-06] VITALS: Ht 162.6 cm; Wt 86.5 kg
[~2025-03-06 09:08] MED LIST changes: +ALBUTEROL SULFATE 2.5MG/0.5ML INH CONCENTRATE NEB SOLN INH PRN; +EPINEPHrine INJ 1 MG/ML 1ML AMP IM PRN; +diphenhydrAMINE 50MG/ML VIAL IV PRN; +methylPREDNISolone 125MG 2ML VIAL IV PRN
[2025-03-06 09:45] VITALS: BP 165/92; O2SAT 96
[2025-03-06] MEDS: ACETAMINOPHEN 650 MG PO ONE (09:52)
[2025-03-06] MEDS: diphenhydrAMINE 50MG CAP PO ONE (09:52)
[2025-03-06] MEDS: ABATACEPT 750 MG OVER 30 MINUTES IV ONE (10:37)
[2025-03-06 11:11] VITALS: BP 138/81; O2SAT 97
== END 2025-03-06 11:15 ==
LOC: M INFU 09:08
PROVIDERS: ATTEND Internal Medicine Rheumatology
DX: M05.79 Rheumatoid arthritis with rheumatoid factor of multiple sites without organ or systems involvement (principal); Z88.2 Allergy status to sulfonamides
CPT/HCPCS: 96365; J0129

== ENCOUNTER 2025-03-13 14:37 | Emergency (ER) | payer BC ==
[~2025-03-13] VITALS: Ht 163.8 cm; Wt 87.8 kg
[~2025-03-13 14:37] MED LIST changes: -ALBUTEROL SULFATE 2.5MG/0.5ML INH CONCENTRATE NEB SOLN INH PRN; -EPINEPHrine INJ 1 MG/ML 1ML AMP IM PRN; -diphenhydrAMINE 50MG/ML VIAL IV PRN; -methylPREDNISolone 125MG 2ML VIAL IV PRN
[2025-03-13 18:12] LABS: BASO # 0.1 10^3/uL (0.0-0.2); BASO % 0.7 % (0.0-1.0); EOS # 0.2 10^3/uL (0.0-0.5); EOS % 2.5 % (0.0-3.0); HEMATOCRIT 39.1 % (36.0-47.0); HEMOGLOBIN 13.4 g/dl (12.0-15.5); LYMPH # 2.9 10^3/uL (1.5-5.0); LYMPH % 35.5 % (24.0-44.0); MEAN CORPUSCULAR HEMOGLOBIN 31.2 pg (27.0-33.0); MEAN CORPUSCULAR HGB CONC 34.3 g/dl (32.0-36.5); MEAN CORPUSCULAR VOLUME 91.1 fl (80.0-96.0); MONO # 0.5 10^3/uL (0.0-0.8); MONO % 6.4 % (2.0-8.0); NEUTROPHILS # 4.4 10^3/uL (1.5-8.5); NEUTROPHILS % 54.5 % (36.0-66.0); PLATELET COUNT, AUTOMATED 239 10^3/uL (150-450); RED BLOOD COUNT 4.29 10^6/uL (4.00-5.40); WHITE BLOOD COUNT 8.1 10^3/uL (4.0-10.0)
[2025-03-13 18:48] LABS: BLOOD UREA NITROGEN 15 MG/DL (9-23); CALCIUM LEVEL 9.5 MG/DL (8.5-10.1); CARBON DIOXIDE LEVEL 31 MMOL/L (20-31); CHLORIDE LEVEL 102 MMOL/L (98-107); CREATININE FOR GFR 0.56 MG/DL (0.55-1.30); GLOMERULAR FILTRATION RATE > 90.0 (>51); GLUCOSE, FASTING 96 MG/DL (60-100); POTASSIUM SERUM 4.9 MMOL/L (3.5-5.1); SODIUM LEVEL 141 MMOL/L (136-145)
[2025-03-13 19:52] LABS: KETONE, URINE AUTO RFX NEGATIVE (NEGATIVE); LEUKOCYTE ESTERASE UR AUTO RFX NEGATIVE (NEGATIVE); NITRITE, URINE AUTO RFX NEGATIVE (NEGATIVE); RBC, URINE AUTO RFX 0 /HPF (0-3); SQUAM EPITHELIAL CELL UR AURFX 0 /HPF (0-6); WBC, URINE AUTO RFX 1 /HPF (0-3)
[2025-03-13 21:02] VITALS: BP 174/79; TEMP 97.1; O2SAT 97
[2025-03-13] MEDS: KETOROLAC 30 MG/ML 1ML VIAL IV ONE (21:04)
== END 2025-03-13 21:49 | disposition home or self-care (01) ==
LOC: M ED 14:37
DX: R10.9 Unspecified abdominal pain (principal); I10 Essential (primary) hypertension; E78.5 Hyperlipidemia, unspecified; K21.9 Gastro-esophageal reflux disease without esophagitis; L40.52 Psoriatic arthritis mutilans; M06.9 Rheumatoid arthritis, unspecified; Z79.899 Other long term (current) drug therapy; Z88.2 Allergy status to sulfonamides
CPT/HCPCS: 74176; 80048; 81001; 85025; 96374; 99284; J1885

== ENCOUNTER 2025-05-11 06:02 | Day surgery (SDC) | payer BC ==
[~2025-05-11] VITALS: Ht 162.6 cm; Wt 90.7 kg
[~2025-05-11 06:02] MED LIST changes: +APRE30TA3 PO; +EXCETAB22 PO; +HYDR-643 PO; +MINO2.5T PO; +THERTAB52 PO; +TIZA4CAP PO
[2025-05-11] MEDS ORDERED: LR 1,000 ML IV SCH (06:15)
[2025-05-11 06:39] LABS: PLATELET COUNT, AUTOMATED 214 10^3/uL (150-450)
[2025-05-11] MEDS ORDERED: OMEP40CA5 PO (06:56)
[2025-05-11] MEDS ORDERED: OREN250I2 IV (06:56)
[2025-05-11] MEDS ORDERED: ACET-907 PO (06:56)
[2025-05-11] MEDS ORDERED: LIDOCAINE 2% 100 MG/5 ML SDV (FOR ANES.) As Ordered ONE (07:04)
[2025-05-11] MEDS ORDERED: MIDAZOLAM INJ 2 MG/2 ML VIAL As Ordered ONE (07:04)
[2025-05-11] MEDS: ceFAZolin SOD 2 GM IV ONCE IV ONE (07:30)
[2025-05-11] MEDS: SCOPOLAMINE 1MG TRANSDERMAL PATCH TOP ONE (07:32)
[2025-05-11] MEDS ORDERED: SCOPOLAMINE 1MG TRANSDERMAL PATCH As Ordered ONE (07:32)
[2025-05-11] MEDS ORDERED: ACETAMINOPHEN 1000MG/100ML IV BAG As Ordered ONE (07:48)
[2025-05-11] MEDS ORDERED: dexAMETHasone 4 MG/ML 1 ML VIAL As Ordered ONE (07:48)
[2025-05-11] MEDS ORDERED: ONDANSETRON 4MG 2ML VIAL As Ordered ONE (07:48)
[2025-05-11] MEDS ORDERED: KETOROLAC 30 MG/ML 1 ML VIAL As Ordered ONE (07:48)
[2025-05-11] MEDS ORDERED: MORPHINE 2 MG/ML 1 ML VIAL IV PRN (09:00)
[2025-05-11] MEDS: ONDANSETRON 4MG 2ML VIAL IV PRN (09:46)
[2025-05-11 10:37] VITALS: BP 142/84; TEMP 97.5; O2SAT 98
== END 2025-05-11 11:33 | disposition home or self-care (01) ==
LOC: M SDC 06:02
PROVIDERS: ATTEND Specialist
DX: N81.4 Uterovaginal prolapse, unspecified (principal); R32 Unspecified urinary incontinence; I10 Essential (primary) hypertension; E78.00 Pure hypercholesterolemia, unspecified; M06.9 Rheumatoid arthritis, unspecified; L40.50 Arthropathic psoriasis, unspecified; K21.9 Gastro-esophageal reflux disease without esophagitis; Z79.899 Other long term (current) drug therapy; Z90.711 Acquired absence of uterus with remaining cervical stump; Z79.631 Long term (current) use of antimetabolite agent; Z79.2 Long term (current) use of antibiotics; Z88.2 Allergy status to sulfonamides
CPT/HCPCS: 36415; 57240; 85027; 86850; 86900; 86901; 88302; J0131; J0665; J0690; J1100; J1885; J2250; J2405; J3010

== ENCOUNTER → 2025-05-25 | Outpatient (REF) | payer BC ==
[~2025-05-25] MED LIST changes: +ACET-907 PO; +OMEP40CA5 PO; +OREN250I2 IV
== END ==
LOC: M PLALAB 16:09
PROVIDERS: ATTEND Specialist
DX: R30.0 Dysuria (principal)

== ENCOUNTER 2025-05-29 11:39 | Outpatient (CLI) | payer BC ==
[~2025-05-29] VITALS: Ht 162.6 cm; Wt 93.0 kg
[~2025-05-29 11:39] MED LIST changes: +ALBUTEROL SULFATE 2.5 MG/0.5 ML INH CONCENTRATE NEB SOLN INH PRN; +EPINEPHrine INJ 1 MG/ML 1ML AMP IM PRN; +diphenhydrAMINE 50 MG/ML VIAL IV PRN
[2025-05-29 12:00] VITALS: BP 150/82; O2SAT 99
[2025-05-29] MEDS: ACETAMINOPHEN 650 MG PO ONE (12:03)
[2025-05-29] MEDS: ABATACEPT 750 MG OVER 30 MINUTES IV ONE (12:25)
[2025-05-29 12:57] VITALS: BP 145/71; O2SAT 97
== END 2025-05-29 12:57 ==
LOC: M INFU 11:39
PROVIDERS: ATTEND Internal Medicine Rheumatology
DX: M05.79 Rheumatoid arthritis with rheumatoid factor of multiple sites without organ or systems involvement (principal); Z88.2 Allergy status to sulfonamides
CPT/HCPCS: 96365; J0129

== ENCOUNTER → 2025-06-10 | Outpatient (CLI) | payer BC ==
[~2025-06-10] MED LIST changes: -ALBUTEROL SULFATE 2.5 MG/0.5 ML INH CONCENTRATE NEB SOLN INH PRN; -EPINEPHrine INJ 1 MG/ML 1ML AMP IM PRN; -diphenhydrAMINE 50 MG/ML VIAL IV PRN
[2025-06-10 15:01] LABS: BASO # 0.1 10^3/uL (0.0-0.2); BASO % 0.8 % (0.0-1.0); EOS # 0.2 10^3/uL (0.0-0.5); EOS % 2.7 % (0.0-3.0); LYMPH # 2.1 10^3/uL (1.5-5.0); LYMPH % 33.7 % (24.0-44.0); MONO # 0.4 10^3/uL (0.0-0.8); MONO % 6.7 % (2.0-8.0); NEUTROPHILS # 3.5 10^3/uL (1.5-8.5); NEUTROPHILS % 55.6 % (36.0-66.0); PLATELET COUNT, AUTOMATED 224 10^3/uL (150-450)
[2025-06-10 15:07] LABS: ERYTHROCYTE SEDIMENTATION RATE 2 mm/hr (0-30)
[2025-06-10 15:21] LABS: ALT/SGPT 50 U/L (7.0-40); AST/SGOT 34 U/L (<34); CALCIUM LEVEL 9.9 MG/DL (8.5-10.1); CARBON DIOXIDE LEVEL 29 MMOL/L (20-31); CHLORIDE LEVEL 103 MMOL/L (98-107); CREATININE FOR GFR 0.60 MG/DL (0.55-1.30); GLOMERULAR FILTRATION RATE > 90.0 (>51); POTASSIUM SERUM 3.8 MMOL/L (3.5-5.1); SODIUM LEVEL 143 MMOL/L (136-145)
[2025-06-10 15:25] LABS: C REACTIVE PROTEIN QUANTITATIV < 0.50 MG/DL (<1.0)
== END ==
LOC: M LAB 13:59
PROVIDERS: ATTEND Internal Medicine Rheumatology
DX: M05.79 Rheumatoid arthritis with rheumatoid factor of multiple sites without organ or systems involvement (principal)

== ENCOUNTER 2025-06-26 11:48 | Outpatient (CLI) | payer BC ==
[~2025-06-26] VITALS: Ht 163.8 cm; Wt 88.6 kg
[~2025-06-26 11:48] MED LIST changes: +ALBUTEROL SULFATE 2.5 MG/0.5 ML INH CONCENTRATE NEB SOLN INH PRN; +EPINEPHrine INJ 1 MG/ML 1ML AMP IM PRN; +diphenhydrAMINE 50 MG/ML VIAL IV PRN
[2025-06-26 11:54] VITALS: BP 167/86; O2SAT 99
[2025-06-26] MEDS: ACETAMINOPHEN 650 MG PO ONE (12:15)
[2025-06-26] MEDS: ABATACEPT 750 MG OVER 30 MINUTES IV ONE (12:44)
== END 2025-06-26 13:22 ==
LOC: M INFU 11:48
PROVIDERS: ATTEND Internal Medicine Rheumatology
DX: M05.79 Rheumatoid arthritis with rheumatoid factor of multiple sites without organ or systems involvement (principal); Z88.2 Allergy status to sulfonamides
CPT/HCPCS: 96365; J0129

== ENCOUNTER → 2025-08-21 | Outpatient (REF) | payer BC ==
[~2025-08-21] MED LIST changes: -ALBUTEROL SULFATE 2.5 MG/0.5 ML INH CONCENTRATE NEB SOLN INH PRN; -EPINEPHrine INJ 1 MG/ML 1ML AMP IM PRN; -diphenhydrAMINE 50 MG/ML VIAL IV PRN
[2025-08-21 19:08] LABS: CHOLESTEROL LEVEL 163.0 MG/DL (<200); CHOLESTEROL RISK RATIO 3.57 (<5); LDL CHOLESTEROL 86.6 MG/DL (<100); NON-HDL-C 117.4 MG/DL; TRIGLYCERIDES LEVEL 154.0 MG/DL (<150)
== END ==
LOC: M LAB REF 17:11
PROVIDERS: ATTEND Nurse Practitioner Family
DX: E78.5 Hyperlipidemia, unspecified (principal); K75.81 Nonalcoholic steatohepatitis (NASH); E66.01 Morbid (severe) obesity due to excess calories; Z68.36 Body mass index [BMI] 36.0-36.9, adult

== ENCOUNTER 2025-09-03 07:28 | Outpatient (CLI) | payer BC ==
[~2025-09-03 07:28] MED LIST changes: +ALBUTEROL SULFATE 2.5 MG/0.5 ML INH CONCENTRATE NEB SOLN INH PRN; +EPINEPHrine INJ 1 MG/ML 1ML AMP IM PRN; +diphenhydrAMINE 50 MG/ML VIAL IV PRN
[2025-09-03] MEDS: ACETAMINOPHEN 650 MG PO ONE (07:42)
[2025-09-03 07:45] VITALS: BP 142/73; O2SAT 96
[2025-09-03] MEDS: ABATACEPT 750 MG OVER 30 MINUTES IV ONE (08:20)
[2025-09-03 08:50] VITALS: BP 153/84; O2SAT 98
== END 2025-09-03 08:55 | disposition home or self-care (01) ==
LOC: M INFU 07:28
PROVIDERS: ATTEND Internal Medicine Rheumatology
DX: M05.79 Rheumatoid arthritis with rheumatoid factor of multiple sites without organ or systems involvement (principal); Z88.2 Allergy status to sulfonamides
CPT/HCPCS: 96365; J0129

== ENCOUNTER → 2025-09-22 | Outpatient (CLI) | payer BC ==
[~2025-09-22] MED LIST changes: -ALBUTEROL SULFATE 2.5 MG/0.5 ML INH CONCENTRATE NEB SOLN INH PRN; -EPINEPHrine INJ 1 MG/ML 1ML AMP IM PRN; -diphenhydrAMINE 50 MG/ML VIAL IV PRN
[2025-09-22 09:25] LABS: BASO # 0.1 10^3/uL (0.0-0.2); BASO % 1.0 % (0.0-1.0); EOS # 0.2 10^3/uL (0.0-0.5); EOS % 4.2 % (0.0-3.0); LYMPH # 1.2 10^3/uL (1.5-5.0); LYMPH % 23.6 % (24.0-44.0); MONO # 0.5 10^3/uL (0.0-0.8); MONO % 10.3 % (2.0-8.0); NEUTROPHILS # 3.2 10^3/uL (1.5-8.5); NEUTROPHILS % 60.5 % (36.0-66.0); PLATELET COUNT, AUTOMATED 239 10^3/uL (150-450)
[2025-09-22 09:38] LABS: ALT/SGPT 60 U/L (7.0-40); AST/SGOT 43 U/L (<34); C REACTIVE PROTEIN QUANTITATIV < 0.50 MG/DL (<1.0); CALCIUM LEVEL 9.3 MG/DL (8.5-10.1); CARBON DIOXIDE LEVEL 27 MMOL/L (20-31); CHLORIDE LEVEL 104 MMOL/L (98-107); CREATININE FOR GFR 0.62 MG/DL (0.55-1.30); GLOMERULAR FILTRATION RATE > 90.0 (>51); POTASSIUM SERUM 4.2 MMOL/L (3.5-5.1); SODIUM LEVEL 141 MMOL/L (136-145)
== END ==
LOC: M LAB 08:26
PROVIDERS: ATTEND Internal Medicine Rheumatology
DX: M05.79 Rheumatoid arthritis with rheumatoid factor of multiple sites without organ or systems involvement (principal); E55.9 Vitamin D deficiency, unspecified; Z79.899 Other long term (current) drug therapy; L40.8 Other psoriasis; L65.9 Nonscarring hair loss, unspecified; M15.9 Polyosteoarthritis, unspecified; R79.89 Other specified abnormal findings of blood chemistry

== ENCOUNTER 2025-10-06 11:26 | Outpatient (CLI) | payer BC ==
[~2025-10-06] VITALS: Ht 163.8 cm; Wt 96.3 kg
[~2025-10-06 11:26] MED LIST changes: +ALBUTEROL SULFATE 2.5 MG/0.5 ML INH CONCENTRATE NEB SOLN INH PRN; +EPINEPHrine INJ 1 MG/ML 1ML AMP IM PRN; +diphenhydrAMINE 50 MG/ML VIAL IV PRN
[2025-10-06] MEDS: ACETAMINOPHEN 650 MG PO ONE (11:45)
[2025-10-06] MEDS: ABATACEPT 750 MG OVER 30 MINUTES IV ONE (12:22)
[2025-10-06 12:50] VITALS: BP 157/93; O2SAT 100
== END 2025-10-06 13:00 | disposition home or self-care (01) ==
LOC: M INFU 11:26
PROVIDERS: ATTEND Internal Medicine Rheumatology
DX: M05.79 Rheumatoid arthritis with rheumatoid factor of multiple sites without organ or systems involvement (principal); Z88.2 Allergy status to sulfonamides
CPT/HCPCS: 96365; J0129

== ENCOUNTER 2025-11-03 12:00 | Outpatient (CLI) | payer BC ==
[~2025-11-03] VITALS: Ht 162.6 cm; Wt 96.3 kg
[2025-11-03] MEDS: ACETAMINOPHEN 650 MG PO ONE (12:10)
[2025-11-03] MEDS: ABATACEPT 750 MG OVER 30 MINUTES IV ONE (12:34)
[2025-11-03 12:41] VITALS: BP 157/85; O2SAT 99
[2025-11-03 13:10] VITALS: BP 148/86; O2SAT 100
== END 2025-11-03 13:10 ==
LOC: M INFU 12:00
PROVIDERS: ATTEND Internal Medicine Rheumatology
DX: M05.79 Rheumatoid arthritis with rheumatoid factor of multiple sites without organ or systems involvement (principal); Z88.2 Allergy status to sulfonamides
CPT/HCPCS: 96365; J0129